=== PATIENT | female | born 1935 | race Caucasian/White ===

== ENCOUNTER 2017-08-01 21:44 | Emergency (ER) | payer MEDICARE, OTHER ==
[2017-08-01 23:25] LABS: Troponin I Less than 0.010 ng/mL (< 0.028)
== END 2017-08-02 01:20 | disposition home or self-care (01) ==
LOC: ERS 21:44
DX: I10 Essential (primary) hypertension (principal); I48.0 Paroxysmal atrial fibrillation; J44.9 Chronic obstructive pulmonary disease, unspecified; E78.5 Hyperlipidemia, unspecified; F41.9 Anxiety disorder, unspecified; I25.2 Old myocardial infarction; Z79.52 Long term (current) use of systemic steroids; Z99.81 Dependence on supplemental oxygen
CPT/HCPCS: 36415; 83880; 93005

== ENCOUNTER 2017-10-08 14:21 | Inpatient (IN) | payer MEDICARE, OTHER ==
[2017-10-08 14:58] LABS: #Eosinphils 0.2 thou/uL (0.0-0.7); #Lymphocytes 0.7 thou/uL (1.20-3.40); #Monocytes 1.4 thou/uL (0.11-0.59); #Neutrophils 10.4 thou/uL (1.40-6.50); %Basophils 0.2 % (0.0-1.0); %Eosinophils 1.5 % (0.0-10.0); %Lymphocytes 5.6 % (21.0-51.0); %Monocytes 10.7 % (0.0-10.0); %Neutrophils 82.1 % (42.0-75.0); Hemoglobin 14.3 g/dL (12.0-16.0); Mean Corpuscular HGB CONC 31.9 g/dL (32.0-36.0); Mean Corpuscular Hemoglobin 32.6 pg (27.0-31.0); Mean Platelet Volume 7.4 fL (7.4-10.4); Platelet Count 308 thou/uL (130-400); RBC Distribution Width 11.6 % (11.5-14.5); Red Blood Cell (RBC) Count 4.37 mill/uL (4.20-5.40); White Blood Cell (WBC) Count 12.7 thou/uL (4.8-10.8)
[2017-10-08 15:04] LABS: INR-International Normal Ratio 1.1; PTT 38.9 SEC (22.9-36.1)
[2017-10-08] MEDS ORDERED: Dexamethasone 10 MG/ML VIAL ONE (15:05)
[2017-10-08] MEDS ORDERED: Albuterol Sulfate 2.5 mg/0.5 ml Neb ONE (15:07)
[2017-10-08 15:21] LABS: Actual Bicarbonate (HCO3a) 28.7 mEq/L (22-26); Base Excess (BEa) 1.5 mEq/L (0 (+/-) 2.5); CO2 Tension 56.5 mmHg (35.0-45.0); Calcium, Ionized 1.2 mmol/L (1.12-1.30); Hematocrit-ABG 41.9 % (36.0-47.0); Hemoglobin (Hb) 13.2 g/dL (12.0-16.0); O2 Tension (PaO2) 120.3 mmHg (80.0-100.0); pH, Arterial 7.32 (7.35-7.45)
[2017-10-08 15:21] LABS: ALT (SGPT) 20 U/L (8-55); AST (SGOT) 17 U/L (5-34); Albumin 4.3 g/dL (3.4-4.8); Alkaline Phosphatase 59 U/L (40-150); Anion Gap 9 mmol/L (10-20); BUN (Urea Nitrogen) 16 mg/dL (9.8-20.1); Bilirubin, Total 0.5 mg/dL (0.2-1.2); CK (CPK) 81 U/L (29-168); Calc. Creatinine Clearance 0 mL/min (70-130); Calcium 9.5 mg/dL (7.8-10.44); Carbon Dioxide 32 mmol/L (23-31); Chloride 101 mmol/L (98-107); Estimated GFR-MDRD 67; Globulin 2.8 g/dL (2.4-3.5); Glucose 113 mg/dL (83-110); Lipase 9 U/L (8-78); Protein, Total 7.1 g/dL (6.0-8.3); Sodium 138 mmol/L (136-145)
[2017-10-08 15:22] LABS: ALV-art Gradient 66.475 (0-20); Puncture Site RRA
[2017-10-08 15:24] LABS: CKMB 3.5 ng/mL (0-6.6); Troponin I Less than 0.010 ng/mL (< 0.028)
--- NOTE | 2017-10-08 15:29 | RAD ---
CHEST ONE VIEW: Comparison: 08-01-17 History: Dyspnea. FINDINGS: Portable upright chest. Normal cardiac silhouette. Slight elongation of the aorta. Pulmonary vessels and hilum are normal. Costophrenic angles are clear. Lungs are hyperinflated. Chronic changes are not ed. No consolidation or mass. Stable emphysematous changes in the lung apices with slight increased l ucency. There is no pneumothorax or osseous abnormality. IMPRESSION: Hyperinflation. COPD. Emphysema. No acute process. POS: H
[2017-10-08] MEDS ORDERED: Oseltamivir 75 MG CAP PO SCH (16:00)
[2017-10-08] MEDS ORDERED: Polyethylene Glycol 3350 17 GM Packet PO PRN (20:13)
[2017-10-08] MEDS ORDERED: Loratadine 10 MG TAB PO PRN (20:13)
[2017-10-08] MEDS ORDERED: Chloraseptic Spray 180 ml Bottle PO PRN (20:13)
[2017-10-08] MEDS ORDERED: cloNIDine 0.1 MG TAB PO PRN (20:13)
[2017-10-08] MEDS ORDERED: hydrALAZINE 20 MG/ML VIAL SLOW IVP PRN (20:13)
[2017-10-08] MEDS ORDERED: Nitroglycerin 0.4 MG TAB 1 EACH PO PRN (20:13)
[2017-10-08] MEDS ORDERED: Eucerin (Mineral Oil/Petrolatum,White) 30 gm Jar TOP PRN (20:13)
[2017-10-08] MEDS ORDERED: Diabetic Tussin 200 MG/10 ML UDCUP PO PRN (20:13)
[2017-10-08] MEDS ORDERED: cefTRIAXone\\ROCEPHIN 1 GM in Sodium Chloride 0.9% 100 ML IVPB SCH (20:15)
[2017-10-08] MEDS ORDERED: Senokot 8.6 MG TAB PO PRN (20:17)
--- NOTE | 2017-10-08 21:04 | HP ---
DATE OF ADMISSION: 10/08/2017 PRIMARY CARE PHYSICIAN: Dr. Hanks. PRIMARY ECMO SPECIALIST: Dr. Larkin. PRIMARY INTERNET DESIGNER: Dr. Castillo. CODE STATUS: FULL CODE. SURROGATE DECISION-MAKER: The patient makes her own decisions with the help of her family. CHIEF COMPLAINT: Shortness of breath. HISTORY OF PRESENT ILLNESS: The patient is an 81-year-old female with severe COPD, on home oxygen an d chronic steroids, hypertension and anxiety, who presented to the emergency room with worsening shor tness of breath over the last 2-3 days. She was last hospitalized at this facility in June for questionable non-ST elevation NH requiring cardiac catheterization. Over the last 2-3 days, the patient developed gradual worsening shortness of breath along with chest tightness and wheezing. She also noticed increased oxygen requirement. She felt generally weak, fat igued with some low grade fever. She denies any sick contact, palpitations, lightheadedness or synco pe. No recent immobilization, travel reported. In the emergency room, her initial vital signs showed temperature 98.8, respirations 36, pulse rate o f 103, blood pressure 182/80 with O2 saturation 86% on 4 liter nasal cannula. Her EKG showed normal sinus rhythm with some nonspecific ST-T wave changes. Her chest x-ray was negative for infiltrate. Her WBC count was 12.7 with left shift. Her influenza testing was positive for influenza A. Her ABG showed pH 7.32 with pCO2 of 56.5, pO2 of 120.3 with a bicarbonate of 28.7 on 4 liter nasal cannula. She received Tamiflu, albuterol, DuoNebs, Levaquin, Decadron with 1 liter IV fluids and magnesium in the emergency room. PAST MEDICAL HISTORY: 1. Severe chronic obstructive pulmonary disease, on home oxygen 3.5 liters and chronic steroids. 2. Paroxysmal atrial fibrillation, on anticoagulation and flecainide. 3. Hypertension. 4. Anxiety. 5. Coronary artery disease with last cardiac catheterization in June of this year, followed by Dr. Larkin. 6. Hyperlipidemia. 7. Former smoker. PAST SURGICAL HISTORY: 1. Cardiac catheterization. 2. Cardiac ablation x2. 3. Cholecystectomy. 4. Hemorrhoidectomy. 5. Arthroscopic surgery of the knee. ALLERGIES: The patient is allergic to CODEINE, LISINOPRIL, NIASPAN and SULFA. CURRENT HOME MEDICATIONS: To be verified with the patient. She does not remember all of her medicat ions. Family to bring accurate list. SOCIAL HISTORY: The patient is an ex-smoker. Denies any alcohol or drug use. FAMILY HISTORY: Significant for heart disease in her mother. REVIEW OF SYSTEMS: Cannot be reliably obtained from the patient due to current respiratory status. The patient is currently on noninvasive positive pressure ventilation. PHYSICAL EXAMINATION: GENERAL: An 81-year-old female in moderate respiratory distress. Currently, on noninvasive positive pressure ventilation. HEENT: Head atraumatic, normocephalic. Sclerae are anicteric. Dry mucous membranes. NECK: Supple, no JVD, no carotid bruit. LUNGS: Showed diffuse expiratory wheezing without significant rales. There was scattered rhonchi. Lungs were symmetrical. HEART: S1, S2 present. Regular rate and rhythm. No rubs or gallops appreciated. ABDOMEN: Soft, nontender, bowel sounds present. EXTREMITIES: Trace edema in bilateral lower extremities. SKIN: Warm and dry. LYMPH NODES: No palpable lymph nodes in the neck. PERIPHERAL VASCULAR: Radial pulses palpable bilaterally. MUSCULOSKELETAL: No joint swelling or tenderness. IMAGING: EKG by my review as discussed above. Chest x-ray by my review was negative for infiltrate. LABORATORY FINDINGS: 1. CBC showed WBC 12.7 with hemoglobin 14.3, hematocrit 44.7, platelet count of 308 with 82% neutrop hils. 2. ABGs as discussed above. 3. Chemistries showed sodium 138, potassium 4, chloride 101, bicarb 32, BUN of 16, creatinine 0.82. Lactic acid was 0.9. 4. Influenzae A testing was positive. IMPRESSION: 1. Acute on chronic hypoxic and hypercapnic respiratory failure. 2. Chronic obstructive pulmonary disease with chronic obstructive pulmonary disease exacerbation. 3. Sepsis secondary to influenza A. 4. Paroxysmal atrial fibrillation, on anticoagulation. 5. Hypertension. 6. Anxiety. 7. Coronary artery disease. 8. Hyperlipidemia. 9. Chronic kidney disease, stage 2. PLAN: The patient will be monitored in the IMCU. We will continue noninvasive positive pressure isabel tilation. Consult Dr. Castillo in a.m. Tamiflu. Resume home medications including anticoagulation onc e confirmed. Empiric antibiotics for COPD exacerbation. Nebulizer treatment. Continuous oxygen mon itoring. Isolation. Plan of care was discussed with the patient in detail. She stated understanding. The patient will require 2-3 days for stabilization.
[2017-10-08] MEDS: Apixaban 5 MG TAB PO SCH (21:22)
[2017-10-08] MEDS: Famotidine 20 MG TAB PO SCH (21:22)
[2017-10-08] MEDS: Atorvastatin Calcium 10 MG TAB PO SCH (21:22)
[2017-10-08] MEDS: Flecainide 50 MG TAB PO SCH (21:28)
[2017-10-08] MEDS: guaiFENesin ER 600 MG TAB PO SCH (21:30)
[2017-10-08] MEDS: Docusate 100 MG CAP PO SCH (21:30)
[2017-10-08] MEDS: Oseltamivir 75 MG CAP PO SCH (21:31)
[2017-10-08] MEDS: Doxycycline 100 MG CAP PO SCH (21:43)
[2017-10-08] MEDS: cefTRIAXone\\ROCEPHIN 1 GM, Syringe 0.4 ML in Sterile Water 9.6 ML SLOW IVP SCH (21:49)
[2017-10-08] MEDS: Acetaminophen 325 MG TAB PO PRN (22:05)
[2017-10-08] MEDS: ALPRAZolam 0.25 MG TAB PO PRN (22:15)
[2017-10-09 04:31] LABS: #Basophils 0.1 thou/uL (0.0-0.2); #Lymphocytes 0.2 thou/uL (1.20-3.40); #Monocytes 0.2 thou/uL (0.11-0.59); #Neutrophils 9.2 thou/uL (1.40-6.50); %Basophils 0.8 % (0.0-1.0); %Eosinophils 0.1 % (0.0-10.0); %Monocytes 2.4 % (0.0-10.0); %Neutrophils 94.7 % (42.0-75.0); Hemoglobin 12.8 g/dL (12.0-16.0); Mean Corpuscular HGB CONC 32.2 g/dL (32.0-36.0); Mean Corpuscular Hemoglobin 33.1 pg (27.0-31.0); Mean Platelet Volume 7.4 fL (7.4-10.4); Platelet Count 279 thou/uL (130-400); RBC Distribution Width 11.5 % (11.5-14.5); Red Blood Cell (RBC) Count 3.88 mill/uL (4.20-5.40); White Blood Cell (WBC) Count 9.8 thou/uL (4.8-10.8)
[2017-10-09 04:49] LABS: Albumin 3.8 g/dL (3.4-4.8); Anion Gap 13 mmol/L (10-20); BUN (Urea Nitrogen) 18 mg/dL (9.8-20.1); BUN/Creatinine Ratio 22.22; Calc. Creatinine Clearance 54 mL/min (70-130); Calcium 9.4 mg/dL (7.8-10.44); Carbon Dioxide 28 mmol/L (23-31); Chloride 103 mmol/L (98-107); Estimated GFR-MDRD 68; Glucose 139 mg/dL (83-110); Magnesium 2.3 mg/dL (1.6-2.6); Phosphorus 2.5 mg/dL (2.3-4.7); Potassium 4.6 mmol/L (3.5-5.1); Sodium 139 mmol/L (136-145)
[2017-10-09] MEDS: Doxycycline 100 MG CAP PO SCH ×2 (09:01→21:03)
[2017-10-09] MEDS: Flecainide 50 MG TAB PO SCH ×2 (09:01→21:03)
[2017-10-09] MEDS: Oseltamivir 75 MG CAP PO SCH ×2 (09:02→21:04)
[2017-10-09] MEDS: Calcium Carbonate + Vit D 1 TAB PO SCH ×2 (09:02→17:04)
[2017-10-09] MEDS: Acetaminophen 325 MG TAB PO PRN (09:02)
[2017-10-09] MEDS: Famotidine 20 MG TAB PO SCH ×2 (09:02→21:04)
[2017-10-09] MEDS: Furosemide 40 MG TAB PO SCH (09:03)
[2017-10-09] MEDS: guaiFENesin ER 600 MG TAB PO SCH ×2 (09:03→21:04)
[2017-10-09] MEDS: Docusate 100 MG CAP PO SCH ×2 (09:03→21:04)
[2017-10-09] MEDS: Aspirin 81 mg Enteric Coated Tablet PO SCH (09:03)
[2017-10-09] MEDS: Apixaban 5 MG TAB PO SCH ×2 (09:03→21:04)
[2017-10-09] MEDS: Saccharomyces boulardii 250 MG CAP PO SCH (09:03)
[2017-10-09] MEDS: Multivit, Therapeutic 1 TAB PO SCH (09:03)
[2017-10-09] MEDS: Spironolactone 25 MG TAB PO SCH (09:03)
[2017-10-09] MEDS: Mometasone/Formoterol 120 PUFF INHALER INH SCH ×2 (09:57→18:51)
--- NOTE | 2017-10-09 12:32 | CON ---
DATE OF CONSULTATION: 10/09/2017 CONSULTING PHYSICIAN: Dr. Stephenson REASON FOR CONSULTATION: Acute on chronic respiratory failure related to flu. HISTORY OF PRESENT ILLNESS: Ms. Sharp is an 81-year-old female who is normally followed by my partn er, Dr. Castillo, for pulmonary concerns. Yesterday, she developed fever and increasing shortness of br eath. She tried to treat it at home with her routine pulmonary medications, but failed and subsequen tly came to the emergency room for further evaluation. She was tried on BiPAP last night, that seeme d to help some, but she says that ultimately it caused her to become too dry and it is now off this m orning. She says she feels better this morning. PAST MEDICAL HISTORY: 1. Severe COPD requiring home O2. 2. Paroxysmal atrial fibrillation. 3. Hypertension. 4. Anxiety. 5. Coronary artery disease. 6. Hyperlipidemia. 7. Tobacco abuse in the past. PAST SURGICAL HISTORY: 1. Cardiac catheterization. 2. Cardiac ablation. 3. Cholecystectomy. 4. Hemorrhoidectomy. 5. Knee arthroscopy. ALLERGIES: CODEINE, LISINOPRIL, NIASPAN and SULFA.. MEDICATIONS PRIOR TO ADMISSION: Nitrostat as needed, prednisone 10 mg daily, Guaifenesin 600 mg q.12 h., Zantac 75 mg daily, DuoNeb every 4 hours, Advair Diskus 500/50 one inhalation twice daily, acetam inophen 600 q.4h. as needed, Xanax 0.25 mg b.i.d. as needed for anxiety, Tambocor 75 mg b.i.d., Lipit or 10 mg daily, aspirin 81 mg daily, Eliquis 5 mg b.i.d., verapamil 240 mg daily, Aldactone 25 mg gayathri ly, Furosemide 40 mg daily. SOCIAL HISTORY: Former smoker, does not currently smoke. Does not use alcohol, does not use illicit drugs. FAMILY MEDICAL HISTORY: Remarkable for coronary artery disease. REVIEW OF SYSTEMS: Ten point review of systems is negative with the following exceptions; she has [place] d fever. She has had shortness of breath. She has had chest congestion. She also has pleuritic vel st pain when she inhales. PHYSICAL EXAMINATION: VITAL SIGNS: Temperature 98.9, pulse 105, respirations 17, O2 sat 98% on 3.5 liters. GENERAL: She is awake and alert. She is in some mild respiratory distress. HEENT: Her pupils react. Sclerae are anicteric. Oropharynx clear. NECK: No JVD, no bruits. LUNGS: She has bilateral expiratory wheezing. CARDIOVASCULAR: S1, S2 regular, without murmur. ABDOMEN: Soft, nontender, nondistended. EXTREMITIES: Without clubbing, cyanosis, edema. NEUROLOGIC: She moves all 4 extremities. SKIN: Showed no obvious lesions. LABORATORY DATA: ABG - pH 7.32, pCO2 56, PO2 120, reviewed by myself personally. This is indicative of chronic respiratory acidosis. White blood cell count 9.8, hematocrit 39.8, platelet count 279. Sodium 139, potassium 4.6, chloride 103, CO2 28, BUN 18, creatinine 0.8, glucose 139. Chest x-ray re viewed personally by myself shows some mild cardiomegaly. She has flattening of both diaphragms. Sh e has no acute infiltrates. Flu test was positive for influenza A. ASSESSMENT: 1. Influenza. 1. Acute on chronic respiratory failure secondary to chronic obstructive pulmonary disease. 2. Chronic obstructive pulmonary disease with exacerbation. PLAN: 1. The patient will continue to require BiPAP intermittently. 2. Change Solu-Medrol to Decadron. 3. Continue nebulization treatments. 4. Continue Tamiflu. 5. Consider stopping antibiotics in the next day or two. Fifty percent of the time spent on this encounter was used to review medical records, to discuss with family at bedside.
[2017-10-09] MEDS: Dexamethasone 4 mg/ml Vial SLOW IVP SCH ×3 (14:22→23:50)
--- NOTE | 2017-10-09 16:39 | PDOC.PN ---
- Subjective Encounter Start Date: 10/09/17 Encounter Start Time: 15:00 Patient seen and examined. SOB/Wheezing +. No overnight events - Objective Resuscitation Status: Resuscitation Status FULL:Full Resuscitation MAR Reviewed: Yes Vital Signs & Weight: Vital Signs (12 hours) Temp Pulse Resp BP Pulse Ox 10/09/17 16:07 98.9 F 100 20 134/53 L 97 10/09/17 15:50 96 24 H 99 10/09/17 12:05 98.3 F 105 H 18 125/58 L 96 10/09/17 07:51 98.9 F 105 H 17 98 10/09/17 07:35 98.9 F 105 H 17 164/86 H 96 I&O: 10/08/17 10/09/17 10/10/17 06:59 06:59 06:59 Intake Total 590 Output Total 1020 Balance -430 Result Diagrams: 10/09/17 03:50 10/09/17 03:50 EKG Reviewed by me: Yes (Tele SR) Phys Exam - Physical Examination Constitutional: NAD Respiratory: no rales, no rhonchi, wheezing present Symmetrical Cardiovascular: RRR, no rub no heaves/pulsation Gastrointestinal: soft, non-tender, no distention, positive bowel sounds Musculoskeletal: no edema Neurological: moves all 4 limbs Psychiatric: A&O x 3 Dx/Plan - Plan plan discussed w/ family, continue antibiotics, respiratory therapy IMPRESSION: 1. Acute on chronic hypoxic and hypercapnic respiratory failure. s/p NIPPV 2. Chronic obstructive pulmonary disease with chronic obstructive pulmonary disease exacerbation. 3. Sepsis secondary to influenza A. - on Tamiflu 4. Paroxysmal atrial fibrillation, on anticoagulation. 5. Hypertension. 6. Anxiety. 7. Coronary artery disease. 8. Hyperlipidemia. 9. Chronic kidney disease, stage 2. PLAN: * On Dexamethasone * AM labs * Pulm input appreciated * Cont current home meds as below * Monitor in IMCU Review of Systems - Review of Systems Constitutional: negative: fever, chills, sweats, weakness, malaise Cardiovascular: negative: chest pain, palpitations, orthopnea, paroxysmal nocturnal dyspnea, edema, light headedness Gastrointestinal: negative: Nausea, Vomiting, Abdominal Pain, Diarrhea, Constipation, Melena, Hematochezia - Medications/Allergies Allergies/Adverse Reactions: Allergies Allergy/AdvReac Type Severity Reaction Status Date / Time codeine Allergy Unknown Verified 10/08/17 18:49 lisinopril Allergy Unknown Verified 10/08/17 18:49 niacin Allergy Unknown Verified 10/08/17 18:49 [From Niaspan Extended-Release] Sulfa (Sulfonamide Allergy Unknown Verified 10/08/17 18:49 Antibiotics) Medications: Current Medications Acetaminophen (Tylenol) 650 mg PO Q4H PRN PRN Reason: Headache/Fever or Pain Last Admin: 10/09/17 09:02 Dose: 650 mg Albuterol/Ipratropium (Duoneb) 3 ml NEB [id number] PRN PRN Reason: SOB &/or Wheezing Albuterol/Ipratropium (Duoneb) 3 ml NEB [id number] [facility] Last Admin: 10/09/17 15:50 Dose: 3 ml Alprazolam (Xanax) 0.25 mg PO BID PRN PRN Reason: Anxiety Last Admin: 10/08/17 22:15 Dose: 0.25 mg Apixaban (Eliquis) 5 mg PO BID [facility] Last Admin: 10/09/17 09:03 Dose: 5 mg Aspirin (Ecotrin) 81 mg PO DAILY [facility] Last Admin: 10/09/17 09:03 Dose: 81 mg Atorvastatin Calcium (Lipitor) 10 mg PO 2100 [facility] Last Admin: 10/08/17 21:22 Dose: 10 mg Calcium Carbonate (Tums) 1,000 mg PO Q4H PRN PRN Reason: Heartburn or Indigestion Calcium/Vitamin D (Caltrate 600 + Vit D) 1 tab PO BID-WM [facility] Last Admin: 10/09/17 09:02 Dose: 1 tab Clonidine (Catapres) 0.1 mg PO Q4H PRN PRN Reason: Systolic BP > 180/ DBP >100 Dexamethasone (Decadron) 4 mg SLOW IVP Q6HR [facility] Last Admin: 10/09/17 14:22 Dose: 4 mg Docusate Sodium (Colace) 100 mg PO BID [facility] Last Admin: 10/09/17 09:03 Dose: 100 mg Doxycycline Hyclate (Vibramycin) 100 mg PO BID [facility] Last Admin: 10/09/17 09:01 Dose: 100 mg Famotidine (Pepcid) 20 mg PO BID [facility] Last Admin: 10/09/17 09:02 Dose: 20 mg Flecainide Acetate (Tambocor) 75 mg PO BID [facility] Last Admin: 10/09/17 09:01 Dose: 75 mg Furosemide (Lasix) 40 mg PO DAILY [facility] Last Admin: 10/09/17 09:03 Dose: 40 mg Guaifenesin (Robitussin Sf) 200 mg PO Q4H PRN PRN Reason: Cough Guaifenesin (Mucinex) 600 mg PO Q12HR [facility] Last Admin: 10/09/17 09:03 Dose: 600 mg Hydralazine HCl (Apresoline) 10 mg SLOW IVP Q4H PRN PRN Reason: SBP Greater Than 180 Ceftriaxone Sodium 1 gm/ (Syringe 0.4 ml/ Sterile Water) 10 mls @ 120 mls/hr SLOW IVP 2100 [facility] Last Admin: 10/08/17 21:49 Dose: 10 mls Loratadine (Claritin) 10 mg PO DAILYPRN PRN PRN Reason: Sinus Symptoms Magnesium Hydroxide (Milk Of Magnesium) 30 ml PO DAILYPRN PRN PRN Reason: Constipation Mineral Oil/White Petrolatum (Eucerin Cream) 0 gm TOP BIDPRN PRN PRN Reason: Dry Skin Mometasone Furoate/Formoterol Fumar (Dulera 200 Mcg/5 Mcg Inhaler) 2 puff INH BID-RT [facility] Last Admin: 10/09/17 09:57 Dose: Not Given Multivitamins (Theragran) 1 tab PO DAILY [facility] Last Admin: 10/09/17 09:03 Dose: 1 tab Nitroglycerin (Nitrostat) 0.4 mg PO Q5MIN PRN PRN Reason: Chest Pain Oseltamivir Phosphate (Tamiflu) 75 mg PO BID [facility] Stop: 10/12/17 21:01 Last Admin: 10/09/17 09:02 Dose: 75 mg Phenol (Chloraseptic [place] 180 Ml Bot) 0 ml PO BIDPRN PRN PRN Reason: Sore Throat Polyethylene Glycol (Miralax) 17 gm PO DAILY PRN PRN Reason: Constipation Saccharomyces Boulardii (Florastor) 250 mg PO DAILY [facility] Last Admin: 10/09/17 09:03 Dose: 250 mg Senna (Senokot) 2 tab PO HSPRN PRN PRN Reason: Constipation Spironolactone (Aldactone) 25 mg PO DAILY [facility] Last Admin: 10/09/17 09:03 Dose: 25 mg Throat Lozenges (Cepastat Lozenges) 1 rizwana PO Q2H PRN PRN Reason: Sore Throat Verapamil HCl (Calan Sr) 240 mg PO HS [facility]
[2017-10-09] MEDS: ALPRAZolam 0.25 MG TAB PO PRN (19:08)
[2017-10-09] MEDS: Atorvastatin Calcium 10 MG TAB PO SCH (21:04)
[2017-10-09] MEDS: cefTRIAXone\\ROCEPHIN 1 GM, Syringe 0.4 ML in Sterile Water 9.6 ML SLOW IVP SCH (21:16)
[2017-10-10 04:48] LABS: Albumin 3.7 g/dL (3.4-4.8); Anion Gap 13 mmol/L (10-20); BUN (Urea Nitrogen) 22 mg/dL (9.8-20.1); BUN/Creatinine Ratio 25.29; Calc. Creatinine Clearance 51 mL/min (70-130); Calcium 9.4 mg/dL (7.8-10.44); Carbon Dioxide 26 mmol/L (23-31); Chloride 101 mmol/L (98-107); Estimated GFR-MDRD 62; Glucose 166 mg/dL (83-110); Magnesium 2.1 mg/dL (1.6-2.6); Phosphorus 3.1 mg/dL (2.3-4.7); Potassium 4.1 mmol/L (3.5-5.1); Sodium 136 mmol/L (136-145)
[2017-10-10 05:36] LABS: Band 16 % (5-11); Hemoglobin 13.2 g/dL (12.0-16.0); Lymphocytes 2 % (21-51); MDiff Complete? YES; Mean Corpuscular HGB CONC 32.1 g/dL (32.0-36.0); Mean Platelet Volume 7.6 fL (7.4-10.4); Monocytes 5 % (0-10); Neutrophil 75 % (42-75); PLT Morphology Comment Appears Adequate; Platelet Count 280 thou/uL (130-400); RBC Distribution Width 11.8 % (11.5-14.5); RBC Morphology Normal; Reactive Lymphocytes 2 % (0-10); Red Blood Cell (RBC) Count 4.01 mill/uL (4.20-5.40); White Blood Cell (WBC) Count 19.7 thou/uL (4.8-10.8)
[2017-10-10] MEDS: Dexamethasone 4 mg/ml Vial SLOW IVP SCH ×4 (05:44→20:49)
[2017-10-10] MEDS: Mometasone/Formoterol 120 PUFF INHALER INH SCH ×2 (07:54→20:12)
--- NOTE | 2017-10-10 08:31 | PDOC.PULCC ---
CCU Progress Note: Subj/Obj - Subjective Date: 10/10/17 Time: 08:29 Subjective: c/o SOB and congestion - ROS Review of Systems: cough, congestion - Objective Allergies/Adverse Reactions: Allergies Allergy/AdvReac Type Severity Reaction Status Date / Time codeine Allergy Unknown Verified 10/08/17 18:49 lisinopril Allergy Unknown Verified 10/08/17 18:49 niacin Allergy Unknown Verified 10/08/17 18:49 [From Niaspan Extended-Release] Sulfa (Sulfonamide Allergy Unknown Verified 10/08/17 18:49 Antibiotics) Medications: Current Medications Acetaminophen (Tylenol) 650 mg PO Q4H PRN PRN Reason: Headache/Fever or Pain Last Admin: 10/09/17 09:02 Dose: 650 mg Albuterol/Ipratropium (Duoneb) 3 ml NEB [id number] PRN PRN Reason: SOB &/or Wheezing Albuterol/Ipratropium (Duoneb) 3 ml NEB [id number] [facility] Last Admin: 10/10/17 07:53 Dose: Not Given Alprazolam (Xanax) 0.25 mg PO BID PRN PRN Reason: Anxiety Last Admin: 10/09/17 19:08 Dose: 0.25 mg Apixaban (Eliquis) 5 mg PO BID [facility] Last Admin: 10/09/17 21:04 Dose: 5 mg Aspirin (Ecotrin) 81 mg PO DAILY [facility] Last Admin: 10/09/17 09:03 Dose: 81 mg Atorvastatin Calcium (Lipitor) 10 mg PO 2100 [facility] Last Admin: 10/09/17 21:04 Dose: 10 mg Calcium Carbonate (Tums) 1,000 mg PO Q4H PRN PRN Reason: Heartburn or Indigestion Calcium/Vitamin D (Caltrate 600 + Vit D) 1 tab PO BID-[facility] Last Admin: 10/09/17 17:04 Dose: Not Given Clonidine (Catapres) 0.1 mg PO Q4H PRN PRN Reason: Systolic BP > 180/ DBP >100 Dexamethasone (Decadron) 2 mg SLOW IVP Q6HR [facility] Docusate Sodium (Colace) 100 mg PO BID [facility] Last Admin: 10/09/17 21:04 Dose: 100 mg Doxycycline Hyclate (Vibramycin) 100 mg PO BID [facility] Last Admin: 10/09/17 21:03 Dose: 100 mg Famotidine (Pepcid) 20 mg PO BID [facility] Last Admin: 10/09/17 21:04 Dose: 20 mg Flecainide Acetate (Tambocor) 75 mg PO BID [facility] Last Admin: 10/09/17 21:03 Dose: 75 mg Furosemide (Lasix) 40 mg PO DAILY [facility] Last Admin: 10/09/17 09:03 Dose: 40 mg Guaifenesin (Robitussin Sf) 200 mg PO Q4H PRN PRN Reason: Cough Guaifenesin (Mucinex) 600 mg PO Q12HR [facility] Last Admin: 10/09/17 21:04 Dose: 600 mg Hydralazine HCl (Apresoline) 10 mg SLOW IVP Q4H PRN PRN Reason: SBP Greater Than 180 Ceftriaxone Sodium 1 gm/ (Syringe 0.4 ml/ Sterile Water) 10 mls @ 120 mls/hr SLOW IVP 2100 [facility] Last Admin: 10/09/17 21:16 Dose: 10 mls Loratadine (Claritin) 10 mg PO DAILYPRN PRN PRN Reason: Sinus Symptoms Magnesium Hydroxide (Milk Of Magnesium) 30 ml PO DAILYPRN PRN PRN Reason: Constipation Mineral Oil/White Petrolatum (Eucerin Cream) 0 gm TOP BIDPRN PRN PRN Reason: Dry Skin Mometasone Furoate/Formoterol Fumar (Dulera 200 Mcg/5 Mcg Inhaler) 2 puff INH BID-RT [facility] Last Admin: 10/10/17 07:54 Dose: 2 puff Multivitamins (Theragran) 1 tab PO DAILY [facility] Last Admin: 10/09/17 09:03 Dose: 1 tab Nitroglycerin (Nitrostat) 0.4 mg PO Q5MIN PRN PRN Reason: Chest Pain Oseltamivir Phosphate (Tamiflu) 75 mg PO BID [facility] Stop: 10/12/17 21:01 Last Admin: 10/09/17 21:04 Dose: 75 mg Phenol (Chloraseptic [place] 180 Ml Bot) 0 ml PO BIDPRN PRN PRN Reason: Sore Throat Polyethylene Glycol (Miralax) 17 gm PO DAILY PRN PRN Reason: Constipation Saccharomyces Boulardii (Florastor) 250 mg PO DAILY [facility] Last Admin: 10/09/17 09:03 Dose: 250 mg Senna (Senokot) 2 tab PO HSPRN PRN PRN Reason: Constipation Spironolactone (Aldactone) 25 mg PO DAILY [facility] Last Admin: 10/09/17 09:03 Dose: 25 mg Throat Lozenges (Cepastat Lozenges) 1 rizwana PO Q2H PRN PRN Reason: Sore Throat Verapamil HCl (Calan Sr) 240 mg PO HS [facility] Last Admin: 10/09/17 21:03 Dose: 240 mg Vital Signs and I&O: Vital Signs Temp 96.6 F L 10/10/17 07:48 Pulse 71 10/10/17 07:48 Resp 20 10/10/17 07:48 BP 137/52 L 10/10/17 07:48 Pulse Ox 96 10/10/17 07:48 Intake & Output 10/09/17 10/10/17 10/10/17 18:59 06:59 18:59 Intake Total 660 Output Total 850 Balance -190 Weight 142 lb 9.6 oz Intake: Intake, IV Amount 60 Oral 600 Output: Urine 850 Other: Voiding Method Bedside Commode Bedside Commode Bedside Commode # Bowel Movements 1 Vent Setting: BiPAP Spontaneous Breathing Test: BIPAP/IPAP CCU Progress Note: Exam - Physical Exam HEENT: PERRLA, sclera anicteric Neck: no nodes, no JVD Cardiovascular: RRR Focused Respiratory Location: wheezes: Right, Left Gastrointestinal: soft, non-tender Musculoskeletal: no edema Neurological: non-focal, moves all 4 limbs Lymphatic: no nodes Psychiatric: normal affect, A&O x 3 Skin: no rash, normal turgor - Labs Result Diagrams: 10/10/17 03:42 10/10/17 03:42 Lab results: Laboratory Results - last 24 hr 10/10/17 10/10/17 03:42 03:42 WBC 19.7 H RBC 4.01 L Hgb 13.2 Hct 41.3 MCV 103.0 H MCH 33.0 H MCHC 32.1 RDW 11.8 Plt Count 280 MPV 7.6 Neutrophils % (Manual) 75 Band Neuts % (Manual) 16 H Lymphocytes % (Manual) 2 L Reactive Lymphs % 2 Monocytes % (Manual) 5 Plt Morphology Comment Appears Adequate RBC Morph Comment Normal Sodium 136 Potassium 4.1 Chloride 101 Carbon Dioxide 26 Anion Gap 13 BUN 22 H Creatinine 0.87 Estimated GFR (MDRD) 62 BUN/Creatinine Ratio 25.29 Glucose 166 H Calcium 9.4 Phosphorus 3.1 Magnesium 2.1 Albumin 3.7 CCU Progress Note: A/P - Problems (1) Acute respiratory failure with hypoxemia Current Visit: Yes Status: Acute Code(s): J96.01 - ACUTE RESPIRATORY FAILURE WITH HYPOXIA (2) Acute exacerbation of chronic obstructive pulmonary disease (COPD) Current Visit: No Status: Acute Code(s): J44.1 - CHRONIC OBSTRUCTIVE PULMONARY DISEASE W (ACUTE) EXACERBATION - Time Spent with Patient Time: 50% of the time was spent in coordination of care (as documented) at patient's floor/unit and/or counseling patient. - Plan Plan: Continue intermittent bipap Continue steroids Continue abx and nebs needs to stay in IMCU
[2017-10-10] MEDS: Flecainide 50 MG TAB PO SCH ×2 (09:45→20:50)
[2017-10-10] MEDS: Doxycycline 100 MG CAP PO SCH ×2 (09:45→20:52)
[2017-10-10] MEDS: Apixaban 5 MG TAB PO SCH ×2 (09:46→20:45)
[2017-10-10] MEDS: Multivit, Therapeutic 1 TAB PO SCH (09:46)
[2017-10-10] MEDS: Famotidine 20 MG TAB PO SCH ×2 (09:46→20:48)
[2017-10-10] MEDS: Saccharomyces boulardii 250 MG CAP PO SCH (09:46)
[2017-10-10] MEDS: Furosemide 40 MG TAB PO SCH (09:46)
[2017-10-10] MEDS: Spironolactone 25 MG TAB PO SCH (09:46)
[2017-10-10] MEDS: Docusate 100 MG CAP PO SCH ×2 (09:47→20:47)
[2017-10-10] MEDS: Oseltamivir 75 MG CAP PO SCH ×2 (09:47→20:52)
[2017-10-10] MEDS: guaiFENesin ER 600 MG TAB PO SCH ×2 (09:47→20:48)
[2017-10-10] MEDS: Calcium Carbonate + Vit D 1 TAB PO SCH ×2 (09:48→16:08)
[2017-10-10] MEDS: Aspirin 81 mg Enteric Coated Tablet PO SCH (09:48)
--- NOTE | 2017-10-10 10:39 | RAD ---
CHEST ONE VIEW: HISTORY: Dyspnea. COMPARISON: 10/08/2017 FINDINGS: The cardiac silhouette remains magnified by projection. The pulmonary vasculature is unremarkable. Scattered areas of parenchymal scarring are stable. The lungs remain hyperinflated. Calcification i s apparent within the aorta. surveillance system monitor leads overly the chest. IMPRESSION: Chronic obstructive pulmonary disease and other chronic type findings appear stable. POS: [facility]
[2017-10-10] MEDS: ALPRAZolam 0.25 MG TAB PO PRN ×2 (10:53→21:00)
[2017-10-10] MEDS: Atorvastatin Calcium 10 MG TAB PO SCH (20:48)
[2017-10-10] MEDS: cefTRIAXone\\ROCEPHIN 1 GM, Syringe 0.4 ML in Sterile Water 9.6 ML SLOW IVP SCH (20:48)
[2017-10-10] MEDS: Acetaminophen 325 MG TAB PO PRN (21:01)
--- NOTE | 2017-10-10 22:52 | PDOC.PN ---
- Subjective Encounter Start Date: 10/10/17 Encounter Start Time: 18:00 Patient seen and examined. SOB +. No overnight events - Objective Resuscitation Status: Resuscitation Status FULL:Full Resuscitation MAR Reviewed: Yes Vital Signs & Weight: Vital Signs (12 hours) Temp Pulse Resp BP Pulse Ox 10/10/17 22:20 82 22 H 136/45 L 100 10/10/17 22:04 82 20 92 L 10/10/17 20:00 97.8 F 85 20 138/45 L 96 10/10/17 18:25 77 18 97 10/10/17 15:39 96.4 F L 75 17 109/49 L 97 10/10/17 11:20 97.3 F L 92 20 148/49 H 95 Weight Weight 142 lb 9.6 oz I&O: 10/09/17 10/10/17 10/11/17 06:59 06:59 06:59 Intake Total 590 660 470 Output Total 1020 850 400 Balance -430 -190 70 Result Diagrams: 10/10/17 03:42 10/11/17 04:01 EKG Reviewed by me: Yes (Tele SR) Phys Exam - Physical Examination Pt in mild resp distress Respiratory: no rales, wheezing present Cardiovascular: RRR, no rub Gastrointestinal: soft, non-tender, positive bowel sounds Musculoskeletal: no edema Neurological: moves all 4 limbs Dx/Plan - Plan IMPRESSION: 1. Acute on chronic hypoxic and hypercapnic respiratory failure. on intermittent NIPPV 2. Chronic obstructive pulmonary disease with chronic obstructive pulmonary disease exacerbation. 3. Sepsis secondary to influenza A. - on Tamiflu 4. Paroxysmal atrial fibrillation, on anticoagulation. 5. Hypertension. 6. Anxiety. 7. Coronary artery disease. 8. Hyperlipidemia. 9. Chronic kidney disease, stage 2. PLAN: * Cont intermittent NIPPV per pulmonary * Cont Steroids/Tamiflu * AM labs * Cont current meds as below Review of Systems - Review of Systems Cardiovascular: negative: chest pain, palpitations, orthopnea, paroxysmal nocturnal dyspnea, edema, light headedness Gastrointestinal: negative: Nausea, Vomiting, Abdominal Pain, Diarrhea, Constipation, Melena, Hematochezia, Other - Medications/Allergies Allergies/Adverse Reactions: Allergies Allergy/AdvReac Type Severity Reaction Status Date / Time codeine Allergy Unknown Verified 10/08/17 18:49 lisinopril Allergy Unknown Verified 10/08/17 18:49 niacin Allergy Unknown Verified 10/08/17 18:49 [From Niaspan Extended-Release] Sulfa (Sulfonamide Allergy Unknown Verified 10/08/17 18:49 Antibiotics) Medications: Current Medications Acetaminophen (Tylenol) 650 mg PO Q4H PRN PRN Reason: Headache/Fever or Pain Last Admin: 10/10/17 21:01 Dose: 650 mg Albuterol/Ipratropium (Duoneb) 3 ml NEB [id number] PRN PRN Reason: SOB &/or Wheezing Albuterol/Ipratropium (Duoneb) 3 ml NEB [id number] [facility] Last Admin: 10/10/17 22:04 Dose: 3 ml Alprazolam (Xanax) 0.25 mg PO BID PRN PRN Reason: Anxiety Last Admin: 10/10/17 21:00 Dose: 0.25 mg Apixaban (Eliquis) 5 mg PO BID [facility] Last Admin: 10/10/17 20:45 Dose: 5 mg Aspirin (Ecotrin) 81 mg PO DAILY [facility] Last Admin: 10/10/17 09:48 Dose: 81 mg Atorvastatin Calcium (Lipitor) 10 mg PO 2100 [facility] Last Admin: 10/10/17 20:48 Dose: 10 mg Calcium Carbonate (Tums) 1,000 mg PO Q4H PRN PRN Reason: Heartburn or Indigestion Calcium/Vitamin D (Caltrate 600 + Vit D) 1 tab PO BID-[facility] Last Admin: 10/10/17 16:08 Dose: Not Given Clonidine (Catapres) 0.1 mg PO Q4H PRN PRN Reason: Systolic BP > 180/ DBP >100 Dexamethasone (Decadron) 2 mg SLOW IVP 0300,0900,1500,2100 [facility] Last Admin: 10/10/17 20:49 Dose: 2 mg Docusate Sodium (Colace) 100 mg PO BID [facility] Last Admin: 10/10/17 20:47 Dose: 100 mg Doxycycline Hyclate (Vibramycin) 100 mg PO BID [facility] Last Admin: 10/10/17 20:52 Dose: 100 mg Famotidine (Pepcid) 20 mg PO BID [facility] Last Admin: 10/10/17 20:48 Dose: 20 mg Flecainide Acetate (Tambocor) 75 mg PO BID [facility] Last Admin: 10/10/17 20:50 Dose: 75 mg Furosemide (Lasix) 40 mg PO DAILY [facility] Last Admin: 10/10/17 09:46 Dose: 40 mg Guaifenesin (Robitussin Sf) 200 mg PO Q4H PRN PRN Reason: Cough Guaifenesin (Mucinex) 600 mg PO Q12HR [facility] Last Admin: 10/10/17 20:48 Dose: 600 mg Hydralazine HCl (Apresoline) 10 mg SLOW IVP Q4H PRN PRN Reason: SBP Greater Than 180 Ceftriaxone Sodium 1 gm/ (Syringe 0.4 ml/ Sterile Water) 10 mls @ 120 mls/hr SLOW IVP 2100 [facility] Last Admin: 10/10/17 20:48 Dose: 10 mls Loratadine (Claritin) 10 mg PO DAILYPRN PRN PRN Reason: Sinus Symptoms Magnesium Hydroxide (Milk Of Magnesium) 30 ml PO DAILYPRN PRN PRN Reason: Constipation Mineral Oil/White Petrolatum (Eucerin Cream) 0 gm TOP BIDPRN PRN PRN Reason: Dry Skin Mometasone Furoate/Formoterol Fumar (Dulera 200 Mcg/5 Mcg Inhaler) 2 puff INH BID-RT [facility] Last Admin: 10/10/17 20:12 Dose: 2 puff Multivitamins (Theragran) 1 tab PO DAILY [facility] Last Admin: 10/10/17 09:46 Dose: 1 tab Nitroglycerin (Nitrostat) 0.4 mg PO Q5MIN PRN PRN Reason: Chest Pain Oseltamivir Phosphate (Tamiflu) 75 mg PO BID [facility] Stop: 10/12/17 21:01 Last Admin: 10/10/17 20:52 Dose: 75 mg Phenol (Chloraseptic [place] 180 Ml Bot) 0 ml PO BIDPRN PRN PRN Reason: Sore Throat Polyethylene Glycol (Miralax) 17 gm PO DAILY PRN PRN Reason: Constipation Saccharomyces Boulardii (Florastor) 250 mg PO DAILY [facility] Last Admin: 10/10/17 09:46 Dose: 250 mg Senna (Senokot) 2 tab PO HSPRN PRN PRN Reason: Constipation Spironolactone (Aldactone) 25 mg PO DAILY [facility] Last Admin: 10/10/17 09:46 Dose: 25 mg Throat Lozenges (Cepastat Lozenges) 1 rizwana PO Q2H PRN PRN Reason: Sore Throat Verapamil HCl (Calan Sr) 240 mg PO HS [facility] Last Admin: 10/10/17 20:53 Dose: 240 mg
[2017-10-11] MEDS: Dexamethasone 4 mg/ml Vial SLOW IVP SCH ×4 (03:50→21:29)
[2017-10-11 04:56] LABS: Albumin 3.5 g/dL (3.4-4.8); Anion Gap 14 mmol/L (10-20); BUN (Urea Nitrogen) 32 mg/dL (9.8-20.1); BUN/Creatinine Ratio 35.96; Calc. Creatinine Clearance 50 mL/min (70-130); Calcium 9.2 mg/dL (7.8-10.44); Carbon Dioxide 30 mmol/L (23-31); Chloride 98 mmol/L (98-107); Estimated GFR-MDRD 61; Glucose 134 mg/dL (83-110); Magnesium 2.1 mg/dL (1.6-2.6); Phosphorus 2.8 mg/dL (2.3-4.7); Sodium 138 mmol/L (136-145)
[2017-10-11] MEDS: Calcium Carbonate 500 MG ChewTAB PO PRN (05:46)
[2017-10-11] MEDS: Mometasone/Formoterol 120 PUFF INHALER INH SCH ×2 (07:59→18:29)
[2017-10-11] MEDS: Multivit, Therapeutic 1 TAB PO SCH (08:49)
[2017-10-11] MEDS: Famotidine 20 MG TAB PO SCH ×2 (08:49→21:30)
[2017-10-11] MEDS: guaiFENesin ER 600 MG TAB PO SCH ×2 (08:49→21:30)
[2017-10-11] MEDS: Flecainide 50 MG TAB PO SCH ×2 (08:49→21:33)
[2017-10-11] MEDS: Calcium Carbonate + Vit D 1 TAB PO SCH ×2 (08:49→16:57)
[2017-10-11] MEDS: Apixaban 5 MG TAB PO SCH ×2 (08:49→21:30)
[2017-10-11] MEDS: Doxycycline 100 MG CAP PO SCH ×2 (08:49→21:30)
[2017-10-11] MEDS: Docusate 100 MG CAP PO SCH ×2 (08:49→21:30)
[2017-10-11] MEDS: Oseltamivir 75 MG CAP PO SCH ×2 (08:50→21:30)
[2017-10-11] MEDS: Spironolactone 25 MG TAB PO SCH (08:50)
[2017-10-11] MEDS: Furosemide 40 MG TAB PO SCH (08:50)
[2017-10-11] MEDS: Saccharomyces boulardii 250 MG CAP PO SCH (08:51)
[2017-10-11] MEDS: Aspirin 81 mg Enteric Coated Tablet PO SCH (08:51)
[2017-10-11] MEDS ORDERED: Ondansetron ODT 4 MG TAB PO PRN (10:55)
[2017-10-11] MEDS ORDERED: Ondansetron HCl/PF 4 MG/2 ML Vial IVP PRN (10:55)
[2017-10-11] MEDS: ALPRAZolam 0.25 MG TAB PO PRN (11:00)
--- NOTE | 2017-10-11 12:06 | PRG ---
DATE OF SERVICE: 10/11/2017 SUBJECTIVE: The patient is still very upset that she does not feel better. She is coughing, very co ngested, at time nauseated. OBJECTIVE: VITAL SIGNS: Temperature 97.5, pulse 71, respirations 16, O2 sat 100% on 3 liters, blood pressure 13 5/52. HEENT: Unremarkable. NECK: No JVD. LUNGS: Coarse breath sounds. CARDIAC: S1 and S2 regular. ABDOMEN: Soft. EXTREMITIES: No edema. LABORATORY DATA: Sodium 130, potassium 4, chloride 98, CO2 30, BUN 29, creatinine 0.8, glucose 134. ASSESSMENT: 1. Influenza type A. 2. Acute respiratory failure, requiring intermittent BiPAP. 3. Underlying severe chronic obstructive pulmonary disease. PLAN: 1. Continue intermittent BiPAP. 2. Steroids, antibiotics. 3. She will need to stay in the [facility] until she feels better.
--- NOTE | 2017-10-11 20:12 | PDOC.PN ---
- Subjective Encounter Start Date: 10/11/17 Encounter Start Time: 12:30 Patient seen and examined. Nausea +. No overnight events - Objective Resuscitation Status: Resuscitation Status FULL:Full Resuscitation MAR Reviewed: Yes Vital Signs & Weight: Vital Signs (12 hours) Temp Pulse Resp BP Pulse Ox 10/11/17 18:28 89 20 96 10/11/17 15:42 78 20 98 10/11/17 15:32 96.8 F L 75 18 127/61 98 10/11/17 11:00 97.6 F 73 22 H 144/73 H 100 Weight Weight 147 lb 1 oz I&O: 10/10/17 10/11/17 10/12/17 06:59 06:59 06:59 Intake Total 069 925 5918 Output Total 986 796 0610 Balance -190 30 -850 Result Diagrams: 10/10/17 03:42 10/11/17 04:01 Phys Exam - Physical Examination Constitutional: NAD Respiratory: no rales, wheezing present Scat rhonchi, Symmetrical Cardiovascular: RRR, no rub Gastrointestinal: soft, non-tender, positive bowel sounds Musculoskeletal: no edema Neurological: moves all 4 limbs Dx/Plan - Plan IMPRESSION: 1. Acute on chronic hypoxic and hypercapnic respiratory failure. s/p NIPPV 2. Chronic obstructive pulmonary disease with chronic obstructive pulmonary disease exacerbation. 3. Sepsis secondary to influenza A. - on Tamiflu 4. Paroxysmal atrial fibrillation, on anticoagulation. 5. Hypertension. 6. Anxiety. 7. Coronary artery disease. 8. Hyperlipidemia. 9. Chronic kidney disease, stage 2. PLAN: * Zofran PRN for nausea * Cont Steroids/Tamiflu * AM labs * Cont current meds as below Review of Systems - Review of Systems Cardiovascular: negative: chest pain, palpitations, orthopnea, paroxysmal nocturnal dyspnea, edema, light headedness, other Gastrointestinal: Nausea. negative: Vomiting, Abdominal Pain, Diarrhea, Constipation, Melena, Hematochezia - Medications/Allergies Allergies/Adverse Reactions: Allergies Allergy/AdvReac Type Severity Reaction Status Date / Time codeine Allergy Unknown Verified 10/08/17 18:49 lisinopril Allergy Unknown Verified 10/08/17 18:49 niacin Allergy Unknown Verified 10/08/17 18:49 [From Niaspan Extended-Release] Sulfa (Sulfonamide Allergy Unknown Verified 10/08/17 18:49 Antibiotics) Medications: Current Medications Acetaminophen (Tylenol) 650 mg PO Q4H PRN PRN Reason: Headache/Fever or Pain Last Admin: 10/10/17 21:01 Dose: 650 mg Albuterol/Ipratropium (Duoneb) 3 ml NEB [id number] PRN PRN Reason: SOB &/or Wheezing Albuterol/Ipratropium (Duoneb) 3 ml NEB [id number] Last Admin: 10/11/17 18:28 Dose: 3 ml Alprazolam (Xanax) 0.25 mg PO BID PRN PRN Reason: Anxiety Last Admin: 10/11/17 11:00 Dose: 0.25 mg Apixaban (Eliquis) 5 mg PO BID [facility] Last Admin: 10/11/17 08:49 Dose: 5 mg Aspirin (Ecotrin) 81 mg PO DAILY [facility] Last Admin: 10/11/17 08:51 Dose: 81 mg Atorvastatin Calcium (Lipitor) 10 mg PO 2100 [facility] Last Admin: 10/10/17 20:48 Dose: 10 mg Calcium Carbonate (Tums) 1,000 mg PO Q4H PRN PRN Reason: Heartburn or Indigestion Last Admin: 10/11/17 05:46 Dose: 1,000 mg Calcium/Vitamin D (Caltrate 600 + Vit D) 1 tab PO BID-[facility] Last Admin: 10/11/17 16:57 Dose: Not Given Clonidine (Catapres) 0.1 mg PO Q4H PRN PRN Reason: Systolic BP > 180/ DBP >100 Dexamethasone (Decadron) 2 mg SLOW IVP 0300,0900,1500,2100 [facility] Last Admin: 10/11/17 14:09 Dose: 2 mg Docusate Sodium (Colace) 100 mg PO BID [facility] Last Admin: 10/11/17 08:49 Dose: 100 mg Doxycycline Hyclate (Vibramycin) 100 mg PO BID [facility] Last Admin: 10/11/17 08:49 Dose: 100 mg Famotidine (Pepcid) 20 mg PO BID [facility] Last Admin: 10/11/17 08:49 Dose: 20 mg Flecainide Acetate (Tambocor) 75 mg PO BID [facility] Last Admin: 10/11/17 08:49 Dose: 75 mg Furosemide (Lasix) 40 mg PO DAILY [facility] Last Admin: 10/11/17 08:50 Dose: 40 mg Guaifenesin (Robitussin Sf) 200 mg PO Q4H PRN PRN Reason: Cough Guaifenesin (Mucinex) 600 mg PO Q12HR [facility] Last Admin: 10/11/17 08:49 Dose: 600 mg Hydralazine HCl (Apresoline) 10 mg SLOW IVP Q4H PRN PRN Reason: SBP Greater Than 180 Ceftriaxone Sodium 1 gm/ (Syringe 0.4 ml/ Sterile Water) 10 mls @ 120 mls/hr SLOW IVP 2100 [facility] Last Admin: 10/10/17 20:48 Dose: 10 mls Loratadine (Claritin) 10 mg PO DAILYPRN PRN PRN Reason: Sinus Symptoms Magnesium Hydroxide (Milk Of Magnesium) 30 ml PO DAILYPRN PRN PRN Reason: Constipation Mineral Oil/White Petrolatum (Eucerin Cream) 0 gm TOP BIDPRN PRN PRN Reason: Dry Skin Mometasone Furoate/Formoterol Fumar (Dulera 200 Mcg/5 Mcg Inhaler) 2 puff INH BID-[facility] Last Admin: 10/11/17 18:29 Dose: 2 puff Multivitamins (Theragran) 1 tab PO DAILY [facility] Last Admin: 10/11/17 08:49 Dose: 1 tab Nitroglycerin (Nitrostat) 0.4 mg PO Q5MIN PRN PRN Reason: Chest Pain Ondansetron HCl (Zofran Odt) 4 mg PO Q6H PRN PRN Reason: Nausea/Vomiting Ondansetron HCl (Zofran) 4 mg IVP Q6H PRN PRN Reason: Nausea/Vomiting Oseltamivir Phosphate (Tamiflu) 75 mg PO BID [facility] Stop: 10/12/17 21:01 Last Admin: 10/11/17 08:50 Dose: 75 mg Phenol (Chloraseptic [place] 180 Ml Bot) 0 ml PO BIDPRN PRN PRN Reason: Sore Throat Polyethylene Glycol (Miralax) 17 gm PO DAILY PRN PRN Reason: Constipation Saccharomyces Boulardii (Florastor) 250 mg PO DAILY [facility] Last Admin: 10/11/17 08:51 Dose: 250 mg Senna (Senokot) 2 tab PO HSPRN PRN PRN Reason: Constipation Spironolactone (Aldactone) 25 mg PO DAILY [facility] Last Admin: 10/11/17 08:50 Dose: 25 mg Throat Lozenges (Cepastat Lozenges) 1 rizwana PO Q2H PRN PRN Reason: Sore Throat Verapamil HCl (Calan Sr) 240 mg PO HS [facility] Last Admin: 10/10/17 20:53 Dose: 240 mg
[2017-10-11] MEDS: cefTRIAXone\\ROCEPHIN 1 GM, Syringe 0.4 ML in Sterile Water 9.6 ML SLOW IVP SCH (21:28)
[2017-10-11] MEDS: Atorvastatin Calcium 10 MG TAB PO SCH (21:30)
[2017-10-11] MEDS: Senokot S 8.6-50 MG TAB PO SCH (21:30)
[2017-10-12] MEDS: Dexamethasone 4 mg/ml Vial SLOW IVP SCH ×3 (02:03→20:54)
[2017-10-12 04:59] LABS: Albumin 3.5 g/dL (3.4-4.8); Anion Gap 12 mmol/L (10-20); BUN (Urea Nitrogen) 26 mg/dL (9.8-20.1); BUN/Creatinine Ratio 30.23; Calc. Creatinine Clearance 51 mL/min (70-130); Calcium 9.3 mg/dL (7.8-10.44); Carbon Dioxide 31 mmol/L (23-31); Chloride 95 mmol/L (98-107); Estimated GFR-MDRD 63; Glucose 119 mg/dL (83-110); Phosphorus 3.2 mg/dL (2.3-4.7); Sodium 134 mmol/L (136-145)
[2017-10-12 05:10] LABS: Band 4 % (5-11); Lymphocytes 2 % (21-51); MDiff Complete? YES; Macrocytosis SLIGHT = 6-15 cells (100X) (0-5/hpf); Mean Corpuscular HGB CONC 32.7 g/dL (32.0-36.0); Mean Corpuscular Hemoglobin 33.2 pg (27.0-31.0); Mean Platelet Volume 7.4 fL (7.4-10.4); Monocytes 7 % (0-10); Neutrophil 87 % (42-75); Nucleated RBC 1 % (0); PLT Morphology Comment Appears Adequate; Platelet Count 295 thou/uL (130-400); RBC Distribution Width 11.4 % (11.5-14.5); Red Blood Cell (RBC) Count 3.91 mill/uL (4.20-5.40)
[2017-10-12] MEDS: Mometasone/Formoterol 120 PUFF INHALER INH SCH ×2 (08:00→20:52)
[2017-10-12] MEDS: Docusate 100 MG CAP PO SCH ×2 (08:21→20:54)
[2017-10-12] MEDS: Famotidine 20 MG TAB PO SCH ×2 (08:22→20:55)
[2017-10-12] MEDS: Flecainide 50 MG TAB PO SCH ×2 (08:22→20:55)
[2017-10-12] MEDS: Aspirin 81 mg Enteric Coated Tablet PO SCH (08:22)
[2017-10-12] MEDS: Calcium Carbonate + Vit D 1 TAB PO SCH ×2 (08:22→17:40)
[2017-10-12] MEDS: Apixaban 5 MG TAB PO SCH ×2 (08:23→20:53)
[2017-10-12] MEDS: Oseltamivir 75 MG CAP PO SCH (08:23)
[2017-10-12] MEDS: Multivit, Therapeutic 1 TAB PO SCH (08:23)
[2017-10-12] MEDS: Doxycycline 100 MG CAP PO SCH ×2 (08:23→20:55)
[2017-10-12] MEDS: Spironolactone 25 MG TAB PO SCH (08:24)
[2017-10-12] MEDS: guaiFENesin ER 600 MG TAB PO SCH ×2 (08:24→21:00)
[2017-10-12] MEDS: Furosemide 40 MG TAB PO SCH (08:24)
[2017-10-12] MEDS: Senokot S 8.6-50 MG TAB PO SCH ×2 (08:24→21:00)
[2017-10-12] MEDS: Saccharomyces boulardii 250 MG CAP PO SCH (08:24)
[2017-10-12] MEDS ORDERED: Sodium Chloride 0.65% Nasal 44 ML BOT EA NARE PRN (10:31)
[2017-10-12] MEDS ORDERED: Oxymetazoline HCl 0.05% ( 15 ML ) NASAL SCH (11:00)
--- NOTE | 2017-10-12 11:22 | PRG ---
DATE OF SERVICE: 10/12/2017 SUBJECTIVE: Ms. Sharp is complaining of nasal congestion. Overall, she feels better. She had not used the BiPAP yesterday. PHYSICAL EXAMINATION: VITAL SIGNS: On exam, temperature is 97.0, pulse 92, respirations 18, O2 sat 98% on 3 liters, blood pressure 167/64. HEENT: Unremarkable. NECK: No JVD. CHEST: Clear. No wheezing today. CARDIAC: S1 and S2 regular. ABDOMEN: Soft. EXTREMITIES: No edema. LABORATORY DATA: White blood cell count 17, hematocrit 39.6, platelet count 295. Sodium 134, potass ium 4, chloride 95, CO2 of 31, BUN 26, creatinine 0.8, glucose 119. ASSESSMENT: 1. Chronic obstructive pulmonary disease with exacerbation. 2. Influenza. 3. Status post acute respiratory failure, requiring BiPAP. 4. Nasal congestion. PLAN: 1. Transfer to the floor. 2. Saline nasal spray as needed. 3. Oxymetazoline nasal spray for the next 2 days. 4. Decrease steroid dose.
[2017-10-12] MEDS: Ondansetron HCl/PF 4 MG/2 ML Vial IVP PRN (16:34)
[2017-10-12] MEDS: ALPRAZolam 0.25 MG TAB PO PRN (20:50)
[2017-10-12] MEDS: Oxymetazoline HCl 0.05% ( 15 ML ) NASAL SCH (20:51)
[2017-10-12] MEDS: Atorvastatin Calcium 10 MG TAB PO SCH (20:53)
[2017-10-12] MEDS: Milk Of Magnesia 30 ML UDCUP PO PRN (21:18)
[2017-10-12] MEDS: cefTRIAXone\\ROCEPHIN 1 GM, Syringe 0.4 ML in Sterile Water 9.6 ML SLOW IVP SCH (21:19)
[2017-10-12] MEDS: Acetaminophen 325 MG TAB PO PRN (23:56)
[2017-10-13] MEDS: Mometasone/Formoterol 120 PUFF INHALER INH SCH ×2 (07:31→18:37)
--- NOTE | 2017-10-13 08:09 | PDOC.PN ---
- Subjective Encounter Start Date: 10/12/17 Encounter Start Time: 16:00 Patient is seen today, transfered from CCU, stable. No concerns noted exzcept for nausea. - Objective Resuscitation Status: Resuscitation Status FULL:Full Resuscitation MAR Reviewed: Yes Vital Signs & Weight: Vital Signs (12 hours) Temp Pulse Resp BP BP Pulse Ox 10/13/17 07:31 70 16 10/13/17 03:41 97.5 F L 67 18 147/74 H 98 10/13/17 02:39 78 16 98 10/12/17 23:43 97.8 F 75 20 151/70 H 98 10/12/17 23:31 90 16 96 10/12/17 21:18 142/111 H 10/12/17 20:52 98.0 F 90 18 96 10/12/17 20:41 98.0 F 90 18 184/75 H 96 Weight Weight 144 lb 11.2 oz I&O: 10/12/17 10/13/17 10/14/17 06:59 06:59 06:59 Intake Total 1920 1390 Output Total 2800 2 Balance -880 1388 Result Diagrams: 10/12/17 04:26 10/12/17 04:26 Phys Exam - Physical Examination HEENT: PERRLA, moist MMs Neck: no nodes, no JVD Respiratory: no rales, wheezing present Cardiovascular: RRR, no significant murmur Gastrointestinal: soft, non-tender Musculoskeletal: no edema, pulses present Dx/Plan - Plan cont current plan of care, continue antibiotics, PT/OT, respiratory therapy, incentive spirometry, DVT proph w/lovenox * IMPRESSION: 1. Acute on chronic hypoxic and hypercapnic respiratory failure. 2. Chronic obstructive pulmonary disease with chronic obstructive pulmonary disease exacerbation. 3. Sepsis secondary to influenza A. - on Tamiflu 4. Paroxysmal atrial fibrillation, on anticoagulation. 5. Hypertension. 6. Anxiety. 7. Coronary artery disease. 8. Hyperlipidemia. 9. Chronic kidney disease, stage 2. PLAN: Continue on nasal canula, continue on IV steroids. Zofran PRN for nausea Cont IV antibiotics/Tamiflu AM labs Cont current meds as below. - Discharge Day Encounter end time: 16:30 Review of Systems - Review of Systems Eyes: negative: Pain, Vision Change, Conjunctivae Inflammation, Eyelid Inflammation, Redness, Other ENT: negative: Ear Pain, Ear Discharge, Nose Pain, Nose Discharge, Nose Congestion, Mouth Pain, Mouth Swelling, Throat Pain, Throat Swelling, Other Respiratory: negative: Cough, Dry, Shortness of Breath, Hemoptysis, SOB with Excertion, Pleuritic Pain, Sputum, Wheezing Cardiovascular: negative: chest pain, palpitations, orthopnea, paroxysmal nocturnal dyspnea, edema, light headedness, other Gastrointestinal: Nausea, Vomiting. negative: Abdominal Pain, Diarrhea, Constipation, Melena, Hematochezia, Other Genitourinary: negative: Dysuria, Frequency, Incontinence, Hematuria, Retention , Other Musculoskeletal: negative: Neck Pain, Shoulder Pain, Arm Pain, Back Pain, Hand Pain, Leg Pain, Foot Pain, Other Skin: negative: Rash, Lesions, Jamaal, Bruising, Other - Medications/Allergies Allergies/Adverse Reactions: Allergies Allergy/AdvReac Type Severity Reaction Status Date / Time codeine Allergy Unknown Verified 10/08/17 18:49 lisinopril Allergy Unknown Verified 10/08/17 18:49 niacin Allergy Unknown Verified 10/08/17 18:49 [From Niaspan Extended-Release] Sulfa (Sulfonamide Allergy Unknown Verified 10/08/17 18:49 Antibiotics) Medications: Current Medications Acetaminophen (Tylenol) 650 mg PO Q4H PRN PRN Reason: Headache/Fever or Pain Last Admin: 10/12/17 23:56 Dose: 650 mg Albuterol/Ipratropium (Duoneb) 3 ml NEB [id number] PRN PRN Reason: SOB &/or Wheezing Albuterol/Ipratropium (Duoneb) 3 ml NEB [id number] [facility] Last Admin: 10/13/17 07:31 Dose: 3 ml Alprazolam (Xanax) 0.25 mg PO BID PRN PRN Reason: Anxiety Last Admin: 10/12/17 20:50 Dose: 0.25 mg Apixaban (Eliquis) 5 mg PO BID [facility] Last Admin: 10/12/17 20:53 Dose: 5 mg Aspirin (Ecotrin) 81 mg PO DAILY [facility] Last Admin: 10/12/17 08:22 Dose: 81 mg Atorvastatin Calcium (Lipitor) 10 mg PO 2100 [facility] Last Admin: 10/12/17 20:53 Dose: 10 mg Calcium Carbonate (Tums) 1,000 mg PO Q4H PRN PRN Reason: Heartburn or Indigestion Last Admin: 10/11/17 05:46 Dose: 1,000 mg Calcium/Vitamin D (Caltrate 600 + Vit D) 1 tab PO BID-[facility] Last Admin: 10/12/17 17:40 Dose: Not Given Clonidine (Catapres) 0.1 mg PO Q4H PRN PRN Reason: Systolic BP > 180/ DBP >100 Last Admin: 10/12/17 21:18 Dose: 0.1 mg Dexamethasone (Decadron) 2 mg SLOW IVP BID [facility] Last Admin: 10/12/17 20:54 Dose: 2 mg Docusate Sodium (Colace) 100 mg PO BID [facility] Last Admin: 10/12/17 20:54 Dose: 100 mg Doxycycline Hyclate (Vibramycin) 100 mg PO BID [facility] Last Admin: 10/12/17 20:55 Dose: 100 mg Famotidine (Pepcid) 20 mg PO BID [facility] Last Admin: 10/12/17 20:55 Dose: 20 mg Flecainide Acetate (Tambocor) 75 mg PO BID [facility] Last Admin: 10/12/17 20:55 Dose: 75 mg Furosemide (Lasix) 40 mg PO DAILY [facility] Last Admin: 10/12/17 08:24 Dose: 40 mg Guaifenesin (Robitussin Sf) 200 mg PO Q4H PRN PRN Reason: Cough Guaifenesin (Mucinex) 600 mg PO Q12HR [facility] Last Admin: 10/12/17 21:00 Dose: 600 mg Hydralazine HCl (Apresoline) 10 mg SLOW IVP Q4H PRN PRN Reason: SBP Greater Than 180 Ceftriaxone Sodium 1 gm/ (Syringe 0.4 ml/ Sterile Water) 10 mls @ 120 mls/hr SLOW IVP 2100 [facility] Last Admin: 10/12/17 21:19 Dose: 10 mls Loratadine (Claritin) 10 mg PO DAILYPRN PRN PRN Reason: Sinus Symptoms Magnesium Hydroxide (Milk Of Magnesium) 30 ml PO DAILYPRN PRN PRN Reason: Constipation Last Admin: 10/12/17 21:18 Dose: 30 ml Mineral Oil/White Petrolatum (Eucerin Cream) 0 gm TOP BIDPRN PRN PRN Reason: Dry Skin Mometasone Furoate/Formoterol Fumar (Dulera 200 Mcg/5 Mcg Inhaler) 2 puff INH BID-RT [facility] Last Admin: 10/13/17 07:31 Dose: 2 puff Multivitamins (Theragran) 1 tab PO DAILY [facility] Last Admin: 10/12/17 08:23 Dose: Not Given Nitroglycerin (Nitrostat) 0.4 mg PO Q5MIN PRN PRN Reason: Chest Pain Ondansetron HCl (Zofran) 4 mg IVP Q6H PRN PRN Reason: Nausea/Vomiting Last Admin: 10/12/17 16:34 Dose: 4 mg Oxymetazoline HCl (Oxymetazoline Hcl) 2 sprays NASAL BID [facility] Stop: 10/15/17 12:00 Last Admin: 10/12/17 20:51 Dose: 2 spr Phenol (Chloraseptic [place] 180 Ml Bot) 0 ml PO BIDPRN PRN PRN Reason: Sore Throat Polyethylene Glycol (Miralax) 17 gm PO DAILY PRN PRN Reason: Constipation Saccharomyces Boulardii (Florastor) 250 mg PO DAILY [facility] Last Admin: 10/12/17 08:24 Dose: 250 mg Senna (Senokot) 2 tab PO HSPRN PRN PRN Reason: Constipation Senna/Docusate Sodium (Senokot S) 1 tab PO BID [facility] Last Admin: 10/12/17 21:00 Dose: 1 tab Sodium Chloride ([place] Nasal [place] 0.65%) 2 ml EA NARE Q4H PRN PRN Reason: Nasal Congestion Spironolactone (Aldactone) 25 mg PO DAILY [facility] Last Admin: 10/12/17 08:24 Dose: 25 mg Throat Lozenges (Cepastat Lozenges) 1 rizwana PO Q2H PRN PRN Reason: Sore Throat Verapamil HCl (Calan Sr) 240 mg PO HS [facility] Last Admin: 10/12/17 21:00 Dose: 240 mg
[2017-10-13 09:07] LABS: #Basophils 0.1 thou/uL (0.0-0.2); #Lymphocytes 0.9 thou/uL (1.20-3.40); #Monocytes 1.2 thou/uL (0.11-0.59); #Neutrophils 12.5 thou/uL (1.40-6.50); %Basophils 0.4 % (0.0-1.0); %Eosinophils 0.1 % (0.0-10.0); %Lymphocytes 5.8 % (21.0-51.0); %Monocytes 8.3 % (0.0-10.0); %Neutrophils 85.4 % (42.0-75.0); Hemoglobin 12.8 g/dL (12.0-16.0); Mean Corpuscular HGB CONC 32.6 g/dL (32.0-36.0); Mean Corpuscular Hemoglobin 32.9 pg (27.0-31.0); Mean Platelet Volume 7.3 fL (7.4-10.4); Platelet Count 270 thou/uL (130-400); RBC Distribution Width 11.3 % (11.5-14.5); Red Blood Cell (RBC) Count 3.89 mill/uL (4.20-5.40); White Blood Cell (WBC) Count 14.7 thou/uL (4.8-10.8)
[2017-10-13] MEDS: Ondansetron HCl/PF 4 MG/2 ML Vial IVP PRN (09:09)
[2017-10-13] MEDS: Dexamethasone 4 mg/ml Vial SLOW IVP SCH (09:12)
[2017-10-13 09:28] LABS: Anion Gap 12 mmol/L (10-20); BUN (Urea Nitrogen) 24 mg/dL (9.8-20.1); Calc. Creatinine Clearance 52 mL/min (70-130); Calcium 8.9 mg/dL (7.8-10.44); Carbon Dioxide 34 mmol/L (23-31); Chloride 92 mmol/L (98-107); Estimated GFR-MDRD 62; Glucose 105 mg/dL (83-110); Sodium 134 mmol/L (136-145)
[2017-10-13] MEDS: Apixaban 5 MG TAB PO SCH ×2 (10:36→21:34)
[2017-10-13] MEDS: Multivit, Therapeutic 1 TAB PO SCH (10:36)
[2017-10-13] MEDS: Saccharomyces boulardii 250 MG CAP PO SCH (10:36)
[2017-10-13] MEDS: Flecainide 50 MG TAB PO SCH ×2 (10:36→21:34)
[2017-10-13] MEDS: Spironolactone 25 MG TAB PO SCH (10:36)
[2017-10-13] MEDS: Furosemide 40 MG TAB PO SCH (10:37)
[2017-10-13] MEDS: Aspirin 81 mg Enteric Coated Tablet PO SCH (10:37)
[2017-10-13] MEDS: Senokot S 8.6-50 MG TAB PO SCH ×2 (10:37→21:34)
[2017-10-13] MEDS: guaiFENesin ER 600 MG TAB PO SCH ×2 (10:37→21:35)
[2017-10-13] MEDS: Calcium Carbonate + Vit D 1 TAB PO SCH ×2 (10:37→17:34)
[2017-10-13] MEDS: Docusate 100 MG CAP PO SCH ×2 (10:37→21:34)
[2017-10-13] MEDS: Doxycycline 100 MG CAP PO SCH ×2 (10:37→21:34)
[2017-10-13] MEDS: Famotidine 20 MG TAB PO SCH ×2 (10:37→21:34)
[2017-10-13] MEDS: Oxymetazoline HCl 0.05% ( 15 ML ) NASAL SCH ×2 (10:38→21:35)
[2017-10-13] MEDS: ALPRAZolam 0.25 MG TAB PO PRN (10:42)
--- NOTE | 2017-10-13 14:33 | PRG ---
DATE OF SERVICE: 10/13/2017 SUBJECTIVE: She feels better and no acute complaints. PHYSICAL EXAMINATION: VITAL SIGNS: Temperature 97.7, pulse 91, respirations 22, O2 sat 94%, blood pressure 154/69. HEENT: Unremarkable. NECK: No JVD. CHEST: Few faint wheezes. CARDIAC: S1 and S2 regular. ABDOMEN: Soft. EXTREMITIES: No edema. LABORATORY DATA: White blood cell count 14.7, hematocrit 39, platelet count 270. Sodium 134, potass ium 4, chloride 92, CO2 34, BUN 24, creatinine 0.8 and glucose 105. ASSESSMENT: 1. Stable chronic obstructive pulmonary disease with resolving exacerbation. 2. Influenza. 3. Status post respiratory failure. PLAN: Finish out antibiotics convert over to oral steroids. I would anticipate that she can be disc harged in the next day or two.
--- NOTE | 2017-10-13 14:39 | PDOC.PN ---
- Subjective Encounter Start Date: 10/13/17 Encounter Start Time: 11:00 Patient is seen today, her nausea is improved. She has persistant SOB, She lives alone, she uses 3 lit of NC at home. Pt is very wheezy. - Objective Resuscitation Status: Resuscitation Status FULL:Full Resuscitation MAR Reviewed: Yes Vital Signs & Weight: Vital Signs (12 hours) Temp Pulse Resp BP Pulse Ox 10/13/17 14:14 91 16 10/13/17 12:00 97.7 F 91 22 H 154/69 H 94 L 10/13/17 10:31 60 16 10/13/17 08:00 97.5 F L 61 20 122/55 L 96 10/13/17 07:31 70 16 10/13/17 03:41 97.5 F L 67 18 147/74 H 98 10/13/17 02:39 78 16 98 Weight Weight 144 lb 11.2 oz I&O: 10/12/17 10/13/17 10/14/17 06:59 06:59 06:59 Intake Total 1920 1390 240 Output Total 2800 2 Balance -880 1388 240 Result Diagrams: 10/13/17 08:55 10/13/17 08:55 Phys Exam - Physical Examination HEENT: PERRLA, moist MMs Neck: no nodes, no JVD Respiratory: wheezing present Cardiovascular: RRR, no significant murmur Gastrointestinal: soft, non-tender, no distention Musculoskeletal: no edema, pulses present Neurological: non-focal, normal sensation Psychiatric: normal affect, A&O x 3 Skin: no rash, normal turgor Dx/Plan (1) Acute exacerbation of chronic obstructive pulmonary disease (COPD) Code(s): J44.1 - CHRONIC OBSTRUCTIVE PULMONARY DISEASE W (ACUTE) EXACERBATION Status: Acute Comment: Continue Duonebs, Prednisone,Singulair (2) Constipation Code(s): K59.00 - CONSTIPATION, UNSPECIFIED Status: Acute Comment: ? Verapamil induced (3) NSTEMI (non-ST elevated myocardial infarction) Code(s): I21.4 - NON-ST ELEVATION (NSTEMI) MYOCARDIAL INFARCTION Status: Acute (4) Afib Code(s): I48.91 - UNSPECIFIED ATRIAL FIBRILLATION Status: Chronic Qualifiers: Comment: Hx of A-fib on current Eliquis and Tambocor, current sinus rhythm (5) GERD (gastroesophageal reflux disease) Code(s): K21.9 - GASTRO-ESOPHAGEAL REFLUX DISEASE WITHOUT ESOPHAGITIS Status: Chronic - Plan cont current plan of care, continue antibiotics, PT/OT, respiratory therapy, incentive spirometry, out of bed/ambulate, DVT proph w/SCDs * . Plan: Continue with IV steroids and transition to Po Steroids BID if OK with pulmonary. Complete [place] course. Continue on PO Doxycylin, Will D/c IV rocephin COntinue with NEb Willie Neb and Albuteral nebs. Pt is On Home oxygen. H/o Atrial fibrillation, Rate Controlled now. persistant Constipation, Will try lactulose 30mg po BID today one time dose. Will continue with Famotdine for GERD. DVT prophylaxis with Lovenox Encourgae pt to walk, Continue with PT/OT evalution for Rehab. - Discharge Day Encounter end time: 11:35 Review of Systems - Review of Systems Constitutional: weakness, malaise Eyes: negative: Pain, Vision Change, Conjunctivae Inflammation, Eyelid Inflammation, Redness, Other ENT: negative: Ear Pain, Ear Discharge, Nose Pain, Nose Discharge, Nose Congestion, Mouth Pain, Mouth Swelling, Throat Pain, Throat Swelling, Other Respiratory: Cough, Shortness of Breath, SOB with Excertion, Wheezing Cardiovascular: negative: chest pain, palpitations, orthopnea, paroxysmal nocturnal dyspnea, edema, light headedness, other Gastrointestinal: Constipation Genitourinary: negative: Dysuria, Frequency, Incontinence, Hematuria, Retention , Other Skin: negative: Rash, Lesions, Jamaal, Bruising, Other Neurological: Weakness. negative: Numbness, Incoordination, Change in Speech, Confusion, Seizures, Other - Medications/Allergies Allergies/Adverse Reactions: Allergies Allergy/AdvReac Type Severity Reaction Status Date / Time codeine Allergy Unknown Verified 10/08/17 18:49 lisinopril Allergy Unknown Verified 10/08/17 18:49 niacin Allergy Unknown Verified 10/08/17 18:49 [From Niaspan Extended-Release] Sulfa (Sulfonamide Allergy Unknown Verified 10/08/17 18:49 Antibiotics) Medications: Current Medications Acetaminophen (Tylenol) 650 mg PO Q4H PRN PRN Reason: Headache/Fever or Pain Last Admin: 10/12/17 23:56 Dose: 650 mg Albuterol/Ipratropium (Duoneb) 3 ml NEB [id number] PRN PRN Reason: SOB &/or Wheezing Albuterol/Ipratropium (Duoneb) 3 ml NEB [id number] [facility] Last Admin: 10/13/17 14:14 Dose: 3 ml Alprazolam (Xanax) 0.25 mg PO BID PRN PRN Reason: Anxiety Last Admin: 10/13/17 10:42 Dose: 0.25 mg Apixaban (Eliquis) 5 mg PO BID [facility] Last Admin: 10/13/17 10:36 Dose: 5 mg Aspirin (Ecotrin) 81 mg PO DAILY [facility] Last Admin: 10/13/17 10:37 Dose: 81 mg Atorvastatin Calcium (Lipitor) 10 mg PO 2100 [facility] Last Admin: 10/12/17 20:53 Dose: 10 mg Calcium Carbonate (Tums) 1,000 mg PO Q4H PRN PRN Reason: Heartburn or Indigestion Last Admin: 10/11/17 05:46 Dose: 1,000 mg Calcium/Vitamin D (Caltrate 600 + Vit D) 1 tab PO BID-[facility] Last Admin: 10/13/17 10:37 Dose: Not Given Clonidine (Catapres) 0.1 mg PO Q4H PRN PRN Reason: Systolic BP > 180/ DBP >100 Last Admin: 10/12/17 21:18 Dose: 0.1 mg Docusate Sodium (Colace) 100 mg PO BID [facility] Last Admin: 10/13/17 10:37 Dose: 100 mg Doxycycline Hyclate (Vibramycin) 100 mg PO BID [facility] Last Admin: 10/13/17 10:37 Dose: 100 mg Famotidine (Pepcid) 20 mg PO BID [facility] Last Admin: 10/13/17 10:37 Dose: 20 mg Flecainide Acetate (Tambocor) 75 mg PO BID [facility] Last Admin: 10/13/17 10:36 Dose: 75 mg Furosemide (Lasix) 40 mg PO DAILY [facility] Last Admin: 10/13/17 10:37 Dose: 40 mg Guaifenesin (Robitussin Sf) 200 mg PO Q4H PRN PRN Reason: Cough Guaifenesin (Mucinex) 600 mg PO Q12HR [facility] Last Admin: 10/13/17 10:37 Dose: 600 mg Hydralazine HCl (Apresoline) 10 mg SLOW IVP Q4H PRN PRN Reason: SBP Greater Than 180 Lactulose (Lactulose) 30 gm PO BID ONE Stop: 10/13/17 14:36 Loratadine (Claritin) 10 mg PO DAILYPRN PRN PRN Reason: Sinus Symptoms Magnesium Hydroxide (Milk Of Magnesium) 30 ml PO DAILYPRN PRN PRN Reason: Constipation Last Admin: 10/12/17 21:18 Dose: 30 ml Mineral Oil/White Petrolatum (Eucerin Cream) 0 gm TOP BIDPRN PRN PRN Reason: Dry Skin Mometasone Furoate/Formoterol Fumar (Dulera 200 Mcg/5 Mcg Inhaler) 2 puff INH BID-RT [facility] Last Admin: 10/13/17 07:31 Dose: 2 puff Multivitamins (Theragran) 1 tab PO DAILY [facility] Last Admin: 10/13/17 10:36 Dose: 1 tab Nitroglycerin (Nitrostat) 0.4 mg PO Q5MIN PRN PRN Reason: Chest Pain Ondansetron HCl (Zofran) 4 mg IVP Q6H PRN PRN Reason: Nausea/Vomiting Last Admin: 10/13/17 09:09 Dose: 4 mg Oxymetazoline HCl (Oxymetazoline Hcl) 2 sprays NASAL BID [facility] Stop: 10/15/17 12:00 Last Admin: 10/13/17 10:38 Dose: 2 spr Phenol (Chloraseptic [place] 180 Ml Bot) 0 ml PO BIDPRN PRN PRN Reason: Sore Throat Polyethylene Glycol (Miralax) 17 gm PO DAILY PRN PRN Reason: Constipation Prednisone (Prednisone) 20 mg PO BID [facility] Saccharomyces Boulardii (Florastor) 250 mg PO DAILY [facility] Last Admin: 10/13/17 10:36 Dose: 250 mg Senna (Senokot) 2 tab PO HSPRN PRN PRN Reason: Constipation Senna/Docusate Sodium (Senokot S) 1 tab PO BID [facility] Last Admin: 10/13/17 10:37 Dose: 1 tab Sodium Chloride ([place] Nasal [place] 0.65%) 2 ml EA NARE Q4H PRN PRN Reason: Nasal Congestion Spironolactone (Aldactone) 25 mg PO DAILY [facility] Last Admin: 10/13/17 10:36 Dose: 25 mg Throat Lozenges (Cepastat Lozenges) 1 rizwana PO Q2H PRN PRN Reason: Sore Throat Verapamil HCl (Calan Sr) 240 mg PO HS [facility] Last Admin: 10/12/17 21:00 Dose: 240 mg
[2017-10-13] MEDS: Atorvastatin Calcium 10 MG TAB PO SCH (21:34)
[2017-10-13] MEDS: predniSONE 20 MG TAB PO SCH (21:35)
[2017-10-14] MEDS: Acetaminophen 325 MG TAB PO PRN (00:11)
[2017-10-14] MEDS: Ondansetron HCl/PF 4 MG/2 ML Vial IVP PRN ×2 (00:11→08:02)
[2017-10-14 05:37] LABS: Hemoglobin 13.1 g/dL (12.0-16.0); Lymphocytes 4 % (21-51); MDiff Complete? YES; Mean Corpuscular HGB CONC 32.4 g/dL (32.0-36.0); Mean Corpuscular Hemoglobin 32.9 pg (27.0-31.0); Mean Platelet Volume 7.6 fL (7.4-10.4); Monocytes 3 % (0-10); Neutrophil 93 % (42-75); PLT Morphology Comment Appears Adequate; Platelet Count 253 thou/uL (130-400); RBC Distribution Width 11.3 % (11.5-14.5); Red Blood Cell (RBC) Count 3.99 mill/uL (4.20-5.40); White Blood Cell (WBC) Count 15.1 thou/uL (4.8-10.8)
[2017-10-14] MEDS: Mometasone/Formoterol 120 PUFF INHALER INH SCH ×2 (07:11→19:38)
[2017-10-14] MEDS: Calcium Carbonate + Vit D 1 TAB PO SCH ×2 (07:56→17:21)
[2017-10-14] MEDS: Apixaban 5 MG TAB PO SCH ×2 (07:59→21:03)
[2017-10-14] MEDS: predniSONE 20 MG TAB PO SCH (07:59)
[2017-10-14] MEDS: Docusate 100 MG CAP PO SCH ×2 (07:59→21:03)
[2017-10-14] MEDS: Furosemide 40 MG TAB PO SCH (07:59)
[2017-10-14] MEDS: Saccharomyces boulardii 250 MG CAP PO SCH (08:00)
[2017-10-14] MEDS: Famotidine 20 MG TAB PO SCH ×2 (08:00→21:05)
[2017-10-14] MEDS: Multivit, Therapeutic 1 TAB PO SCH (08:00)
[2017-10-14] MEDS: Senokot S 8.6-50 MG TAB PO SCH ×2 (08:00→21:03)
[2017-10-14] MEDS: Spironolactone 25 MG TAB PO SCH (08:00)
[2017-10-14] MEDS: Aspirin 81 mg Enteric Coated Tablet PO SCH (08:01)
[2017-10-14] MEDS: guaiFENesin ER 600 MG TAB PO SCH ×2 (08:01→21:04)
[2017-10-14] MEDS: Doxycycline 100 MG CAP PO SCH ×2 (08:01→21:05)
[2017-10-14] MEDS: Flecainide 50 MG TAB PO SCH ×2 (08:02→21:05)
[2017-10-14] MEDS: Oxymetazoline HCl 0.05% ( 15 ML ) NASAL SCH ×2 (08:09→21:04)
[2017-10-14] MEDS: ALPRAZolam 0.25 MG TAB PO PRN (12:08)
[2017-10-14] MEDS: Cepastat Lozenges 1 LOZ PO PRN (14:13)
--- NOTE | 2017-10-14 14:35 | PDOC.PN ---
- Subjective Encounter Start Date: 10/14/17 Encounter Start Time: 12:00 Italia is seen today, She feels she is feeling better but not ready to go home due to very cold weather and feels she will get sicker and wheeze if she goes home as she live alone. - Objective Resuscitation Status: Resuscitation Status FULL:Full Resuscitation MAR Reviewed: Yes Vital Signs & Weight: Vital Signs (12 hours) Temp Pulse Resp BP BP Pulse Ox 10/14/17 14:20 80 14 10/14/17 10:22 80 16 10/14/17 08:00 98.0 F 80 16 149/69 H 97 10/14/17 07:11 70 16 10/14/17 04:00 97.4 F L 62 20 121/63 99 Weight Weight 147 lb 8 oz I&O: 10/13/17 10/14/17 10/15/17 06:59 06:59 06:59 Intake Total 1390 1212 240 Output Total 2 Balance 1388 1212 240 Result Diagrams: 10/14/17 03:54 10/13/17 08:55 Phys Exam - Physical Examination HEENT: PERRLA, moist MMs Neck: no nodes, no JVD Respiratory: no rhonchi, wheezing present Cardiovascular: RRR, no significant murmur Gastrointestinal: soft, non-tender Musculoskeletal: no edema, pulses present Neurological: non-focal, normal sensation Lymphatic: no nodes Psychiatric: normal affect, A&O x 3 Dx/Plan (1) Acute exacerbation of chronic obstructive pulmonary disease (COPD) Code(s): J44.1 - CHRONIC OBSTRUCTIVE PULMONARY DISEASE W (ACUTE) EXACERBATION Status: Acute Comment: Continue Duonebs, Prednisone,Singulair (2) Constipation Code(s): K59.00 - CONSTIPATION, UNSPECIFIED Status: Resolved Comment: ? Verapamil induced (3) NSTEMI (non-ST elevated myocardial infarction) Code(s): I21.4 - NON-ST ELEVATION (NSTEMI) MYOCARDIAL INFARCTION Status: Resolved (4) Afib Code(s): I48.91 - UNSPECIFIED ATRIAL FIBRILLATION Status: Chronic Qualifiers: Comment: Hx of A-fib on current Eliquis and Tambocor, current sinus rhythm (5) GERD (gastroesophageal reflux disease) Code(s): K21.9 - GASTRO-ESOPHAGEAL REFLUX DISEASE WITHOUT ESOPHAGITIS Status: Chronic - Plan cont current plan of care, continue antibiotics, PT/OT, respiratory therapy, incentive spirometry, DVT proph w/lovenox * . Plan: Continue with PO steroids . Complete [place] course. Continue on PO Doxycylin, COntinue with NEb Willie Neb and Albuteral nebs. Pt is On Home oxygen. H/o Atrial fibrillation, Rate Controlled now. Will continue with Famotdine for GERD. DVT prophylaxis with Lovenox Encourgae pt to walk, Continue with PT/OT .Pt wants to go home in 1-2 days. - Discharge Day Encounter end time: 12:30 Review of Systems - Review of Systems Constitutional: weakness, malaise Eyes: negative: Pain, Vision Change, Conjunctivae Inflammation, Eyelid Inflammation, Redness, Other ENT: negative: Ear Pain, Ear Discharge, Nose Pain, Nose Discharge, Nose Congestion, Mouth Pain, Mouth Swelling, Throat Pain, Throat Swelling, Other Respiratory: Cough, Shortness of Breath, SOB with Excertion, Sputum, Wheezing Cardiovascular: negative: chest pain, palpitations, orthopnea, paroxysmal nocturnal dyspnea, edema, light headedness, other Gastrointestinal: negative: Nausea, Vomiting, Abdominal Pain, Diarrhea, Constipation, Melena, Hematochezia, Other Genitourinary: negative: Dysuria, Frequency, Incontinence, Hematuria, Retention , Other Musculoskeletal: negative: Neck Pain, Shoulder Pain, Arm Pain, Back Pain, Hand Pain, Leg Pain, Foot Pain, Other Skin: negative: Rash, Lesions, Jamaal, Bruising, Other Neurological: negative: Weakness, Numbness, Incoordination, Change in Speech, Confusion, Seizures, Other - Medications/Allergies Allergies/Adverse Reactions: Allergies Allergy/AdvReac Type Severity Reaction Status Date / Time codeine Allergy Unknown Verified 10/08/17 18:49 lisinopril Allergy Unknown Verified 10/08/17 18:49 niacin Allergy Unknown Verified 10/08/17 18:49 [From Niaspan Extended-Release] Sulfa (Sulfonamide Allergy Unknown Verified 10/08/17 18:49 Antibiotics) Medications: Current Medications Acetaminophen (Tylenol) 650 mg PO Q4H PRN PRN Reason: Headache/Fever or Pain Last Admin: 10/14/17 00:11 Dose: 650 mg Albuterol/Ipratropium (Duoneb) 3 ml NEB [id number] PRN PRN Reason: SOB &/or Wheezing Albuterol/Ipratropium (Duoneb) 3 ml NEB [id number] [facility] Last Admin: 10/14/17 14:20 Dose: 3 ml Alprazolam (Xanax) 0.25 mg PO BID PRN PRN Reason: Anxiety Last Admin: 10/14/17 12:08 Dose: 0.25 mg Apixaban (Eliquis) 5 mg PO BID [facility] Last Admin: 10/14/17 07:59 Dose: 5 mg Aspirin (Ecotrin) 81 mg PO DAILY [facility] Last Admin: 10/14/17 08:01 Dose: 81 mg Atorvastatin Calcium (Lipitor) 10 mg PO 2100 [facility] Last Admin: 10/13/17 21:34 Dose: 10 mg Calcium Carbonate (Tums) 1,000 mg PO Q4H PRN PRN Reason: Heartburn or Indigestion Last Admin: 10/11/17 05:46 Dose: 1,000 mg Calcium/Vitamin D (Caltrate 600 + Vit D) 1 tab PO BID-[facility] Last Admin: 10/14/17 07:56 Dose: Not Given Clonidine (Catapres) 0.1 mg PO Q4H PRN PRN Reason: Systolic BP > 180/ DBP >100 Last Admin: 10/12/17 21:18 Dose: 0.1 mg Docusate Sodium (Colace) 100 mg PO BID [facility] Last Admin: 10/14/17 07:59 Dose: 100 mg Doxycycline Hyclate (Vibramycin) 100 mg PO BID [facility] Last Admin: 10/14/17 08:01 Dose: 100 mg Famotidine (Pepcid) 20 mg PO BID [facility] Last Admin: 10/14/17 08:00 Dose: 20 mg Flecainide Acetate (Tambocor) 75 mg PO BID [facility] Last Admin: 10/14/17 08:02 Dose: 75 mg Furosemide (Lasix) 40 mg PO DAILY [facility] Last Admin: 10/14/17 07:59 Dose: 40 mg Guaifenesin (Robitussin Sf) 200 mg PO Q4H PRN PRN Reason: Cough Guaifenesin (Mucinex) 600 mg PO Q12HR [facility] Last Admin: 10/14/17 08:01 Dose: 600 mg Hydralazine HCl (Apresoline) 10 mg SLOW IVP Q4H PRN PRN Reason: SBP Greater Than 180 Loratadine (Claritin) 10 mg PO DAILYPRN PRN PRN Reason: Sinus Symptoms Magnesium Hydroxide (Milk Of Magnesium) 30 ml PO DAILYPRN PRN PRN Reason: Constipation Last Admin: 10/12/17 21:18 Dose: 30 ml Mineral Oil/White Petrolatum (Eucerin Cream) 0 gm TOP BIDPRN PRN PRN Reason: Dry Skin Mometasone Furoate/Formoterol Fumar (Dulera 200 Mcg/5 Mcg Inhaler) 2 puff INH BID-RT [facility] Last Admin: 10/14/17 07:11 Dose: 2 puff Multivitamins (Theragran) 1 tab PO DAILY [facility] Last Admin: 10/14/17 08:00 Dose: 1 tab Nitroglycerin (Nitrostat) 0.4 mg PO Q5MIN PRN PRN Reason: Chest Pain Ondansetron HCl (Zofran) 4 mg IVP Q6H PRN PRN Reason: Nausea/Vomiting Last Admin: 10/14/17 08:02 Dose: 4 mg Oxymetazoline HCl (Oxymetazoline Hcl) 2 sprays NASAL BID [facility] Stop: 10/15/17 12:00 Last Admin: 10/14/17 08:09 Dose: 2 spr Phenol (Chloraseptic [place] 180 Ml Bot) 0 ml PO BIDPRN PRN PRN Reason: Sore Throat Polyethylene Glycol (Miralax) 17 gm PO DAILY PRN PRN Reason: Constipation Prednisone (Prednisone) 20 mg PO BID [facility] Last Admin: 10/14/17 07:59 Dose: 20 mg Saccharomyces Boulardii (Florastor) 250 mg PO DAILY [facility] Last Admin: 10/14/17 08:00 Dose: 250 mg Senna (Senokot) 2 tab PO HSPRN PRN PRN Reason: Constipation Senna/Docusate Sodium (Senokot S) 1 tab PO BID [facility] Last Admin: 10/14/17 08:00 Dose: 1 tab Sodium Chloride ([place] Nasal [place] 0.65%) 2 ml EA NARE Q4H PRN PRN Reason: Nasal Congestion Spironolactone (Aldactone) 25 mg PO DAILY [facility] Last Admin: 10/14/17 08:00 Dose: 25 mg Throat Lozenges (Cepastat Lozenges) 1 rizwana PO Q2H PRN PRN Reason: Sore Throat Last Admin: 10/14/17 14:13 Dose: 1 rizwana Verapamil HCl (Calan Sr) 240 mg PO HS [id number] Last Admin: 10/13/17 21:35 Dose: 240 mg
[2017-10-14] MEDS ORDERED: Furosemide 20 MG/2 ML VIAL SLOW IVP SCH (19:15)
--- NOTE | 2017-10-14 19:25 | PRG ---
DATE OF SERVICE: 10/14/2017 SERVICE: Pulmonary Medicine. INTERVAL HISTORY: The patient is doing fine from a respiratory standpoint. She tells me that her br eathing is doing terrible that she did well during the daytime, but now she can feel that she is abou t to start tightening back up. She does have a cough and is bringing up some sputum which feels good . She indicates her legs are a little bit more swollen than typical. That being said, despite the w ay that she feels, she has absolutely no conversational dyspnea and is able to talk in very prolonged sentences without breaking them apart. She appears to be comfortable. PHYSICAL EXAMINATION: VITAL SIGNS: Afebrile, pulse 80, blood pressure 149/69, respirations 16, saturation 97% on 3 liters nasal cannula. GENERAL: The patient is awake, alert, in no apparent distress. LUNGS: Decreased air entry. There is a prolonged expiratory phase with polyphonic wheezing as well as crackles present. No rhonchi are appreciated. HEART: Normal rate, regular. ABDOMEN: Soft, nontender, nondistended. Bowel sounds are positive. MUSCULOSKELETAL: No cyanosis or clubbing. There is trace to 1+ pitting in the bilateral lower extre mities. NEUROLOGIC: Grossly nonfocal. LABORATORY DATA: WBC 15.1, hemoglobin 13.1, platelets 253,000. Neutrophil count is 93%. INR 1.1. A pH 7.32, pCO2 of 56, pO2 of 120 on 4 liters nasal cannula at that time. Basic metabolic profile is essentially unremarkable from yesterday. Blood cultures x2 are negative. Influenza A is positive, B is negative. IMAGING: Chest x-ray demonstrates no acute cardiopulmonary abnormality. There is evidence of hypere xpansion with flattening of the bilateral diaphragm. Cardiac silhouette appears to be roughly normal in size. There is slight rotation on the left anterior oblique. ASSESSMENT: 1. Acute on chronic hypoxic respiratory failure. 2. Chronic hypercapnic respiratory failure. 3. Chronic obstructive pulmonary disease with acute exacerbation, secondary to influenza A. PLAN: We will continue antibiotics, steroids, and nebulized medications. We will provide her with o ne dose of Lasix. Dr. Castillo will assume care in the morning.
[2017-10-14] MEDS: Atorvastatin Calcium 10 MG TAB PO SCH (21:03)
[2017-10-15] MEDS: ALPRAZolam 0.25 MG TAB PO PRN ×3 (01:05→23:38)
[2017-10-15] MEDS: Acetaminophen 325 MG TAB PO PRN ×2 (01:05→23:38)
[2017-10-15 05:17] LABS: #Eosinphils 0.1 thou/uL (0.0-0.7); #Monocytes 1.5 thou/uL (0.11-0.59); #Neutrophils 12.2 thou/uL (1.40-6.50); %Basophils 0.1 % (0.0-1.0); %Eosinophils 0.8 % (0.0-10.0); %Lymphocytes 12.4 % (21.0-51.0); %Monocytes 9.5 % (0.0-10.0); %Neutrophils 77.1 % (42.0-75.0); Hemoglobin 12.9 g/dL (12.0-16.0); Mean Corpuscular HGB CONC 32.7 g/dL (32.0-36.0); Mean Corpuscular Hemoglobin 32.8 pg (27.0-31.0); Platelet Count 264 thou/uL (130-400); RBC Distribution Width 11.4 % (11.5-14.5); Red Blood Cell (RBC) Count 3.92 mill/uL (4.20-5.40); White Blood Cell (WBC) Count 15.8 thou/uL (4.8-10.8)
[2017-10-15] MEDS: Mometasone/Formoterol 120 PUFF INHALER INH SCH ×2 (07:41→18:57)
[2017-10-15] MEDS: Calcium Carbonate + Vit D 1 TAB PO SCH ×2 (08:15→17:00)
[2017-10-15] MEDS: Famotidine 20 MG TAB PO SCH ×2 (08:15→21:00)
[2017-10-15] MEDS: Cepastat Lozenges 1 LOZ PO PRN (08:18)
[2017-10-15] MEDS ORDERED: predniSONE 20 MG TAB PO SCH (09:00)
[2017-10-15] MEDS: Doxycycline 100 MG CAP PO SCH ×2 (09:32→21:00)
[2017-10-15] MEDS: Flecainide 50 MG TAB PO SCH ×2 (09:32→21:00)
[2017-10-15] MEDS: Saccharomyces boulardii 250 MG CAP PO SCH (09:32)
[2017-10-15] MEDS: Aspirin 81 mg Enteric Coated Tablet PO SCH (09:33)
[2017-10-15] MEDS: Spironolactone 25 MG TAB PO SCH (09:33)
[2017-10-15] MEDS: Docusate 100 MG CAP PO SCH ×2 (09:34→21:00)
[2017-10-15] MEDS: Furosemide 40 MG TAB PO SCH (09:34)
[2017-10-15] MEDS: guaiFENesin ER 600 MG TAB PO SCH ×2 (09:34→21:00)
[2017-10-15] MEDS: Multivit, Therapeutic 1 TAB PO SCH (09:34)
[2017-10-15] MEDS: Apixaban 5 MG TAB PO SCH ×2 (09:34→20:59)
[2017-10-15] MEDS: Senokot S 8.6-50 MG TAB PO SCH ×2 (09:34→21:00)
[2017-10-15] MEDS: Oxymetazoline HCl 0.05% ( 15 ML ) NASAL SCH (09:35)
[2017-10-15] MEDS: Calcium Carbonate 500 MG ChewTAB PO PRN (11:40)
--- NOTE | 2017-10-15 16:04 | PDOC.PN ---
- Subjective Encounter Start Date: 10/15/17 Encounter Start Time: 14:30 Patient is seen today, alert and oriented. She continues to have SOB and Severe Wheezing. Has some blood from left nostril today. - Objective Resuscitation Status: Resuscitation Status FULL:Full Resuscitation MAR Reviewed: Yes Vital Signs & Weight: Vital Signs (12 hours) Temp Pulse Resp BP Pulse Ox 10/15/17 12:35 97.7 F 83 20 164/72 H 95 10/15/17 08:00 97.8 F 73 24 H 149/54 H 97 Weight Weight 148 lb 4.8 oz I&O: 10/14/17 10/15/17 10/16/17 06:59 06:59 06:59 Intake Total 1212 3170 480 Balance 1212 3170 480 Result Diagrams: 10/15/17 03:49 10/13/17 08:55 Radiology Reviewed by me: Yes Phys Exam - Physical Examination HEENT: PERRLA, moist MMs (Left nostril Epistaxis from nasal Canula) Neck: no nodes, no JVD Respiratory: wheezing present (Reduced air entry Both lungs) Cardiovascular: RRR, no significant murmur Gastrointestinal: soft, non-tender Musculoskeletal: no edema, pulses present Neurological: non-focal, normal sensation Lymphatic: no nodes Psychiatric: normal affect, A&O x 3 Dx/Plan (1) Acute exacerbation of chronic obstructive pulmonary disease (COPD) Code(s): J44.1 - CHRONIC OBSTRUCTIVE PULMONARY DISEASE W (ACUTE) EXACERBATION Status: Acute Comment: Continue Duonebs, Prednisone,Singulair (2) Constipation Code(s): K59.00 - CONSTIPATION, UNSPECIFIED Status: Resolved Comment: ? Verapamil induced (3) NSTEMI (non-ST elevated myocardial infarction) Code(s): I21.4 - NON-ST ELEVATION (NSTEMI) MYOCARDIAL INFARCTION Status: Resolved (4) Afib Code(s): I48.91 - UNSPECIFIED ATRIAL FIBRILLATION Status: Chronic Qualifiers: Comment: Hx of A-fib on current Eliquis and Tambocor, current sinus rhythm (5) GERD (gastroesophageal reflux disease) Code(s): K21.9 - GASTRO-ESOPHAGEAL REFLUX DISEASE WITHOUT ESOPHAGITIS Status: Chronic - Plan cont current plan of care, continue antibiotics, PT/OT, incentive spirometry, DVT proph w/SCDs * . Plan: Continue with PO steroids she is on prednisone 20mg po BID . Complete [place] course. Continue on PO Doxycylin, COntinue with NEb Willie Neb and Albuteral nebs. Pt is On Home oxygen. H/o Atrial fibrillation, Rate Controlled now. Will continue with Famotdine for GERD. DVT prophylaxis with Lovenox Encourgae pt to walk, Continue with PT/OT .Pt wants to go home in 1-2 days. - Discharge Day Encounter end time: 15:00 Review of Systems - Review of Systems Constitutional: weakness, malaise Eyes: negative: Pain, Vision Change, Conjunctivae Inflammation, Eyelid Inflammation, Redness, Other ENT: Nose Discharge Respiratory: Cough, Shortness of Breath, SOB with Excertion, Sputum, Wheezing. negative: Dry, Hemoptysis, Pleuritic Pain Cardiovascular: negative: chest pain, palpitations, orthopnea, paroxysmal nocturnal dyspnea, edema, light headedness, other Gastrointestinal: negative: Nausea, Vomiting, Abdominal Pain, Diarrhea, Constipation, Melena, Hematochezia, Other Genitourinary: negative: Dysuria, Frequency, Incontinence, Hematuria, Retention , Other Musculoskeletal: negative: Neck Pain, Shoulder Pain, Arm Pain, Back Pain, Hand Pain, Leg Pain, Foot Pain, Other Skin: negative: Rash, Lesions, Jamaal, Bruising, Other Neurological: negative: Weakness, Numbness, Incoordination, Change in Speech, Confusion, Seizures, Other - Medications/Allergies Allergies/Adverse Reactions: Allergies Allergy/AdvReac Type Severity Reaction Status Date / Time codeine Allergy Unknown Verified 10/08/17 18:49 lisinopril Allergy Unknown Verified 10/08/17 18:49 niacin Allergy Unknown Verified 10/08/17 18:49 [From Niaspan Extended-Release] Sulfa (Sulfonamide Allergy Unknown Verified 10/08/17 18:49 Antibiotics) Medications: Current Medications Acetaminophen (Tylenol) 650 mg PO Q4H PRN PRN Reason: Headache/Fever or Pain Last Admin: 10/15/17 01:05 Dose: 650 mg Albuterol/Ipratropium (Duoneb) 3 ml NEB [id number] PRN PRN Reason: SOB &/or Wheezing Albuterol/Ipratropium (Duoneb) 3 ml NEB [id number] Last Admin: 10/15/17 13:23 Dose: 3 ml Alprazolam (Xanax) 0.25 mg PO BID PRN PRN Reason: Anxiety Last Admin: 10/15/17 11:30 Dose: 0.25 mg Apixaban (Eliquis) 5 mg PO BID [facility] Last Admin: 10/15/17 09:34 Dose: 5 mg Aspirin (Ecotrin) 81 mg PO DAILY [facility] Last Admin: 10/15/17 09:33 Dose: 81 mg Atorvastatin Calcium (Lipitor) 10 mg PO 2100 [facility] Last Admin: 10/14/17 21:03 Dose: 10 mg Calcium Carbonate (Tums) 1,000 mg PO Q4H PRN PRN Reason: Heartburn or Indigestion Last Admin: 10/15/17 11:40 Dose: 1,000 mg Calcium/Vitamin D (Caltrate 600 + Vit D) 1 tab PO BID-[facility] Last Admin: 10/15/17 08:15 Dose: Not Given Clonidine (Catapres) 0.1 mg PO Q4H PRN PRN Reason: Systolic BP > 180/ DBP >100 Last Admin: 10/12/17 21:18 Dose: 0.1 mg Docusate Sodium (Colace) 100 mg PO BID [facility] Last Admin: 10/15/17 09:34 Dose: 100 mg Doxycycline Hyclate (Vibramycin) 100 mg PO BID [facility] Last Admin: 10/15/17 09:32 Dose: 100 mg Famotidine (Pepcid) 20 mg PO BID [facility] Last Admin: 10/15/17 08:15 Dose: 20 mg Flecainide Acetate (Tambocor) 75 mg PO BID [facility] Last Admin: 10/15/17 09:32 Dose: 75 mg Furosemide (Lasix) 40 mg PO DAILY [facility] Last Admin: 10/15/17 09:34 Dose: 40 mg Guaifenesin (Robitussin Sf) 200 mg PO Q4H PRN PRN Reason: Cough Guaifenesin (Mucinex) 600 mg PO Q12HR [facility] Last Admin: 10/15/17 09:34 Dose: 600 mg Hydralazine HCl (Apresoline) 10 mg SLOW IVP Q4H PRN PRN Reason: SBP Greater Than 180 Loratadine (Claritin) 10 mg PO DAILYPRN PRN PRN Reason: Sinus Symptoms Magnesium Hydroxide (Milk Of Magnesium) 30 ml PO DAILYPRN PRN PRN Reason: Constipation Last Admin: 10/12/17 21:18 Dose: 30 ml Methylprednisolone Sodium Succinate (Solu-Medrol) 40 mg IVP Q12HR [facility] Mineral Oil/White Petrolatum (Eucerin Cream) 0 gm TOP BIDPRN PRN PRN Reason: Dry Skin Mometasone Furoate/Formoterol Fumar (Dulera 200 Mcg/5 Mcg Inhaler) 2 puff INH BID-RT [facility] Last Admin: 10/15/17 07:41 Dose: 2 puff Multivitamins (Theragran) 1 tab PO DAILY [facility] Last Admin: 10/15/17 09:34 Dose: 1 tab Nitroglycerin (Nitrostat) 0.4 mg PO Q5MIN PRN PRN Reason: Chest Pain Ondansetron HCl (Zofran) 4 mg IVP Q6H PRN PRN Reason: Nausea/Vomiting Last Admin: 10/14/17 08:02 Dose: 4 mg Phenol (Chloraseptic [place] 180 Ml Bot) 0 ml PO BIDPRN PRN PRN Reason: Sore Throat Polyethylene Glycol (Miralax) 17 gm PO DAILY PRN PRN Reason: Constipation Saccharomyces Boulardii (Florastor) 250 mg PO DAILY [facility] Last Admin: 10/15/17 09:32 Dose: 250 mg Senna (Senokot) 2 tab PO HSPRN PRN PRN Reason: Constipation Senna/Docusate Sodium (Senokot S) 1 tab PO BID [facility] Last Admin: 10/15/17 09:34 Dose: 1 tab Sodium Chloride ([place] Nasal [place] 0.65%) 2 ml EA NARE Q4H PRN PRN Reason: Nasal Congestion Spironolactone (Aldactone) 25 mg PO DAILY [facility] Last Admin: 10/15/17 09:33 Dose: 25 mg Throat Lozenges (Cepastat Lozenges) 1 rizwana PO Q2H PRN PRN Reason: Sore Throat Last Admin: 10/15/17 08:18 Dose: 1 rizawna Verapamil HCl (Calan Sr) 240 mg PO [facility] Last Admin: 10/14/17 21:16 Dose: 240 mg
--- NOTE | 2017-10-15 17:26 | PRG ---
DATE OF SERVICE: 10/15/2016 SUBJECTIVE: Izabel Sharp's events have been reviewed. She says she is not back to her baseline, but she is feeling a little better when she presented to the hospital. OBJECTIVE: VITAL SIGNS: She is afebrile. Heart rate is in the 80s, respiratory rate is 20, oximetry is 95. LUNGS: Remarkable for diffuse wheezes. HEART: Regular rhythm. ABDOMEN: Soft. Expiratory phase is prolonged. Chest radiographs have been reviewed and shows hyperinflation. Her x-ray is unchanged in my opinion compared to old films. White count is 15.8, hemoglobin is 12.9, platelets 264 yesterday. Electrolytes on the : Sodium 134, potassium 4, chloride 92, bicarbonate 34, BUN 24, creatinine 0.87. IMPRESSION: 1. Acute on chronic respiratory failure with chronic hypoxemia on home oxygen. 2. Chronic obstructive pulmonary disease with an acute exacerbation, likely triggered by a viral ill ness (influenza). 3. Deconditioning. PLAN: Continue current care with p.o. antimicrobial therapy (doxycycline). She is switched to predn isone daily. I do not think she is really ready for prednisone taper, so I will place her back on So fermin-Medrol.
[2017-10-15] MEDS: Atorvastatin Calcium 10 MG TAB PO SCH (21:00)
[2017-10-16] MEDS: Ondansetron HCl/PF 4 MG/2 ML Vial IVP PRN (05:46)
[2017-10-16] MEDS: Mometasone/Formoterol 120 PUFF INHALER INH SCH ×2 (07:57→19:41)
--- NOTE | 2017-10-16 08:34 | PRG ---
DATE OF SERVICE: 10/16/2017 Ms. Sharp says she feels a little better. PHYSICAL EXAMINATION: VITAL SIGNS: She is afebrile, heart rate 60, respiratory rate is 20, oximetry is 97 on 3 liters, blo od pressure 144/70. LUNGS: Remarkable for faint wheezes. HEART: Regular rhythm. ABDOMEN: Soft. IMPRESSION: 1. Chronic obstructive pulmonary disease exacerbation associated with the flu. 2. Acute on chronic respiratory failure with chronic hypoxemia on home oxygen. 3. Deconditioning. PLAN: Continue current care. Encourage her to be out of bed more, encouraged her to start ambulatin g.
[2017-10-16] MEDS: Famotidine 20 MG TAB PO SCH ×2 (08:37→20:09)
[2017-10-16] MEDS: guaiFENesin ER 600 MG TAB PO SCH ×2 (08:37→20:10)
[2017-10-16] MEDS: Senokot S 8.6-50 MG TAB PO SCH ×2 (08:37→20:11)
[2017-10-16] MEDS: Multivit, Therapeutic 1 TAB PO SCH (08:38)
[2017-10-16] MEDS: Apixaban 5 MG TAB PO SCH ×2 (08:38→20:08)
[2017-10-16] MEDS: Saccharomyces boulardii 250 MG CAP PO SCH (08:38)
[2017-10-16] MEDS: Furosemide 40 MG TAB PO SCH (08:39)
[2017-10-16] MEDS: Docusate 100 MG CAP PO SCH ×2 (08:39→20:08)
[2017-10-16] MEDS: Aspirin 81 mg Enteric Coated Tablet PO SCH (08:39)
[2017-10-16] MEDS: Calcium Carbonate + Vit D 1 TAB PO SCH ×2 (08:39→13:59)
[2017-10-16] MEDS: Flecainide 50 MG TAB PO SCH ×2 (08:40→20:09)
[2017-10-16] MEDS: Spironolactone 25 MG TAB PO SCH (08:41)
[2017-10-16] MEDS: Doxycycline 100 MG CAP PO SCH ×2 (10:04→20:09)
[2017-10-16] MEDS: Acetaminophen 325 MG TAB PO PRN (11:06)
[2017-10-16] MEDS: ALPRAZolam 0.25 MG TAB PO PRN ×2 (11:06→20:11)
--- NOTE | 2017-10-16 12:41 | PDOC.PN ---
- Subjective Encounter Start Date: 10/16/17 Encounter Start Time: 09:30 Patient is seen today, feeling little better, continuos to have cough on exertion. - Objective Resuscitation Status: Resuscitation Status FULL:Full Resuscitation MAR Reviewed: Yes Vital Signs & Weight: Vital Signs (12 hours) Temp Pulse Resp BP Pulse Ox 10/16/17 08:00 98.1 F 68 20 10/16/17 07:59 98.1 F 68 20 144/70 H 97 10/16/17 07:55 68 20 97 Weight Weight 148 lb I&O: 10/15/17 10/16/17 10/17/17 06:59 06:59 06:59 Intake Total 3170 2720 Balance 3170 2720 Result Diagrams: 10/15/17 03:49 10/13/17 08:55 Radiology Reviewed by me: Yes Phys Exam - Physical Examination HEENT: PERRLA, moist MMs Neck: no nodes, no JVD Respiratory: no wheezing, no rales Cardiovascular: RRR, no significant murmur Gastrointestinal: soft, non-tender, no distention Musculoskeletal: no edema, pulses present Dx/Plan (1) Acute exacerbation of chronic obstructive pulmonary disease (COPD) Code(s): J44.1 - CHRONIC OBSTRUCTIVE PULMONARY DISEASE W (ACUTE) EXACERBATION Status: Acute Comment: Continue Duonebs, Prednisone,Singulair (2) Constipation Code(s): K59.00 - CONSTIPATION, UNSPECIFIED Status: Resolved Comment: ? Verapamil induced (3) NSTEMI (non-ST elevated myocardial infarction) Code(s): I21.4 - NON-ST ELEVATION (NSTEMI) MYOCARDIAL INFARCTION Status: Resolved (4) Afib Code(s): I48.91 - UNSPECIFIED ATRIAL FIBRILLATION Status: Chronic Qualifiers: Comment: Hx of A-fib on current Eliquis and Tambocor, current sinus rhythm (5) GERD (gastroesophageal reflux disease) Code(s): K21.9 - GASTRO-ESOPHAGEAL REFLUX DISEASE WITHOUT ESOPHAGITIS Status: Chronic - Plan cont current plan of care, continue antibiotics, PT/OT, incentive spirometry, out of bed/ambulate, DVT proph w/lovenox * . Plan: Continue with PO steroids she is on prednisone 20mg po BID . Complete [place] course. Dr. Castillo want her to continue stay in hospital for 2-3 days due to severe bronchconstriction. Continue on PO Doxycylin, COntinue with NEb Willie Neb and Albuteral nebs. Pt is On Home oxygen. H/o Atrial fibrillation, Rate Controlled now. Will continue with Famotdine for GERD. DVT prophylaxis with Lovenox Encourgae pt to walk, Continue with PT/OT .Pt wants to go home in 1-2 days. - Discharge Day Encounter end time: 10:00 Review of Systems - Review of Systems Constitutional: weakness Eyes: negative: Pain, Vision Change, Conjunctivae Inflammation, Eyelid Inflammation, Redness, Other ENT: negative: Ear Pain, Ear Discharge, Nose Pain, Nose Discharge, Nose Congestion, Mouth Pain, Mouth Swelling, Throat Pain, Throat Swelling, Other Respiratory: Cough, Shortness of Breath, SOB with Excertion, Wheezing Cardiovascular: negative: chest pain, palpitations, orthopnea, paroxysmal nocturnal dyspnea, edema, light headedness, other Gastrointestinal: negative: Nausea, Vomiting, Abdominal Pain, Diarrhea, Constipation, Melena, Hematochezia, Other Genitourinary: negative: Dysuria, Frequency, Incontinence, Hematuria, Retention , Other Musculoskeletal: negative: Neck Pain, Shoulder Pain, Arm Pain, Back Pain, Hand Pain, Leg Pain, Foot Pain, Other Skin: negative: Rash, Lesions, Jamaal, Bruising, Other Neurological: negative: Weakness, Numbness, Incoordination, Change in Speech, Confusion, Seizures, Other - Medications/Allergies Allergies/Adverse Reactions: Allergies Allergy/AdvReac Type Severity Reaction Status Date / Time codeine Allergy Unknown Verified 10/08/17 18:49 lisinopril Allergy Unknown Verified 10/08/17 18:49 niacin Allergy Unknown Verified 10/08/17 18:49 [From Niaspan Extended-Release] Sulfa (Sulfonamide Allergy Unknown Verified 10/08/17 18:49 Antibiotics) Medications: Current Medications Acetaminophen (Tylenol) 650 mg PO Q4H PRN PRN Reason: Headache/Fever or Pain Last Admin: 10/16/17 11:06 Dose: 650 mg Albuterol/Ipratropium (Duoneb) 3 ml NEB [id number] PRN PRN Reason: SOB &/or Wheezing Albuterol/Ipratropium (Duoneb) 3 ml NEB [id number] Last Admin: 10/16/17 11:29 Dose: 3 ml Alprazolam (Xanax) 0.25 mg PO BID PRN PRN Reason: Anxiety Last Admin: 10/16/17 11:06 Dose: 0.25 mg Apixaban (Eliquis) 5 mg PO BID [facility] Last Admin: 10/16/17 08:38 Dose: 5 mg Aspirin (Ecotrin) 81 mg PO DAILY [facility] Last Admin: 10/16/17 08:39 Dose: 81 mg Atorvastatin Calcium (Lipitor) 10 mg PO 2100 [facility] Last Admin: 10/15/17 21:00 Dose: 10 mg Calcium Carbonate (Tums) 1,000 mg PO Q4H PRN PRN Reason: Heartburn or Indigestion Last Admin: 10/15/17 11:40 Dose: 1,000 mg Calcium/Vitamin D (Caltrate 600 + Vit D) 1 tab PO BID-[facility] Last Admin: 10/16/17 08:39 Dose: Not Given Clonidine (Catapres) 0.1 mg PO Q4H PRN PRN Reason: Systolic BP > 180/ DBP >100 Last Admin: 10/12/17 21:18 Dose: 0.1 mg Docusate Sodium (Colace) 100 mg PO BID [facility] Last Admin: 10/16/17 08:39 Dose: 100 mg Doxycycline Hyclate (Vibramycin) 100 mg PO BID [facility] Last Admin: 10/16/17 10:04 Dose: 100 mg Famotidine (Pepcid) 20 mg PO BID [facility] Last Admin: 10/16/17 08:37 Dose: 20 mg Flecainide Acetate (Tambocor) 75 mg PO BID [facility] Last Admin: 10/16/17 08:40 Dose: 75 mg Furosemide (Lasix) 40 mg PO DAILY [facility] Last Admin: 10/16/17 08:39 Dose: 40 mg Guaifenesin (Robitussin Sf) 200 mg PO Q4H PRN PRN Reason: Cough Guaifenesin (Mucinex) 600 mg PO Q12HR [facility] Last Admin: 10/16/17 08:37 Dose: 600 mg Hydralazine HCl (Apresoline) 10 mg SLOW IVP Q4H PRN PRN Reason: SBP Greater Than 180 Loratadine (Claritin) 10 mg PO DAILYPRN PRN PRN Reason: Sinus Symptoms Magnesium Hydroxide (Milk Of Magnesium) 30 ml PO DAILYPRN PRN PRN Reason: Constipation Last Admin: 10/12/17 21:18 Dose: 30 ml Methylprednisolone Sodium Succinate (Solu-Medrol) 40 mg IVP Q12HR [facility] Last Admin: 10/16/17 08:40 Dose: 40 mg Mineral Oil/White Petrolatum (Eucerin Cream) 0 gm TOP BIDPRN PRN PRN Reason: Dry Skin Mometasone Furoate/Formoterol Fumar (Dulera 200 Mcg/5 Mcg Inhaler) 2 puff INH BID-RT [facility] Last Admin: 10/16/17 07:57 Dose: 2 puff Multivitamins (Theragran) 1 tab PO DAILY [facility] Last Admin: 10/16/17 08:38 Dose: 1 tab Nitroglycerin (Nitrostat) 0.4 mg PO Q5MIN PRN PRN Reason: Chest Pain Ondansetron HCl (Zofran) 4 mg IVP Q6H PRN PRN Reason: Nausea/Vomiting Last Admin: 10/16/17 05:46 Dose: 4 mg Phenol (Chloraseptic [place] 180 Ml Bot) 0 ml PO BIDPRN PRN PRN Reason: Sore Throat Polyethylene Glycol (Miralax) 17 gm PO DAILY PRN PRN Reason: Constipation Saccharomyces Boulardii (Florastor) 250 mg PO DAILY [facility] Last Admin: 10/16/17 08:38 Dose: 250 mg Senna (Senokot) 2 tab PO HSPRN PRN PRN Reason: Constipation Senna/Docusate Sodium (Senokot S) 1 tab PO BID [facility] Last Admin: 10/16/17 08:37 Dose: 1 tab Sodium Chloride ([place] Nasal [place] 0.65%) 2 ml EA NARE Q4H PRN PRN Reason: Nasal Congestion Spironolactone (Aldactone) 25 mg PO DAILY [facility] Last Admin: 10/16/17 08:41 Dose: 25 mg Throat Lozenges (Cepastat Lozenges) 1 rizwana PO Q2H PRN PRN Reason: Sore Throat Last Admin: 10/15/17 08:18 Dose: 1 rizwana Verapamil HCl (Calan Sr) 240 mg PO HS [facility] Last Admin: 10/15/17 20:59 Dose: 240 mg
[2017-10-16] MEDS: Atorvastatin Calcium 10 MG TAB PO SCH (20:08)
[2017-10-16] MEDS: Nystatin 500,000 UNITS/5 ML UDCUP SSW SCH (20:29)
[2017-10-17] MEDS: Acetaminophen 325 MG TAB PO PRN ×2 (02:09→20:50)
[2017-10-17] MEDS: Ondansetron HCl/PF 4 MG/2 ML Vial IVP PRN (02:09)
[2017-10-17] MEDS: Mometasone/Formoterol 120 PUFF INHALER INH SCH ×2 (07:39→18:23)
[2017-10-17] MEDS: Flecainide 50 MG TAB PO SCH ×2 (09:38→20:48)
[2017-10-17] MEDS: Calcium Carbonate + Vit D 1 TAB PO SCH ×2 (09:38→16:16)
[2017-10-17] MEDS: guaiFENesin ER 600 MG TAB PO SCH ×2 (09:40→20:49)
[2017-10-17] MEDS: Nystatin 500,000 UNITS/5 ML UDCUP SSW SCH ×4 (09:51→20:50)
[2017-10-17] MEDS: ALPRAZolam 0.25 MG TAB PO PRN ×2 (09:51→20:50)
[2017-10-17] MEDS: Senokot S 8.6-50 MG TAB PO SCH ×2 (09:52→20:50)
[2017-10-17] MEDS: Furosemide 40 MG TAB PO SCH (09:52)
[2017-10-17] MEDS: Spironolactone 25 MG TAB PO SCH (09:52)
[2017-10-17] MEDS: Famotidine 20 MG TAB PO SCH ×2 (09:52→20:48)
[2017-10-17] MEDS: Apixaban 5 MG TAB PO SCH ×2 (09:52→20:46)
[2017-10-17] MEDS: Saccharomyces boulardii 250 MG CAP PO SCH (09:52)
[2017-10-17] MEDS: Docusate 100 MG CAP PO SCH ×2 (09:53→20:47)
[2017-10-17] MEDS: Multivit, Therapeutic 1 TAB PO SCH (09:53)
[2017-10-17] MEDS: Aspirin 81 mg Enteric Coated Tablet PO SCH (09:53)
[2017-10-17] MEDS: Doxycycline 100 MG CAP PO SCH ×2 (11:56→20:47)
--- NOTE | 2017-10-17 15:02 | PDOC.PN ---
- Subjective Encounter Start Date: 10/17/17 Encounter Start Time: 10:30 Patient is seen today, alert and oriented. she continuos feels SOB, has persistant congestion in her nose and lungs and feels difficult to breath all the time. Patient has sores in mouth suggestive of Candidiasis. - Objective Resuscitation Status: Resuscitation Status FULL:Full Resuscitation MAR Reviewed: Yes Vital Signs & Weight: Vital Signs (12 hours) Temp Pulse Resp BP Pulse Ox 10/17/17 12:14 97.5 F L 71 20 148/60 H 98 10/17/17 10:35 65 20 98 10/17/17 08:00 97.7 F 65 20 132/55 L 98 10/17/17 07:37 64 94 L Weight Admit Weight 142 lb 1.6 oz Weight 154 lb 4.8 oz I&O: 10/16/17 10/17/17 10/18/17 06:59 06:59 06:59 Intake Total 2720 1730 Balance 2720 1730 Result Diagrams: 10/15/17 03:49 10/13/17 08:55 Radiology Reviewed by me: Yes Phys Exam - Physical Examination HEENT: PERRLA, moist MMs (sores in mouth suggestive of candidiasis) Neck: no nodes Respiratory: no rales, wheezing present (Severe bronchoconstriction reduced air entry bilaterally) Cardiovascular: RRR, no significant murmur Gastrointestinal: soft, non-tender Musculoskeletal: no edema, pulses present Dx/Plan (1) Acute exacerbation of chronic obstructive pulmonary disease (COPD) Code(s): J44.1 - CHRONIC OBSTRUCTIVE PULMONARY DISEASE W (ACUTE) EXACERBATION Status: Acute Comment: Continue Duonebs, Prednisone,Singulair (2) Constipation Code(s): K59.00 - CONSTIPATION, UNSPECIFIED Status: Resolved Comment: ? Verapamil induced (3) NSTEMI (non-ST elevated myocardial infarction) Code(s): I21.4 - NON-ST ELEVATION (NSTEMI) MYOCARDIAL INFARCTION Status: Resolved (4) Afib Code(s): I48.91 - UNSPECIFIED ATRIAL FIBRILLATION Status: Chronic Qualifiers: Comment: Hx of A-fib on current Eliquis and Tambocor, current sinus rhythm (5) GERD (gastroesophageal reflux disease) Code(s): K21.9 - GASTRO-ESOPHAGEAL REFLUX DISEASE WITHOUT ESOPHAGITIS Status: Chronic - Plan cont current plan of care, continue antibiotics, PT/OT, respiratory therapy, incentive spirometry, out of bed/ambulate, DVT proph w/lovenox * . Plan: Continue with PO steroids she is on prednisone , will increased to 40mg q 8 . Complete [place] course. Dr. Castillo want her to continue stay in hospital for 2 -3 days due to severe bronchconstriction. Will do Acapella q4hrs Continue on PO Doxycylin, COntinue with NEb Willie Neb and Albuteral nebs. Pt is On Home oxygen. H/o Atrial fibrillation, Rate Controlled now. Will continue with Famotdine for GERD. DVT prophylaxis with Lovenox Encourgae pt to walk, Continue with PT/OT .Pt wants to go home in 1-2 days. - Discharge Day Encounter end time: 11:00 Review of Systems - Review of Systems Constitutional: weakness Eyes: negative: Pain, Vision Change, Conjunctivae Inflammation, Eyelid Inflammation, Redness, Other ENT: negative: Ear Pain, Ear Discharge, Nose Pain, Nose Discharge, Nose Congestion, Mouth Pain, Mouth Swelling, Throat Pain, Throat Swelling, Other Respiratory: Cough, Dry, Shortness of Breath, SOB with Excertion, Sputum, Wheezing Cardiovascular: negative: chest pain, palpitations, orthopnea, paroxysmal nocturnal dyspnea, edema, light headedness, other Gastrointestinal: negative: Nausea, Vomiting, Abdominal Pain, Diarrhea, Constipation, Melena, Hematochezia, Other Genitourinary: negative: Dysuria, Frequency, Incontinence, Hematuria, Retention , Other Musculoskeletal: negative: Neck Pain, Shoulder Pain, Arm Pain, Back Pain, Hand Pain, Leg Pain, Foot Pain, Other Skin: negative: Rash, Lesions, Jamaal, Bruising, Other Neurological: negative: Weakness, Numbness, Incoordination, Change in Speech, Confusion, Seizures, Other - Medications/Allergies Allergies/Adverse Reactions: Allergies Allergy/AdvReac Type Severity Reaction Status Date / Time codeine Allergy Unknown Verified 10/08/17 18:49 lisinopril Allergy Unknown Verified 10/08/17 18:49 niacin Allergy Unknown Verified 10/08/17 18:49 [From Niaspan Extended-Release] Sulfa (Sulfonamide Allergy Unknown Verified 10/08/17 18:49 Antibiotics) Medications: Current Medications Acetaminophen (Tylenol) 650 mg PO Q4H PRN PRN Reason: Headache/Fever or Pain Last Admin: 10/17/17 02:09 Dose: 650 mg Albuterol/Ipratropium (Duoneb) 3 ml NEB [id number] PRN PRN Reason: SOB &/or Wheezing Albuterol/Ipratropium (Duoneb) 3 ml NEB [id number] [facility] Last Admin: 10/17/17 10:35 Dose: 3 ml Alprazolam (Xanax) 0.25 mg PO BID PRN PRN Reason: Anxiety Last Admin: 10/17/17 09:51 Dose: 0.25 mg Apixaban (Eliquis) 5 mg PO BID [facility] Last Admin: 10/17/17 09:52 Dose: 5 mg Aspirin (Ecotrin) 81 mg PO DAILY [facility] Last Admin: 10/17/17 09:53 Dose: 81 mg Atorvastatin Calcium (Lipitor) 10 mg PO 2100 [facility] Last Admin: 10/16/17 20:08 Dose: 10 mg Calcium Carbonate (Tums) 1,000 mg PO Q4H PRN PRN Reason: Heartburn or Indigestion Last Admin: 10/15/17 11:40 Dose: 1,000 mg Calcium/Vitamin D (Caltrate 600 + Vit D) 1 tab PO BID-[facility] Last Admin: 10/17/17 09:38 Dose: Not Given Clonidine (Catapres) 0.1 mg PO Q4H PRN PRN Reason: Systolic BP > 180/ DBP >100 Last Admin: 10/12/17 21:18 Dose: 0.1 mg Docusate Sodium (Colace) 100 mg PO BID [facility] Last Admin: 10/17/17 09:53 Dose: 100 mg Doxycycline Hyclate (Vibramycin) 100 mg PO BID [facility] Last Admin: 10/17/17 11:56 Dose: 100 mg Famotidine (Pepcid) 20 mg PO BID [facility] Last Admin: 10/17/17 09:52 Dose: 20 mg Flecainide Acetate (Tambocor) 75 mg PO BID [facility] Last Admin: 10/17/17 09:38 Dose: 75 mg Flunisolide (Nasalide 0.025%) 2 sprays EA NARE BID [facility] Fluticasone Propionate (Flonase Nasal [place]) 0 gm NASAL DAILY [facility] Furosemide (Lasix) 40 mg PO DAILY [facility] Last Admin: 01/04/18 09:52 Dose: 40 mg Guaifenesin (Robitussin Sf) 200 mg PO Q4H PRN PRN Reason: Cough Guaifenesin (Mucinex) 600 mg PO Q12HR [facility] Last Admin: 10/17/17 09:40 Dose: 600 mg Hydralazine HCl (Apresoline) 10 mg SLOW IVP Q4H PRN PRN Reason: SBP Greater Than 180 Loratadine (Claritin) 10 mg PO DAILYPRN PRN PRN Reason: Sinus Symptoms Magnesium Hydroxide (Milk Of Magnesium) 30 ml PO DAILYPRN PRN PRN Reason: Constipation Last Admin: 10/12/17 21:18 Dose: 30 ml Methylprednisolone Sodium Succinate (Solu-Medrol) 40 mg IVP Q12HR [facility] Last Admin: 10/17/17 09:54 Dose: 40 mg Mineral Oil/White Petrolatum (Eucerin Cream) 0 gm TOP BIDPRN PRN PRN Reason: Dry Skin Mometasone Furoate/Formoterol Fumar (Dulera 200 Mcg/5 Mcg Inhaler) 2 puff INH BID-RT [facility] Last Admin: 10/17/17 07:39 Dose: 2 puff Multivitamins (Theragran) 1 tab PO DAILY [facility] Last Admin: 10/17/17 09:53 Dose: 1 tab Nitroglycerin (Nitrostat) 0.4 mg PO Q5MIN PRN PRN Reason: Chest Pain Nystatin (Mycostatin) 500,000 units SSW QID [facility] Last Admin: 10/17/17 11:56 Dose: 500,000 units Ondansetron HCl (Zofran) 4 mg IVP Q6H PRN PRN Reason: Nausea/Vomiting Last Admin: 10/17/17 02:09 Dose: 4 mg Phenol (Chloraseptic [place] 180 Ml Bot) 0 ml PO BIDPRN PRN PRN Reason: Sore Throat Polyethylene Glycol (Miralax) 17 gm PO DAILY PRN PRN Reason: Constipation Saccharomyces Boulardii (Florastor) 250 mg PO DAILY [facility] Last Admin: 10/17/17 09:52 Dose: 250 mg Senna (Senokot) 2 tab PO HSPRN PRN PRN Reason: Constipation Senna/Docusate Sodium (Senokot S) 1 tab PO BID [facility] Last Admin: 10/17/17 09:52 Dose: 1 tab Sodium Chloride ([place] Nasal [place] 0.65%) 2 ml EA NARE Q4H PRN PRN Reason: Nasal Congestion Spironolactone (Aldactone) 25 mg PO DAILY [facility] Last Admin: 10/17/17 09:52 Dose: 25 mg Throat Lozenges (Cepastat Lozenges) 1 rizwana PO Q2H PRN PRN Reason: Sore Throat Last Admin: 10/15/17 08:18 Dose: 1 rizwana Verapamil HCl (Calan Sr) 240 mg PO HS [facility] Last Admin: 10/16/17 20:11 Dose: 240 mg
[2017-10-17] MEDS: Atorvastatin Calcium 10 MG TAB PO SCH (20:47)
[2017-10-17] MEDS: FlunisoLIDE 0.025% Nasal Spray 25 ml Bottle EA NARE SCH (20:49)
--- NOTE | 2017-10-17 22:14 | PRG ---
DATE OF SERVICE: 10/17/2017 SUBJECTIVE: Ms. Sharp did well overnight. She is in no distress. OBJECTIVE: VITAL SIGNS: She is afebrile, heart rate is 88, respiratory rate is 20, oximetry is 97, blood pressu re 133/71. LUNGS: Remarkable for distant wheezes. HEART: Regular rhythm. ABDOMEN: Soft. She does not feel like she is taking in enough liquids, so I will add IV fluids today. IMPRESSION: 1. Chronic obstructive pulmonary disease exacerbation. 2. Acute on chronic respiratory failure, on home oxygen. 3. Deconditioning. 4. History of atrial fibrillation. 5. Hypertension. 6. History of severe anxiety and it is reasonably well controlled now. 7. History of coronary artery disease. 8. Lipid disorder. 9. History of atrial fibrillation in the past. 10. History of allergies to CODEINE, LISINOPRIL, NIASPAN and SULFA. PLAN: Continue current care. I will add IV fluids. She will continue with her anticoagulation, her alprazolam, p.o. antibiotics, flecainide for atrial f ibrillation, Lasix, guaifenesin. She really would benefit from a little hydration, hopefully facilit ate loosening of her secretions as her complaint every day as thick copious secretions that she canno t quite cough up. We would normally hold her antibiotics, but I am afraid they would be discontinued at discharge. We will discontinue them for now and add in hydration.
[2017-10-17] MEDS: Sodium Chloride 0.45% 1,000 ML IV SCH (23:40)
[2017-10-18] MEDS: Acetaminophen 325 MG TAB PO PRN ×2 (04:47→22:26)
[2017-10-18] MEDS: Mometasone/Formoterol 120 PUFF INHALER INH SCH ×2 (07:36→20:01)
[2017-10-18] MEDS: Flecainide 50 MG TAB PO SCH ×2 (09:21→22:26)
[2017-10-18] MEDS: Doxycycline 100 MG CAP PO SCH ×2 (09:21→22:25)
[2017-10-18] MEDS: Saccharomyces boulardii 250 MG CAP PO SCH (09:22)
[2017-10-18] MEDS: Senokot S 8.6-50 MG TAB PO SCH ×2 (09:22→22:29)
[2017-10-18] MEDS: Furosemide 40 MG TAB PO SCH (09:22)
[2017-10-18] MEDS: Famotidine 20 MG TAB PO SCH ×2 (09:22→22:28)
[2017-10-18] MEDS: guaiFENesin ER 600 MG TAB PO SCH ×2 (09:22→22:25)
[2017-10-18] MEDS: Docusate 100 MG CAP PO SCH ×2 (09:23→22:28)
[2017-10-18] MEDS: Spironolactone 25 MG TAB PO SCH (09:23)
[2017-10-18] MEDS: Calcium Carbonate + Vit D 1 TAB PO SCH ×2 (09:23→15:05)
[2017-10-18] MEDS: Aspirin 81 mg Enteric Coated Tablet PO SCH (09:23)
[2017-10-18] MEDS: Multivit, Therapeutic 1 TAB PO SCH (09:23)
[2017-10-18] MEDS: Apixaban 5 MG TAB PO SCH ×2 (09:23→22:24)
[2017-10-18] MEDS: Nystatin 500,000 UNITS/5 ML UDCUP SSW SCH ×4 (09:23→22:25)
[2017-10-18] MEDS: FlunisoLIDE 0.025% Nasal Spray 25 ml Bottle EA NARE SCH ×2 (09:24→22:28)
[2017-10-18] MEDS: Fluticasone Propionate Nasal Spray 16 gm Bottle NASAL SCH (09:25)
[2017-10-18] MEDS: Sodium Chloride 0.45% 1,000 ML IV SCH ×2 (09:31→22:29)
[2017-10-18] MEDS: ALPRAZolam 0.25 MG TAB PO PRN ×3 (09:31→22:25)
[2017-10-18] MEDS ORDERED: Fluconazole 100 MG TAB PO SCH (11:00)
--- NOTE | 2017-10-18 12:30 | PRG ---
DATE OF SERVICE: 10/18/2017 Ms. Sharp was having a panic attack when I walked in the room. Her supervisor payroll was in the room which hel ped and then after I talked to her, she was calming down. I have increased her Xanax to 4 times a d ay. PHYSICAL EXAMINATION: VITAL SIGNS: She is afebrile, heart rate 71, respiratory rate 19, oximetry is 97 on 3 liters, blood pressure 148/68. LUNGS: Remarkable for diffuse wheezes. HEART: Regular rhythm. ABDOMEN: Soft. IMPRESSION: 1. Chronic obstructive pulmonary disease exacerbation triggered by a viral illness, likely influenza . 2. Underlying severe anxiety. This is nothing new for her. 3. Chronic respiratory failure on home oxygen with acute exacerbation. She required BiPAP on admiss ion. This has been discontinued. PLAN: We will continue with supportive care until she feels that she is adequately ambulatory and ab le to go home.
--- NOTE | 2017-10-18 14:12 | PDOC.PN ---
- Subjective Encounter Start Date: 10/18/17 Encounter Start Time: 09:40 -: old records requested/rev Pt seen and examined, chart reviewed in its entirety. This is my first visit with this patient. Since my visit, Dr Castillo has seen and left a note. This has been reviewed. No f/C, no N/V/d/C, no CP. Coughing contines, SOB continues, very episodically. No hemptysis, occasional phlegm production. Doesnt feel that nebs help much 10 point ROS performed and neg for all systems except as above - Objective Resuscitation Status: Resuscitation Status FULL:Full Resuscitation MAR Reviewed: Yes Vital Signs & Weight: Vital Signs (12 hours) Temp Pulse Resp BP Pulse Ox 10/18/17 13:57 69 17 97 10/18/17 09:58 71 19 97 10/18/17 08:00 97.6 F 71 19 148/68 H 95 10/18/17 07:36 64 16 98 10/18/17 07:34 64 16 98 10/18/17 05:31 97.6 F 64 20 126/60 98 10/18/17 02:23 82 20 98 Weight Admit Weight 142 lb 1.6 oz Weight 153 lb 9.6 oz I&O: 10/17/17 10/18/17 10/19/17 06:59 06:59 06:59 Intake Total 1730 1856 Balance 1730 1856 Result Diagrams: 10/15/17 03:49 10/13/17 08:55 Radiology Reviewed by me: Yes EKG Reviewed by me: Yes Phys Exam - Physical Examination Constitutional: NAD chronically ill-appearing HEENT: PERRLA, moist MMs, sclera anicteric mucositis from thrush present diffusely Neck: no nodes, supple 3-4cm JVD when sitting upright prolonged expiration, high pitched end-expiratory wheezes heard. No rhonch Cardiovascular: RRR, no rub HSM at apex. 2/6 Gastrointestinal: soft, non-tender, no distention, positive bowel sounds Musculoskeletal: edema present Neurological: non-focal, normal sensation, moves all 4 limbs Lymphatic: no nodes Psychiatric: normal affect, A&O x 3 Skin: no rash, normal turgor, cap refill <2 seconds Dx/Plan (1) Acute on chronic respiratory failure with hypoxemia Code(s): J96.21 - ACUTE AND CHRONIC RESPIRATORY FAILURE WITH HYPOXIA Status: Acute Comment: stable today. conitnuin pulmonary toilet, with nebs, mucinex. IV fluids added yesterday to try and loosin secretions. some movement, appreciate Dr Castillo's assistance (2) Acute exacerbation of chronic obstructive pulmonary disease (COPD) Code(s): J44.1 - CHRONIC OBSTRUCTIVE PULMONARY DISEASE W (ACUTE) EXACERBATION Status: Acute Comment: Continue Duonebs, Prednisone,Singulair (3) Pulmonary cachexia due to chronic obstructive pulmonary disease Code(s): J44.9 - CHRONIC OBSTRUCTIVE PULMONARY DISEASE, UNSPECIFIED; R64 - [place] Status: Chronic (4) Afib Code(s): I48.91 - UNSPECIFIED ATRIAL FIBRILLATION Status: Chronic Qualifiers: Atrial fibrillation type: paroxysmal Qualified Code(s): I48.0 - Paroxysmal atrial fibrillation Comment: Hx of A-fib on current Eliquis and Tambocor, current sinus rhythm (5) Dyslipidemia Code(s): E78.5 - HYPERLIPIDEMIA, UNSPECIFIED Status: Chronic (6) Former smoker Status: Chronic (7) GERD (gastroesophageal reflux disease) Code(s): K21.9 - GASTRO-ESOPHAGEAL REFLUX DISEASE WITHOUT ESOPHAGITIS Status: Chronic Qualifiers: Esophagitis presence: without esophagitis Qualified Code(s): K21.9 - Gastro -esophageal reflux disease without esophagitis (8) Hypertension Code(s): I10 - ESSENTIAL (PRIMARY) HYPERTENSION Status: Chronic Qualifiers: Hypertension type: essential hypertension Comment: Labile, titrate BP regimen (9) NSTEMI (non-ST elevated myocardial infarction) Code(s): I21.4 - NON-ST ELEVATION (NSTEMI) MYOCARDIAL INFARCTION Status: Resolved - Plan cont current plan of care, PT/OT, respiratory therapy * . doxy expires after tonight, will not renew, will discuss with Dr Castillo
[2017-10-18] MEDS: Ondansetron HCl/PF 4 MG/2 ML Vial IVP PRN (17:18)
[2017-10-18] MEDS: Atorvastatin Calcium 10 MG TAB PO SCH (22:26)
[2017-10-19 05:49] LABS: Hemoglobin 12.7 g/dL (12.0-16.0); Platelet Count 293 thou/uL (130-400)
[2017-10-19] MEDS: Mometasone/Formoterol 120 PUFF INHALER INH SCH ×2 (08:12→19:09)
[2017-10-19] MEDS: Multivit, Therapeutic 1 TAB PO SCH (08:26)
[2017-10-19] MEDS: Apixaban 5 MG TAB PO SCH ×2 (08:26→20:18)
[2017-10-19] MEDS: Nystatin 500,000 UNITS/5 ML UDCUP SSW SCH ×4 (08:26→20:20)
[2017-10-19] MEDS: Furosemide 40 MG TAB PO SCH (08:26)
[2017-10-19] MEDS: Calcium Carbonate + Vit D 1 TAB PO SCH ×3 (08:27→13:25)
[2017-10-19] MEDS: Flecainide 50 MG TAB PO SCH ×2 (08:27→20:18)
[2017-10-19] MEDS: guaiFENesin ER 600 MG TAB PO SCH ×2 (08:27→20:19)
[2017-10-19] MEDS: Spironolactone 25 MG TAB PO SCH (08:27)
[2017-10-19] MEDS: Docusate 100 MG CAP PO SCH ×2 (08:27→20:18)
[2017-10-19] MEDS: Famotidine 20 MG TAB PO SCH ×2 (08:27→20:18)
[2017-10-19] MEDS: Fluconazole 100 MG TAB PO SCH (08:28)
[2017-10-19] MEDS: FlunisoLIDE 0.025% Nasal Spray 25 ml Bottle EA NARE SCH ×2 (08:31→20:20)
[2017-10-19] MEDS: Saccharomyces boulardii 250 MG CAP PO SCH (08:31)
[2017-10-19] MEDS: Aspirin 81 mg Enteric Coated Tablet PO SCH (08:31)
[2017-10-19] MEDS: Fluticasone Propionate Nasal Spray 16 gm Bottle NASAL SCH (08:31)
[2017-10-19] MEDS: Senokot S 8.6-50 MG TAB PO SCH ×2 (08:31→20:20)
[2017-10-19] MEDS: ALPRAZolam 0.25 MG TAB PO PRN ×3 (08:32→20:39)
[2017-10-19] MEDS: Sodium Chloride 0.45% 1,000 ML IV SCH (13:08)
--- NOTE | 2017-10-19 14:42 | PDOC.PN ---
- Subjective Encounter Start Date: 10/19/17 Encounter Start Time: 12:05 -: non-verbal Pt sleeping soundly, not awakened. Discussed with nursing, pulm notes reviewed. No acute problems overnight, Breathing better when not anxious. NO f/C, no N/V/ D/C - Objective Resuscitation Status: Resuscitation Status FULL:Full Resuscitation MAR Reviewed: Yes Vital Signs & Weight: Vital Signs (12 hours) Temp Pulse Resp BP Pulse Ox 10/19/17 10:23 86 16 95 10/19/17 08:24 99.0 F 58 L 20 148/78 H 99 10/19/17 08:00 99.0 F 58 L 20 99 Weight Admit Weight 142 lb 1.6 oz Weight 154 lb 6.4 oz I&O: 10/18/17 10/19/17 10/20/17 06:59 06:59 06:59 Intake Total 1856 2914 360 Balance 1856 2914 360 Result Diagrams: 10/19/17 05:12 10/19/17 05:12 Phys Exam - Physical Examination Constitutional: NAD HEENT: moist MMs, oral pharynx no lesions Neck: no nodes, no JVD, supple, full ROM Respiratory: no wheezing, no rales, no rhonchi, clear to auscultation bilateral Cardiovascular: RRR, no significant murmur, no rub Gastrointestinal: soft, non-tender, positive bowel sounds Musculoskeletal: pulses present, edema present Lymphatic: no nodes Skin: no rash, normal turgor, cap refill <2 seconds Dx/Plan (1) Acute on chronic respiratory failure with hypoxemia Code(s): J96.21 - ACUTE AND CHRONIC RESPIRATORY FAILURE WITH HYPOXIA Status: Acute Comment: stable again today. continuing pulmonary toilet, with nebs, mucinex. IV fluids added 10/17/16 to try and loosen secretions. some movement, appreciate Dr Castillo's assistance. Appears to be better today. Dr Castillo wanted to keep here until she felt well enough to go home, whcih would likely be never. (2) Acute exacerbation of chronic obstructive pulmonary disease (COPD) Code(s): J44.1 - CHRONIC OBSTRUCTIVE PULMONARY DISEASE W (ACUTE) EXACERBATION Status: Acute Comment: Continue Duonebs, Prednisone,Singulair (3) Pulmonary cachexia due to chronic obstructive pulmonary disease Code(s): J44.9 - CHRONIC OBSTRUCTIVE PULMONARY DISEASE, UNSPECIFIED; R64 - [place] Status: Chronic (4) Afib Code(s): I48.91 - UNSPECIFIED ATRIAL FIBRILLATION Status: Chronic Qualifiers: Atrial fibrillation type: paroxysmal Qualified Code(s): I48.0 - Paroxysmal atrial fibrillation Comment: Hx of A-fib on current Eliquis and Tambocor, current sinus rhythm (5) Dyslipidemia Code(s): E78.5 - HYPERLIPIDEMIA, UNSPECIFIED Status: Chronic (6) Former smoker Status: Chronic (7) GERD (gastroesophageal reflux disease) Code(s): K21.9 - GASTRO-ESOPHAGEAL REFLUX DISEASE WITHOUT ESOPHAGITIS Status: Chronic Qualifiers: Esophagitis presence: without esophagitis Qualified Code(s): K21.9 - Gastro -esophageal reflux disease without esophagitis (8) Hypertension Code(s): I10 - ESSENTIAL (PRIMARY) HYPERTENSION Status: Chronic Qualifiers: Hypertension type: essential hypertension Comment: Labile, titrate BP regimen (9) NSTEMI (non-ST elevated myocardial infarction) Code(s): I21.4 - NON-ST ELEVATION (NSTEMI) MYOCARDIAL INFARCTION Status: Resolved - Plan cont current plan of care, continue antibiotics, PT/OT, respiratory therapy, out of bed/ambulate * .
[2017-10-19] MEDS ORDERED: Furosemide 20 MG/2 ML VIAL SLOW IVP SCH (16:30)
--- NOTE | 2017-10-19 20:11 | PRG ---
DATE OF SERVICE: 10/19/2017 SERVICE: Pulmonary Medicine. INTERVAL HISTORY: The patient is doing fine from a respiratory standpoint. She is breathing comfort ably. Otherwise, there has been no interval change to her condition. PHYSICAL EXAMINATION: VITAL SIGNS: Afebrile, pulse 86, blood pressure 148/78, respirations 16, saturation 95% on 3 liters nasal cannula. GENERAL: The patient is awake, alert, in no apparent distress. LUNGS: There is decreased air entry. There is a slightly prolonged expiratory phase. There is a li ttle bit of wheezing, but mostly crackles predominate. HEART: Normal rate, regular. ABDOMEN: Soft, nontender, nondistended. Bowel sounds are positive. MUSCULOSKELETAL: No cyanosis or clubbing. There is 1+ pitting in the bilateral lower extremities. NEUROLOGIC: Grossly nonfocal. LABORATORY DATA: Hemoglobin 12.7, creatinine 0.92 and stable. ASSESSMENT: 1. Chronic hypoxic respiratory failure. 2. Chronic obstructive pulmonary disease with acute exacerbation. 3. Anxiety disorder. PLAN: The patient is getting a little volume up. As such, we will continue diuresing her until she returns to euvolemia. Pulmonary critical care will continue to follow while she remains in-house, bu t I think she is fast approaching a time in which she can be discharged from the hospital. She may b enefit from heart failure clinic in the outpatient setting.
[2017-10-19] MEDS: Atorvastatin Calcium 10 MG TAB PO SCH (20:18)
[2017-10-20] MEDS: Milk Of Magnesia 30 ML UDCUP PO PRN (01:30)
[2017-10-20] MEDS: Acetaminophen 325 MG TAB PO PRN (05:25)
[2017-10-20] MEDS: Mometasone/Formoterol 120 PUFF INHALER INH SCH ×2 (06:07→21:26)
[2017-10-20] MEDS: Fluticasone Propionate Nasal Spray 16 gm Bottle NASAL SCH (08:53)
[2017-10-20] MEDS: FlunisoLIDE 0.025% Nasal Spray 25 ml Bottle EA NARE SCH ×2 (08:54→22:10)
[2017-10-20] MEDS: Calcium Carbonate + Vit D 1 TAB PO SCH ×2 (08:55→17:38)
[2017-10-20] MEDS: guaiFENesin ER 600 MG TAB PO SCH ×2 (08:56→22:10)
[2017-10-20] MEDS: Senokot S 8.6-50 MG TAB PO SCH ×2 (08:56→22:10)
[2017-10-20] MEDS: Famotidine 20 MG TAB PO SCH ×2 (08:56→22:09)
[2017-10-20] MEDS: Docusate 100 MG CAP PO SCH ×2 (08:56→22:09)
[2017-10-20] MEDS: Furosemide 40 MG TAB PO SCH (08:56)
[2017-10-20] MEDS: Nystatin 500,000 UNITS/5 ML UDCUP SSW SCH ×4 (08:56→22:08)
[2017-10-20] MEDS: Spironolactone 25 MG TAB PO SCH (08:56)
[2017-10-20] MEDS: Multivit, Therapeutic 1 TAB PO SCH (08:56)
[2017-10-20] MEDS: Saccharomyces boulardii 250 MG CAP PO SCH (08:57)
[2017-10-20] MEDS: Fluconazole 100 MG TAB PO SCH (08:57)
[2017-10-20] MEDS: Apixaban 5 MG TAB PO SCH ×2 (08:57→22:09)
[2017-10-20] MEDS: Flecainide 50 MG TAB PO SCH ×2 (08:57→22:09)
[2017-10-20] MEDS: Aspirin 81 mg Enteric Coated Tablet PO SCH (08:57)
[2017-10-20] MEDS: ALPRAZolam 0.25 MG TAB PO PRN ×3 (09:23→22:10)
[2017-10-20] MEDS: Ondansetron HCl/PF 4 MG/2 ML Vial IVP PRN (09:23)
--- NOTE | 2017-10-20 14:21 | PDOC.PN ---
- Subjective Encounter Start Date: 10/20/17 Encounter Start Time: 11:30 Pt related ow swollen her feet were last night when i was called by nursing. given IV lasix, but patient dies not recall getting it or urinating all night. no f/C, no N/V/D/C, edema improved, breathing stable. She is sleepy today Pulm note reviewed, IV fluids stopped yesterday. no other acute evens overnight 10 point ROS performed and neg for all systems except as above - Objective Resuscitation Status: Resuscitation Status FULL:Full Resuscitation MAR Reviewed: Yes Vital Signs & Weight: Vital Signs (12 hours) Temp Pulse Resp BP BP Pulse Ox 10/20/17 13:40 56 L 16 97 10/20/17 08:00 97.3 F L 56 L 20 115/56 L 97 10/20/17 04:00 97.5 F L 59 L 20 119/69 97 10/20/17 02:36 20 Weight Admit Weight 142 lb 1.6 oz Weight 149 lb 4.8 oz I&O: 10/19/17 10/20/17 10/21/17 06:59 06:59 06:59 Intake Total 2914 2670 240 Balance 2914 2670 240 Result Diagrams: 10/19/17 05:12 10/19/17 05:12 Radiology Reviewed by me: Yes Phys Exam - Physical Examination Constitutional: NAD HEENT: PERRLA, moist MMs, sclera anicteric, oral pharynx no lesions Neck: no nodes, supple, full ROM 3-4cm JVD bilaterally Respiratory: no wheezing, no rhonchi coarse bilateral crackles Cardiovascular: RRR, no significant murmur, no rub Gastrointestinal: soft, non-tender, no distention, positive bowel sounds Musculoskeletal: pulses present, edema present 1+ BLE to just above ankles Neurological: non-focal, normal sensation, moves all 4 limbs Lymphatic: no nodes Psychiatric: normal affect, A&O x 3 Skin: no rash, normal turgor, cap refill <2 seconds Dx/Plan (1) Acute on chronic respiratory failure with hypoxemia Code(s): J96.21 - ACUTE AND CHRONIC RESPIRATORY FAILURE WITH HYPOXIA Status: Acute Comment: stable again today. continuing pulmonary toilet, with nebs, mucinex. IV fluids added 10/17/16 to try and loosen secretions. some movement, appreciate Dr Castillo's assistance. Dr Radha richardson, and he found patient to be volume overlaoded, stopped IV fluids. I gave an extra dose of lasix last nigh tintravelously, edema okay. sats stable. Appears to be better today. Dr Castillo wanted to keep here until she felt well enough to go home, whcih would likely be never. (2) Acute exacerbation of chronic obstructive pulmonary disease (COPD) Code(s): J44.1 - CHRONIC OBSTRUCTIVE PULMONARY DISEASE W (ACUTE) EXACERBATION Status: Acute Comment: Continue Duonebs, Prednisone,Singulair (3) Pulmonary cachexia due to chronic obstructive pulmonary disease Code(s): J44.9 - CHRONIC OBSTRUCTIVE PULMONARY DISEASE, UNSPECIFIED; R64 - [place] Status: Chronic (4) Afib Code(s): I48.91 - UNSPECIFIED ATRIAL FIBRILLATION Status: Chronic Qualifiers: Atrial fibrillation type: paroxysmal Qualified Code(s): I48.0 - Paroxysmal atrial fibrillation Comment: Hx of A-fib on current Eliquis and Tambocor, current sinus rhythm (5) Dyslipidemia Code(s): E78.5 - HYPERLIPIDEMIA, UNSPECIFIED Status: Chronic (6) Former smoker Status: Chronic (7) GERD (gastroesophageal reflux disease) Code(s): K21.9 - GASTRO-ESOPHAGEAL REFLUX DISEASE WITHOUT ESOPHAGITIS Status: Chronic Qualifiers: Esophagitis presence: without esophagitis Qualified Code(s): K21.9 - Gastro -esophageal reflux disease without esophagitis (8) Hypertension Code(s): I10 - ESSENTIAL (PRIMARY) HYPERTENSION Status: Chronic Qualifiers: Hypertension type: essential hypertension Comment: Labile, titrate BP regimen - Plan * .
--- NOTE | 2017-10-20 16:21 | RAD ---
FRONTAL VIEW CHEST: Clinical history: COPD, acute pulmonary edema. Comparison: 10-02-17 FINDINGS: Patchy density over the right lung base is grossly stable. There is also a stable reticular nodularit y density over the left suprahilar region. Cardiomediastinal silhouette is stable in size. Lungs are hyperinflated with a generalized small interstitial prominence. IMPRESSION: Stable chest, with findings of COPD. There is a stable reticular nodular density of the left suprahil ar region and a stable right patchy basilar density. Recommend continued follow up to confirm resolut ion. Code T POS: [facility]
[2017-10-20] MEDS ORDERED: Furosemide 40 MG TAB PO PRN (19:55)
--- NOTE | 2017-10-20 22:03 | PRG ---
DATE OF SERVICE: 10/20/2017 SERVICE: Pulmonary Medicine. INTERVAL HISTORY: The patient is actually doing quite well from a respiratory standpoint. She kind of feels that she is not doing much better, though she is not talking or she is not having a break up any of her sentences in order to speak. She looks much more comfortable today. She denies any curr ent fevers, chills, or overnight events. PHYSICAL EXAMINATION: VITAL SIGNS: Afebrile, pulse 56, blood pressure 115/56, respirations 20, saturation 97% on 3 liters nasal cannula. GENERAL: Patient is awake and alert, no apparent distress. LUNGS: Much improved air entry. There is a minimally prolonged expiratory phase. Dependent crackle s and rhonchi are both present, but I do not appreciate wheezing today. HEART: Normal rate, regular. ABDOMEN: Soft, nontender, nondistended. Bowel sounds are positive. MUSCULOSKELETAL: No cyanosis or clubbing. No pitting in the bilateral lower extremities. NEUROLOGIC: Grossly nonfocal. IMAGING: Chest x-ray demonstrates a stable chest. Reticulonodular density in the left suprahilar re gion. Patchy right basilar density. Otherwise, findings are consistent with hyperexpansion. ASSESSMENT: 1. Chronic hypoxic respiratory failure. 2. Chronic obstructive pulmonary disease with acute exacerbation. 3. Anxiety disorder. PLAN: The patient was really upset about not getting a dose of Lasix last night. I actually offered her one and she refused it. Later on, she wanted it and was upset that she could not have it. As s uch, tonight I will put on p.r.n. dose of Lasix to be used if she so desires. I will repeat victorina salazar tomorrow morning to make certain she does not develop any electrolyte derangements. From my per spective, there is nothing that is preventing her from being discharged from the hospital. Dr. Castillo will resume care in the morning.
[2017-10-20] MEDS: Atorvastatin Calcium 10 MG TAB PO SCH (22:09)
[2017-10-21] MEDS: diphenhydrAMINE 25 MG CAP PO PRN (01:52)
[2017-10-21] MEDS: Acetaminophen 325 MG TAB PO PRN (01:55)
[2017-10-21 05:15] LABS: #Eosinphils 0.1 thou/uL (0.0-0.7); #Lymphocytes 1.3 thou/uL (1.20-3.40); #Monocytes 1.2 thou/uL (0.11-0.59); #Neutrophils 17.2 thou/uL (1.40-6.50); %Basophils 0.1 % (0.0-1.0); %Eosinophils 0.5 % (0.0-10.0); %Lymphocytes 6.3 % (21.0-51.0); %Monocytes 5.9 % (0.0-10.0); %Neutrophils 87.1 % (42.0-75.0); Hemoglobin 11.4 g/dL (12.0-16.0); Mean Corpuscular HGB CONC 32.2 g/dL (32.0-36.0); Mean Corpuscular Hemoglobin 32.7 pg (27.0-31.0); Mean Platelet Volume 7.4 fL (7.4-10.4); Platelet Count 283 thou/uL (130-400); RBC Distribution Width 11.4 % (11.5-14.5); White Blood Cell (WBC) Count 19.8 thou/uL (4.8-10.8)
[2017-10-21 05:38] LABS: Anion Gap 10 mmol/L (10-20); BUN (Urea Nitrogen) 25 mg/dL (9.8-20.1); Calc. Creatinine Clearance 59 mL/min (70-130); Calcium 8.7 mg/dL (7.8-10.44); Carbon Dioxide 30 mmol/L (23-31); Chloride 99 mmol/L (98-107); Estimated GFR-MDRD 71; Glucose 119 mg/dL (83-110); Magnesium 2.5 mg/dL (1.6-2.6); Potassium 4.1 mmol/L (3.5-5.1); Sodium 135 mmol/L (136-145)
[2017-10-21] MEDS: Calcium Carbonate + Vit D 1 TAB PO SCH ×2 (07:17→15:30)
[2017-10-21] MEDS: Fluconazole 100 MG TAB PO SCH (08:11)
[2017-10-21] MEDS: ALPRAZolam 0.25 MG TAB PO PRN ×2 (08:11→18:18)
[2017-10-21] MEDS: guaiFENesin ER 600 MG TAB PO SCH ×2 (08:12→21:10)
[2017-10-21] MEDS: Multivit, Therapeutic 1 TAB PO SCH (08:12)
[2017-10-21] MEDS: Flecainide 50 MG TAB PO SCH ×2 (08:12→21:09)
[2017-10-21] MEDS: Senokot S 8.6-50 MG TAB PO SCH ×2 (08:12→21:10)
[2017-10-21] MEDS: Apixaban 5 MG TAB PO SCH ×2 (08:12→21:09)
[2017-10-21] MEDS: Furosemide 40 MG TAB PO SCH (08:12)
[2017-10-21] MEDS: Famotidine 20 MG TAB PO SCH ×2 (08:12→21:09)
[2017-10-21] MEDS: Docusate 100 MG CAP PO SCH ×2 (08:13→21:09)
[2017-10-21] MEDS: Aspirin 81 mg Enteric Coated Tablet PO SCH (08:13)
[2017-10-21] MEDS: Spironolactone 25 MG TAB PO SCH (08:13)
[2017-10-21] MEDS: Fluticasone Propionate Nasal Spray 16 gm Bottle NASAL SCH (08:13)
[2017-10-21] MEDS: Nystatin 500,000 UNITS/5 ML UDCUP SSW SCH ×4 (08:14→21:10)
[2017-10-21] MEDS: Saccharomyces boulardii 250 MG CAP PO SCH (08:14)
[2017-10-21] MEDS: FlunisoLIDE 0.025% Nasal Spray 25 ml Bottle EA NARE SCH ×2 (08:14→21:09)
[2017-10-21] MEDS: Mometasone/Formoterol 120 PUFF INHALER INH SCH ×2 (11:44→19:28)
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
[2017-10-21] MEDS: Atorvastatin Calcium 10 MG TAB PO SCH (21:09)
--- NOTE | 2017-10-22 00:13 | PRG ---
DATE OF SERVICE: 10/21/2017 SUBJECTIVE: Izabel Sharp is still having episodes of coughing that lead to wheezing that lead to panic attacks. OBJECTIVE: VITAL SIGNS: She is afebrile, heart rate is 87, respiratory rate is 16, oximetry is 95% on 3.5 liter s, blood pressure 104/71. LUNGS: Still remarkable for diffuse wheezes. HEART: Regular rhythm. LABORATORY DATA: White count , hemoglobin 11.4, platelets 283. Sodium 135, potassium 4.1, chlo ride 99, bicarbonate 30, BUN 25, creatinine 0.7. REVIEW OF SYSTEMS. Mainly remarkable for ongoing mouth pain and thrush findings on exam. IMPRESSION: 1. Chronic obstructive pulmonary disease exacerbation triggered by viral illness (influenza). 2. Acute on chronic respiratory failure. 3. Thrush. Started IV Diflucan. 4. Severe anxiety treated with Xanax. We will continue to follow. Not sure she would be a candidat e to go home. She lives in the [facility], and evaluation for [facility] bed for a while migh t be appropriate.
[2017-10-22] MEDS: diphenhydrAMINE 25 MG CAP PO PRN (04:26)
[2017-10-22] MEDS: Acetaminophen 325 MG TAB PO PRN ×4 (04:27→20:47)
[2017-10-22] MEDS: Mometasone/Formoterol 120 PUFF INHALER INH SCH ×2 (06:56→19:12)
[2017-10-22] MEDS: Fluconazole In NaCl,Iso-Osm 100 MG in Premix Bag 1 BAG IVPB SCH (08:26)
[2017-10-22] MEDS: Nystatin 500,000 UNITS/5 ML UDCUP SSW SCH ×4 (08:26→20:49)
[2017-10-22] MEDS: Flecainide 50 MG TAB PO SCH ×2 (08:27→20:47)
[2017-10-22] MEDS: Multivit, Therapeutic 1 TAB PO SCH (08:29)
[2017-10-22] MEDS: Saccharomyces boulardii 250 MG CAP PO SCH (08:29)
[2017-10-22] MEDS: Apixaban 5 MG TAB PO SCH ×2 (08:29→20:49)
[2017-10-22] MEDS: Aspirin 81 mg Enteric Coated Tablet PO SCH (08:29)
[2017-10-22] MEDS: Furosemide 40 MG TAB PO SCH (08:29)
[2017-10-22] MEDS: Senokot S 8.6-50 MG TAB PO SCH ×2 (08:29→20:49)
[2017-10-22] MEDS: Spironolactone 25 MG TAB PO SCH (08:29)
[2017-10-22] MEDS: Docusate 100 MG CAP PO SCH ×2 (08:31→20:48)
[2017-10-22] MEDS: Famotidine 20 MG TAB PO SCH ×2 (08:31→20:47)
[2017-10-22] MEDS: Calcium Carbonate + Vit D 1 TAB PO SCH ×2 (08:31→16:29)
[2017-10-22] MEDS: Fluticasone Propionate Nasal Spray 16 gm Bottle NASAL SCH (08:32)
[2017-10-22] MEDS: FlunisoLIDE 0.025% Nasal Spray 25 ml Bottle EA NARE SCH ×2 (08:32→20:49)
[2017-10-22] MEDS: guaiFENesin ER 600 MG TAB PO SCH ×2 (08:34→20:47)
[2017-10-22] MEDS ORDERED: Fluconazole In NaCl,Iso-Osm 100 MG in Premix Bag 1 BAG IVPB SCH (09:00)
[2017-10-22] MEDS: ALPRAZolam 0.25 MG TAB PO PRN ×2 (11:47→21:02)
--- NOTE | 2017-10-22 14:42 | PDOC.PN ---
- Subjective Encounter Start Date: 10/22/17 Encounter Start Time: 10:20 no significant changes, no new complaints. Pt is grouchy. Dr Castillo's note from [facility] reviewed, attempted to discuss rehab with the pt and she became very angry with the idea of going to rehab. Discussed with Dr Castillo, he will see her later today no f/c, no n/V/D/c, some cough, rattling, less sputum today Arthur nebs and O2 10 point ROS performed and neg for all systems except as above. - Objective Resuscitation Status: Resuscitation Status FULL:Full Resuscitation MAR Reviewed: Yes Vital Signs & Weight: Vital Signs (12 hours) Temp Pulse Resp BP BP Pulse Ox 10/22/17 12:00 136/86 10/22/17 08:00 97 F L 60 16 98/56 L 99 10/22/17 07:47 97 F L 60 16 98/56 L 99 10/22/17 06:53 58 L 16 99 10/22/17 04:00 97.6 F 53 L 20 104/55 L 100 Weight Admit Weight 142 lb 1.6 oz Weight 149 lb 3.2 oz I&O: 10/21/17 10/22/17 10/23/17 06:59 06:59 06:59 Intake Total 1889 2049 Balance 1889 2049 Result Diagrams: 10/21/17 04:50 10/21/17 04:50 Radiology Reviewed by me: Yes EKG Reviewed by me: Yes Phys Exam - Physical Examination Constitutional: NAD HEENT: PERRLA, moist MMs, sclera anicteric, oral pharynx no lesions Neck: no nodes, no JVD, supple, full ROM Respiratory: no rhonchi, wheezing present bibasilar rales present Cardiovascular: RRR, no significant murmur, no rub Gastrointestinal: soft, non-tender, no distention, positive bowel sounds Musculoskeletal: pulses present, edema present Neurological: non-focal, normal sensation, moves all 4 limbs Lymphatic: no nodes Psychiatric: normal affect, A&O x 3 Skin: no rash, normal turgor, cap refill <2 seconds Dx/Plan (1) Acute on chronic respiratory failure with hypoxemia Code(s): J96.21 - ACUTE AND CHRONIC RESPIRATORY FAILURE WITH HYPOXIA Status: Acute Comment: stable again today. continuing pulmonary toilet, with nebs, mucinex. IV fluids added 10/17/16 to try and loosen secretions. some movement, appreciate Dr Castillo's assistance. Dr Radha richardson, and he found patient to be volume overlaoded, stopped IV fluids. I gave an extra dose of lasix last nigh tintravelously, edema okay. sats stable. Appears to be better today, possible close to baseline. Dr Castillo wanted to keep here until she felt well enough to go home, which would likely be never. Hes recommended rehab or a swing bed, pt resistant (2) Acute exacerbation of chronic obstructive pulmonary disease (COPD) Code(s): J44.1 - CHRONIC OBSTRUCTIVE PULMONARY DISEASE W (ACUTE) EXACERBATION Status: Acute Comment: Continue Duonebs, Prednisone,Singulair (3) Pulmonary cachexia due to chronic obstructive pulmonary disease Code(s): J44.9 - CHRONIC OBSTRUCTIVE PULMONARY DISEASE, UNSPECIFIED; R64 - CACHEXIA Status: Chronic (4) Afib Code(s): I48.91 - UNSPECIFIED ATRIAL FIBRILLATION Status: Chronic Qualifiers: Atrial fibrillation type: paroxysmal Qualified Code(s): I48.0 - Paroxysmal atrial fibrillation Comment: Hx of A-fib on current Eliquis and Tambocor, current sinus rhythm (5) Dyslipidemia Code(s): E78.5 - HYPERLIPIDEMIA, UNSPECIFIED Status: Chronic (6) Former smoker Status: Chronic (7) GERD (gastroesophageal reflux disease) Code(s): K21.9 - GASTRO-ESOPHAGEAL REFLUX DISEASE WITHOUT ESOPHAGITIS Status: Chronic Qualifiers: Esophagitis presence: without esophagitis Qualified Code(s): K21.9 - Gastro -esophageal reflux disease without esophagitis (8) Hypertension Code(s): I10 - ESSENTIAL (PRIMARY) HYPERTENSION Status: Chronic Qualifiers: Hypertension type: essential hypertension Comment: Labile, titrate BP regimen - Plan * .
[2017-10-22] MEDS: Atorvastatin Calcium 10 MG TAB PO SCH (20:48)
[2017-10-23] MEDS: diphenhydrAMINE 25 MG CAP PO PRN (01:05)
[2017-10-23] MEDS: Acetaminophen 325 MG TAB PO PRN ×2 (01:05→06:09)
[2017-10-23 04:41] LABS: #Eosinphils 0.1 thou/uL (0.0-0.7); #Lymphocytes 0.9 thou/uL (1.20-3.40); #Monocytes 0.8 thou/uL (0.11-0.59); #Neutrophils 13.9 thou/uL (1.40-6.50); %Basophils 0.1 % (0.0-1.0); %Eosinophils 0.5 % (0.0-10.0); %Lymphocytes 5.7 % (21.0-51.0); %Monocytes 4.8 % (0.0-10.0); %Neutrophils 88.9 % (42.0-75.0); Hemoglobin 11.5 g/dL (12.0-16.0); Mean Corpuscular Hemoglobin 34.4 pg (27.0-31.0); Mean Platelet Volume 7.5 fL (7.4-10.4); Platelet Count 279 thou/uL (130-400); RBC Distribution Width 11.5 % (11.5-14.5); Red Blood Cell (RBC) Count 3.34 mill/uL (4.20-5.40); White Blood Cell (WBC) Count 15.7 thou/uL (4.8-10.8)
[2017-10-23 05:21] LABS: Anion Gap 8 mmol/L (10-20); BUN (Urea Nitrogen) 22 mg/dL (9.8-20.1); Calc. Creatinine Clearance 63 mL/min (70-130); Calcium 8.6 mg/dL (7.8-10.44); Carbon Dioxide 32 mmol/L (23-31); Chloride 101 mmol/L (98-107); Estimated GFR-MDRD 75; Glucose 126 mg/dL (83-110); Magnesium 2.5 mg/dL (1.6-2.6); Sodium 137 mmol/L (136-145)
--- NOTE | 2017-10-23 05:54 | PRG ---
DATE OF SERVICE: 10/22/2017 SUBJECTIVE: Izabel Sharp really has plateaued. She is improving only very slowly. OBJECTIVE: VITAL SIGNS: She is afebrile, heart rate is in the 80s, respiratory rate is 16, oximetry is 95%, blo od pressure 126/57. LUNGS: She still has diffuse wheezes. HEART: Regular rhythm. ABDOMEN: Soft. LABORATORY DATA: There is no new lab today. ASSESSMENT AND PLAN: I discussed going to a swing bed in [place]. She initially was opposed to [facility], but by the end of our meeting with her she is agreeable to this. She certainly can go [facility] at [facility] safely, so a swing bed for 7-10 days may be reasonable to get her strong enough to where she can go to the house and take care of herself. She is agreeable to this, so we will begin efforts to try to get her over to [place] [facility].
[2017-10-23] MEDS: Famotidine 20 MG TAB PO SCH (06:09)
[2017-10-23] MEDS: Mometasone/Formoterol 120 PUFF INHALER INH SCH (07:31)
[2017-10-23] MEDS: Senokot S 8.6-50 MG TAB PO SCH (08:40)
[2017-10-23] MEDS: Flecainide 50 MG TAB PO SCH (08:40)
[2017-10-23] MEDS: Furosemide 40 MG TAB PO SCH (08:40)
[2017-10-23] MEDS: Saccharomyces boulardii 250 MG CAP PO SCH (08:42)
[2017-10-23] MEDS: Apixaban 5 MG TAB PO SCH (08:42)
[2017-10-23] MEDS: Spironolactone 25 MG TAB PO SCH (08:42)
[2017-10-23] MEDS: guaiFENesin ER 600 MG TAB PO SCH (08:42)
[2017-10-23] MEDS: Aspirin 81 mg Enteric Coated Tablet PO SCH (08:42)
[2017-10-23] MEDS: Docusate 100 MG CAP PO SCH (08:42)
[2017-10-23] MEDS: Calcium Carbonate + Vit D 1 TAB PO SCH (08:42)
[2017-10-23] MEDS: Multivit, Therapeutic 1 TAB PO SCH (08:42)
[2017-10-23] MEDS: Nystatin 500,000 UNITS/5 ML UDCUP SSW SCH ×2 (08:43→13:32)
[2017-10-23] MEDS: Fluticasone Propionate Nasal Spray 16 gm Bottle NASAL SCH (08:44)
[2017-10-23] MEDS: FlunisoLIDE 0.025% Nasal Spray 25 ml Bottle EA NARE SCH (08:44)
[2017-10-23 08:53] VITALS: BP 133/58; TEMP 97.9
[2017-10-23 08:58] VITALS: BMI 25.6
[2017-10-23] MEDS: Fluconazole In NaCl,Iso-Osm 100 MG in Premix Bag 1 BAG IVPB SCH (10:27)
[2017-10-23] MEDS: ALPRAZolam 0.25 MG TAB PO PRN (13:32)
--- NOTE | 2017-10-23 22:09 | PRG ---
DATE OF SERVICE: 10/23/2017 Ms. Sharp was actually okay with the idea of going to a correction in [place]. OBJECTIVE: VITAL SIGNS: Stable. LUNGS: Still remarkable for diffuse wheezes. HEART: Regular rhythm. ABDOMEN: Soft. She should go home on 40 of prednisone, her nebulizer treatments q.4 h. while awake and in 4-5 days taper to 20 mg a day of prednisone until she sees me in 2- 3 weeks. Hopefully, she will be strong enough and independent enough to go home in 7-10 days. [facility]
--- NOTE | 2017-10-26 20:53 | EKG ---
Test Reason : Blood Pressure : / mmHG Vent. Rate : 096 BPM Atrial Rate : 096 BPM P-R Int : 144 ms QRS Dur : 080 ms QT Int : 344 ms P-R-T Axes : 088 056 064 degrees QTc Int : 434 ms Normal sinus rhythm Nonspecific ST abnormality Abnormal ECG Confirmed by REAL COOPER, KIYA ([id number]), continuity editor MATHIEU CRENSHAW ([id number]) on 10/26/2017 8:52:47 PM Referred By: Confirmed By:KIYA NOBLE MD
--- NOTE | 2017-11-01 08:52 | PQF ---
ELSI FIGUEROA MALIK MD [id number] CU- B01 [id number] CLINICAL DOCUMENTATION CLARIFICATION FORM: POST DISCHARGE Addendum to original discharge summary date: ____ Late entry note date: __ DATE: 11/01/17 ATTN: Dr. Stephenson Please exercise your independent, professional judgment in responding to the clarification form. Clinical indicators are provided on the bottom of this form for your review Please check appropriate box(s): [ ] Sepsis due to: (Pna, UTI, gangrenous gall bladder, etc.) Due to: [ ] Device (please specify) [ ] Implant [ ] Graft [ ] Infusion [ ] SIRS due to non-infectious process (please specify etiology) [ ] with organ dysfunction [ ] without organ dysfunction [ ] Severe sepsis with acute organ dysfunction of: (Examples: respiratory failure, encephalopathy, acute kidney failure, other) [ ] Localized infection without sepsis [ ] Other diagnosis [ ] Unable to determine In addition, please specify: Present on Admission (POA): [ ] Yes [ ] No [ ] Unable to determine For continuity of documentation, please document condition throughout progress notes and discharge summary. Thank You. CLINICAL INDICATORS - SIGNS / SYMPTOMS / LABS Respiratory rate >22/min, Hypoxemia, Metabolic acidosis Lactic Acid >2mmol/L, Increase BUN/Manager Hematology, decrease GFR, coag abnormalities, thrombocytopenia-plts <100k Oliguria Shock-hypotension resistant to IV fluid boluses WBC count (>12,000/mm^4 or <4000/mm^3 or 10% neuts, 10% bands) Hyperglycemia in absence of diabetes mellitus Positive blood cultures RISK FACTORS Infection/Bacteremia Pneumonia, UTI, infected wound, gangrenous gall bladder Diabetes or Cancer Surgery / surgical instrumentation / trauma Ruptured/perforated bowel, ruptured appendix Immunosuppression Advancing Age TREATMENTS: Initiation Sepsis Protocol ICU Daily CBC Blood/sputum/wound cultures ID Consult IV antibiotics - broad spectrum IV Fluids Vasopressors, meds Clinical validation of Sepsis is needed. Documentation states: WBC 12.7 with left shift, ABG pH 7.32, Co2 56.5, PO2 120.3, hypoxemia on admission. Sepsis secondary to Influenza A. (This form is maintained as a part of the permanent medical record) 2014 [employer] All Rights Reserved Bruna [email or web address] [phone] Dr Mann discharged this patient. Please forward to Dr Mann. [facility]
--- NOTE | 2017-11-06 08:27 | PQF ---
ELSI FIGUEROADANIEL [id number] CU- B01 [id number] CLINICAL DOCUMENTATION CLARIFICATION FORM: POST DISCHARGE Addendum to original discharge summary date: ____ Late entry note date: __ DATE: 11/06/17 ATTN: DR MANCERA Please exercise your independent, professional judgment in responding to the clarification form. Clinical indicators are provided on the bottom of this form for your review Please check appropriate box(s): [ ] Sepsis due to: (Pna, UTI, gangrenous gall bladder, etc.) Due to: [ ] Device (please specify) [ ] Implant [ ] Graft [ ] Infusion [ ] SIRS due to non-infectious process (please specify etiology) [ ] with organ dysfunction [ ] without organ dysfunction [ ] Severe sepsis with acute organ dysfunction of: (Examples: respiratory failure, encephalopathy, acute kidney failure, other) [ ] Localized infection without sepsis [ ] Other diagnosis [ ] Unable to determine In addition, please specify: Present on Admission (POA): [ ] Yes [ ] No [ ] Unable to determine For continuity of documentation, please document condition throughout progress notes and discharge summary. Thank You. CLINICAL INDICATORS - SIGNS / SYMPTOMS / LABS Altered mental status Fever or hypothermia (<96.8 F/36 C or > 100.4 F/38C) Respiratory rate >22/min, Hypoxemia, SBP <100mmHg Metabolic acidosis Lactic Acid >2mmol/L, Increase BUN/Lead [employer], decrease GFR, coag abnormalities, thrombocytopenia-plts <100k Oliguria Shock-hypotension resistant to IV fluid boluses WBC count (>12,000/mm^4 or <4000/mm^3 or 10% neuts, 10% bands) Hyperglycemia in absence of diabetes mellitus Positive blood cultures RISK FACTORS Infection/Bacteremia Pneumonia, UTI, infected wound, gangrenous gall bladder Diabetes or Cancer Surgery / surgical instrumentation / trauma Ruptured/perforated bowel, ruptured appendix Immunosuppression Advancing Age TREATMENTS: Initiation Sepsis Protocol ICU Daily CBC Blood/sputum/wound cultures ID Consult IV antibiotics - broad spectrum IV Fluids Vasopressors, meds Clinical validation of Sepsis is needed. Documentation states: wbc 12.7 with left shift, ABG pH 7.32, Co2 56.5, PO 2 120.3, hypoxemia on admission. Sepsis secondary to Influenza A. (This form is maintained as a part of the permanent medical record) 2014 [employer] All Rights Reserved Bruna [email or web address] [phone] [email or web address]
== END 2017-10-23 14:38 | DRG 871 ==
LOC: ERS 14:21 → IMCU/EMU 18:43 → T4-B 10-12 12:39
PROVIDERS: ADMIT Internal Medicine; ATTEND Internal Medicine
PROC: 5A09357 Assistance with Respiratory Ventilation, Less than 24 Consecutive Hours, Continuous Positive Airway Pressure (ICD-10-PCS; principal; 2017-10-08)
DX: A41.89 Other specified sepsis (principal); J96.21 Acute and chronic respiratory failure with hypoxia; I21.4 Non-ST elevation (NSTEMI) myocardial infarction; J96.22 Acute and chronic respiratory failure with hypercapnia; B37.0 Candidal stomatitis; J44.1 Chronic obstructive pulmonary disease with (acute) exacerbation; I48.0 Paroxysmal atrial fibrillation; Z99.81 Dependence on supplemental oxygen; I25.10 Atherosclerotic heart disease of native coronary artery without angina pectoris; E78.5 Hyperlipidemia, unspecified; Z79.51 Long term (current) use of inhaled steroids; F41.9 Anxiety disorder, unspecified; Z79.01 Long term (current) use of anticoagulants; Z87.891 Personal history of nicotine dependence; Z88.5 Allergy status to narcotic agent; Z88.2 Allergy status to sulfonamides; Z88.8 Allergy status to other drugs, medicaments and biological substances; I12.9 Hypertensive chronic kidney disease with stage 1 through stage 4 chronic kidney disease, or unspecified chronic kidney disease; N18.2 Chronic kidney disease, stage 2 (mild); Z79.82 Long term (current) use of aspirin; Z79.52 Long term (current) use of systemic steroids; K21.9 Gastro-esophageal reflux disease without esophagitis; K59.03 Drug induced constipation; T46.1X5A Adverse effect of calcium-channel blockers, initial encounter; I25.2 Old myocardial infarction; J10.1 Influenza due to other identified influenza virus with other respiratory manifestations
CPT/HCPCS: 36415; 71010; 71045; 80048; 80053; 80069; 82553; 82565; 82805; 83605; 83690; 83735; 83880; 84484; 85014; 85018; 85025; 85049; 85610; 85730; 87040; 87804; 93005; 94640; 94660; 94760; 96365; 96375; A4216; G8978-GP-CI; G8979-GP-CI; G8980-GP-CI; J0696; J1100; J1450; J1940; J1956; J2405; J2920; J7506; J7611; J7620

== ENCOUNTER 2017-11-05 15:38 | Inpatient (IN) | payer MEDICARE, OTHER ==
[2017-11-05 16:12] LABS: #Eosinphils 0.1 thou/uL (0.0-0.7); #Lymphocytes 1.5 thou/uL (1.20-3.40); #Monocytes 1.2 thou/uL (0.11-0.59); #Neutrophils 14.1 thou/uL (1.40-6.50); %Basophils 0.1 % (0.0-1.0); %Eosinophils 0.5 % (0.0-10.0); %Lymphocytes 8.9 % (21.0-51.0); %Neutrophils 83.5 % (42.0-75.0); Hemoglobin 10.8 g/dL (12.0-16.0); Mean Corpuscular HGB CONC 32.3 g/dL (32.0-36.0); Mean Corpuscular Hemoglobin 32.1 pg (27.0-31.0); Mean Corpuscular Volume 99.2 fl (81.0-99.0); Mean Platelet Volume 6.4 fL (7.4-10.4); Platelet Count 528 thou/uL (130-400); RBC Distribution Width 11.8 % (11.5-14.5); Red Blood Cell (RBC) Count 3.36 mill/uL (4.20-5.40); White Blood Cell (WBC) Count 16.9 thou/uL (4.8-10.8)
[2017-11-05] MEDS ORDERED: Water For Inject, Bacteriostat 30 ML ONE (16:23)
[2017-11-05] MEDS ORDERED: methylPREDNISolone Sod Succ/PF 125 MG/2 ML VIAL ONE (16:23)
[2017-11-05 16:34] LABS: ALT (SGPT) 40 U/L (8-55); AST (SGOT) 22 U/L (5-34); Albumin 3.1 g/dL (3.4-4.8); Alkaline Phosphatase 63 U/L (40-150); Anion Gap 12 mmol/L (10-20); BUN (Urea Nitrogen) 11 mg/dL (9.8-20.1); Bilirubin, Total 0.5 mg/dL (0.2-1.2); Calc. Creatinine Clearance 0 mL/min (70-130); Calcium 9.1 mg/dL (7.8-10.44); Carbon Dioxide 29 mmol/L (23-31); Chloride 94 mmol/L (98-107); Estimated GFR-MDRD 75; Globulin 3.5 g/dL (2.4-3.5); Glucose 108 mg/dL (83-110); Protein, Total 6.6 g/dL (6.0-8.3); Sodium 131 mmol/L (136-145)
--- NOTE | 2017-11-05 17:11 | RAD ---
CHEST ONE VIEW: 11/05/17 HISTORY: Dyspnea. COMPARISON: 10/28/17. FINDINGS: Atherosclerosis of the aorta. Enlarged cardiac silhouette. The pulmonary vessels are within normal li mits. There are patchy interstitial opacities which are predominantly chronic. Superimposed infiltrat e in the right upper lobe is suggested. There is no pneumothorax or osseous abnormalities. IMPRESSION: 1. Right upper lobe infiltrate, superimposed upon chronic change. Continued surveillance. 2. Atherosclerosis of the aorta. POS: [facility]
[2017-11-05] MEDS ORDERED: Piperacillin/Tazobactam 4.5 GM in Sodium Chloride 0.9% 100 ML IVPB SCH (18:00)
[2017-11-05 19:56] LABS: Bilirubin Negative (Negative); Blood, Urine Trace (Negative); Clarity CLEAR (Clear); Glucose, Urine (Dipstick) Negative (Negative); Leukocyte Moderate (Negative); Nitrite Negative (Negative); Protein, Urine (Dipstick) Negative (Neg-Trace); Specific Gravity, Urine 1.004 (1.002-1.036)
[2017-11-05 20:14] LABS: RBC/HPF 0-3 HPF (0-3); WBC/HPF 0-3 HPF (0-3)
[2017-11-05 20:15] LABS: Bacteria/HPF None Seen HPF (None Seen); Hyaline Casts/LPF NONE SEEN LPF (0-3 Hyaline); Squamous Epithelial 0-3 HPF (0-3)
[2017-11-05 21:39] LABS: CO2 Tension 42.6 mmHg (35.0-45.0); O2 Tension (PaO2) 93.2 mmHg (80.0-100.0); pH, Arterial 7.42 (7.35-7.45)
[2017-11-05 21:40] LABS: Actual Bicarbonate (HCO3a) 26.9 mEq/L (22-26); Base Excess (BEa) 2.1 mEq/L (0 (+/-) 2.5); Hematocrit-ABG 31.8 % (36.0-47.0)
[2017-11-05 21:41] LABS: Hemoglobin (Hb) 10.6 g/dL (12.0-16.0)
[2017-11-05 21:43] LABS: Analyzer IN Cardio ER; Calcium, Ionized 1.1 mmol/L (1.12-1.30); Puncture Site RRA
[2017-11-05] MEDS ORDERED: Clindamycin/D5W 900 mg/50 ml Premix Bag IVPB SCH (23:00)
[2017-11-05] MEDS ORDERED: Ondansetron ODT 4 MG TAB PO PRN (23:24)
[2017-11-05] MEDS ORDERED: Loratadine 10 MG TAB PO PRN (23:24)
[2017-11-05] MEDS ORDERED: Albuterol Sulfate 2.5 mg/3 ml Neb NEB PRN (23:24)
[2017-11-05] MEDS ORDERED: Ondansetron HCl/PF 4 MG/2 ML Vial IVP PRN (23:25)
[2017-11-05] MEDS ORDERED: Acetaminophen 325 MG TAB PO PRN (23:25)
[2017-11-05] MEDS ORDERED: Ondansetron ODT 4 MG TAB SL PRN (23:25)
[2017-11-05 23:40] LABS: CKMB 0.6 ng/mL (0-6.6); Troponin I Less than 0.010 ng/mL (< 0.028)
[2017-11-06 00:27] VITALS: BMI 24.8
[2017-11-06] MEDS: Clindamycin/D5W 900 mg/50 ml Premix Bag IVPB SCH ×3 (01:36→16:21)
--- NOTE | 2017-11-06 03:05 | HP ---
DATE OF ADMISSION: 11/05/2017 TIME OF EVALUATION: 2130 hours CHIEF COMPLAINT: Shortness of breath. HISTORY OF PRESENT ILLNESS: Ms. Sharp is an 81-year-old female well known to me from [facility] here. She was admitted for almost 2 weeks for acute exacerbation of COPD and influenza. She was discharged to a swing bed at [facility] in [place] and had been there for several d ays. She had had some increased shortness of breath, fever, and decreasing oxygen saturations. Nebu lizer treatments were largely ineffective and she was recently started on levofloxacin on 11/04/2017. She took her first dose and has had nausea, vomiting, and diarrhea. Per my experience, she tolerat ed Levaquin before. She continued to have respiratory issues and was transferred back here to the emergency department fo r evaluation. On arrival, she was initially stable. Vital signs were good and she started to have decreasing menta l status around 2100 hours. On my evaluation, she was somnolent but barely arousable to verbal stimuli. ABG was normal. Respira tory status was stable, so she was continued transfer to the floor. The patient is unable to get any further history right now. Primary care physician is Dr. Hanks and the pulmonary doctor is Dr. Ye mathur. PAST MEDICAL HISTORY: 1. COPD, chronically steroid dependent on 3.5 liters nasal cannula oxygen all the time. 2. Paroxysmal atrial fibrillation. 3. Hypertension. 4. Anxiety. 5. Coronary artery disease. 6. Hyperlipidemia. 7. Past tobacco abuse. PAST SURGICAL HISTORY: 1. PTCA x2. 2. Ablation x2. 3. Cholecystectomy. 4. Hemorrhoidectomy. 5. Endoscopy and lumpectomy. HOME MEDICATIONS: 1. Eliquis 5 mg p.o. b.i.d. 2. Aldactone 25 mg p.o. daily. 3. Albuterol MDI p.r.n. 4. Aspirin 81 mg daily. 5. Nitroglycerin sublingual as needed for chest pain. 6. Prednisone 20 mg daily. 7. Flecainide 75 mg p.o. b.i.d. 8. Pravastatin 80 mg p.o. at bedtime. 9. Advair HFA 115/21 one puff b.i.d. 10. Verapamil 240 mg daily. ALLERGIES: CODEINE, LISINOPRIL, NIACIN, and SULFA. FAMILY HISTORY: Significant for mom with coronary artery disease, otherwise negative. SOCIAL HISTORY: Past tobacco but negative for habits x3 now. She has currently been at a swing bed at [facility] in [place]. REVIEW OF SYSTEMS: A 10-point review of systems was performed, the patient unable to answer or stay awake long enough to answer. PHYSICAL EXAMINATION: VITAL SIGNS: Temperature 98.5, pulse 67, blood pressure 124/53, respiratory rate 16, satting 94% on 3 liters. GENERAL: She is somnolent. She arouses to verbal stimuli but is incoherent. She looks to be in mil [id number] respiratory distress. HEENT: Normocephalic, atraumatic. Pupils are equal and reactive bilaterally. Mucous membranes are moist. She has no visible lesions. No thrush at present. NECK: Supple. There is no lymphadenopathy, JVD, or thyromegaly. Normal carotid upstrokes. There a re no bruits. LUNGS: Adequate air movement bilaterally. She has no prolonged expiratory phase. I do not apprecia te murmurs. She does have some faint bibasilar left more than right crackles. CARDIOVASCULAR: She is a normal S1, S2. No S3 or S4. She has a chronic 2/6-3/6 holosystolic murmur at the apex and a systolic murmur at the left upper sternal border. ABDOMEN: Soft, it is nontender, nondistended. She has good bowel sounds. There is no rebound, rigi dity, or guarding. EXTREMITIES: Show no cyanosis or clubbing. She does have bilateral lower extremity edema, chronic i n nature. This is not worse than her last discharge. SKIN: Otherwise, warm, moist, and well perfused without any other rash or lesions. NEUROLOGIC: Not testable. MUSCULOSKELETAL: Normal to inspection. She has no inflamed joints. LABORATORY DATA: Sodium 131, potassium 4.0, chloride 94, bicarb 29, BUN 11, creatinine 0.74, glucose 118, and calcium 9.5. Lactic acid normal 1.4. Liver function is normal. Albumin is a little bit low at 3.1. CBC showed white count 16.9, hemoglob in 10.8, hematocrit of 33.3, platelet count is 528,000. Chest x-ray showed right upper lobe infiltrate. ASSESSMENT AND PLAN: 1. Right upper lobe healthcare-associated pneumonia: We will give cefepime and levofloxacin. It do es not look like Staph, we will hold off on vancomycin. The patient will be placed inpatient around the telemetry quinn, oxygen as needed and nebs. 2. Chronic obstructive pulmonary disease with acute exacerbation, not any worse than when she was di scharged. We will continue her on DuoNebs q.4 hours and albuterol q.2 hours p.r.n. We will transitio n back to IV steroids, Solu-Medrol 40 mg IV q.6 hours. 3. Paroxysmal atrial fibrillation, she is on Eliquis chronically. Continue flecainide. 4. Hypertension, on verapamil. We will continue. 5. Coronary artery disease without acute symptoms. We will get serial cardiac biomarkers. 6. Hyperlipidemia on pravastatin which we will hold at present. 7. Acute on chronic hypoxic respiratory failure. We will continue on oxygen, neb treatments. Wean as tolerated. Hopefully, she is more awake in the morning. If she has any difficulty with transfer to the [facility], reinstitute BiPAP.
--- NOTE | 2017-11-06 07:35 | RAD ---
CHEST 1 VIEW: HISTORY: Acute on chronic hypoxia and respiratory failure. COMPARISON: Chest 1 view 11/05/17 prior day. FINDINGS: The opacities in the upper and lower lobes are similar. Mild blunting of both lateral costophrenic s ulci. No pneumothorax. Cardiac silhouette and mediastinal contours are similar. IMPRESSION: No significant change in radiographic appearance of the chest. Opacifies may reflect scarring and ch ronic changes. POS: [facility]
[2017-11-06 07:52] LABS: #Lymphocytes 0.6 thou/uL (1.20-3.40); #Monocytes 0.3 thou/uL (0.11-0.59); %Eosinophils 0.2 % (0.0-10.0); %Lymphocytes 4.2 % (21.0-51.0); %Monocytes 1.8 % (0.0-10.0); %Neutrophils 93.8 % (42.0-75.0); Hemoglobin 11.2 g/dL (12.0-16.0); Mean Corpuscular HGB CONC 31.8 g/dL (32.0-36.0); Mean Corpuscular Hemoglobin 32.2 pg (27.0-31.0); Mean Platelet Volume 6.7 fL (7.4-10.4); Platelet Count 610 thou/uL (130-400); RBC Distribution Width 11.8 % (11.5-14.5); Red Blood Cell (RBC) Count 3.49 mill/uL (4.20-5.40); White Blood Cell (WBC) Count 13.9 thou/uL (4.8-10.8)
[2017-11-06 08:07] LABS: ALT (SGPT) 37 U/L (8-55); AST (SGOT) 16 U/L (5-34); Albumin 3.2 g/dL (3.4-4.8); Alkaline Phosphatase 66 U/L (40-150); Anion Gap 14 mmol/L (10-20); BUN (Urea Nitrogen) 18 mg/dL (9.8-20.1); Bilirubin, Total 0.3 mg/dL (0.2-1.2); Calc. Creatinine Clearance 55 mL/min (70-130); Calcium 9.4 mg/dL (7.8-10.44); Carbon Dioxide 27 mmol/L (23-31); Chloride 99 mmol/L (98-107); Estimated GFR-MDRD 67; Globulin 3.7 g/dL (2.4-3.5); Glucose 159 mg/dL (83-110); Magnesium 2.3 mg/dL (1.6-2.6); Protein, Total 6.9 g/dL (6.0-8.3); Sodium 136 mmol/L (136-145)
[2017-11-06 08:12] LABS: CKMB 0.8 ng/mL (0-6.6); Troponin I Less than 0.010 ng/mL (< 0.028)
[2017-11-06] MEDS: Spironolactone 25 MG TAB PO SCH (08:45)
[2017-11-06] MEDS: guaiFENesin ER 600 MG TAB PO SCH (08:45)
[2017-11-06] MEDS: Flecainide 50 MG TAB PO SCH ×2 (08:45→23:20)
[2017-11-06] MEDS: Apixaban 5 MG TAB PO SCH ×2 (08:45→23:21)
[2017-11-06] MEDS: Saccharomyces boulardii 250 MG CAP PO SCH (08:45)
[2017-11-06] MEDS: Aspirin 81 mg Enteric Coated Tablet PO SCH (08:46)
[2017-11-06] MEDS ORDERED: Cefepime 2 GM in Sodium Chloride 0.9% 100 ML IVPB SCH (09:00)
[2017-11-06] MEDS: FlunisoLIDE 0.025% Nasal Spray 25 ml Bottle EA NARE SCH ×2 (09:51→22:10)
[2017-11-06] MEDS ORDERED: Cefepime 2 GM, Syringe 2.5 ML in Sterile Water 10 ML SLOW IVP SCH ×2 (10:00→21:00)
[2017-11-06] MEDS: Acetaminophen 325 MG TAB PO PRN ×2 (12:01→22:07)
[2017-11-06] MEDS ORDERED: Lidocaine Viscous Sol 2% 15 ml UD Cup SSW PRN (14:52)
[2017-11-06 15:45] LABS: Troponin I Less than 0.010 ng/mL (< 0.028)
[2017-11-06] MEDS: Nystatin 500,000 UNITS/5 ML UDCUP PO SCH ×2 (16:21→21:54)
--- NOTE | 2017-11-06 17:26 | PDOC.PN ---
- Subjective Encounter Start Date: 11/06/17 Encounter Start Time: 17:05 Subjective: f/u for suspected RUL HCAP and COPD with chronic hypoxemia. Currently on -: Clindamycin and Levaquin. Overall feels a little better but weak. Appetite -: diminished. - Objective Resuscitation Status: Resuscitation Status FULL:Full Resuscitation MAR Reviewed: Yes Vital Signs & Weight: Vital Signs (12 hours) Temp Pulse Resp BP BP BP BP 11/06/17 16:18 97.5 F L 96 20 143/81 H 11/06/17 14:03 90 18 11/06/17 11:57 97.4 F L 84 18 122/58 L 11/06/17 10:44 90 18 11/06/17 09:52 123/58 L 118/55 L 11/06/17 08:00 97.3 F L 93 18 11/06/17 07:40 93 18 132/61 11/06/17 07:06 70 18 Pulse Ox Pulse Ox Pulse Ox 11/06/17 16:18 97 11/06/17 14:03 11/06/17 11:57 97 11/06/17 10:44 11/06/17 09:52 98 93 L 11/06/17 08:00 95 11/06/17 07:40 95 11/06/17 07:06 Weight Admit Weight 144 lb 14.4 oz Weight 144 lb 14.4 oz I&O: 11/05/17 11/06/17 11/07/17 06:59 06:59 06:59 Intake Total 420 Balance 420 Result Diagrams: 11/06/17 07:24 11/06/17 07:24 Additional Labs: Microbiology 11/05/17 19:40 Nasal swab Influenza Types A,B Direct EIA - Final 11/05/17 16:25 Venous blood - Left Arm Blood Culture - Preliminary Specimen has been received and culture in progress. No Growth to date. 11/05/17 15:55 Venous blood - Right Arm Blood Culture - Preliminary Specimen has been received and culture in progress. No Growth to date. Laboratory Tests 11/05/17 11/05/17 15:55 15:55 WBC 16.9 H Hgb 10.8 L Plt Count 528 H Lactic Acid 1.4 Radiology Reviewed by me: Yes (PCXR - ? scarring and chronic changes) EKG Reviewed by me: Yes (Tele - SR in 80's) Phys Exam - Physical Examination Constitutional: NAD HEENT: PERRLA, oral pharynx no lesions Neck: no JVD, supple exp wheezing, diminished bilat Cardiovascular: RRR Gastrointestinal: soft, non-tender, no distention, positive bowel sounds Musculoskeletal: no edema, pulses present Neurological: normal sensation, moves all 4 limbs Psychiatric: A&O x 3 Skin: normal turgor, cap refill <2 seconds Dx/Plan (1) Healthcare-associated pneumonia Code(s): J18.9 - PNEUMONIA, UNSPECIFIED ORGANISM Status: Acute Comment: suspected with ? RUL involvement, continue Clindamycin and Levaquin, pulmonary supportive measures (2) Acute on chronic respiratory failure with hypoxemia Code(s): J96.21 - ACUTE AND CHRONIC RESPIRATORY FAILURE WITH HYPOXIA Status: Acute Comment: Continues on O2 supplementation 3-4L/min NC, see #1 above (3) Afib Code(s): I48.91 - UNSPECIFIED ATRIAL FIBRILLATION Status: Chronic Qualifiers: Atrial fibrillation type: paroxysmal Qualified Code(s): I48.0 - Paroxysmal atrial fibrillation Comment: Hx of A-fib on current Eliquis and Tambocor, current sinus rhythm (4) COPD (chronic obstructive pulmonary disease) Status: Chronic Comment: continue Solumedrol, Dulera, Duonebs (5) Hypertension Code(s): I10 - ESSENTIAL (PRIMARY) HYPERTENSION Status: Chronic Qualifiers: Hypertension type: essential hypertension Comment: Labile, titrate BP regimen - Plan plan discussed w/ family, continue antibiotics, PT/OT, social security specialist, respiratory therapy, out of bed/ambulate, DVT proph w/SCDs Stable currently -: Consult Pulmonology for any further recommendations -: Continue Clindamycin and Levaquin -: Continue Duonebs, Solumedrol, Dulera -: AM lab: BMP, CBC * .
[2017-11-06] MEDS: Mometasone/Formoterol 120 PUFF INHALER INH SCH (20:06)
[2017-11-07] MEDS: Clindamycin/D5W 900 mg/50 ml Premix Bag IVPB SCH ×3 (01:01→15:29)
[2017-11-07] MEDS: guaiFENesin ER 600 MG TAB PO SCH ×3 (01:13→22:17)
[2017-11-07] MEDS ORDERED: ALPRAZolam 0.25 MG TAB PO SCH (01:30)
[2017-11-07] MEDS: diphenhydrAMINE 25 MG CAP PO PRN ×2 (01:38→22:16)
--- NOTE | 2017-11-07 06:21 | CON ---
DATE OF CONSULTATION: 11/06/2017 HISTORY OF PRESENT ILLNESS: This is an 81-year-old female of Dr. Enciso, who was readmitted to the [facility] with acute on chronic respiratory failure. In fact, she was just recently discharged from [facility] with flu and chronic obstructive pulmonary disease exacerbation. Comes in with ongoing right-sided pleuritic chest pain and increasing shortness of breath. Repeat influenza assay was negative. She has been here for 24 hours, but this morning she is feeling better. MEDICATIONS AT HOME: List of medications at home included prednisone and recently discharged on vera pamil 240, Aldactone 25, Zantac 75, nitroglycerin p.r.n., Dulera 200, DuoNeb, Lasix, in the past, she has had Tambocor, Nasalide, Eliquis 5, aspirin. Since admission, now she is on steroids, Levaquin, guaifenesin, clindamycin and neb treatment. PAST MEDICAL HISTORY: COPD, cardiac arrhythmia, atrial fibrillation, hypertension, coronary artery d isease. PAST SURGICAL HISTORY: Ablation, hemorrhoids, breast biopsy lump, left knee surgery, gallbladder. SOCIAL HISTORY: Former smoker, no alcohol or tobacco abuse. REVIEW OF SYSTEM: Otherwise, 10-point negative. PHYSICAL EXAMINATION: VITAL SIGNS: Blood pressure is 118/50, sats are 97% on 3, respiratory rate 18, temperature 97. CHEST: Decreased breath sound. Bilateral rhonchi. CARDIAC: Normal S1, S2, no gallops. LABORATORY DATA: White count 13,000, H and H 11 and 30, platelet count is 610, pO2 is 93, pCO2 is 42 , pH 7.42 on 3 liters. X-ray shows mild bronchopneumonia on admission. X-ray today shows improvemen t in the infiltrates and infiltrate. IMPRESSION: 1. Bilateral bronchopneumonia with chronic obstructive pulmonary disease exacerbation. 2. Diabetes 3. Atrial fibrillation. PLAN: Agree with present antibiotic coverage. Will await sputum culture. Thereafter, can deescalat e steriods and neb treatments. Will notify Dr. Castillo.
[2017-11-07 07:51] LABS: Hemoglobin 10.7 g/dL (12.0-16.0); Mean Corpuscular HGB CONC 32.3 g/dL (32.0-36.0); Mean Corpuscular Hemoglobin 32.4 pg (27.0-31.0); Mean Platelet Volume 6.8 fL (7.4-10.4); Platelet Count 714 thou/uL (130-400); RBC Distribution Width 11.9 % (11.5-14.5); Red Blood Cell (RBC) Count 3.31 mill/uL (4.20-5.40); White Blood Cell (WBC) Count 29.9 thou/uL (4.8-10.8)
[2017-11-07 07:58] LABS: Anion Gap 16 mmol/L (10-20); BUN (Urea Nitrogen) 20 mg/dL (9.8-20.1); Calc. Creatinine Clearance 59 mL/min (70-130); Calcium 10.1 mg/dL (7.8-10.44); Carbon Dioxide 26 mmol/L (23-31); Chloride 98 mmol/L (98-107); Estimated GFR-MDRD 73; Glucose 137 mg/dL (83-110); Potassium 4.4 mmol/L (3.5-5.1); Sodium 136 mmol/L (136-145)
--- NOTE | 2017-11-07 08:29 | PQF ---
CLINICAL DOCUMENTATION IMPROVEMENT CLARIFICATION FORM: ICD-10 Updated PLEASE DO AN ADDENDUM TO THE PROGRESS NOTE WITH ANY DOCUMENTATION UPDATES OR ADDITIONS AND CARRY THROUGH TO DC SUMMARY. THANK YOU. DATE: 11/07 ATTN: DR. CYN SPRAGUE Please exercise your independent, professional judgment in responding to the clarification form. Clinical indicators are provided on the bottom of this form for your review Please check appropriate box(s): [ ] Empirically treating Gram Negative Pneumonia [ ] Empirically treating Anaerobic Pneumonia [ x ] Pneumonia secondary to (specify organism / underlying disease) _gm + cocci [ ] Bronchopneumonia [ ] Pneumonia of unknown etiology [ ] Other diagnosis [ ] Unable to determine For continuity of documentation, please document condition throughout progress notes and discharge summary. Thank You. CLINICAL INDICATORS - SIGNS / SYMPTOMS / LABS ER PHYSICIAN DOCUMENTATION 11/05: FINAL DIAGNOSIS: PNEUMONIA ATTENDING PHYSICIAN H&P DOCUMENTATION 11/05: ASSESSMENT/PLAN: 1. RUL HEALTHCARE-ASSOCIATED PNEUMONIA. WE WILL GIVE CEFEPIME & LEVOFLOXICIN ATTENDING PHYSICIAN PN 11/06: DX/PLAN: 1. HEALTH-CARE ASSOCIATED PNEUMONIA, ACUTE, SUSPECTED WITH QUESTIONABLE RUL INVOLVEMENT. CONTINUE CLINDAMYCIN & LEVAQUIN RISK FACTORS: COPD EXACERBATION ACUTE ON CHRONIC RESPIRATORY FAILURE W/HYPOXEMIA ADVANCED AGE (81) TREATMENTS: IV ANTIBIOTICS (ZOSYN, 11/05, ER; CEFEPIME 11/06; CLINDAMYCIN & LEVAQUIN 11/05 - PRESENT) PULMONOLOGY CONSULT RESPIRATORY TREATMENTS (DUONEB 11/05 - PRESENT; DULERA INHALER 11/05 - PRESENT) SUPPLEMENTAL OXYGEN (3L NC 11/05 - PRESENT) THANK YOU! Tori (This form is maintained as a part of the permanent medical record) 2014 [employer]. All Rights Reserved Tori Anaya RN, BSN [email or web address] Office: [phone] [facility]
[2017-11-07 08:43] LABS: Band 13 % (5-11); Hypersemented Neutrophil SLIGHT; Lymphocytes 3 % (21-51); MDiff Complete? YES; Myelocyte 1 % (0-0); Neutrophil 83 % (42-75); PLT Morphology Comment Appears Increased
[2017-11-07] MEDS: Mometasone/Formoterol 120 PUFF INHALER INH SCH ×2 (08:43→18:57)
[2017-11-07] MEDS: Nystatin 500,000 UNITS/5 ML UDCUP PO SCH ×4 (08:48→22:17)
[2017-11-07] MEDS: Spironolactone 25 MG TAB PO SCH (08:48)
[2017-11-07] MEDS: ALPRAZolam 0.25 MG TAB PO SCH ×2 (08:49→22:16)
[2017-11-07] MEDS: Aspirin 81 mg Enteric Coated Tablet PO SCH (08:49)
[2017-11-07] MEDS: Saccharomyces boulardii 250 MG CAP PO SCH (08:49)
[2017-11-07] MEDS: Apixaban 5 MG TAB PO SCH ×2 (08:49→22:16)
[2017-11-07] MEDS: Flecainide 50 MG TAB PO SCH ×2 (08:49→22:17)
[2017-11-07] MEDS: Mupirocin 2% Ointment 22 GM Tube TOP SCH ×2 (08:50→22:18)
[2017-11-07] MEDS: FlunisoLIDE 0.025% Nasal Spray 25 ml Bottle EA NARE SCH ×2 (08:51→22:17)
[2017-11-07] MEDS ORDERED: Cefepime 2 GM, Syringe 2.5 ML in Sterile Water 10 ML SLOW IVP SCH (10:00)
[2017-11-07] MEDS: Calcium Carbonate 500 MG ChewTAB PO PRN ×2 (16:49→22:15)
--- NOTE | 2017-11-07 17:04 | PDOC.PN ---
- Subjective Encounter Start Date: 11/07/17 Encounter Start Time: 17:00 Subjective: f/u for suspected HCAP RUL with acute/chronic hypoxic resp failure and -: COPD. Feels a little better overall. Slept better last pm with Xanax -: and Benadryl. - Objective Resuscitation Status: Resuscitation Status FULL:Full Resuscitation MAR Reviewed: Yes Vital Signs & Weight: Vital Signs (12 hours) Temp Pulse Resp BP BP Pulse Ox 11/07/17 15:25 97.2 F L 83 18 167/70 H 98 11/07/17 11:35 97.6 F 68 18 124/58 L 99 11/07/17 11:34 68 12 11/07/17 08:45 97.7 F 70 16 97 11/07/17 08:43 70 16 11/07/17 08:41 97.7 F 70 18 122/57 L 97 11/07/17 08:35 97 11/07/17 08:33 70 16 Weight Admit Weight 144 lb 14.4 oz Weight 144 lb 14.4 oz I&O: 11/06/17 11/07/17 11/08/17 06:59 06:59 06:59 Intake Total 420 1601 600 Output Total 1025 Balance 420 576 600 Result Diagrams: 11/07/17 06:59 11/07/17 06:59 Additional Labs: Microbiology 11/05/17 19:40 Nasal swab Influenza Types A,B Direct EIA - Final 11/05/17 16:25 Venous blood - Left Arm Blood Culture - Preliminary Specimen has been received and culture in progress. No Growth to date. 11/05/17 16:25 Venous blood - Left Arm Blood Culture - Preliminary NO GROWTH AT 48 HOURS 11/05/17 15:55 Venous blood - Right Arm Blood Culture - Preliminary Specimen has been received and culture in progress. No Growth to date. 11/05/17 15:55 Venous blood - Right Arm Blood Culture - Preliminary NO GROWTH AT 48 HOURS Laboratory Tests 11/05/17 11/05/17 11/06/17 15:55 15:55 07:24 WBC 16.9 H 13.9 H Hgb 10.8 L Plt Count 528 H Neutrophils % 83.5 H 93.8 H Neutrophils % (Manual) Band Neuts % (Manual) Lactic Acid 1.4 11/07/17 06:59 WBC Hgb Plt Count Neutrophils % Neutrophils % (Manual) 83 H Band Neuts % (Manual) 13 H Lactic Acid EKG Reviewed by me: Yes (Tele SR) Phys Exam - Physical Examination Constitutional: NAD HEENT: PERRLA, oral pharynx no lesions Neck: no JVD, supple diminished bilat, exp wheezes bilat Cardiovascular: RRR Gastrointestinal: soft, non-tender, no distention, positive bowel sounds Musculoskeletal: no edema, pulses present Neurological: normal sensation, moves all 4 limbs Psychiatric: A&O x 3 Skin: normal turgor, cap refill <2 seconds Dx/Plan (1) Healthcare-associated pneumonia Code(s): J18.9 - PNEUMONIA, UNSPECIFIED ORGANISM Status: Acute Comment: suspected with ? RUL involvement and empiric tx for gm + cocci, continue Clindamycin and Cefepime, pulmonary supportive measures (2) Acute on chronic respiratory failure with hypoxemia Code(s): J96.21 - ACUTE AND CHRONIC RESPIRATORY FAILURE WITH HYPOXIA Status: Acute Comment: Continues on O2 supplementation 3-4L/min NC, see #1 above (3) Afib Code(s): I48.91 - UNSPECIFIED ATRIAL FIBRILLATION Status: Chronic Qualifiers: Atrial fibrillation type: paroxysmal Qualified Code(s): I48.0 - Paroxysmal atrial fibrillation Comment: Hx of A-fib on current Eliquis and Tambocor, current sinus rhythm (4) COPD (chronic obstructive pulmonary disease) Status: Chronic Comment: continue Solumedrol, Dulera, Duonebs (5) Hypertension Code(s): I10 - ESSENTIAL (PRIMARY) HYPERTENSION Status: Chronic Qualifiers: Hypertension type: essential hypertension Comment: Labile, titrate BP regimen - Plan plan discussed w/ family, continue antibiotics, PT/OT, social media intern, respiratory therapy, out of bed/ambulate, DVT proph w/SCDs Stable overall -: Continue Cefepime and Clindamycin -: Continue Solumedrol 40mg IV q6h -: Continue Florastor 250mg daily -: PT for mobilization * Transfer to medical * AM lab: CBC
--- NOTE | 2017-11-07 17:48 | PRG ---
DATE OF SERVICE: 11/07/2017 SUBJECTIVE: Records have been reviewed. She has returned after only been out of the swing bed for a week. Chest radiograph is not suggestive of an acute pneumonia. To refresh, she was recently here with inf luenza and chronic obstructive pulmonary disease exacerbation. She says she is feeling a little bit better. OBJECTIVE: GENERAL: She is in no distress. She is talking in complete sentences. VITAL SIGNS: She is afebrile, heart rate 83, respiratory rate 18, oximetry is 98 on 3 liters, blood pressure 167/70. LUNGS: Remarkable for diffuse mild wheezes. HEART: Regular rhythm. ABDOMEN: Soft. IMPRESSION: 1. Chronic obstructive pulmonary disease exacerbation. 2. Steroid dependence. 3. Anemia of chronic disease. 4. Reactive thrombocytosis. She has no identifiable malignancy creating her thrombocytosis. 5. Anxiety with deconditioning. 6. Probable steroid dependence. PLAN: Continue current care. She is not interested in going back into rehab in [place]. She claim s she only received 15 minutes exercise one time while she was there and everything else she did her own. Antimicrobial therapy can be simplified. We will try to go with a short course of p.o. antimicrobial therapy. We will decrease her steroid dosing. I will continue to follow with the other physicians caring for. She will continue with her anxiolytics and physical therapy.
[2017-11-07] MEDS: Cefuroxime Axetil 250 MG TAB PO SCH (22:16)
[2017-11-08] MEDS ORDERED: Ondansetron HCl/PF 4 MG/2 ML Vial IVP PRN (00:57)
[2017-11-08] MEDS: Ondansetron ODT 4 MG TAB PO PRN ×2 (01:04→07:23)
[2017-11-08 06:10] LABS: Hemoglobin 9.3 g/dL (12.0-16.0); Platelet Count 647 thou/uL (130-400)
[2017-11-08 06:19] LABS: Band 1 % (5-11); Hemoglobin 9.5 g/dL (12.0-16.0); Lymphocytes 9 % (21-51); MDiff Complete? YES; Mean Corpuscular HGB CONC 33.2 g/dL (32.0-36.0); Mean Corpuscular Volume 99.1 fl (81.0-99.0); Mean Platelet Volume 6.6 fL (7.4-10.4); Monocytes 1 % (0-10); Neutrophil 89 % (42-75); PLT Morphology Comment Appears Increased; Platelet Count 637 thou/uL (130-400); RBC Distribution Width 12.1 % (11.5-14.5); Red Blood Cell (RBC) Count 2.88 mill/uL (4.20-5.40); White Blood Cell (WBC) Count 23.2 thou/uL (4.8-10.8)
[2017-11-08] MEDS: Mometasone/Formoterol 120 PUFF INHALER INH SCH ×2 (07:39→18:14)
[2017-11-08] MEDS: Aspirin 81 mg Enteric Coated Tablet PO SCH (08:59)
[2017-11-08] MEDS: ALPRAZolam 0.25 MG TAB PO SCH ×2 (08:59→22:45)
[2017-11-08] MEDS: Apixaban 5 MG TAB PO SCH ×2 (08:59→20:22)
[2017-11-08] MEDS: Flecainide 50 MG TAB PO SCH ×2 (09:00→20:22)
[2017-11-08] MEDS: guaiFENesin ER 600 MG TAB PO SCH ×2 (09:00→20:23)
[2017-11-08] MEDS: Cefuroxime Axetil 250 MG TAB PO SCH ×2 (09:00→21:24)
[2017-11-08] MEDS: Nystatin 500,000 UNITS/5 ML UDCUP PO SCH ×4 (09:01→20:22)
[2017-11-08] MEDS: Saccharomyces boulardii 250 MG CAP PO SCH (09:01)
[2017-11-08] MEDS: FlunisoLIDE 0.025% Nasal Spray 25 ml Bottle EA NARE SCH ×2 (09:01→20:26)
[2017-11-08] MEDS: Spironolactone 25 MG TAB PO SCH (09:01)
[2017-11-08] MEDS: Mupirocin 2% Ointment 22 GM Tube TOP SCH ×2 (09:02→20:26)
[2017-11-08] MEDS: Calcium Carbonate 500 MG ChewTAB PO PRN ×3 (09:09→21:23)
--- NOTE | 2017-11-08 10:16 | PRG ---
DATE OF SERVICE: 11/08/2017 PHYSICAL EXAMINATION: VITAL SIGNS: Ms. Sharp is afebrile, heart rate is 77, respiratory rate 20, oximetry is 96 on 3 lite rs, blood pressure 141/63. LUNGS: She still has mild wheezes. She is in no distress. HEART: Regular rhythm. ABDOMEN: Soft. LABORATORY DATA: White count 23.2, hemoglobin 9.5, platelets 637. Electrolytes are normal. Creatin ine is normal, glucose 137. IMPRESSION: 1. Chronic obstructive pulmonary disease exacerbation. 2. Deconditioning. She confirmed to me that she only had one day of exercise the whole time she ove r at the skilled unit. 3. Leukocytosis secondary to steroids. 4. Anemia with increased mean corpuscular volume, likely of chronic disease. 5. Thrombocytosis that appears to be improving and is likely reactive. Her chest radiograph was again reviewed by me. I do not see any infiltrates that are concerning. Other issues include atrial fibrillation with anticoagulation. She is off IV antibiotics now. As mentioned, I would continue the IV steroids, nebulizer treatments . She really does not need ongoing telemetry monitoring in my opinion. She can be moved to a [facility] bed.
--- NOTE | 2017-11-08 17:16 | PDOC.PN ---
- Subjective Encounter Start Date: 11/08/17 Encounter Start Time: 17:00 Subjective: f/u acute/chronic hypoxic resp failure improving overall. Still weak but -: ambulating in room and to bathroom. Sleeping much better. - Objective Resuscitation Status: Resuscitation Status FULL:Full Resuscitation MAR Reviewed: Yes Vital Signs & Weight: Vital Signs (12 hours) Temp Pulse Resp BP BP Pulse Ox 11/08/17 16:00 97.6 F 84 22 H 151/70 H 96 11/08/17 10:20 97.6 F 89 18 134/69 96 11/08/17 07:46 97.9 F 77 20 96 11/08/17 07:45 97.9 F 77 20 141/63 H 96 11/08/17 07:39 75 16 11/08/17 07:26 97 11/08/17 07:25 75 16 Weight Admit Weight 144 lb 14.4 oz Weight 144 lb 14.4 oz I&O: 11/07/17 11/08/17 11/09/17 06:59 06:59 06:59 Intake Total 1601 2040 240 Output Total 1025 2700 Balance 576 -660 240 Result Diagrams: 11/08/17 05:27 11/08/17 05:27 Phys Exam - Physical Examination Constitutional: NAD HEENT: PERRLA, oral pharynx no lesions Neck: no JVD, supple diminished in bases and scattered wheezes Cardiovascular: RRR Gastrointestinal: soft, non-tender, no distention, positive bowel sounds Musculoskeletal: no edema, pulses present Neurological: normal sensation, moves all 4 limbs Psychiatric: A&O x 3 Skin: normal turgor, cap refill <2 seconds Dx/Plan (1) Healthcare-associated pneumonia Code(s): J18.9 - PNEUMONIA, UNSPECIFIED ORGANISM Status: Acute Comment: suspected with ? RUL involvement and empiric tx for gm + cocci, continue Ceftin 250mg BID, pulmonary supportive measures (2) Acute on chronic respiratory failure with hypoxemia Code(s): J96.21 - ACUTE AND CHRONIC RESPIRATORY FAILURE WITH HYPOXIA Status: Acute Comment: Continues on O2 supplementation 3-4L/min NC, see #1 above (3) Afib Code(s): I48.91 - UNSPECIFIED ATRIAL FIBRILLATION Status: Chronic Qualifiers: Atrial fibrillation type: paroxysmal Qualified Code(s): I48.0 - Paroxysmal atrial fibrillation Comment: Hx of A-fib on current Eliquis and Tambocor, current sinus rhythm (4) COPD (chronic obstructive pulmonary disease) Status: Chronic Comment: continue SolumedrolCarmela Duonebs (5) Hypertension Code(s): I10 - ESSENTIAL (PRIMARY) HYPERTENSION Status: Chronic Qualifiers: Hypertension type: essential hypertension Comment: Labile, titrate BP regimen - Plan continue antibiotics, PT/OT, social worker clinical, respiratory therapy, out of bed/ ambulate, DVT proph w/SCDs Stable overall -: Continue general pulmonary support -: OOB/ambulate -: Continue Solumedrol 20mg IV q8h -: CM for SNF options * AM lab: CBC
[2017-11-08] MEDS: diphenhydrAMINE 25 MG CAP PO PRN (22:45)
[2017-11-09 06:04] LABS: Band 14 % (5-11); Hemoglobin 9.7 g/dL (12.0-16.0); Hypochromia SLIGHT = 6-15 cells (100X) (0-5/hpf); Lymphocytes 1 % (21-51); MDiff Complete? YES; Mean Corpuscular HGB CONC 32.9 g/dL (32.0-36.0); Mean Corpuscular Hemoglobin 32.9 pg (27.0-31.0); Mean Platelet Volume 6.6 fL (7.4-10.4); Monocytes 1 % (0-10); Neutrophil 84 % (42-75); PLT Morphology Comment Appears Increased; Platelet Count 655 thou/uL (130-400); RBC Distribution Width 11.9 % (11.5-14.5); Red Blood Cell (RBC) Count 2.93 mill/uL (4.20-5.40); White Blood Cell (WBC) Count 19.7 thou/uL (4.8-10.8)
[2017-11-09] MEDS: Calcium Carbonate 500 MG ChewTAB PO PRN ×3 (06:19→21:01)
[2017-11-09] MEDS: Mometasone/Formoterol 120 PUFF INHALER INH SCH ×2 (07:10→20:02)
[2017-11-09] MEDS: Cefuroxime Axetil 250 MG TAB PO SCH ×2 (08:08→20:45)
[2017-11-09] MEDS: Flecainide 50 MG TAB PO SCH ×2 (08:09→20:45)
[2017-11-09] MEDS: ALPRAZolam 0.25 MG TAB PO SCH ×2 (08:09→22:41)
[2017-11-09] MEDS: guaiFENesin ER 600 MG TAB PO SCH ×2 (08:10→20:44)
[2017-11-09] MEDS: Saccharomyces boulardii 250 MG CAP PO SCH (08:12)
[2017-11-09] MEDS: Aspirin 81 mg Enteric Coated Tablet PO SCH (08:13)
[2017-11-09] MEDS: Spironolactone 25 MG TAB PO SCH (08:14)
[2017-11-09] MEDS: Nystatin 500,000 UNITS/5 ML UDCUP PO SCH ×4 (08:14→20:45)
[2017-11-09] MEDS: Apixaban 5 MG TAB PO SCH ×2 (08:14→20:44)
[2017-11-09] MEDS: FlunisoLIDE 0.025% Nasal Spray 25 ml Bottle EA NARE SCH ×2 (08:15→20:47)
[2017-11-09] MEDS: Mupirocin 2% Ointment 22 GM Tube TOP SCH ×2 (08:15→20:48)
--- NOTE | 2017-11-09 13:20 | PRG ---
DATE OF SERVICE: 11/09/2017 SUBJECTIVE: Ms. Sharp complaints of shortness of breath. OBJECTIVE: VITAL SIGNS: Temperature 97.9, pulse 54, respirations 20, O2 saturation 98% on 2.5 liters. HEENT: Remarkable for some mild alopecia. NECK: No JVD. LUNGS: Bilateral soft expiratory wheezing. CARDIAC: S1 and S2 regular. ABDOMEN: Soft. EXTREMITIES: No edema. LABORATORY DATA: White cell count 19, hematocrit 29.4, platelet count 655. Sodium 136, potassium 4. 4, BUN 20, creatinine 0.7. ASSESSMENT: 1. Chronic obstructive pulmonary disease with exacerbation. 2. Deconditioning. RECOMMENDATION: Continue nebulization treatments and IV steroids. She would also continue oral anti biotics. She will need placement at the time of discharge.
--- NOTE | 2017-11-09 16:18 | PDOC.PN ---
- Subjective Encounter Start Date: 11/09/17 Encounter Start Time: 16:15 Subjective: f/u for acute/chronic hypoxic resp failure, COPD exacerbation. Overall -: improved but still intermittent dyspnea. Walked in room without -: difficulty. - Objective Resuscitation Status: Resuscitation Status FULL:Full Resuscitation MAR Reviewed: Yes Vital Signs & Weight: Vital Signs (12 hours) Temp Pulse Resp BP Pulse Ox 11/09/17 14:00 59 L 18 96 11/09/17 09:51 85 16 96 11/09/17 08:00 97.9 F 54 L 20 98 11/09/17 07:57 97.9 F 54 L 20 127/73 98 11/09/17 07:10 92 16 96 11/09/17 07:07 92 16 96 Weight Admit Weight 144 lb 14.4 oz Weight 144 lb 14.4 oz I&O: 11/08/17 11/09/17 11/10/17 06:59 06:59 06:59 Intake Total 2040 480 Output Total 2700 Balance -660 480 Result Diagrams: 11/09/17 04:08 11/08/17 05:27 Additional Labs: Microbiology 11/05/17 19:40 Nasal swab Influenza Types A,B Direct EIA - Final 11/05/17 16:25 Venous blood - Left Arm Blood Culture - Preliminary Specimen has been received and culture in progress. No Growth to date. 11/05/17 16:25 Venous blood - Left Arm Blood Culture - Preliminary NO GROWTH AT 48 HOURS 11/05/17 15:55 Venous blood - Right Arm Blood Culture - Preliminary Specimen has been received and culture in progress. No Growth to date. 11/05/17 15:55 Venous blood - Right Arm Blood Culture - Preliminary NO GROWTH AT 48 HOURS Laboratory Tests 11/05/17 11/05/17 11/06/17 15:55 15:55 07:24 WBC 16.9 H 13.9 H Hgb 10.8 L Plt Count 528 H Neutrophils % 83.5 H 93.8 H Neutrophils % (Manual) Band Neuts % (Manual) Lactic Acid 1.4 11/07/17 06:59 WBC Hgb Plt Count Neutrophils % Neutrophils % (Manual) 83 H Band Neuts % (Manual) 13 H Lactic Acid Phys Exam - Physical Examination Constitutional: NAD HEENT: PERRLA, oral pharynx no lesions Neck: no JVD, supple Coarse sounds bilat. diminished in bases Cardiovascular: RRR Gastrointestinal: soft, non-tender, no distention, positive bowel sounds Musculoskeletal: no edema, pulses present Neurological: normal sensation, moves all 4 limbs Psychiatric: A&O x 3 Skin: normal turgor, cap refill <2 seconds Dx/Plan (1) Healthcare-associated pneumonia Code(s): J18.9 - PNEUMONIA, UNSPECIFIED ORGANISM Status: Acute Comment: suspected with ? RUL involvement and empiric tx for gm + cocci, continue Ceftin 250mg BID, pulmonary supportive measures (2) Acute on chronic respiratory failure with hypoxemia Code(s): J96.21 - ACUTE AND CHRONIC RESPIRATORY FAILURE WITH HYPOXIA Status: Acute Comment: Continues on O2 supplementation 3-4L/min NC, see #1 above (3) Afib Code(s): I48.91 - UNSPECIFIED ATRIAL FIBRILLATION Status: Chronic Qualifiers: Atrial fibrillation type: paroxysmal Qualified Code(s): I48.0 - Paroxysmal atrial fibrillation Comment: Hx of A-fib on current Eliquis and Tambocor, current sinus rhythm (4) COPD (chronic obstructive pulmonary disease) Status: Chronic Comment: continue Solumedrol, Dulera, Duonebs (5) Hypertension Code(s): I10 - ESSENTIAL (PRIMARY) HYPERTENSION Status: Chronic Qualifiers: Hypertension type: essential hypertension Qualified Code(s): I10 - Essential (primary) hypertension Comment: Labile, titrate BP regimen - Plan continue antibiotics, PT/OT, social services manager, respiratory therapy, out of bed/ ambulate, DVT proph w/SCDs Stable overall -: Continue Duonebs, Dulera, Solumedrol -: Continue Ceftin -: OOB/ambulate with PT -: Rehab evaluation pending * .
[2017-11-09] MEDS ORDERED: Furosemide 40 MG/4 ML VIAL SLOW IVP SCH (23:30)
[2017-11-10] MEDS: diphenhydrAMINE 25 MG CAP PO PRN (02:39)
[2017-11-10] MEDS: Acetaminophen 325 MG TAB PO PRN (02:39)
[2017-11-10 05:06] LABS: Hemoglobin 9.8 g/dL (12.0-16.0); Platelet Count 704 thou/uL (130-400)
[2017-11-10] MEDS: Mometasone/Formoterol 120 PUFF INHALER INH SCH ×2 (06:31→22:10)
[2017-11-10] MEDS: Calcium Carbonate 500 MG ChewTAB PO PRN (06:38)
--- NOTE | 2017-11-10 07:41 | ULT ---
LEFT LOWER EXTREMITY VENOUS DOPPLER: Date: 11/09/17 HISTORY: Left lower extremity swelling and pain. COMPARISON: None. TECHNIQUE: Real-time Mcgrath scale and color Doppler with spectral analysis of the left lower extremity venous sys tem was performed with the linear transducer. The common femoral, femoral, proximal portions of grea ter saphenous and deep femoral veins, as well as the popliteal and posterior tibial veins were interr ogated. FINDINGS: There is normal flow, augmentation, and compression. IMPRESSION: No deep venous thrombosis. POS: AMANDEEP
[2017-11-10] MEDS: Spironolactone 25 MG TAB PO SCH (08:33)
[2017-11-10] MEDS: Saccharomyces boulardii 250 MG CAP PO SCH (08:36)
[2017-11-10] MEDS: guaiFENesin ER 600 MG TAB PO SCH ×2 (08:36→20:59)
[2017-11-10] MEDS: Aspirin 81 mg Enteric Coated Tablet PO SCH (08:36)
[2017-11-10] MEDS: Apixaban 5 MG TAB PO SCH ×2 (08:36→20:59)
[2017-11-10] MEDS: ALPRAZolam 0.25 MG TAB PO SCH ×2 (08:37→20:59)
[2017-11-10] MEDS: Flecainide 50 MG TAB PO SCH ×2 (08:37→20:59)
[2017-11-10] MEDS: Nystatin 500,000 UNITS/5 ML UDCUP PO SCH ×4 (08:38→20:58)
[2017-11-10] MEDS: Mupirocin 2% Ointment 22 GM Tube TOP SCH ×2 (08:40→21:01)
[2017-11-10] MEDS: FlunisoLIDE 0.025% Nasal Spray 25 ml Bottle EA NARE SCH ×2 (08:40→20:58)
[2017-11-10] MEDS: Cefuroxime Axetil 250 MG TAB PO SCH ×2 (12:30→21:00)
--- NOTE | 2017-11-10 13:37 | PDOC.PN ---
- Subjective Encounter Start Date: 11/10/17 Encounter Start Time: 13:35 Subjective: f/u for HCAP, COPD and hypoxic resp failure. Overall stabilizing and -: O2 at baseline levels. No BM in several days. LLE swelling last pm -: tx with IV Lasix and now resolved. DVT r/o with neg sono. - Objective Resuscitation Status: Resuscitation Status FULL:Full Resuscitation MAR Reviewed: Yes Vital Signs & Weight: Vital Signs (12 hours) Temp Pulse Resp BP Pulse Ox 11/10/17 11:55 97.5 F L 75 16 138/79 97 11/10/17 09:55 65 16 97 11/10/17 08:00 97.6 F 65 16 97 11/10/17 07:09 97.6 F 65 16 135/71 97 11/10/17 06:31 87 14 97 11/10/17 06:28 87 14 97 Weight Admit Weight 144 lb 14.4 oz Weight 144 lb 14.4 oz I&O: 11/09/17 11/10/17 11/11/17 06:59 06:59 06:59 Intake Total 480 1100 Output Total 950 Balance 480 150 Result Diagrams: 11/10/17 04:36 11/10/17 04:33 Radiology Reviewed by me: Yes (LLE sono - neg) Phys Exam - Physical Examination Constitutional: NAD HEENT: PERRLA, oral pharynx no lesions Neck: no JVD, supple few scattered coarse sounds, diminished in bases Cardiovascular: RRR Gastrointestinal: soft, non-tender, no distention, positive bowel sounds Musculoskeletal: no edema, pulses present Neurological: normal sensation, moves all 4 limbs Psychiatric: A&O x 3 Skin: normal turgor, cap refill <2 seconds Dx/Plan (1) Healthcare-associated pneumonia Code(s): J18.9 - PNEUMONIA, UNSPECIFIED ORGANISM Status: Acute Comment: suspected with ? RUL involvement and empiric tx for gm + cocci, continue Ceftin 250mg BID, pulmonary supportive measures (2) Acute on chronic respiratory failure with hypoxemia Code(s): J96.21 - ACUTE AND CHRONIC RESPIRATORY FAILURE WITH HYPOXIA Status: Acute Comment: Continues on O2 supplementation 3-4L/min NC, see #1 above (3) Afib Code(s): I48.91 - UNSPECIFIED ATRIAL FIBRILLATION Status: Chronic Qualifiers: Atrial fibrillation type: paroxysmal Qualified Code(s): I48.0 - Paroxysmal atrial fibrillation Comment: Hx of A-fib on current Eliquis and Tambocor, current sinus rhythm (4) COPD (chronic obstructive pulmonary disease) Status: Chronic Comment: continue Solumedrol, Dulera, Duonebs (5) Hypertension Code(s): I10 - ESSENTIAL (PRIMARY) HYPERTENSION Status: Chronic Qualifiers: Hypertension type: essential hypertension Qualified Code(s): I10 - Essential (primary) hypertension Comment: Labile, titrate BP regimen - Plan continue antibiotics, PT/OT, social media content specialist, respiratory therapy, out of bed/ ambulate, DVT proph w/SCDs Stable overall -: Continue Ceftin 250mg BID -: Continue Duonebs, Dulera and Solumedrol -: CM for Rehab options -: Continue Eliquis 5mg BID, ASA * Likely d/c in 24-48h
--- NOTE | 2017-11-10 14:50 | PRG ---
DATE OF SERVICE: 11/10/2017 SUBJECTIVE: The patient is doing better, had no acute complaints other than some swelling late last night. OBJECTIVE: VITAL SIGNS: Temperature 97.5, pulse 85, respiration 16, O2 sat 97%, blood pressure 130/79. HEENT: Unremarkable. NECK: Supple. No JVD. CHEST: Clear with a few slight wheezes bilaterally. CARDIAC: S1 and S2 regular. ABDOMEN: Soft. EXTREMITIES: No edema. LABORATORY DATA: Hemoglobin 9.8, platelet count 704. ASSESSMENT: Stable chronic obstructive pulmonary disease. PLAN: Continue nebulization therapy and steroids. She is likely nearing the point where she can be discharged.
[2017-11-10] MEDS: Senokot S 8.6-50 MG TAB PO SCH (21:00)
[2017-11-11] MEDS: Acetaminophen 325 MG TAB PO PRN (02:21)
[2017-11-11] MEDS: diphenhydrAMINE 25 MG CAP PO PRN ×2 (02:21→23:32)
[2017-11-11] MEDS: Calcium Carbonate 500 MG ChewTAB PO PRN (02:23)
[2017-11-11] MEDS: ALPRAZolam 0.25 MG TAB PO SCH ×2 (09:45→23:32)
[2017-11-11] MEDS: Aspirin 81 mg Enteric Coated Tablet PO SCH (09:46)
[2017-11-11] MEDS: Senokot S 8.6-50 MG TAB PO SCH ×2 (09:46→21:16)
[2017-11-11] MEDS: Saccharomyces boulardii 250 MG CAP PO SCH (09:46)
[2017-11-11] MEDS: Apixaban 5 MG TAB PO SCH ×2 (09:46→21:16)
[2017-11-11] MEDS: Spironolactone 25 MG TAB PO SCH (09:46)
[2017-11-11] MEDS: Nystatin 500,000 UNITS/5 ML UDCUP PO SCH ×4 (09:47→21:17)
[2017-11-11] MEDS: Cefuroxime Axetil 250 MG TAB PO SCH ×2 (09:47→21:16)
[2017-11-11] MEDS: Mupirocin 2% Ointment 22 GM Tube TOP SCH ×2 (09:49→21:23)
[2017-11-11] MEDS: guaiFENesin ER 600 MG TAB PO SCH ×2 (09:55→21:16)
[2017-11-11] MEDS: Flecainide 50 MG TAB PO SCH ×2 (09:55→21:15)
[2017-11-11] MEDS: FlunisoLIDE 0.025% Nasal Spray 25 ml Bottle EA NARE SCH ×2 (09:57→21:24)
[2017-11-11] MEDS: Mometasone/Formoterol 120 PUFF INHALER INH SCH ×2 (10:31→22:35)
--- NOTE | 2017-11-11 14:16 | PRG ---
DATE OF SERVICE: 11/11/2017 Ms. Sharp is stable in my opinion over the weekend. She could go back to a swing bed in [place]. Apparently, I am told she was declining physical thera py over there. PHYSICAL EXAMINATION: VITAL SIGNS: She is afebrile, heart rate is 85, respiratory rate 16, oximetry is 94 on 2-1/2 liters. LUNGS: Remarkable for diffuse wheezes. IMPRESSION: 1. Steroid dependent chronic obstructive pulmonary disease. 2. Severe anxiety. 3. Reported noncompliance with physical therapy. PLAN: Transfer back to skilled bed. I have asked the therapist that relayed this information to rel ay the information to the daughter because Ms. Sharp told me that she never refused her therapy.
--- NOTE | 2017-11-11 16:21 | PDOC.PN ---
- Subjective Encounter Start Date: 11/11/17 Encounter Start Time: 16:10 Subjective: f/u for resp failure, COPD. States feeling better overall. Still weak but -: better. Planning on returning to swing bed in [place] on d/c. - Objective Resuscitation Status: Resuscitation Status FULL:Full Resuscitation MAR Reviewed: Yes Vital Signs & Weight: Vital Signs (12 hours) Temp Pulse Resp BP Pulse Ox Pulse Ox Pulse Ox 11/11/17 10:41 90 L 96 11/11/17 10:29 85 16 96 11/11/17 08:00 97.9 F 85 16 94 L 11/11/17 07:42 97.9 F 77 22 H 178/70 H 94 L Pulse Ox 11/11/17 10:41 92 L 11/11/17 10:29 11/11/17 08:00 11/11/17 07:42 Weight Admit Weight 144 lb 14.4 oz Weight 144 lb 14.4 oz I&O: 11/10/17 11/11/17 11/12/17 06:59 06:59 06:59 Intake Total 1100 350 Output Total 950 Balance 150 350 Result Diagrams: 11/10/17 04:36 11/10/17 04:33 Phys Exam - Physical Examination Constitutional: NAD HEENT: PERRLA, oral pharynx no lesions Neck: no JVD, supple scattered wheezes and diminished bibasilar segments Cardiovascular: RRR Gastrointestinal: soft, non-tender, no distention, positive bowel sounds Musculoskeletal: no edema, pulses present Neurological: normal sensation, moves all 4 limbs Psychiatric: A&O x 3 Skin: normal turgor, cap refill <2 seconds Dx/Plan (1) Healthcare-associated pneumonia Code(s): J18.9 - PNEUMONIA, UNSPECIFIED ORGANISM Status: Acute Comment: suspected with ? RUL involvement and empiric tx for gm + cocci, continue Ceftin 250mg BID, pulmonary supportive measures (2) Acute on chronic respiratory failure with hypoxemia Code(s): J96.21 - ACUTE AND CHRONIC RESPIRATORY FAILURE WITH HYPOXIA Status: Acute Comment: Continues on O2 supplementation 3-4L/min NC, see #1 above (3) Afib Code(s): I48.91 - UNSPECIFIED ATRIAL FIBRILLATION Status: Chronic Qualifiers: Atrial fibrillation type: paroxysmal Qualified Code(s): I48.0 - Paroxysmal atrial fibrillation Comment: Hx of A-fib on current Eliquis and Tambocor, current sinus rhythm (4) COPD (chronic obstructive pulmonary disease) Status: Chronic Comment: continue SolumedrolCarmela Duonebs (5) Hypertension Code(s): I10 - ESSENTIAL (PRIMARY) HYPERTENSION Status: Chronic Qualifiers: Hypertension type: essential hypertension Qualified Code(s): I10 - Essential (primary) hypertension Comment: Labile, titrate BP regimen - Plan plan discussed w/ family, continue antibiotics, PT/OT, marriage and family social worker, respiratory therapy, out of bed/ambulate, DVT proph w/SCDs Stable overall -: Continue supportive pulm measures -: OOB/ambulate -: Transition to Prednisone on 11/12/17 -: Plan for d/c to [facility] bed in am * .
[2017-11-12] MEDS: Acetaminophen 325 MG TAB PO PRN (02:25)
[2017-11-12] MEDS: Calcium Carbonate 500 MG ChewTAB PO PRN (02:25)
[2017-11-12 05:48] LABS: Hemoglobin 10.5 g/dL (12.0-16.0); Platelet Count 671 thou/uL (130-400)
[2017-11-12] MEDS: Mometasone/Formoterol 120 PUFF INHALER INH SCH (07:25)
[2017-11-12 07:48] VITALS: BP 133/69; TEMP 98.1
[2017-11-12] MEDS: Apixaban 5 MG TAB PO SCH (09:37)
[2017-11-12] MEDS: Senokot S 8.6-50 MG TAB PO SCH (09:37)
[2017-11-12] MEDS: Cefuroxime Axetil 250 MG TAB PO SCH (09:37)
[2017-11-12] MEDS: Spironolactone 25 MG TAB PO SCH (09:37)
[2017-11-12] MEDS: ALPRAZolam 0.25 MG TAB PO SCH (09:37)
[2017-11-12] MEDS: Aspirin 81 mg Enteric Coated Tablet PO SCH (09:37)
[2017-11-12] MEDS: Flecainide 50 MG TAB PO SCH (09:38)
[2017-11-12] MEDS: Saccharomyces boulardii 250 MG CAP PO SCH (09:38)
[2017-11-12] MEDS: guaiFENesin ER 600 MG TAB PO SCH (09:38)
[2017-11-12] MEDS: FlunisoLIDE 0.025% Nasal Spray 25 ml Bottle EA NARE SCH (09:39)
[2017-11-12] MEDS: Mupirocin 2% Ointment 22 GM Tube TOP SCH (09:39)
[2017-11-12] MEDS: Nystatin 500,000 UNITS/5 ML UDCUP PO SCH (09:39)
--- NOTE | 2017-11-12 12:18 | DIS ---
DATE OF ADMISSION: 11/05/2017 DATE OF DISCHARGE: 11/12/2017 PRIMARY CARE PHYSICIAN: Jamal Hanks MD DISCHARGE DIAGNOSES: 1. Pneumonia secondary to gram-positive cocci. 2. Chronic obstructive pulmonary disease exacerbation. CONSULTATIONS DURING THIS HOSPITALIZATION: Pulmonology, Dr. Conner. CONDITION OF PATIENT AT THE TIME OF DISCHARGE: Stable. I assessed Ms. Sharp on the day of discharg e. She reported that her shortness of breath is better. She denies cough, fever or chills. She den ies any chest pain. Vital signs are stable. She is still on supplemental oxygen. S1 and S2 are hea rd, regular. Lungs clear to auscultation bilaterally. HOSPITAL COURSE: Mr. Sharp is a pleasant 81-year-old lady who was admitted to [facility] on 11/05/2017, for right upper lobe healthcare associated pneumonia as well as COPD exac erbation. She was seen by Pulmonology Service. She was treated with antibiotics, oxygen, steroids, and bronchodilators. She improved clinically and is being discharged to [facility] for fu rther management. DISCHARGE MEDICATIONS: In addition to her preadmission medications as dictated on 11/06/2017, she is being discharged on tapering oral steroids as well as cefuroxime 250 mg 2 times a day for 10 more da ys. Many thanks for allowing me to participate in your patient's care. Please feel free to contact me wi th any questions or concerns. DISCHARGE DISPOSITION: Home. TOTAL AMOUNT OF TIME SPENT COORDINATING THIS DISCHARGE: 38 minutes.
--- NOTE | 2017-11-16 13:43 | EKG ---
Test Reason : Blood Pressure : / mmHG Vent. Rate : 069 BPM Atrial Rate : 069 BPM P-R Int : 152 ms QRS Dur : 076 ms QT Int : 434 ms P-R-T Axes : 054 036 061 degrees QTc Int : 465 ms Normal sinus rhythm Normal ECG Confirmed by OCTAVIO NELSON ([id number]), society editor EMMANUEL MAYERS ([id number]) on 11/16/2017 1:42:50 PM Referred By: Confirmed By:OCTAVIO NELSON
== END 2017-11-12 14:06 | DRG 193 ==
LOC: ERS 15:38 → 2NO 18:18 → T4-B 11-08 10:13
PROVIDERS: ADMIT Emergency Medicine; ATTEND Emergency Medicine
DX: J15.9 Unspecified bacterial pneumonia (principal); J96.21 Acute and chronic respiratory failure with hypoxia; D69.6 Thrombocytopenia, unspecified; I48.0 Paroxysmal atrial fibrillation; E11.9 Type 2 diabetes mellitus without complications; D63.8 Anemia in other chronic diseases classified elsewhere; J44.0 Chronic obstructive pulmonary disease with (acute) lower respiratory infection; J44.1 Chronic obstructive pulmonary disease with (acute) exacerbation; E78.5 Hyperlipidemia, unspecified; I25.10 Atherosclerotic heart disease of native coronary artery without angina pectoris; F41.9 Anxiety disorder, unspecified; Z87.891 Personal history of nicotine dependence; Z88.5 Allergy status to narcotic agent; Z88.2 Allergy status to sulfonamides; Z88.8 Allergy status to other drugs, medicaments and biological substances; Z82.49 Family history of ischemic heart disease and other diseases of the circulatory system; Z95.5 Presence of coronary angioplasty implant and graft; Z91.19 Patient's noncompliance with other medical treatment and regimen
CPT/HCPCS: 36415; 71045; 80048; 80053; 81003; 81015; 82553; 82565; 82805; 83605; 83735; 84484; 85007; 85014; 85018; 85025; 85027; 85049; 87040; 87804; 93005; 94640; 94664; 96365; 96367; 96375; A4216; G8978-GP-CM; G8979-GP-CK; G8987-GO-CJ; G8988-GO-CI; J0692; J1940; J1956; J2543; J2920; J2930; J3370; J3490; J7050; J7611; J7620; Q0162

== ENCOUNTER 2017-11-24 18:45 | Inpatient (IN) | payer MEDICARE, OTHER ==
--- NOTE | 2017-11-24 19:26 | RAD ---
PORTABLE CHEST: Date: 11/24/17 COMPARISON: 11/19/17 study. HISTORY: Follow-up of pneumonia. FINDINGS: Heart size is within normal limits for portable technique with atherosclerotic changes of the aorta. The bibasilar lung changes are similar to the prior exam. The right upper lobe parenchymal changes ap pear worsened. IMPRESSION: Worsening right upper lobe infiltrative appearing changes. POS: [facility]
[2017-11-24] MEDS ORDERED: Albuterol Sulfate 2.5 mg/3 ml Neb ONE (19:38)
[2017-11-24] MEDS ORDERED: Piperacillin/Tazobactam 4.5 GM in Sodium Chloride 0.9% 100 ML IVPB SCH (19:45)
[2017-11-24 19:55] LABS: Hemoglobin 9.8 g/dL (12.0-16.0); Mean Corpuscular HGB CONC 33.1 g/dL (32.0-36.0); Mean Corpuscular Hemoglobin 32.8 pg (27.0-31.0); Mean Corpuscular Volume 99.2 fl (81.0-99.0); Mean Platelet Volume 6.9 fL (7.4-10.4); Platelet Count 478 thou/uL (130-400); RBC Distribution Width 12.6 % (11.5-14.5); Red Blood Cell (RBC) Count 2.99 mill/uL (4.20-5.40); White Blood Cell (WBC) Count 26.2 thou/uL (4.8-10.8)
[2017-11-24 20:08] LABS: Band 8 % (5-11); Lymphocytes 3 % (21-51); MDiff Complete? YES; Macrocytosis SLIGHT = 6-15 cells (100X) (0-5/hpf); Monocytes 2 % (0-10); Neutrophil 87 % (42-75); PLT Morphology Comment Appears Increased; Polychromasia SLIGHT = 2-3 cells (100X) (0-2/hpf); Toxic Granulation SLIGHT; Vacuoles SLIGHT
[2017-11-24 20:19] LABS: Base Excess-Venous 1.7 mmol/L (-30.0-30.0); Bicarbonate (HCO3v) 26.5 mmol/L (1.0-85.0); CO2 Tension (PvCO2) 41.6 mmHg (41.0-51.0); Calcium, Ionized 1.15 mmol/L (1.12-1.32); Hemoglobin - Calc 10.1 g/dL (12.0-18.0); O2 Tension (PvO2) 44.9 mmHg (35.0-45.0); Potassium 4.8 mmol/L (3.4-4.7); T. Carbon Dioxide 27.8 mmol/L (1.0-85.0); pH (Venous) 7.412 (7.35-7.45)
[2017-11-24 20:45] LABS: ALT (SGPT) 62 U/L (8-55); AST (SGOT) 32 U/L (5-34); Alkaline Phosphatase 81 U/L (40-150); Anion Gap 16 mmol/L (10-20); BUN (Urea Nitrogen) 18 mg/dL (9.8-20.1); Bilirubin, Total 0.3 mg/dL (0.2-1.2); Calc. Creatinine Clearance 0 mL/min (70-130); Calcium 9.7 mg/dL (7.8-10.44); Carbon Dioxide 22 mmol/L (23-31); Chloride 96 mmol/L (98-107); Estimated GFR-MDRD 72; Globulin 3.4 g/dL (2.4-3.5); Glucose 186 mg/dL (83-110); Potassium 4.9 mmol/L (3.5-5.1); Protein, Total 6.4 g/dL (6.0-8.3); Sodium 129 mmol/L (136-145)
[2017-11-24 20:47] LABS: Troponin I Less than 0.010 ng/mL (< 0.028)
[2017-11-24 20:58] LABS: CKMB 0.4 ng/mL (0-6.6)
--- NOTE | 2017-11-24 22:34 | HP ---
PRIMARY CARE PHYSICIAN: Dr. Jamal Hanks. PRIMARY CAFE WORKER: Dr. Chintan Castillo. DATE OF ADMISSION: 11/24/2017 TIME OF SERVICE: 2129. CHIEF COMPLAINT: Shortness of breath. HISTORY OF PRESENT ILLNESS: Ms. Sharp is a pleasant 81-year-old female well known to me from previo us medical admissions over the last month, who presents to the emergency department today via EMS for shortness of breath. She was recently here and discharged to [place] to a swing bed. She was last discharged from here a fter a stay from 11/05/2017 to 11/12/2017. She went to the [facility] to a swing bed from to 11/20 was discharged home. She finished her antibiotics about a day and a half ago. Since that time, she became progressively short of breath. She has had some pleuritic type of right- sided lower chest pain. Her nebulizer treatments did not seem to work, so [facility]. Here, she was found to have a white count of 26.2, which is in line with her recent values, she was r ecently dropped from 40 to 20 mg of prednisone. The rest of her labs remained fairly normal. She wa s somewhat hypoxic on room air on arrival and since then has been required BiPAP. No ABG was done. Chest x-ray showed worsening right upper lobe infiltrate and we were called for admission. The patient admits to fever at home to 101.8. She does have some increased dyspnea on exertion. She has had nonproductive cough and no hemoptysis. She did have an increased dyspnea on exertion and ar rest. She denies any lower extremity swelling. She has been sticking to her fluid restriction. PAST MEDICAL HISTORY: Includes, 1. Severe chronic obstructive pulmonary disease, 3 to 3.5 liters at home on chronic O2 with chronic hypoxemic respiratory failure. 2. Paroxysmal atrial fibrillation on anticoagulation and flecainide. 3. Hypertension, essential. 4. Anxiety disorder. 5. Coronary artery disease followed by Dr. Trey Larkin. Last cardiac catheterization was 06/2017. 6. Hyperlipidemia. 7. Past tobacco abuse. PAST SURGICAL HISTORY: 1. Cardiac catheterization in 06/2017 last, there was cardiac ablation x2 for atrial fibrillation. 2. Cholecystectomy with hemorrhoidectomy. 3. Left knee arthroscopy. HOME MEDICATIONS: 1. Eliquis 5 mg p.o. b.i.d. 2. Aldactone 25 mg daily. 3. Aspirin 81 mg daily. 4. Nitroglycerin 0.4 mg sublingual as needed. 5. Prednisone down to 20 mg a daily. 6. Flecainide 75 mg b.i.d. 7. Albuterol HFA as needed. 8. Verapamil 240 mg daily. 9. Lidocaine viscous 3 times a day swish and swallow as needed. 10. Albuterol sulfate nebulizer 1.25 mg inhaled every 8 hours as needed. 12. Tylenol 650 mg q.4 hours p.r.n. 13. DuoNebs every 4 hours. 14. Zantac 75 mg daily. 15. Lasix 40 mg daily. 16. Xanax 0.25 mg b.i.d. p.r.n. 17. Lipitor 10 mg p.o. at bedtime. 18. Nystatin swish and swallow as needed, 4 times a day. 19. Ceftin 250 mg b.i.d. ALLERGIES: CODEINE, LEVOFLOXACIN, LISINOPRIL, NIACIN, and SULFA. She has tolerated CIPRO fine in th e past. FAMILY HISTORY: Negative for clotting or bleeding disorder or immune dysfunction. SOCIAL HISTORY: She lives locally with her daughter. Negative for habits x3. She has had bypass. Significant tobacco use, does not use any in years. REVIEW OF SYSTEMS: A 10-point review of systems was performed, negative for all other systems except as stated as per HPI. PHYSICAL EXAMINATION: VITAL SIGNS: Temperature 99.9, pulse 71, blood pressure 115/43, respiratory 20, satting 100% on BiPA P. She is satting 10/5 with currently at an 80% FIO2. GENERAL: She is awake. She is alert. She is oriented x3. She is a chronically ill-appearing obese white female, appears in no acute distress. HEENT: Normocephalic, atraumatic. Pupils equal, round, and reactive bilaterally, mucous membranes a re dry. She currently has a BiPAP mask fitted . NECK: Supple, no lymphadenopathy, JVD, or thyromegaly. CHEST: Lungs clear bilaterally. She has good air movement in and out. She has symmetrical chest ex cursion. She has some bibasilar crackles that do not clear with deep inspiration and some right post erior upper crackles. There is no wheezing. No E to A changes. No dullness to percussion. CARDIOVASCULAR: She has normal cardiac and regular. Normal S1 and S2. No S3, S4. No audible murmu rs. ABDOMEN: Soft, is slightly distended and slightly tympanitic. It is nontender. No rebound, rigidit y, or guarding. She has good bowel sounds in all 4 quadrants. EXTREMITIES: With no cyanosis, clubbing, or edema. She has 1+ peripheral pulses in dorsalis pedis a nd posterior tibial arteries. SKIN: Warm, moist, and well perfused. She has no rashes or lesions. MUSCULOSKELETAL EXAM: Normal to inspection. She has no joint deformities. No palpable effusions. NEUROLOGIC EXAM: Cranial nerves II-XII are grossly intact. She has normal speech, 5/5 strength in a ll four extremities. She has no focal deficits. IMAGING: Chest x-ray showed increased right upper lobe infiltrate, chronic bilateral lower extremity parenchymal changes. ASSESSMENT AND PLAN: 1. Healthcare-associated pneumonia. We will place her on cefepime, Cipro, and clindamycin. I wonde r if she is not chronically aspirating, but she states she does not have any problems swallowing or c oughing. There is no air fluid levels there, but there is some air in the right minor fissure. We w ill ask Pulmonary to evaluate. 2. Acute on chronic hypoxic respiratory failure, currently requiring BiPAP. She was placed in the I MCU. Wean BiPAP as tolerated. 3. Acute exacerbation of chronic obstructive pulmonary disease. The patient will be on Solu-Medrol, nebulizers, and antibiotics as above. We will follow up in pulmonary recommendations. 4. Paroxysmal atrial fibrillation, currently in sinus rhythm. We will continue flecainide. 5. Hypertension, controlled. We will continue her home medications. 6. Anxiety. We will continue her Xanax. 7. History of coronary artery disease, her troponins are undetectable. Her BNP is at her baseline o f 191. We will continue to monitor. Forty minutes of critical care were provided and BiPAP adjustment.
[2017-11-24 23:02] LABS: Troponin I Less than 0.010 ng/mL (< 0.028)
[2017-11-24] MEDS ORDERED: HYDROcodone/Acetaminophen 5/325 mg Tablet PO PRN (23:17)
[2017-11-24] MEDS ORDERED: Clindamycin/D5W 300 MG/50 ML BAG IVPB SCH (23:17)
[2017-11-24] MEDS ORDERED: Dextrose 50% Abboject 50 ML SYRINGE SLOW IVP PRN (23:17)
[2017-11-24] MEDS ORDERED: HYDROcodone/Acetaminophen 10/325 mg Tablet PO PRN (23:17)
[2017-11-24] MEDS ORDERED: Cepastat Lozenges 1 LOZ PO PRN (23:17)
[2017-11-24] MEDS ORDERED: Chloraseptic Spray 180 ml Bottle PO PRN (23:17)
[2017-11-24] MEDS ORDERED: Lidocaine Viscous Sol 2% 15 ml UD Cup SSW PRN (23:17)
[2017-11-24] MEDS ORDERED: Dextrose 5% in Water 1,000 ML IV PRN (23:17)
[2017-11-24] MEDS ORDERED: Albuterol Sulfate 2.5 mg/3 ml Neb NEB PRN (23:17)
[2017-11-24] MEDS ORDERED: Ondansetron ODT 4 MG TAB SL PRN (23:18)
[2017-11-24] MEDS ORDERED: Ondansetron HCl/PF 4 MG/2 ML Vial IVP PRN (23:18)
[2017-11-24] MEDS ORDERED: Acetaminophen 325 MG TAB PO PRN (23:18)
[2017-11-25] MEDS: Clindamycin/D5W 900 MG in Premix Bag 1 BAG IVPB SCH ×3 (00:46→16:05)
[2017-11-25] MEDS: Cefepime 2 GM, Syringe 2.5 ML in Sterile Water 10 ML SLOW IVP SCH ×2 (00:47→12:31)
[2017-11-25 02:04] VITALS: BMI 25.9
[2017-11-25] MEDS: Mometasone/Formoterol 120 PUFF INHALER INH SCH ×2 (07:47→18:21)
[2017-11-25] MEDS ORDERED: Aspirin 81 mg Enteric Coated Tablet PO SCH (09:00)
[2017-11-25] MEDS ORDERED: Cefepime 2 GM in Sodium Chloride 0.9% 100 ML IVPB SCH (09:00)
[2017-11-25] MEDS: Nystatin 500,000 UNITS/5 ML UDCUP PO SCH ×4 (09:32→20:12)
[2017-11-25] MEDS: Flecainide 50 MG TAB PO SCH ×2 (09:32→20:10)
[2017-11-25] MEDS: Atorvastatin Calcium 10 MG TAB PO SCH (09:33)
[2017-11-25] MEDS: Furosemide 40 MG TAB PO SCH (09:33)
[2017-11-25] MEDS: ALPRAZolam 0.25 MG TAB PO SCH ×5 (09:33→20:11)
[2017-11-25] MEDS: Saccharomyces boulardii 250 MG CAP PO SCH (09:33)
[2017-11-25] MEDS: guaiFENesin ER 600 MG TAB PO SCH ×2 (09:33→20:09)
[2017-11-25] MEDS: Apixaban 5 MG TAB PO SCH ×2 (09:33→20:11)
[2017-11-25] MEDS: Famotidine 20 MG TAB PO SCH ×2 (09:33→20:11)
[2017-11-25] MEDS: Spironolactone 25 MG TAB PO SCH (09:34)
[2017-11-25] MEDS ORDERED: ISOVUE-370 76%-LOCM 1 ML ONE (11:12)
--- NOTE | 2017-11-25 13:33 | CT ---
CT CHEST WITH IV CONTRAST: Date: 11/25/17 HISTORY: Recurrent pneumonia and COPD. FINDINGS: Comparison made to CT pulmonary angiogram of 06/27/17. There is patchy consolidation in the right upper lobe with multiple small areas of cavitation. A tiny right pleural effusion is seen. There are mild infiltrates in the superior segment of the right thyr oid lobe. A couple of nodules are seen in the right lower lobe measuring about 7 and 9 mm, respective ly. There is an 18.0 x 16.0 x 10.0 mm nodule in the lingula. Another 8.0 mm peripheral nodule is see n in the lingula. In the left lower lobe, there is a peripheral 7.0 mm nodule. Multiple tiny nodules are seen at the left lung base. No pericardial effusion or left-sided pleural effusion is seen. No p neumothoraces are identified. No lymphadenopathy is noted. There are degenerative changes in the spin e. There are vascular calcifications without evidence of aneurysmal dilatation of the thoracic aorta. Upper abdominal tomograms demonstrate tiny cysts in the kidneys and changes of cholecystectomy. IMPRESSION: 1. Consolidative change in the right upper lobe with small areas of cavitation. 2. Bilateral parenchymal lung nodules. 3. Tiny right pleural effusion. 4. Findings are either due to infection or malignancy. POS: [facility]
--- NOTE | 2017-11-25 13:40 | PDOC.PN ---
- Subjective Encounter Start Date: 11/25/17 Encounter Start Time: 12:00 Subjective: has cough, no fever - Objective Resuscitation Status: Resuscitation Status FULL:Full Resuscitation MAR Reviewed: Yes Vital Signs & Weight: Vital Signs (12 hours) Temp Pulse Resp BP Pulse Ox 11/25/17 11:10 82 20 97 11/25/17 11:00 97.3 F L 81 19 138/44 L 97 11/25/17 08:13 97.9 F 68 22 H 95 11/25/17 07:42 68 22 H 11/25/17 07:00 96.7 F L 65 19 117/50 L 97 11/25/17 04:00 98.9 F 56 L 16 100/43 L 97 11/25/17 02:09 57 L 16 98 I&O: 11/24/17 11/25/17 11/26/17 06:59 06:59 06:59 Intake Total 600 Output Total 800 1100 Balance -200 -1100 Result Diagrams: 11/24/17 19:38 11/24/17 19:38 Additional Labs: Accuchecks 11/25/17 11:11 POC Glucose 140 H Phys Exam - Physical Examination HEENT: PERRLA, moist MMs Neck: no JVD, supple Respiratory: no wheezing, no rales rhonchi+ Cardiovascular: RRR, no significant murmur Gastrointestinal: soft, non-tender, positive bowel sounds Musculoskeletal: no edema, pulses present Neurological: non-focal, moves all 4 limbs Psychiatric: A&O x 3 Dx/Plan (1) PNA (pneumonia) Code(s): J18.9 - PNEUMONIA, UNSPECIFIED ORGANISM Status: Acute Qualifiers: Pneumonia type: due to unspecified organism Laterality: right Lung location: upper lobe of lung Qualified Code(s): J18.1 - Lobar pneumonia, unspecified organism (2) COPD (chronic obstructive pulmonary disease) Status: Chronic Qualifiers: COPD type: chronic bronchitis (3) Chronic anemia Code(s): D64.9 - ANEMIA, UNSPECIFIED Status: Chronic (4) CAD (coronary artery disease) Code(s): I25.10 - ATHSCL HEART DISEASE OF [place] CORONARY ARTERY W/O ANG PCTRS Status: Chronic Qualifiers: Coronary Disease-Associated Artery/Lesion type: [place] artery [place] vs. transplanted heart: [place] heart Associated angina: without angina Qualified Code(s): I25.10 - Atherosclerotic heart disease of [place] coronary artery without angina pectoris (5) Acute on chronic respiratory failure with hypoxemia Code(s): J96.21 - ACUTE AND CHRONIC RESPIRATORY FAILURE WITH HYPOXIA Status: Acute Comment: off bipap now (6) Afib Code(s): I48.91 - UNSPECIFIED ATRIAL FIBRILLATION Status: Chronic Qualifiers: Comment: Hx of A-fib on Eliquis and Tambocor (7) Dyslipidemia Code(s): E78.5 - HYPERLIPIDEMIA, UNSPECIFIED Status: Chronic (8) Hypertension Code(s): I10 - ESSENTIAL (PRIMARY) HYPERTENSION Status: Chronic Qualifiers: Hypertension type: essential hypertension - Plan CT chest results noted -: ?bronch per pulm advice -: is on cipro and clindamycin -: elevated wbc ?sec to steroids -: will f/u * . Review of Systems - Medications/Allergies Allergies/Adverse Reactions: Allergies Allergy/AdvReac Type Severity Reaction Status Date / Time levofloxacin [From Levaquin] Allergy Intermediate Verified 11/12/17 15:12 codeine Allergy Unknown Verified 11/06/17 04:56 lisinopril Allergy Unknown Verified 11/06/17 04:56 niacin Allergy Unknown Verified 11/06/17 04:56 [From Niaspan Extended-Release] Sulfa (Sulfonamide Allergy Unknown Verified 11/06/17 04:56 Antibiotics) Medications: Current Medications Acetaminophen (Tylenol) 650 mg PO Q4H PRN PRN Reason: Headache/Fever or Pain Hydrocodone Bitart/Acetaminophen ([place] 10/325) 1 tab PO Q4H PRN PRN Reason: Severe Pain (7-10) Hydrocodone Bitart/Acetaminophen ([place] 5/325) 1 tab PO Q4H PRN PRN Reason: Moderate Pain (4-6) Albuterol Sulfate (Ventolin) 2.5 mg NEB Q2H PRN PRN Reason: Wheezing Albuterol/Ipratropium (Duoneb) 3 ml NEB [id number] [facility] Last Admin: 11/25/17 11:10 Dose: 3 ml Alprazolam (Xanax) 0.25 mg PO QID [facility] Last Admin: 11/25/17 12:18 Dose: 0.25 mg Apixaban (Eliquis) 5 mg PO BID [facility] Last Admin: 11/25/17 09:33 Dose: 5 mg Aspirin (Ecotrin) 81 mg PO DAILY [facility] Last Admin: 11/25/17 09:33 Dose: 81 mg Atorvastatin Calcium (Lipitor) 10 mg PO DAILY [facility] Last Admin: 11/25/17 09:33 Dose: 10 mg Calcium Carbonate (Tums) 1,000 mg PO Q4H PRN PRN Reason: Heartburn or Indigestion Dextrose/Water (Dextrose 50%) 25 gm SLOW IVP PRN PRN PRN Reason: Hypoglycemia Famotidine (Pepcid) 20 mg PO BID [facility] Last Admin: 11/25/17 09:33 Dose: 20 mg Flecainide Acetate (Tambocor) 75 mg PO BID [facility] Last Admin: 11/25/17 09:32 Dose: 75 mg Furosemide (Lasix) 40 mg PO DAILY [facility] Last Admin: 11/25/17 09:33 Dose: 40 mg Glucagon (Glucagon) 1 mg IM PRN PRN PRN Reason: Hypoglycemia Guaifenesin (Mucinex) 1,200 mg PO Q12HR [facility] Last Admin: 11/25/17 09:33 Dose: 1,200 mg Ciprofloxacin/Dextrose 400 mg/ (Device) 200 mls @ 200 mls/hr IVPB 0300,1500 [facility] Last Admin: 11/25/17 02:46 Dose: 200 mls Dextrose/Water (D5w) 1,000 mls @ 0 mls/hr IV .Q0M PRN; As Directed PRN Reason: Hypoglycemia Clindamycin Phosphate/Dextrose (900 mg/ Device) 50 mls @ 100 mls/hr IVPB 0800, 1600,2359 [facility] Last Admin: 11/25/17 09:32 Dose: 50 mls Cefepime HCl 2 gm/ Syringe 2.5 (ml/ Sterile Water) 12.5 mls @ 150 mls/hr SLOW IVP 0100,1300 [facility] Last Admin: 11/25/17 12:31 Dose: 12.5 mls Insulin Human Lispro (Humalog) 0 units SC .MILD SLIDING SCALE PRN PRN Reason: Mild Correctional Scale Lidocaine HCl (Xylocaine 2% Viscous) 15 ml SSW TID PRN PRN Reason: SORE THROAT Loratadine (Claritin) 10 mg PO DAILYPRN PRN PRN Reason: Sinus Symptoms Magnesium Hydroxide (Milk Of Magnesium) 30 ml PO DAILYPRN PRN PRN Reason: Constipation Methylprednisolone Sodium Succinate (Solu-Medrol) 40 mg IVP Q6HR [facility] Last Admin: 11/25/17 12:18 Dose: 40 mg Mometasone Furoate/Formoterol Fumar (Dulera 200 Mcg/5 Mcg Inhaler) 2 puff INH BID-RT [facility] Last Admin: 11/25/17 07:47 Dose: 2 puff Nystatin (Mycostatin) 500,000 units PO QID [facility] Last Admin: 11/25/17 12:18 Dose: 500,000 units Ondansetron HCl (Zofran Odt) 4 mg PO Q6H PRN PRN Reason: Nausea/Vomiting Phenol (Chloraseptic Odin 180 Ml Bot) 0 ml PO BIDPRN PRN PRN Reason: Sore Throat Saccharomyces Boulardii (Florastor) 250 mg PO DAILY [facility] Last Admin: 11/25/17 09:33 Dose: 250 mg Spironolactone (Aldactone) 25 mg PO DAILY [facility] Last Admin: 11/25/17 09:34 Dose: 25 mg Throat Lozenges (Cepastat Lozenges) 1 rizwana PO Q2H PRN PRN Reason: Sore Throat Verapamil HCl (Calan Sr) 240 mg PO HS [facility]
--- NOTE | 2017-11-25 20:15 | PRG ---
DATE OF SERVICE: 11/25/2017 Given her gait instability, I feel like we should consider discontinuing her anticoagulation. A 50 minutes consult, greater than 50% of the time was spent coordinating care on the unit.
--- NOTE | 2017-11-25 22:25 | CON ---
DATE OF CONSULTATION: 11/25/2017 HISTORY OF PRESENT ILLNESS: Izabel Sharp is an 81-year-old female with severe COPD, I have followed her for many years. She has been recently in swing bed for rehabilitation after COPD exacerbation and then pneumonia. She presents with pleurisy on the right and progressive infiltrate in her upper lobe. She says she feels better than on admission. PAST MEDICAL HISTORY: Remarkable for; 1. Severe anxiety. 2. Severe chronic obstructive pulmonary disease. 3. Steroid dependence. 4. Deconditioning after discharge from rehabilitation. Her family tells me she almost fell twice. 5. History of anticoagulation for atrial fibrillation. 6. Hypertension. 7. Coronary artery disease. 8. History of lipid disorder. 9. History of 2 atrial fibrillation ablations. 10. History of cholecystectomy. 11. History hemorrhoidectomy. 12. History of a knee arthroscopy. MEDICATIONS: Prior to admission, she was on Eliquis, Aldactone, aspirin, prednisone, flecainide, nebulizer at home, verapamil, Zantac, Lasix, Xanax, Lipitor, nystatin and she was finishing the course Ceftin. ALLERGIES: CODEINE, LEVAQUIN, LISINOPRIL, NIACIN, and SULFA. FAMILY HISTORY: Negative for bleeding disorders or lung disease. SOCIAL HISTORY: She lives near her daughter, she lives at home alone, but has somebody who looks in on her during the day. She is nonsmoker, nondrinker. REVIEW OF SYSTEMS: Ten-point review of systems is otherwise negative. Her only complaint is dyspnea on exertion. She denies dyspnea at rest. She denies hemoptysis, denies chest pain at this time. PHYSICAL EXAMINATION: VITAL SIGNS: She is afebrile, heart rate is in the 80s, respiratory rate is in the 20s, oximetry is 96% on 1.5 L, blood pressure 135/58. HEENT: Pupils are equal. Sclerae is anicteric. NECK: Supple. LUNGS: Remarkable for wheezes diffusely. HEART: Regular rhythm. S1 and S2 are normal. ABDOMEN: Soft and nontender. EXTREMITIES: Without asymmetry. IMAGING: I have ordered a chest CT because of multiple admissions with pulmonary complaints. The right upper lobe infiltrate with some early cavitation. She has small pulmonary nodules, the largest of which was 18 mm in the lingula. I reviewed her CT. LABORATORY DATA: There is no lab today. IMPRESSION: 1. Chronic obstructive pulmonary disease exacerbation with pneumonia. I doubt this is pneumonia that is progressing. She appears to be stabilizing. 2. Pulmonary nodules. 3. Infiltrate in the right upper lobe, which is likely an acute infection, not tuberculosis. 4. Recent frequent admissions for chronic obstructive pulmonary disease. I would wonder about silent aspiration leading to these flareups that is in the differential, but she has no symptoms to suggest this. We will follow with the other physicians caring for her. This is 50 min. visit with 50% of the time spent on the unit for coordination of care. BERNARDINO
[2017-11-26] MEDS: Clindamycin/D5W 900 MG in Premix Bag 1 BAG IVPB SCH ×4 (00:10→23:32)
[2017-11-26] MEDS: Cefepime 2 GM, Syringe 2.5 ML in Sterile Water 10 ML SLOW IVP SCH ×2 (00:11→15:39)
[2017-11-26] MEDS: Calcium Carbonate 500 MG ChewTAB PO PRN ×2 (03:36→21:01)
[2017-11-26 05:50] LABS: Hemoglobin 7.8 g/dL (12.0-16.0); Platelet Count 462 thou/uL (130-400)
[2017-11-26] MEDS: HumaLOG 300 UNITS/3 ML VIAL SC PRN (06:24)
[2017-11-26] MEDS: Mometasone/Formoterol 120 PUFF INHALER INH SCH ×2 (07:53→19:37)
[2017-11-26 08:36] LABS: Hemoglobin 8.7 g/dL (12.0-16.0)
[2017-11-26] MEDS: Furosemide 40 MG TAB PO SCH (09:11)
[2017-11-26] MEDS: Spironolactone 25 MG TAB PO SCH (09:11)
[2017-11-26] MEDS ORDERED: Pantoprazole 80 MG, Admixture Fee 1 EACH in Sodium Chloride 0.9% 100 ML IVP SCH (09:15)
[2017-11-26] MEDS: Flecainide 50 MG TAB PO SCH ×2 (09:43→20:53)
[2017-11-26] MEDS: Nystatin 500,000 UNITS/5 ML UDCUP PO SCH ×4 (09:43→20:52)
[2017-11-26] MEDS: guaiFENesin ER 600 MG TAB PO SCH ×2 (09:43→20:52)
[2017-11-26] MEDS: Saccharomyces boulardii 250 MG CAP PO SCH (09:44)
[2017-11-26] MEDS: Famotidine 20 MG TAB PO SCH (09:44)
[2017-11-26] MEDS: Atorvastatin Calcium 10 MG TAB PO SCH (09:44)
[2017-11-26] MEDS: ALPRAZolam 0.25 MG TAB PO SCH ×4 (09:44→20:52)
[2017-11-26] MEDS: Milk Of Magnesia 30 ML UDCUP PO PRN (09:57)
--- NOTE | 2017-11-26 12:59 | PDOC.PN ---
- Subjective Encounter Start Date: 11/26/17 Encounter Start Time: 08:15 Subjective: no hung bleeding anywhere, last bm day before -: no sob/chest pain - Objective Resuscitation Status: Resuscitation Status FULL:Full Resuscitation MAR Reviewed: Yes Vital Signs & Weight: Vital Signs (12 hours) Temp Pulse Resp BP Pulse Ox 11/26/17 11:58 97.9 F 78 20 125/59 L 98 11/26/17 11:16 80 20 94 L 11/26/17 07:53 70 18 96 11/26/17 07:48 70 18 96 11/26/17 07:40 97.6 F 64 18 106/47 L 100 11/26/17 07:28 97.6 F 82 18 95 11/26/17 03:56 97.6 F 82 18 110/42 L 94 L 11/26/17 01:40 74 20 97 Weight Weight 151 lb 14.4 oz I&O: 11/25/17 11/26/17 11/27/17 06:59 06:59 06:59 Intake Total 600 1515 Output Total 800 2800 Balance -200 -1285 Result Diagrams: 11/26/17 08:24 11/26/17 05:27 Additional Labs: Accuchecks 11/26/17 11/26/17 11/25/17 11:32 06:16 20:20 POC Glucose 203 H 252 H 209 H 11/25/17 16:23 POC Glucose 172 H Phys Exam - Physical Examination HEENT: PERRLA, moist MMs Neck: no JVD, supple Respiratory: no wheezing, no rales Cardiovascular: RRR, no significant murmur rhonchi+ Gastrointestinal: soft, non-tender, positive bowel sounds Musculoskeletal: pulses present, edema present Neurological: non-focal, moves all 4 limbs Psychiatric: A&O x 3 Dx/Plan (1) PNA (pneumonia) Code(s): J18.9 - PNEUMONIA, UNSPECIFIED ORGANISM Status: Acute Qualifiers: Pneumonia type: due to unspecified organism Laterality: right Lung location: upper lobe of lung Qualified Code(s): J18.1 - Lobar pneumonia, unspecified organism (2) COPD (chronic obstructive pulmonary disease) Status: Chronic Qualifiers: COPD type: chronic bronchitis (3) Chronic anemia Code(s): D64.9 - ANEMIA, UNSPECIFIED Status: Chronic (4) CAD (coronary artery disease) Code(s): I25.10 - ATHSCL HEART DISEASE OF [place] CORONARY ARTERY W/O ANG PCTRS Status: Chronic Qualifiers: Coronary Disease-Associated Artery/Lesion type: [place] artery [place] vs. transplanted heart: [place] heart Associated angina: without angina Qualified Code(s): I25.10 - Atherosclerotic heart disease of [place] coronary artery without angina pectoris (5) Acute on chronic respiratory failure with hypoxemia Code(s): J96.21 - ACUTE AND CHRONIC RESPIRATORY FAILURE WITH HYPOXIA Status: Acute Comment: off bipap now (6) Afib Code(s): I48.91 - UNSPECIFIED ATRIAL FIBRILLATION Status: Chronic Qualifiers: Comment: Hx of A-fib on Eliquis and Tambocor (7) Dyslipidemia Code(s): E78.5 - HYPERLIPIDEMIA, UNSPECIFIED Status: Chronic (8) Hypertension Code(s): I10 - ESSENTIAL (PRIMARY) HYPERTENSION Status: Chronic Qualifiers: Hypertension type: essential hypertension - Plan on multiple iv antibiotics, may scale down -: dc eliquis and asp, start protonix drip, serial h/h -: very anxious person, on xanax -: transfuse if Hb <7g, repeat Hb was >8g? -: oob to chair and mobilize as tolerated * . Review of Systems - Medications/Allergies Allergies/Adverse Reactions: Allergies Allergy/AdvReac Type Severity Reaction Status Date / Time levofloxacin [From Levaquin] Allergy Intermediate Verified 11/12/17 15:12 codeine Allergy Unknown Verified 11/06/17 04:56 lisinopril Allergy Unknown Verified 11/06/17 04:56 niacin Allergy Unknown Verified 11/06/17 04:56 [From Niaspan Extended-Release] Sulfa (Sulfonamide Allergy Unknown Verified 11/06/17 04:56 Antibiotics) Medications: Current Medications Acetaminophen (Tylenol) 650 mg PO Q4H PRN PRN Reason: Headache/Fever or Pain Hydrocodone Bitart/Acetaminophen ([place] 10/325) 1 tab PO Q4H PRN PRN Reason: Severe Pain (7-10) Hydrocodone Bitart/Acetaminophen ([place] 5/325) 1 tab PO Q4H PRN PRN Reason: Moderate Pain (4-6) Albuterol Sulfate (Ventolin) 2.5 mg NEB Q2H PRN PRN Reason: Wheezing Albuterol/Ipratropium (Duoneb) 3 ml NEB [id number] [facility] Last Admin: 11/26/17 11:16 Dose: 3 ml Alprazolam (Xanax) 0.25 mg PO QID [facility] Last Admin: 11/26/17 09:44 Dose: 0.25 mg Atorvastatin Calcium (Lipitor) 10 mg PO DAILY [facility] Last Admin: 11/26/17 09:44 Dose: 10 mg Calcium Carbonate (Tums) 1,000 mg PO Q4H PRN PRN Reason: Heartburn or Indigestion Last Admin: 11/26/17 03:36 Dose: 1,000 mg Dextrose/Water (Dextrose 50%) 25 gm SLOW IVP PRN PRN PRN Reason: Hypoglycemia Famotidine (Pepcid) 20 mg PO BID [facility] Last Admin: 11/26/17 09:44 Dose: 20 mg Flecainide Acetate (Tambocor) 75 mg PO BID [facility] Last Admin: 11/26/17 09:43 Dose: 75 mg Glucagon (Glucagon) 1 mg IM PRN PRN PRN Reason: Hypoglycemia Guaifenesin (Mucinex) 1,200 mg PO Q12HR [facility] Last Admin: 11/26/17 09:43 Dose: 1,200 mg Ciprofloxacin/Dextrose 400 mg/ (Device) 200 mls @ 200 mls/hr IVPB 0300,1500 [facility] Last Admin: 11/26/17 03:21 Dose: 200 mls Dextrose/Water (D5w) 1,000 mls @ 0 mls/hr IV .Q0M PRN; As Directed PRN Reason: Hypoglycemia Clindamycin Phosphate/Dextrose (900 mg/ Device) 50 mls @ 100 mls/hr IVPB 0800, 1600,2359 [facility] Last Admin: 11/26/17 09:44 Dose: 50 mls Cefepime HCl 2 gm/ Syringe 2.5 (ml/ Sterile Water) 12.5 mls @ 150 mls/hr SLOW IVP 0100,1300 [facility] Last Admin: 11/26/17 00:11 Dose: 12.5 mls Pantoprazole Sodium 80 mg/Miscellaneous Medication 1 each/ Sodium Chloride 100 mls @ 10 mls/hr IVP INF [facility] Last Admin: 11/26/17 09:57 Dose: 100 mls Insulin Human Lispro (Humalog) 0 units SC .MILD SLIDING SCALE PRN PRN Reason: Mild Correctional Scale Last Admin: 11/26/17 06:24 Dose: 4 unit Lidocaine HCl (Xylocaine 2% Viscous) 15 ml SSW TID PRN PRN Reason: SORE THROAT Loratadine (Claritin) 10 mg PO DAILYPRN PRN PRN Reason: Sinus Symptoms Magnesium Hydroxide (Milk Of Magnesium) 30 ml PO DAILYPRN PRN PRN Reason: Constipation Last Admin: 11/26/17 09:57 Dose: 30 ml Mometasone Furoate/Formoterol Fumar (Dulera 200 Mcg/5 Mcg Inhaler) 2 puff INH BID-RT [facility] Last Admin: 11/26/17 07:53 Dose: 2 puff Nystatin (Mycostatin) 500,000 units PO QID [facility] Last Admin: 11/26/17 09:43 Dose: 500,000 units Ondansetron HCl (Zofran Odt) 4 mg PO Q6H PRN PRN Reason: Nausea/Vomiting Phenol (Chloraseptic [place] 180 Ml Bot) 0 ml PO BIDPRN PRN PRN Reason: Sore Throat Saccharomyces Boulardii (Florastor) 250 mg PO DAILY [facility] Last Admin: 11/26/17 09:44 Dose: 250 mg Sodium Chloride (Flush - Normal Saline) 10 ml IVF Q12HR [facility] Sodium Chloride (Flush - Normal Saline) 10 ml IVF PRN PRN PRN Reason: Saline Flush Throat Lozenges (Cepastat Lozenges) 1 rizwana PO Q2H PRN PRN Reason: Sore Throat Verapamil HCl (Calan Sr) 240 mg PO HS [facility] Last Admin: 11/25/17 20:10 Dose: 240 mg
[2017-11-26 14:21] LABS: Hemoglobin 9.1 g/dL (12.0-16.0)
[2017-11-26 20:30] LABS: Hemoglobin 8.3 g/dL (12.0-16.0)
--- NOTE | 2017-11-26 20:32 | PRG ---
DATE OF SERVICE: 11/26/2017 SUBJECTIVE: Ms. Sharp has done well overnight. OBJECTIVE: VITAL SIGNS: She is afebrile, heart rate is in the 70s, respirations 20, oximetry is 94-98 on 2 lite rs, blood pressure 102/59. LUNGS: Remarkable for improved wheezes. HEART: Regular rhythm. ABDOMEN: Soft. LABORATORY DATA: Hemoglobin 7.8, repeat was 8.7, repeat yesterday was 9.1. It does not clinically a ppear that she is acutely bleeding. Platelets 462. White count was 26 yesterday. There is no new o ther lab other than blood glucoses. IMPRESSION: 1. Chronic obstructive pulmonary disease exacerbation, pneumonia, clinically improving. 2. Acute on chronic respiratory failure with chronic hypoxemia. PLAN: Transfer to medical bed. Gastroenterology was consulted because of her anemia by the Hospital ist.
[2017-11-26 22:03] LABS: Hemoglobin 8.4 g/dL (12.0-16.0); Platelet Count 538 thou/uL (130-400)
[2017-11-26] MEDS ORDERED: Docusate 100 MG CAP PO SCH (23:30)
[2017-11-26] MEDS ORDERED: diphenhydrAMINE 25 MG CAP PO SCH (23:30)
[2017-11-26] MEDS: Ondansetron ODT 4 MG TAB PO PRN (23:31)
[2017-11-27] MEDS: Cefepime 2 GM, Syringe 2.5 ML in Sterile Water 10 ML SLOW IVP SCH (00:15)
[2017-11-27] MEDS: Acetaminophen 325 MG TAB PO PRN (00:22)
--- NOTE | 2017-11-27 01:32 | CON ---
DATE OF CONSULTATION: 11/26/2017 REASON FOR CONSULTATION: Anemia. HISTORY OF PRESENT ILLNESS: Ms. Sharp is an 81-year-old, who was admitted to the hospital on the with shortness of breath. She had recently been discharged from the hospital on the with pneu zeny. When she was discharged home, she was on Ceftin, prednisone, Eliquis, Aldactone, nitroglyceri n, pravastatin, Advair, Florastor and ranitidine. On readmission, she was felt she may have pneumoni a or just exacerbation of her COPD. On emergency room, she had some fever of 101 and a chest x-ray, which is worse in the right upper lobe infiltrate from previous admission thus was readmitted here an d she has again been started on antibiotics, cefepime, Cipro, and clindamycin. She had a CAT scan of her chest yesterday showed consolidative changes in right upper lung with small area of cavitation, bilateral parenchymal nodules, lung nodules. She was seen by Dr. Castillo, her Heating Repair Technician, who was c oncerned for aspiration as well. She has been admitted on antibiotics and follow up here in the hosp ital in intermediate care unit. I have been asked to see her because her hemoglobin was noted to ainsley p a little, it was anywhere from 12-13 in 2017. She had steadily dropped her hemoglobin from 12.7 on 10/19/2017 down to 9.8 on admission, her hemoglobin apparently dropped to 7.8 from 8.7. Today, it w as rechecked and it was 9.1. I was asked to see her with regard to possible GI bleeding. I have talked to the patient and the nurses, and there has been no melena, hematochezia, or hematemes is. She states she has not had a bowel movement for two days. She did not have any problems of GI b leeding in the past. She denies any abdominal pain, nausea, or vomiting. PAST MEDICAL HISTORY: COPD, paroxysmal atrial fibrillation, steroid dependency secondary to COPD, hy pertension, anxiety, coronary artery disease, hyperlipidemia, past tobacco use. PAST SURGICAL HISTORY: PTCA x2, cholecystectomy, hysterectomy, endoscopy, lumpectomy, cardiac ablati on x2. HOME MEDICATIONS: Prednisone 20 a day, Mucinex, verapamil, Aldactone, Florastor, ranitidine, Nitrost at, magnesium, DuoNeb, Advair, Ceftin, calcium with vitamin D, atorvastatin, aspirin, Eliquis, and Xa nax. PRESENT MEDICATIONS HERE: Tylenol, Ventolin, DuoNebs, Xanax, Lipitor, Tums, cefepime, Cipro, clindam ycin, dextrose, Pepcid, , Mucinex, Humalog, Claritin, Milk of Magnesia, Dulera, Mycostatin, Zofr an p.r.n., Protonix drip, Saccharomyces boulardii. PHYSICAL EXAMINATION: GENERAL: Patient is resting in bed. She has oxygen in place. She is going to get shower with the nu rse's help. HEENT: She is in no distress. LUNGS: Decreased breath sounds, wheezing bilaterally, poor inspiration. ABDOMEN: Soft, nontender. There is no rebound or guarding. EXTREMITIES: No clubbing, cyanosis, or edema. LABORATORY STUDIES: Hemoglobin 9.1 this afternoon, it was 7.8 this morning, hemoglobin was 9.8 yeste rday, 9.9 on 11/20/2017. INR was 1.1 on admission. BUN and creatinine were 18 and 77, AST was 33, A LT was 62, albumin 3.2, protein was 6.4. B12 was checked in 11/2016 was 448. MCV was 99 on the . ASSESSMENT: 1. Anemia, likely multifactorial. No signs of acute GI bleed. There has been no bowel movement for 2 days. She has no upper GI symptoms, she may or may not have endoscopies in the past. She is uncl ear about this; we will have to check records in my office, but she has not had any here. 2. Severe chronic obstructive pulmonary disease, which would preclude endoscopy at this point in jose restrepo without intubation. She will be very high risk for getting off of any kind of intubation. She is not a candidate for elective procedure. RECOMMENDATIONS: 1. Ulcer prophylaxis with PPI once a day should be adequate. A Protonix drip was not necessary. Reva restrepo has no signs of overt bleeding. 2. Transfuse as necessary with regard to her multiple medical problems. 3. Would continue probiotic and her medication regimen in light of her heavy antibiotic use and use of clindamycin, which is high risk for C. diff colitis. We will follow from a distance, if there is any signs of acute GI bleeding, please do not hesitate to reconsult me urgently.
[2017-11-27] MEDS: Mometasone/Formoterol 120 PUFF INHALER INH SCH ×2 (05:57→18:08)
[2017-11-27] MEDS ORDERED: Cefepime 1 GM, Syringe 2.5 ML in Sterile Water 10 ML SLOW IVP SCH (08:00)
[2017-11-27] MEDS ORDERED: Clindamycin 150 MG CAP PO SCH (08:00)
[2017-11-27] MEDS: Atorvastatin Calcium 10 MG TAB PO SCH (09:03)
[2017-11-27] MEDS: Nystatin 500,000 UNITS/5 ML UDCUP PO SCH ×4 (09:03→21:39)
[2017-11-27] MEDS: Saccharomyces boulardii 250 MG CAP PO SCH (09:04)
[2017-11-27] MEDS: Flecainide 50 MG TAB PO SCH ×2 (09:04→21:38)
[2017-11-27] MEDS: ALPRAZolam 0.25 MG TAB PO SCH ×4 (09:04→21:38)
[2017-11-27] MEDS: guaiFENesin ER 600 MG TAB PO SCH ×2 (09:04→21:38)
[2017-11-27] MEDS: Milk Of Magnesia 30 ML UDCUP PO PRN (09:14)
--- NOTE | 2017-11-27 11:03 | PDOC.PN ---
- Subjective Encounter Start Date: 11/27/17 Encounter Start Time: 10:45 Subjective: no sob, no hung bleeding -: has not passed bm yet (3 days now) -: wants milk of mag - Objective Resuscitation Status: Resuscitation Status FULL:Full Resuscitation MAR Reviewed: Yes Vital Signs & Weight: Vital Signs (12 hours) Temp Pulse Resp BP Pulse Ox 11/27/17 10:10 76 20 96 11/27/17 07:25 97.5 F L 73 18 96 11/27/17 07:00 97.3 F L 64 19 113/61 99 11/27/17 05:57 73 18 97 11/27/17 05:32 73 18 97 11/27/17 04:00 97.5 F L 75 20 114/48 L 100 Weight Weight 151 lb 3.2 oz I&O: 11/26/17 11/27/17 11/28/17 06:59 06:59 06:59 Intake Total 1515 915 Output Total 2800 2000 Balance -5925 -8374 Result Diagrams: 11/26/17 21:54 11/26/17 21:54 Additional Labs: Accuchecks 11/27/17 11/27/17 11/26/17 10:29 05:35 20:51 POC Glucose 106 121 H 135 H 11/26/17 11/26/17 16:45 11:32 POC Glucose 259 H 203 H Phys Exam - Physical Examination HEENT: PERRLA, moist MMs Neck: no JVD, supple Respiratory: no wheezing, no rales Cardiovascular: RRR, no significant murmur Gastrointestinal: soft, non-tender, positive bowel sounds Musculoskeletal: pulses present, edema present Neurological: non-focal, moves all 4 limbs Psychiatric: A&O x 3 Dx/Plan (1) PNA (pneumonia) Code(s): J18.9 - PNEUMONIA, UNSPECIFIED ORGANISM Status: Acute Qualifiers: Pneumonia type: due to unspecified organism Laterality: right Lung location: upper lobe of lung Qualified Code(s): J18.1 - Lobar pneumonia, unspecified organism (2) COPD (chronic obstructive pulmonary disease) Status: Chronic Qualifiers: COPD type: chronic bronchitis (3) Chronic anemia Code(s): D64.9 - ANEMIA, UNSPECIFIED Status: Chronic (4) CAD (coronary artery disease) Code(s): I25.10 - ATHSCL HEART DISEASE OF [place] CORONARY ARTERY W/O ANG PCTRS Status: Chronic Qualifiers: Coronary Disease-Associated Artery/Lesion type: [place] artery [place] vs. transplanted heart: [place] heart Associated angina: without angina Qualified Code(s): I25.10 - Atherosclerotic heart disease of [place] coronary artery without angina pectoris (5) Acute on chronic respiratory failure with hypoxemia Code(s): J96.21 - ACUTE AND CHRONIC RESPIRATORY FAILURE WITH HYPOXIA Status: Resolved Comment: off bipap now (6) Afib Code(s): I48.91 - UNSPECIFIED ATRIAL FIBRILLATION Status: Chronic Qualifiers: Comment: Hx of A-fib on Tambocor (7) Dyslipidemia Code(s): E78.5 - HYPERLIPIDEMIA, UNSPECIFIED Status: Chronic (8) Hypertension Code(s): I10 - ESSENTIAL (PRIMARY) HYPERTENSION Status: Chronic Qualifiers: Hypertension type: essential hypertension - Plan is on cefepime and oral clinda, will dc cipro -: h/h stable, no stool sample yet, colace, miralax, milk of mg, fleets etc -: will start low dose asp and lasix -: labs in am -: PT to amb as tolerated * . Review of Systems - Medications/Allergies Allergies/Adverse Reactions: Allergies Allergy/AdvReac Type Severity Reaction Status Date / Time levofloxacin [From Levaquin] Allergy Intermediate Verified 11/12/17 15:12 codeine Allergy Unknown Verified 11/06/17 04:56 lisinopril Allergy Unknown Verified 11/06/17 04:56 niacin Allergy Unknown Verified 11/06/17 04:56 [From Niaspan Extended-Release] Sulfa (Sulfonamide Allergy Unknown Verified 11/06/17 04:56 Antibiotics) Medications: Current Medications Acetaminophen (Tylenol) 650 mg PO Q4H PRN PRN Reason: Headache/Fever or Pain Last Admin: 11/27/17 00:22 Dose: 650 mg Hydrocodone Bitart/Acetaminophen ([place] 10/325) 1 tab PO Q4H PRN PRN Reason: Severe Pain (7-10) Hydrocodone Bitart/Acetaminophen ([place] 5/325) 1 tab PO Q4H PRN PRN Reason: Moderate Pain (4-6) Albuterol Sulfate (Ventolin) 2.5 mg NEB Q2H PRN PRN Reason: Wheezing Albuterol/Ipratropium (Duoneb) 3 ml NEB [id number] [facility] Last Admin: 11/27/17 10:10 Dose: 3 ml Alprazolam (Xanax) 0.25 mg PO QID [facility] Last Admin: 11/27/17 09:04 Dose: 0.25 mg Atorvastatin Calcium (Lipitor) 10 mg PO DAILY [facility] Last Admin: 11/27/17 09:03 Dose: 10 mg Calcium Carbonate (Tums) 1,000 mg PO Q4H PRN PRN Reason: Heartburn or Indigestion Last Admin: 11/26/17 21:01 Dose: 1,000 mg Clindamycin HCl (Cleocin) 300 mg PO Q8H [facility] Last Admin: 11/27/17 09:03 Dose: 300 mg Dextrose/Water (Dextrose 50%) 25 gm SLOW IVP PRN PRN PRN Reason: Hypoglycemia Flecainide Acetate (Tambocor) 75 mg PO BID [facility] Last Admin: 11/27/17 09:04 Dose: 75 mg Glucagon (Glucagon) 1 mg IM PRN PRN PRN Reason: Hypoglycemia Guaifenesin (Mucinex) 1,200 mg PO Q12HR [facility] Last Admin: 11/27/17 09:04 Dose: 1,200 mg Dextrose/Water (D5w) 1,000 mls @ 0 mls/hr IV .Q0M PRN; As Directed PRN Reason: Hypoglycemia Cefepime HCl 1 gm/ Syringe 2.5 (ml/ Sterile Water) 12.5 mls @ 150 mls/hr SLOW IVP 0100,1300 [id number] Insulin Human Lispro (Humalog) 0 units SC .MILD SLIDING SCALE PRN PRN Reason: Mild Correctional Scale Last Admin: 11/26/17 06:24 Dose: 4 unit Lidocaine HCl (Xylocaine 2% Viscous) 15 ml SSW TID PRN PRN Reason: SORE THROAT Loratadine (Claritin) 10 mg PO DAILYPRN PRN PRN Reason: Sinus Symptoms Magnesium Hydroxide (Milk Of Magnesium) 30 ml PO DAILYPRN PRN PRN Reason: Constipation Last Admin: 11/27/17 09:14 Dose: 30 ml Mometasone Furoate/Formoterol Fumar (Dulera 200 Mcg/5 Mcg Inhaler) 2 puff INH BID-RT [facility] Last Admin: 11/27/17 05:57 Dose: 2 puff Nystatin (Mycostatin) 500,000 units PO QID [facility] Last Admin: 11/27/17 09:03 Dose: 500,000 units Ondansetron HCl (Zofran Odt) 4 mg PO Q6H PRN PRN Reason: Nausea/Vomiting Last Admin: 11/26/17 23:31 Dose: 4 mg Pantoprazole Sodium (Protonix) 40 mg PO DAILY [facility] Last Admin: 11/27/17 09:04 Dose: 40 mg Phenol (Chloraseptic [place] 180 Ml Bot) 0 ml PO BIDPRN PRN PRN Reason: Sore Throat Saccharomyces Boulardii (Florastor) 250 mg PO DAILY [facility] Last Admin: 11/27/17 09:04 Dose: 250 mg Sodium Chloride (Flush - Normal Saline) 10 ml IVF Q12HR [facility] Last Admin: 11/27/17 09:05 Dose: 10 ml Sodium Chloride (Flush - Normal Saline) 10 ml IVF PRN PRN PRN Reason: Saline Flush Throat Lozenges (Cepastat Lozenges) 1 rizwana PO Q2H PRN PRN Reason: Sore Throat Verapamil HCl (Calan Sr) 240 mg PO HS [facility] Last Admin: 11/26/17 20:52 Dose: 240 mg
[2017-11-27] MEDS ORDERED: Bisacodyl 10 MG SUPP PR PRN (11:08)
[2017-11-27] MEDS ORDERED: Fleet Enema 133 ML BOT PR SCH (11:30)
--- NOTE | 2017-11-27 17:17 | PRG ---
DATE OF SERVICE: 11/27/2017 SUBJECTIVE: Ms. Sharp has no complaints. She actually looks good as she looked when she went home last time. OBJECTIVE: VITAL SIGNS: She is afebrile, heart rates in the 70s, respiratory rate 17, oximetry is 97 on 2-1/2 l iters, blood pressure 123/53. LUNGS: Clear. IMPRESSION: 1. Chronic obstructive pulmonary disease. 2. Pneumonia. PLAN: Switch to p.o. medications, placement in the next few days. I have encouraged her to go to as sisted living. She tells me, her daughter is coming from [place] and is going to live with her an d stay with her 24 hours a day. We will see how this works. She tends to be resistant to family shanae gary in her space, but maybe this daughter will be able to help out.
[2017-11-27] MEDS: Ondansetron ODT 4 MG TAB PO PRN (19:32)
[2017-11-27] MEDS: Cefdinir 300 MG CAP PO SCH (21:39)
[2017-11-27] MEDS: Docusate 100 MG CAP PO SCH (21:39)
[2017-11-27] MEDS: Calcium Carbonate 500 MG ChewTAB PO PRN (21:52)
--- NOTE | 2017-11-28 00:33 | PRG ---
DATE OF SERVICE: 11/27/2017 SUBJECTIVE: Ms. Sharp is resting comfortably in bed. She is sitting on the side of the bed eating a little bit. She is doing her breathing treatment while eating. She denies any bleeding. She zoraida lly had a bowel movement today, which was heme positive, but without melena or hematochezia. OBJECTIVE: VITAL SIGNS: Temperature is 97, pulse 89, respirations 22, blood pressure 146/64. LUNGS: Diffuse wheezing, rhonchi, rales. LABORATORY DATA: Hemoglobin is 8.4 and stable. ASSESSMENT AND PLAN: Anemia. There is no overt GI hemorrhage. We would keep her on ulcer prophylax is. Monitor as necessary if she has overt bleeding, going to proceed with endoscopy she will have to be intubated for this due to her poor respiratory status. I think we are going to try to avoid this if possible as I am not sure she can get off a ventilator. Her credit control assistant feels she also has sev ere COPD and this is not an opportune time for any type of elective sedation with an acute pneumonia on top of this. We will continue to follow.
[2017-11-28] MEDS: Simethicone Chewable 80 MG TAB PO PRN (01:46)
[2017-11-28] MEDS: Acetaminophen 325 MG TAB PO PRN (01:46)
[2017-11-28] MEDS: Loratadine 10 MG TAB PO PRN (01:46)
[2017-11-28 04:32] LABS: INR-International Normal Ratio 1.2; PTT 37.5 SEC (22.9-36.1)
[2017-11-28 04:46] LABS: ALT (SGPT) 40 U/L (8-55); AST (SGOT) 15 U/L (5-34); Albumin 2.7 g/dL (3.4-4.8); Alkaline Phosphatase 65 U/L (40-150); Anion Gap 11 mmol/L (10-20); BUN (Urea Nitrogen) 24 mg/dL (9.8-20.1); Bilirubin, Total 0.3 mg/dL (0.2-1.2); Calc. Creatinine Clearance 63 mL/min (70-130); Calcium 8.9 mg/dL (7.8-10.44); Carbon Dioxide 27 mmol/L (23-31); Chloride 99 mmol/L (98-107); Estimated GFR-MDRD 74; Globulin 2.6 g/dL (2.4-3.5); Glucose 86 mg/dL (83-110); Potassium 4.5 mmol/L (3.5-5.1); Protein, Total 5.3 g/dL (6.0-8.3); Sodium 132 mmol/L (136-145)
[2017-11-28 05:13] LABS: Band 4 % (5-11); Eosinophils 1 % (0-10); Hemoglobin 8.1 g/dL (12.0-16.0); Lymphocytes 21 % (21-51); MDiff Complete? YES; Mean Corpuscular HGB CONC 33.2 g/dL (32.0-36.0); Mean Corpuscular Hemoglobin 32.5 pg (27.0-31.0); Mean Corpuscular Volume 98.1 fl (81.0-99.0); Mean Platelet Volume 6.8 fL (7.4-10.4); Monocytes 6 % (0-10); Myelocyte 1 % (0-0); Neutrophil 67 % (42-75); Platelet Count 490 thou/uL (130-400); RBC Distribution Width 12.8 % (11.5-14.5); Red Blood Cell (RBC) Count 2.49 mill/uL (4.20-5.40); White Blood Cell (WBC) Count 19.1 thou/uL (4.8-10.8)
[2017-11-28] MEDS: Mometasone/Formoterol 120 PUFF INHALER INH SCH ×2 (07:31→19:21)
[2017-11-28] MEDS: Polyethylene Glycol 3350 17 GM Packet PO SCH (08:51)
[2017-11-28] MEDS: Docusate 100 MG CAP PO SCH ×2 (08:54→20:18)
[2017-11-28] MEDS: Furosemide 40 MG TAB PO SCH (08:54)
[2017-11-28] MEDS: ALPRAZolam 0.25 MG TAB PO SCH ×4 (10:22→20:22)
[2017-11-28] MEDS: predniSONE 20 MG TAB PO SCH (10:22)
[2017-11-28] MEDS: Cefdinir 300 MG CAP PO SCH ×2 (10:22→20:21)
[2017-11-28] MEDS: Saccharomyces boulardii 250 MG CAP PO SCH (10:22)
[2017-11-28] MEDS: Flecainide 50 MG TAB PO SCH ×2 (10:22→20:18)
[2017-11-28] MEDS: Nystatin 500,000 UNITS/5 ML UDCUP PO SCH ×4 (10:23→20:22)
[2017-11-28] MEDS: guaiFENesin ER 600 MG TAB PO SCH ×2 (10:23→20:21)
[2017-11-28] MEDS: Atorvastatin Calcium 10 MG TAB PO SCH (10:23)
--- NOTE | 2017-11-28 11:25 | PRG ---
DATE OF SERVICE: 11/28/2017 SUBJECTIVE: Izabel Sharp has no complaints except abdominal cramping. She has not had a bowel mo vement in 4 days. She had one last night that was small. PHYSICAL EXAMINATION: VITAL SIGNS: She is afebrile, heart rate 69, respiratory rate 22, oximetry is 99% on 2.5 liters, blo od pressure 120/53. LUNGS: Clear. HEART: Regular rhythm. ABDOMEN: Minimally tender and tympanitic. IMPRESSION: 1. Constipation? 2. Chronic obstructive pulmonary disease. 3. Pneumonia. 4. Deconditioning in activity and gait instability. PLAN: Continue to exercise. She does not at this time have an exam consistent with acute abdomen an d continue to watch her closely.
--- NOTE | 2017-11-28 12:56 | PDOC.PN ---
- Subjective Encounter Start Date: 11/28/17 Encounter Start Time: 07:00 Subjective: c/o abd dyscomfort, no nausea -: had bm yesterday - Objective Resuscitation Status: Resuscitation Status FULL:Full Resuscitation MAR Reviewed: Yes Vital Signs & Weight: Vital Signs (12 hours) Temp Pulse Resp BP Pulse Ox 11/28/17 10:57 98.5 F 69 22 H 116/66 11/28/17 08:00 97.3 F L 69 22 H 99 11/28/17 07:32 97.3 F L 69 22 H 120/53 L 99 11/28/17 07:29 73 18 94 L 11/28/17 05:42 98.9 F 64 20 112/58 L 98 11/28/17 01:11 98.7 F 90 20 124/67 94 L Weight Weight 151 lb 3.2 oz I&O: 11/27/17 11/28/17 11/29/17 06:59 06:59 06:59 Intake Total 915 120 Output Total 2000 400 Balance -1085 -400 120 Result Diagrams: 11/28/17 03:38 11/28/17 03:38 Additional Labs: Accuchecks 11/28/17 11/27/17 11/27/17 05:12 21:48 16:19 POC Glucose 109 121 H 90 Phys Exam - Physical Examination HEENT: PERRLA, moist MMs Neck: no JVD, supple Respiratory: no wheezing, no rales Cardiovascular: RRR, no significant murmur Gastrointestinal: soft, non-tender, positive bowel sounds mild distention over upper quadrants, no rigidity or guarding Musculoskeletal: no edema, pulses present Neurological: non-focal, moves all 4 limbs Psychiatric: A&O x 3 Dx/Plan (1) PNA (pneumonia) Code(s): J18.9 - PNEUMONIA, UNSPECIFIED ORGANISM Status: Acute Qualifiers: Pneumonia type: due to unspecified organism Laterality: right Lung location: upper lobe of lung Qualified Code(s): J18.1 - Lobar pneumonia, unspecified organism (2) COPD (chronic obstructive pulmonary disease) Status: Chronic Qualifiers: COPD type: chronic bronchitis (3) Chronic anemia Code(s): D64.9 - ANEMIA, UNSPECIFIED Status: Chronic (4) CAD (coronary artery disease) Code(s): I25.10 - ATHSCL HEART DISEASE OF [place] CORONARY ARTERY W/O ANG PCTRS Status: Chronic Qualifiers: Coronary Disease-Associated Artery/Lesion type: [place] artery [place] vs. transplanted heart: [place] heart Associated angina: without angina Qualified Code(s): I25.10 - Atherosclerotic heart disease of [place] coronary artery without angina pectoris (5) Acute on chronic respiratory failure with hypoxemia Code(s): J96.21 - ACUTE AND CHRONIC RESPIRATORY FAILURE WITH HYPOXIA Status: Resolved Comment: off bipap now (6) Afib Code(s): I48.91 - UNSPECIFIED ATRIAL FIBRILLATION Status: Chronic Qualifiers: Comment: Hx of A-fib on Tambocor (7) Dyslipidemia Code(s): E78.5 - HYPERLIPIDEMIA, UNSPECIFIED Status: Chronic (8) Hypertension Code(s): I10 - ESSENTIAL (PRIMARY) HYPERTENSION Status: Chronic Qualifiers: Hypertension type: essential hypertension - Plan is on omnicef, nebs -: will get abd xray if she continues to have a feeling of fullness in upper -: -quadrants, h/h stable -: to amb as tolerated -: oral prednisone, asp * . Review of Systems - Medications/Allergies Allergies/Adverse Reactions: Allergies Allergy/AdvReac Type Severity Reaction Status Date / Time levofloxacin [From Levaquin] Allergy Intermediate Verified 11/12/17 15:12 codeine Allergy Unknown Verified 11/06/17 04:56 lisinopril Allergy Unknown Verified 11/06/17 04:56 niacin Allergy Unknown Verified 11/06/17 04:56 [From Niaspan Extended-Release] Sulfa (Sulfonamide Allergy Unknown Verified 11/06/17 04:56 Antibiotics) Medications: Current Medications Acetaminophen (Tylenol) 650 mg PO Q4H PRN PRN Reason: Headache/Fever or Pain Last Admin: 11/28/17 01:46 Dose: 650 mg Hydrocodone Bitart/Acetaminophen ([place] 10/325) 1 tab PO Q4H PRN PRN Reason: Severe Pain (7-10) Hydrocodone Bitart/Acetaminophen ([place] 5/325) 1 tab PO Q4H PRN PRN Reason: Moderate Pain (4-6) Albuterol Sulfate (Ventolin) 2.5 mg NEB Q2H PRN PRN Reason: Wheezing Albuterol/Ipratropium (Duoneb) 3 ml NEB [id number] Last Admin: 11/28/17 10:28 Dose: Not Given Alprazolam (Xanax) 0.25 mg PO QID [facility] Last Admin: 11/28/17 10:22 Dose: 0.25 mg Aspirin (Aspirin Chewable) 81 mg PO DAILY [facility] Last Admin: 11/28/17 10:22 Dose: 81 mg Atorvastatin Calcium (Lipitor) 10 mg PO DAILY [facility] Last Admin: 11/28/17 10:23 Dose: 10 mg Bisacodyl (Dulcolax) 10 mg [place] Q8H PRN PRN Reason: Constipation Calcium Carbonate (Tums) 1,000 mg PO Q4H PRN PRN Reason: Heartburn or Indigestion Last Admin: 11/27/17 21:52 Dose: 1,000 mg Cefdinir (Omnicef) 300 mg PO BID [facility] Last Admin: 11/28/17 10:22 Dose: 300 mg Dextrose/Water (Dextrose 50%) 25 gm SLOW IVP PRN PRN PRN Reason: Hypoglycemia Docusate Sodium (Colace) 100 mg PO BID [facility] Last Admin: 11/28/17 08:54 Dose: 100 mg Flecainide Acetate (Tambocor) 75 mg PO BID [facility] Last Admin: 11/28/17 10:22 Dose: 75 mg Furosemide (Lasix) 40 mg PO DAILY-AC [facility] Last Admin: 11/28/17 08:54 Dose: 40 mg Glucagon (Glucagon) 1 mg IM PRN PRN PRN Reason: Hypoglycemia Guaifenesin (Mucinex) 1,200 mg PO Q12HR [facility] Last Admin: 11/28/17 10:23 Dose: 1,200 mg Dextrose/Water (D5w) 1,000 mls @ 0 mls/hr IV .Q0M PRN; As Directed PRN Reason: Hypoglycemia Insulin Human Lispro (Humalog) 0 units SC .MILD SLIDING SCALE PRN PRN Reason: Mild Correctional Scale Last Admin: 11/26/17 06:24 Dose: 4 unit Lidocaine HCl (Xylocaine 2% Viscous) 15 ml SSW TID PRN PRN Reason: SORE THROAT Loratadine (Claritin) 10 mg PO DAILYPRN PRN PRN Reason: Sinus Symptoms Last Admin: 11/28/17 01:46 Dose: 10 mg Magnesium Hydroxide (Milk Of Magnesium) 30 ml PO DAILYPRN PRN PRN Reason: Constipation Last Admin: 11/27/17 09:14 Dose: 30 ml Mometasone Furoate/Formoterol Fumar (Dulera 200 Mcg/5 Mcg Inhaler) 2 puff INH BID-RT [facility] Last Admin: 11/28/17 07:31 Dose: 2 puff Nystatin (Mycostatin) 500,000 units PO QID [facility] Last Admin: 11/28/17 10:23 Dose: 500,000 units Ondansetron HCl (Zofran Odt) 4 mg PO Q6H PRN PRN Reason: Nausea/Vomiting Last Admin: 11/27/17 19:32 Dose: 4 mg Pantoprazole Sodium (Protonix) 40 mg PO DAILY [facility] Last Admin: 11/28/17 08:51 Dose: 40 mg Phenol (Chloraseptic [place] 180 Ml Bot) 0 ml PO BIDPRN PRN PRN Reason: Sore Throat Polyethylene Glycol (Miralax) 17 gm PO DAILY [facility] Last Admin: 11/28/17 08:51 Dose: 17 gm Prednisone (Prednisone) 20 mg PO QA-[facility] Last Admin: 11/28/17 10:22 Dose: 20 mg Saccharomyces Boulardii (Florastor) 250 mg PO DAILY [facility] Last Admin: 11/28/17 10:22 Dose: 250 mg Simethicone (Mylicon Chewable) 80 mg PO QID PRN PRN Reason: GAS PAIN Last Admin: 11/28/17 01:46 Dose: 80 mg Sodium Chloride (Flush - Normal Saline) 10 ml IVF Q12HR [facility] Last Admin: 11/28/17 10:23 Dose: 10 ml Sodium Chloride (Flush - Normal Saline) 10 ml IVF PRN PRN PRN Reason: Saline Flush Throat Lozenges (Cepastat Lozenges) 1 rizwana PO Q2H PRN PRN Reason: Sore Throat Verapamil HCl (Calan Sr) 240 mg PO HS [facility] Last Admin: 11/27/17 21:38 Dose: 240 mg
[2017-11-29] MEDS: Loratadine 10 MG TAB PO PRN ×2 (03:04→23:18)
[2017-11-29] MEDS: Acetaminophen 325 MG TAB PO PRN ×2 (03:04→23:18)
[2017-11-29] MEDS: Mometasone/Formoterol 120 PUFF INHALER INH SCH ×2 (07:36→18:31)
[2017-11-29] MEDS: ALPRAZolam 0.25 MG TAB PO SCH ×4 (08:30→23:18)
[2017-11-29] MEDS: predniSONE 20 MG TAB PO SCH (08:30)
[2017-11-29] MEDS: Docusate 100 MG CAP PO SCH ×2 (08:30→20:20)
[2017-11-29] MEDS: guaiFENesin ER 600 MG TAB PO SCH ×2 (08:30→20:19)
[2017-11-29] MEDS: Flecainide 50 MG TAB PO SCH ×2 (08:31→20:18)
[2017-11-29] MEDS: Furosemide 40 MG TAB PO SCH (08:31)
[2017-11-29] MEDS: Cefdinir 300 MG CAP PO SCH ×2 (08:31→20:19)
[2017-11-29] MEDS: Atorvastatin Calcium 10 MG TAB PO SCH (08:32)
[2017-11-29] MEDS: Nystatin 500,000 UNITS/5 ML UDCUP PO SCH ×4 (08:32→23:01)
[2017-11-29] MEDS: Polyethylene Glycol 3350 17 GM Packet PO SCH (08:32)
[2017-11-29] MEDS: Saccharomyces boulardii 250 MG CAP PO SCH (08:32)
--- NOTE | 2017-11-29 12:33 | PDOC.PN ---
- Subjective Encounter Start Date: 11/29/17 Encounter Start Time: 11:00 Subjective: c/o upper abd pain, no nausea -: no further bm after the one she had 2 days back - Objective Resuscitation Status: Resuscitation Status FULL:Full Resuscitation MAR Reviewed: Yes Vital Signs & Weight: Vital Signs (12 hours) Temp Pulse Resp BP Pulse Ox 11/29/17 10:23 71 16 98 11/29/17 08:00 98.1 F 76 16 98 11/29/17 07:47 98.1 F 76 16 135/61 98 11/29/17 07:31 71 16 98 11/29/17 04:38 98 11/29/17 04:00 98.2 F 64 20 126/66 99 11/29/17 01:48 60 15 98 Weight Weight 151 lb 3.2 oz I&O: 11/28/17 11/29/17 11/30/17 06:59 06:59 06:59 Intake Total 1120 1640 Output Total 400 Balance -400 1120 1640 Result Diagrams: 11/28/17 03:38 11/28/17 03:38 Additional Labs: Accuchecks 11/29/17 11/28/17 11/28/17 05:25 19:38 16:00 POC Glucose 176 H 204 H 137 H 11/28/17 10:58 POC Glucose 197 H Phys Exam - Physical Examination HEENT: PERRLA, moist MMs Neck: no JVD, supple Respiratory: no wheezing, no rales Cardiovascular: RRR, no significant murmur Gastrointestinal: soft, positive bowel sounds distention++ more over upper quadrants, no rigidity or guarding Musculoskeletal: pulses present, edema present Neurological: non-focal, moves all 4 limbs Psychiatric: A&O x 3 Dx/Plan (1) PNA (pneumonia) Code(s): J18.9 - PNEUMONIA, UNSPECIFIED ORGANISM Status: Acute Qualifiers: Pneumonia type: due to unspecified organism Laterality: right Lung location: upper lobe of lung Qualified Code(s): J18.1 - Lobar pneumonia, unspecified organism (2) COPD (chronic obstructive pulmonary disease) Status: Chronic Qualifiers: COPD type: chronic bronchitis (3) Chronic anemia Code(s): D64.9 - ANEMIA, UNSPECIFIED Status: Chronic (4) CAD (coronary artery disease) Code(s): I25.10 - ATHSCL HEART DISEASE OF [place] CORONARY ARTERY W/O ANG PCTRS Status: Chronic Qualifiers: Coronary Disease-Associated Artery/Lesion type: [place] artery [place] vs. transplanted heart: [place] heart Associated angina: without angina Qualified Code(s): I25.10 - Atherosclerotic heart disease of [place] coronary artery without angina pectoris (5) Acute on chronic respiratory failure with hypoxemia Code(s): J96.21 - ACUTE AND CHRONIC RESPIRATORY FAILURE WITH HYPOXIA Status: Resolved Comment: off bipap now (6) Afib Code(s): I48.91 - UNSPECIFIED ATRIAL FIBRILLATION Status: Chronic Qualifiers: Comment: Hx of A-fib on Tambocor (7) Dyslipidemia Code(s): E78.5 - HYPERLIPIDEMIA, UNSPECIFIED Status: Chronic (8) Hypertension Code(s): I10 - ESSENTIAL (PRIMARY) HYPERTENSION Status: Chronic Qualifiers: Hypertension type: essential hypertension - Plan has increasing abd distention, will get CT to r/o sbo/fecal impaction -: on bowel regimen, needs to amb more -: on omnicef, steroids and nebs -: h/h stable -: flecainide, verapamil for afib/htn, rate controlled and stable * . Review of Systems - Medications/Allergies Allergies/Adverse Reactions: Allergies Allergy/AdvReac Type Severity Reaction Status Date / Time levofloxacin [From Levaquin] Allergy Intermediate Verified 11/12/17 15:12 codeine Allergy Unknown Verified 11/06/17 04:56 lisinopril Allergy Unknown Verified 11/06/17 04:56 niacin Allergy Unknown Verified 11/06/17 04:56 [From Niaspan Extended-Release] Sulfa (Sulfonamide Allergy Unknown Verified 11/06/17 04:56 Antibiotics) Medications: Current Medications Acetaminophen (Tylenol) 650 mg PO Q4H PRN PRN Reason: Headache/Fever or Pain Last Admin: 11/29/17 03:04 Dose: 650 mg Hydrocodone Bitart/Acetaminophen ([place] 10/325) 1 tab PO Q4H PRN PRN Reason: Severe Pain (7-10) Hydrocodone Bitart/Acetaminophen ([place] 5/325) 1 tab PO Q4H PRN PRN Reason: Moderate Pain (4-6) Albuterol Sulfate (Ventolin) 2.5 mg NEB Q2H PRN PRN Reason: Wheezing Albuterol/Ipratropium (Duoneb) 3 ml NEB [id number] [facility] Last Admin: 11/29/17 10:23 Dose: 3 ml Alprazolam (Xanax) 0.25 mg PO QID [facility] Last Admin: 11/29/17 08:30 Dose: Not Given Aspirin (Aspirin Chewable) 81 mg PO DAILY [facility] Last Admin: 11/29/17 08:30 Dose: 81 mg Atorvastatin Calcium (Lipitor) 10 mg PO DAILY [facility] Last Admin: 11/29/17 08:32 Dose: 10 mg Bisacodyl (Dulcolax) 10 mg [place] Q8H PRN PRN Reason: Constipation Calcium Carbonate (Tums) 1,000 mg PO Q4H PRN PRN Reason: Heartburn or Indigestion Last Admin: 11/27/17 21:52 Dose: 1,000 mg Cefdinir (Omnicef) 300 mg PO BID [facility] Last Admin: 11/29/17 08:31 Dose: 300 mg Dextrose/Water (Dextrose 50%) 25 gm SLOW IVP PRN PRN PRN Reason: Hypoglycemia Docusate Sodium (Colace) 100 mg PO BID [facility] Last Admin: 11/29/17 08:30 Dose: 100 mg Flecainide Acetate (Tambocor) 75 mg PO BID [facility] Last Admin: 11/29/17 08:31 Dose: 75 mg Furosemide (Lasix) 40 mg PO DAILY-AC [facility] Last Admin: 11/29/17 08:31 Dose: 40 mg Glucagon (Glucagon) 1 mg IM PRN PRN PRN Reason: Hypoglycemia Guaifenesin (Mucinex) 1,200 mg PO Q12HR [facility] Last Admin: 11/29/17 08:30 Dose: 1,200 mg Dextrose/Water (D5w) 1,000 mls @ 0 mls/hr IV .Q0M PRN; As Directed PRN Reason: Hypoglycemia Insulin Human Lispro (Humalog) 0 units SC .MILD SLIDING SCALE PRN PRN Reason: Mild Correctional Scale Last Admin: 11/26/17 06:24 Dose: 4 unit Lidocaine HCl (Xylocaine 2% Viscous) 15 ml SSW TID PRN PRN Reason: SORE THROAT Loratadine (Claritin) 10 mg PO DAILYPRN PRN PRN Reason: Sinus Symptoms Last Admin: 11/29/17 03:04 Dose: 10 mg Magnesium Hydroxide (Milk Of Magnesium) 30 ml PO DAILYPRN PRN PRN Reason: Constipation Last Admin: 11/27/17 09:14 Dose: 30 ml Mometasone Furoate/Formoterol Fumar (Dulera 200 Mcg/5 Mcg Inhaler) 2 puff INH BID-RT [facility] Last Admin: 11/29/17 07:36 Dose: 2 puff Nystatin (Mycostatin) 500,000 units PO QID [facility] Last Admin: 11/29/17 08:32 Dose: 500,000 units Ondansetron HCl (Zofran Odt) 4 mg PO Q6H PRN PRN Reason: Nausea/Vomiting Last Admin: 11/27/17 19:32 Dose: 4 mg Pantoprazole Sodium (Protonix) 40 mg PO DAILY [facility] Last Admin: 11/29/17 07:58 Dose: 40 mg Phenol (Chloraseptic [place] 180 Ml Bot) 0 ml PO BIDPRN PRN PRN Reason: Sore Throat Polyethylene Glycol (Miralax) 17 gm PO DAILY [facility] Last Admin: 11/29/17 08:32 Dose: 17 gm Prednisone (Prednisone) 20 mg PO QAM-[facility] Last Admin: 11/29/17 08:30 Dose: 20 mg Saccharomyces Boulardii (Florastor) 250 mg PO DAILY [facility] Last Admin: 11/29/17 08:32 Dose: 250 mg Simethicone (Mylicon Chewable) 80 mg PO QID PRN PRN Reason: GAS PAIN Last Admin: 11/28/17 01:46 Dose: 80 mg Sodium Chloride (Flush - Normal Saline) 10 ml IVF Q12HR [facility] Last Admin: 11/29/17 11:00 Dose: 10 ml Sodium Chloride (Flush - Normal Saline) 10 ml IVF PRN PRN PRN Reason: Saline Flush Throat Lozenges (Cepastat Lozenges) 1 rizwana PO Q2H PRN PRN Reason: Sore Throat Verapamil HCl (Calan Sr) 240 mg PO HS [facility] Last Admin: 11/28/17 20:18 Dose: 240 mg
[2017-11-29] MEDS ORDERED: Fleet Enema 133 ML BOT PR SCH (12:45)
--- NOTE | 2017-11-29 14:40 | PRG ---
DATE OF SERVICE: 11/29/2017 SUBJECTIVE: She was evaluated today. She was drinking barium for a CT scan. OBJECTIVE: VITAL SIGNS: She is afebrile, heart rate is 76, respiratory rate 16, oximetry is 98 on 2 liters, blo od pressure 135/61. Intake and output is not recorded. LUNGS: Remarkable for faint wheezes. CARDIOVASCULAR: Regular rhythm. ABDOMEN: Soft. She has only had 1 bowel movement in the last 6 days. She is getting barium and I reminded the nurse that she will need an enema or laxative to clear the barium after the scan. By exam, she is wheezing a little more today than she was yesterday, so I put her back on IV steroids . I will continue to follow with the other physicians caring for.
--- NOTE | 2017-11-29 15:13 | CT ---
CT ABDOMEN AND PELVIS WITH IV CONTRAST: COMPARISON: 03/23/16. HISTORY: Severe abdominal pain which has worsened over the past 2-3 years. Loss of appetite and constipation. FINDINGS: There is a small right pleural effusion with associated passive atelectasis. There are 2 pleural-bas ed pulmonary nodules in the lingula which were seen on the study of 11/25/17 and measure similar in si ze to the prior exam. The interstitial and parenchymal changes in the right middle lobe are again se en and stable from the prior exam and incompletely imaged. Previously described nodular density at t he right lung base on the prior CT thorax was not imaged on this study. Vascular calcifications are again seen in the abdominal aorta and involving the iliac arteries. The liver, spleen, pancreas, bilateral adrenal glands, urinary bladder, and uterus demonstrate a norm al CT appearance. There is a nonobstructing inferior pole left renal calculus again present. There is a punctate calci fication mid portion left kidney which may represent a cortically based calcification. Subcentimeter too small to characterize hypodense lesions are seen within each kidney. There is colonic diverticulosis. Small to moderate amount of retained fecal material is seen through out the colon. No free fluid, fluid collection, or lymphadenopathy is seen in the abdomen or pelvis. Degenerative changes are again seen in the spine. IMPRESSION: 1. No acute findings in the abdomen or pelvis. 2. Small right pleural effusion which was seen on CT thorax on 11/25/17. 3. Stable pleural-based nodular densities in the left lower lobe with stable interstitial and parenc hymal changes in the right middle lobe incompletely imaged but were present on the study on 11/25/17. 4. Nonobstructing left renal calculus. 5. Subcentimeter too small to characterize hypodense bilateral renal lesions. 6. Constipation. 7. Vascular calcifications in the abdominal aorta and iliac arteries. 8. The cecum extends medially and anteriorly. There is mild focal prominence of the appendix, but f oci of gas are seen within the appendix and there are no periappendiceal inflammatory changes present . POS: AMANDEEP
[2017-11-29] MEDS ORDERED: Magnesium Citrate 300 ML BOT PO SCH (15:45)
[2017-11-29] MEDS ORDERED: Iopamidol 370 76% 100 ML VIAL ONE (17:20)
[2017-11-29] MEDS: Ondansetron ODT 4 MG TAB PO PRN (23:00)
[2017-11-29] MEDS: Simethicone Chewable 80 MG TAB PO PRN (23:13)
[2017-11-30] MEDS: Simethicone Chewable 80 MG TAB PO PRN ×3 (06:40→20:35)
[2017-11-30] MEDS: Mometasone/Formoterol 120 PUFF INHALER INH SCH ×2 (06:45→18:32)
[2017-11-30] MEDS: Flecainide 50 MG TAB PO SCH ×2 (10:07→20:35)
[2017-11-30] MEDS: guaiFENesin ER 600 MG TAB PO SCH ×2 (10:10→20:35)
[2017-11-30] MEDS: Nystatin 500,000 UNITS/5 ML UDCUP PO SCH ×4 (10:10→20:34)
[2017-11-30] MEDS: ALPRAZolam 0.25 MG TAB PO SCH ×4 (10:10→23:06)
[2017-11-30] MEDS: Cefdinir 300 MG CAP PO SCH ×2 (10:10→20:35)
[2017-11-30] MEDS: Docusate 100 MG CAP PO SCH (10:11)
[2017-11-30] MEDS: Atorvastatin Calcium 10 MG TAB PO SCH (10:11)
[2017-11-30] MEDS: Saccharomyces boulardii 250 MG CAP PO SCH (10:11)
[2017-11-30] MEDS: Furosemide 40 MG TAB PO SCH (10:11)
[2017-11-30] MEDS: Polyethylene Glycol 3350 17 GM Packet PO SCH (10:13)
--- NOTE | 2017-11-30 11:23 | PDOC.PN ---
- Subjective Encounter Start Date: 11/30/17 Encounter Start Time: 08:00 Subjective: has multiple bm's last night after getting mag citrate -: feels better, no sob - Objective Resuscitation Status: Resuscitation Status FULL:Full Resuscitation MAR Reviewed: Yes Vital Signs & Weight: Vital Signs (12 hours) Temp Pulse Resp BP Pulse Ox 11/30/17 07:20 98.3 F 74 16 135/69 98 11/30/17 06:43 92 16 96 Weight Weight 151 lb 3.2 oz I&O: 11/29/17 11/30/17 12/01/17 06:59 06:59 06:59 Intake Total 1120 2560 Balance 1120 2560 Result Diagrams: 11/28/17 03:38 11/28/17 03:38 Additional Labs: Accuchecks 11/30/17 11/29/17 11/29/17 05:10 20:34 17:07 POC Glucose 140 H 140 H 131 H 11/29/17 11:15 POC Glucose 148 H Phys Exam - Physical Examination HEENT: PERRLA, moist MMs Neck: no JVD, supple Respiratory: no wheezing, no rales Cardiovascular: RRR, no significant murmur Gastrointestinal: soft, non-tender, positive bowel sounds Musculoskeletal: no edema, pulses present Neurological: non-focal, moves all 4 limbs Psychiatric: A&O x 3 Dx/Plan (1) PNA (pneumonia) Code(s): J18.9 - PNEUMONIA, UNSPECIFIED ORGANISM Status: Acute Qualifiers: Pneumonia type: due to unspecified organism Laterality: right Lung location: upper lobe of lung Qualified Code(s): J18.1 - Lobar pneumonia, unspecified organism (2) COPD (chronic obstructive pulmonary disease) Status: Chronic Qualifiers: COPD type: chronic bronchitis (3) Chronic anemia Code(s): D64.9 - ANEMIA, UNSPECIFIED Status: Chronic (4) CAD (coronary artery disease) Code(s): I25.10 - ATHSCL HEART DISEASE OF [place] CORONARY ARTERY W/O ANG PCTRS Status: Chronic Qualifiers: Coronary Disease-Associated Artery/Lesion type: [place] artery [place] vs. transplanted heart: [place] heart Associated angina: without angina Qualified Code(s): I25.10 - Atherosclerotic heart disease of [place] coronary artery without angina pectoris (5) Acute on chronic respiratory failure with hypoxemia Code(s): J96.21 - ACUTE AND CHRONIC RESPIRATORY FAILURE WITH HYPOXIA Status: Resolved Comment: off bipap now (6) Afib Code(s): I48.91 - UNSPECIFIED ATRIAL FIBRILLATION Status: Chronic Qualifiers: Comment: Hx of A-fib on Tambocor (7) Dyslipidemia Code(s): E78.5 - HYPERLIPIDEMIA, UNSPECIFIED Status: Chronic (8) Hypertension Code(s): I10 - ESSENTIAL (PRIMARY) HYPERTENSION Status: Chronic Qualifiers: Hypertension type: essential hypertension - Plan on omnicef, nebs, steroids -: bowel regimen -: to amb/oob to chair -: dc plan per pulm advice -: tambocor, verapamil, asp, lipitor * . Review of Systems - Medications/Allergies Allergies/Adverse Reactions: Allergies Allergy/AdvReac Type Severity Reaction Status Date / Time levofloxacin [From Levaquin] Allergy Intermediate Verified 11/12/17 15:12 codeine Allergy Unknown Verified 11/06/17 04:56 lisinopril Allergy Unknown Verified 11/06/17 04:56 niacin Allergy Unknown Verified 11/06/17 04:56 [From Niaspan Extended-Release] Sulfa (Sulfonamide Allergy Unknown Verified 11/06/17 04:56 Antibiotics) Medications: Current Medications Acetaminophen (Tylenol) 650 mg PO Q4H PRN PRN Reason: Headache/Fever or Pain Last Admin: 11/29/17 23:18 Dose: 650 mg Hydrocodone Bitart/Acetaminophen ([place] 10/325) 1 tab PO Q4H PRN PRN Reason: Severe Pain (7-10) Hydrocodone Bitart/Acetaminophen ([place] 5/325) 1 tab PO Q4H PRN PRN Reason: Moderate Pain (4-6) Albuterol Sulfate (Ventolin) 2.5 mg NEB Q2H PRN PRN Reason: Wheezing Last Admin: 11/30/17 04:47 Dose: 2.5 mg Albuterol/Ipratropium (Duoneb) 3 ml NEB [id number] Last Admin: 11/30/17 06:43 Dose: 3 ml Alprazolam (Xanax) 0.25 mg PO QID [facility] Last Admin: 11/30/17 10:10 Dose: 0.25 mg Aspirin (Aspirin Chewable) 81 mg PO DAILY [facility] Last Admin: 11/30/17 10:11 Dose: 81 mg Atorvastatin Calcium (Lipitor) 10 mg PO DAILY [facility] Last Admin: 11/30/17 10:11 Dose: 10 mg Bisacodyl (Dulcolax) 10 mg SC Q8H PRN PRN Reason: Constipation Calcium Carbonate (Tums) 1,000 mg PO Q4H PRN PRN Reason: Heartburn or Indigestion Last Admin: 11/27/17 21:52 Dose: 1,000 mg Cefdinir (Omnicef) 300 mg PO BID [facility] Last Admin: 11/30/17 10:10 Dose: 300 mg Dextrose/Water (Dextrose 50%) 25 gm SLOW IVP PRN PRN PRN Reason: Hypoglycemia Flecainide Acetate (Tambocor) 75 mg PO BID [facility] Last Admin: 11/30/17 10:07 Dose: 75 mg Furosemide (Lasix) 40 mg PO DAILY[facility] Last Admin: 11/30/17 10:11 Dose: 40 mg Glucagon (Glucagon) 1 mg IM PRN PRN PRN Reason: Hypoglycemia Guaifenesin (Mucinex) 1,200 mg PO Q12HR [facility] Last Admin: 11/30/17 10:10 Dose: 1,200 mg Dextrose/Water (D5w) 1,000 mls @ 0 mls/hr IV .Q0M PRN; As Directed PRN Reason: Hypoglycemia Insulin Human Lispro (Humalog) 0 units SC .MILD SLIDING SCALE PRN PRN Reason: Mild Correctional Scale Last Admin: 11/26/17 06:24 Dose: 4 unit Lidocaine HCl (Xylocaine 2% Viscous) 15 ml SSW TID PRN PRN Reason: SORE THROAT Loratadine (Claritin) 10 mg PO DAILYPRN PRN PRN Reason: Sinus Symptoms Last Admin: 11/29/17 23:18 Dose: 10 mg Magnesium Hydroxide (Milk Of Magnesium) 30 ml PO DAILYPRN PRN PRN Reason: Constipation Last Admin: 11/27/17 09:14 Dose: 30 ml Methylprednisolone Sodium Succinate (Solu-Medrol) 20 mg IVP Q6HR [facility] Last Admin: 11/30/17 06:00 Dose: 20 mg Mometasone Furoate/Formoterol Fumar (Dulera 200 Mcg/5 Mcg Inhaler) 2 puff INH BID-RT [facility] Last Admin: 11/30/17 06:45 Dose: 2 puff Nystatin (Mycostatin) 500,000 units PO QID [facility] Last Admin: 11/30/17 10:10 Dose: 500,000 units Ondansetron HCl (Zofran Odt) 4 mg PO Q6H PRN PRN Reason: Nausea/Vomiting Last Admin: 11/29/17 23:00 Dose: 4 mg Pantoprazole Sodium (Protonix) 40 mg PO DAILY [facility] Last Admin: 11/30/17 10:11 Dose: 40 mg Phenol (Chloraseptic [place] 180 Ml Bot) 0 ml PO BIDPRN PRN PRN Reason: Sore Throat Polyethylene Glycol (Miralax) 17 gm PO DAILY [facility] Last Admin: 11/30/17 10:13 Dose: 17 gm Saccharomyces Boulardii (Florastor) 250 mg PO DAILY [facility] Last Admin: 11/30/17 10:11 Dose: 250 mg Senna/Docusate Sodium (Senokot S) 1 tab PO BID [facility] Simethicone (Mylicon Chewable) 80 mg PO QID PRN PRN Reason: GAS PAIN Last Admin: 11/30/17 10:15 Dose: 80 mg Sodium Chloride (Flush - Normal Saline) 10 ml IVF Q12HR [facility] Last Admin: 11/30/17 10:13 Dose: 10 ml Sodium Chloride (Flush - Normal Saline) 10 ml IVF PRN PRN PRN Reason: Saline Flush Last Admin: 11/30/17 06:00 Dose: 10 ml Throat Lozenges (Cepastat Lozenges) 1 rizwana PO Q2H PRN PRN Reason: Sore Throat Verapamil HCl (Calan Sr) 240 mg PO HS [facility] Last Admin: 11/29/17 20:19 Dose: 240 mg
[2017-11-30] MEDS: HumaLOG 300 UNITS/3 ML VIAL SC PRN ×2 (12:18→18:12)
--- NOTE | 2017-11-30 17:12 | PRG ---
DATE OF SERVICE: 11/30/2017 SUBJECTIVE: Ms. Sharp underwent CT scanning of her abdomen yesterday. She had massive bowel movement after that. Tiny pleural effusion was seen. Small nodules were seen in her left base, so nonobstructing left nam al stone findings consistent with constipation was seen. She was given a laxative I am told after the procedure and had a very significant bowel movement, say s she feels 100% better today. OBJECTIVE: VITAL SIGNS: She is afebrile, heart rate in the 70s, respiratory rate in the teens. Oximetry is 93% on a cannula. LUNGS: Clear today. HEART: Regular rhythm. ABDOMEN: Soft. IMPRESSION: 1. Steroid dependent, severe chronic obstructive pulmonary disease. 2. Acute on chronic hypoxemic respiratory failure with chronic hypoxemia on home oxygen. 3. Severe anxiety on Xanax. 4. Deconditioning. PLAN: Placement. If her constipation continues to be an issue, elimination of verapamil may be helpful. Cut her stero ids back to q.12 hours dosing interval.
[2017-11-30] MEDS: Senokot S 8.6-50 MG TAB PO SCH (20:35)
[2017-11-30] MEDS: Acetaminophen 325 MG TAB PO PRN (23:05)
[2017-11-30] MEDS: Loratadine 10 MG TAB PO PRN (23:06)
[2017-12-01] MEDS: Simethicone Chewable 80 MG TAB PO PRN (06:03)
[2017-12-01] MEDS: Mometasone/Formoterol 120 PUFF INHALER INH SCH ×2 (06:55→18:41)
[2017-12-01] MEDS: ALPRAZolam 0.25 MG TAB PO SCH ×3 (09:07→17:47)
[2017-12-01] MEDS: Nystatin 500,000 UNITS/5 ML UDCUP PO SCH ×4 (09:08→21:14)
[2017-12-01] MEDS: Polyethylene Glycol 3350 17 GM Packet PO SCH (09:08)
[2017-12-01] MEDS: Furosemide 40 MG TAB PO SCH (09:08)
[2017-12-01] MEDS: Flecainide 50 MG TAB PO SCH ×2 (09:09→21:15)
[2017-12-01] MEDS: Atorvastatin Calcium 10 MG TAB PO SCH (09:10)
[2017-12-01] MEDS: guaiFENesin ER 600 MG TAB PO SCH ×2 (09:10→21:14)
[2017-12-01] MEDS: Cefdinir 300 MG CAP PO SCH ×2 (09:10→21:13)
[2017-12-01] MEDS: Saccharomyces boulardii 250 MG CAP PO SCH (09:10)
[2017-12-01] MEDS: Senokot S 8.6-50 MG TAB PO SCH ×2 (09:12→21:14)
--- NOTE | 2017-12-01 11:28 | PDOC.PN ---
- Subjective Encounter Start Date: 12/01/17 Encounter Start Time: 08:40 Subjective: feels better -: no abd pain or sob -: has some cough with expectoration which is getting better - Objective Resuscitation Status: Resuscitation Status FULL:Full Resuscitation MAR Reviewed: Yes Vital Signs & Weight: Vital Signs (12 hours) Temp Pulse Resp BP Pulse Ox 12/01/17 10:06 70 16 12/01/17 07:26 98.3 F 69 18 131/68 100 12/01/17 06:57 96 16 Weight Weight 151 lb 3.2 oz I&O: 11/30/17 12/01/17 12/02/17 06:59 06:59 06:59 Intake Total 2560 2250 Balance 2560 2250 Result Diagrams: 11/28/17 03:38 11/28/17 03:38 Additional Labs: Accuchecks 12/01/17 11/30/17 11/30/17 05:35 19:18 17:11 POC Glucose 144 H 178 H 169 H 11/30/17 10:56 POC Glucose 247 H Phys Exam - Physical Examination HEENT: PERRLA, moist MMs Neck: no JVD, supple Respiratory: no wheezing, no rales Cardiovascular: RRR, no significant murmur Gastrointestinal: soft, non-tender, positive bowel sounds Musculoskeletal: pulses present, edema present Neurological: non-focal, moves all 4 limbs Psychiatric: A&O x 3 Dx/Plan (1) PNA (pneumonia) Code(s): J18.9 - PNEUMONIA, UNSPECIFIED ORGANISM Status: Acute Qualifiers: Pneumonia type: due to unspecified organism Laterality: right Lung location: upper lobe of lung Qualified Code(s): J18.1 - Lobar pneumonia, unspecified organism (2) COPD (chronic obstructive pulmonary disease) Status: Chronic Qualifiers: COPD type: chronic bronchitis (3) Chronic anemia Code(s): D64.9 - ANEMIA, UNSPECIFIED Status: Chronic (4) CAD (coronary artery disease) Code(s): I25.10 - ATHSCL HEART DISEASE OF [place] CORONARY ARTERY W/O ANG PCTRS Status: Chronic Qualifiers: Coronary Disease-Associated Artery/Lesion type: [place] artery [place] vs. transplanted heart: [place] heart Associated angina: without angina Qualified Code(s): I25.10 - Atherosclerotic heart disease of [place] coronary artery without angina pectoris (5) Acute on chronic respiratory failure with hypoxemia Code(s): J96.21 - ACUTE AND CHRONIC RESPIRATORY FAILURE WITH HYPOXIA Status: Resolved Comment: off bipap now (6) Afib Code(s): I48.91 - UNSPECIFIED ATRIAL FIBRILLATION Status: Chronic Qualifiers: Comment: Hx of A-fib on Tambocor (7) Dyslipidemia Code(s): E78.5 - HYPERLIPIDEMIA, UNSPECIFIED Status: Chronic (8) Hypertension Code(s): I10 - ESSENTIAL (PRIMARY) HYPERTENSION Status: Chronic Qualifiers: Hypertension type: essential hypertension - Plan will switch verapamil to cardizem cd -: kat hose to LE, bowel regimen -: is on tambocor for afib, in sinus now -: asp, lipitor, steroids and omnicef -: await placement eval in am * . Review of Systems - Medications/Allergies Allergies/Adverse Reactions: Allergies Allergy/AdvReac Type Severity Reaction Status Date / Time levofloxacin [From Levaquin] Allergy Intermediate Verified 11/12/17 15:12 codeine Allergy Unknown Verified 11/06/17 04:56 lisinopril Allergy Unknown Verified 11/06/17 04:56 niacin Allergy Unknown Verified 11/06/17 04:56 [From Niaspan Extended-Release] Sulfa (Sulfonamide Allergy Unknown Verified 11/06/17 04:56 Antibiotics) Medications: Current Medications Acetaminophen (Tylenol) 650 mg PO Q4H PRN PRN Reason: Headache/Fever or Pain Last Admin: 11/30/17 23:05 Dose: 650 mg Hydrocodone Bitart/Acetaminophen ([place] 10/325) 1 tab PO Q4H PRN PRN Reason: Severe Pain (7-10) Hydrocodone Bitart/Acetaminophen ([place] 5/325) 1 tab PO Q4H PRN PRN Reason: Moderate Pain (4-6) Albuterol Sulfate (Ventolin) 2.5 mg NEB Q2H PRN PRN Reason: Wheezing Last Admin: 11/30/17 04:47 Dose: 2.5 mg Albuterol/Ipratropium (Duoneb) 3 ml NEB [id number] SEGUNDO Last Admin: 12/01/17 10:06 Dose: 3 ml Alprazolam (Xanax) 0.25 mg PO QID SEGUNDO Last Admin: 12/01/17 09:07 Dose: Not Given Aspirin (Aspirin Chewable) 81 mg PO DAILY [facility] Last Admin: 12/01/17 09:11 Dose: 81 mg Atorvastatin Calcium (Lipitor) 10 mg PO DAILY [facility] Last Admin: 12/01/17 09:10 Dose: 10 mg Bisacodyl (Dulcolax) 10 mg CA Q8H PRN PRN Reason: Constipation Calcium Carbonate (Tums) 1,000 mg PO Q4H PRN PRN Reason: Heartburn or Indigestion Last Admin: 11/27/17 21:52 Dose: 1,000 mg Cefdinir (Omnicef) 300 mg PO BID [facility] Last Admin: 12/01/17 09:10 Dose: 300 mg Dextrose/Water (Dextrose 50%) 25 gm SLOW IVP PRN PRN PRN Reason: Hypoglycemia Flecainide Acetate (Tambocor) 75 mg PO BID [facility] Last Admin: 12/01/17 09:09 Dose: 75 mg Furosemide (Lasix) 40 mg PO DAILY[facility] Last Admin: 12/01/17 09:08 Dose: 40 mg Glucagon (Glucagon) 1 mg IM PRN PRN PRN Reason: Hypoglycemia Guaifenesin (Mucinex) 1,200 mg PO Q12HR [facility] Last Admin: 12/01/17 09:10 Dose: 1,200 mg Dextrose/Water (D5w) 1,000 mls @ 0 mls/hr IV .Q0M PRN; As Directed PRN Reason: Hypoglycemia Insulin Human Lispro (Humalog) 0 units SC .MILD SLIDING SCALE PRN PRN Reason: Mild Correctional Scale Last Admin: 11/30/17 18:12 Dose: 2 unit Lidocaine HCl (Xylocaine 2% Viscous) 15 ml SSW TID PRN PRN Reason: SORE THROAT Loratadine (Claritin) 10 mg PO DAILYPRN PRN PRN Reason: Sinus Symptoms Last Admin: 11/30/17 23:06 Dose: 10 mg Magnesium Hydroxide (Milk Of Magnesium) 30 ml PO DAILYPRN PRN PRN Reason: Constipation Last Admin: 11/27/17 09:14 Dose: 30 ml Methylprednisolone Sodium Succinate (Solu-Medrol) 20 mg IVP Q12HR [facility] Last Admin: 12/01/17 09:11 Dose: 20 mg Mometasone Furoate/Formoterol Fumar (Dulera 200 Mcg/5 Mcg Inhaler) 2 puff INH BID-RT [facility] Last Admin: 12/01/17 06:55 Dose: 2 puff Nystatin (Mycostatin) 500,000 units PO QID [facility] Last Admin: 12/01/17 09:08 Dose: 500,000 units Ondansetron HCl (Zofran Odt) 4 mg PO Q6H PRN PRN Reason: Nausea/Vomiting Last Admin: 11/29/17 23:00 Dose: 4 mg Pantoprazole Sodium (Protonix) 40 mg PO 0630 [facility] Last Admin: 12/01/17 06:04 Dose: 40 mg Phenol (Chloraseptic [place] 180 Ml Bot) 0 ml PO BIDPRN PRN PRN Reason: Sore Throat Polyethylene Glycol (Miralax) 17 gm PO DAILY [facility] Last Admin: 12/01/17 09:08 Dose: 17 gm Saccharomyces Boulardii (Florastor) 250 mg PO DAILY [facility] Last Admin: 12/01/17 09:10 Dose: 250 mg Senna/Docusate Sodium (Senokot S) 1 tab PO BID [facility] Last Admin: 12/01/17 09:12 Dose: 1 tab Simethicone (Mylicon Chewable) 80 mg PO QID PRN PRN Reason: GAS PAIN Last Admin: 12/01/17 06:03 Dose: 80 mg Sodium Chloride (Flush - Normal Saline) 10 ml IVF Q12HR [facility] Last Admin: 12/01/17 09:12 Dose: 10 ml Sodium Chloride (Flush - Normal Saline) 10 ml IVF PRN PRN PRN Reason: Saline Flush Last Admin: 11/30/17 12:15 Dose: 10 ml Throat Lozenges (Cepastat Lozenges) 1 rizwana PO Q2H PRN PRN Reason: Sore Throat Verapamil HCl (Calan Sr) 240 mg PO HS [facility] Last Admin: 11/30/17 20:34 Dose: 240 mg
[2017-12-01] MEDS: Enoxaparin Sodium 40 MG/0.4 ML SYRINGE SC SCH (21:24)
[2017-12-02] MEDS: Acetaminophen 325 MG TAB PO PRN (00:07)
[2017-12-02] MEDS: ALPRAZolam 0.25 MG TAB PO SCH ×6 (00:07→22:06)
[2017-12-02] MEDS: Loratadine 10 MG TAB PO PRN (00:07)
[2017-12-02] MEDS: Mometasone/Formoterol 120 PUFF INHALER INH SCH ×2 (05:30→18:11)
[2017-12-02] MEDS: Simethicone Chewable 80 MG TAB PO PRN (05:52)
[2017-12-02] MEDS: guaiFENesin ER 600 MG TAB PO SCH ×2 (08:56→22:06)
[2017-12-02] MEDS: Flecainide 50 MG TAB PO SCH ×2 (08:57→22:07)
[2017-12-02] MEDS: Saccharomyces boulardii 250 MG CAP PO SCH (08:57)
[2017-12-02] MEDS: Senokot S 8.6-50 MG TAB PO SCH ×2 (08:59→22:06)
[2017-12-02] MEDS: Atorvastatin Calcium 10 MG TAB PO SCH (08:59)
[2017-12-02] MEDS: Cefdinir 300 MG CAP PO SCH ×2 (08:59→22:06)
[2017-12-02] MEDS: Furosemide 40 MG TAB PO SCH (09:00)
[2017-12-02] MEDS: Polyethylene Glycol 3350 17 GM Packet PO SCH (09:12)
[2017-12-02] MEDS: Nystatin 500,000 UNITS/5 ML UDCUP PO SCH ×4 (09:12→22:08)
--- NOTE | 2017-12-02 12:53 | PDOC.PN ---
- Subjective Encounter Start Date: 12/02/17 Encounter Start Time: 11:15 Subjective: no abd pain, last bm was yesterday (she cant remember exactly) -: no sob -: daughter in room - Objective Resuscitation Status: Resuscitation Status FULL:Full Resuscitation MAR Reviewed: Yes Vital Signs & Weight: Vital Signs (12 hours) Temp Pulse Resp BP Pulse Ox 12/02/17 09:34 81 16 97 12/02/17 08:05 98.2 F 81 20 172/53 H 97 12/02/17 08:00 98.2 F 81 16 Weight Weight 151 lb 3.2 oz I&O: 12/01/17 12/02/17 12/03/17 06:59 06:59 06:59 Intake Total 2250 1670 Balance 2250 1670 Result Diagrams: 11/28/17 03:38 11/28/17 03:38 Additional Labs: Accuchecks 12/02/17 12/01/17 12/01/17 05:33 19:33 16:01 POC Glucose 154 H 133 H 125 H Phys Exam - Physical Examination HEENT: PERRLA, moist MMs Neck: no JVD, supple Respiratory: no wheezing, no rales Cardiovascular: RRR, no significant murmur Gastrointestinal: soft, non-tender, positive bowel sounds Musculoskeletal: no edema, pulses present Neurological: non-focal, moves all 4 limbs Psychiatric: A&O x 3 Dx/Plan (1) PNA (pneumonia) Code(s): J18.9 - PNEUMONIA, UNSPECIFIED ORGANISM Status: Acute Qualifiers: Pneumonia type: due to unspecified organism Laterality: right Lung location: upper lobe of lung Qualified Code(s): J18.1 - Lobar pneumonia, unspecified organism (2) COPD (chronic obstructive pulmonary disease) Status: Chronic Qualifiers: COPD type: chronic bronchitis (3) Chronic anemia Code(s): D64.9 - ANEMIA, UNSPECIFIED Status: Chronic (4) CAD (coronary artery disease) Code(s): I25.10 - ATHSCL HEART DISEASE OF [place] CORONARY ARTERY W/O ANG PCTRS Status: Chronic Qualifiers: Coronary Disease-Associated Artery/Lesion type: [place] artery [place] vs. transplanted heart: [place] heart Associated angina: without angina Qualified Code(s): I25.10 - Atherosclerotic heart disease of [place] coronary artery without angina pectoris (5) Acute on chronic respiratory failure with hypoxemia Code(s): J96.21 - ACUTE AND CHRONIC RESPIRATORY FAILURE WITH HYPOXIA Status: Resolved Comment: off bipap now (6) Afib Code(s): I48.91 - UNSPECIFIED ATRIAL FIBRILLATION Status: Chronic Qualifiers: Comment: Hx of A-fib on Tambocor (7) Dyslipidemia Code(s): E78.5 - HYPERLIPIDEMIA, UNSPECIFIED Status: Chronic (8) Hypertension Code(s): I10 - ESSENTIAL (PRIMARY) HYPERTENSION Status: Chronic Qualifiers: Hypertension type: essential hypertension - Plan improving overall, on cardizem cd 120mg bid, off verapamil from 12/01/17 -: on prednisone and omnicef with nebs -: bowel regimen for constipation -: wants to go home and her daughter from [place] will be staying with her -: dc plan per pulm advice, h/h stable * . Review of Systems - Medications/Allergies Allergies/Adverse Reactions: Allergies Allergy/AdvReac Type Severity Reaction Status Date / Time levofloxacin [From Levaquin] Allergy Intermediate Verified 11/12/17 15:12 codeine Allergy Unknown Verified 11/06/17 04:56 lisinopril Allergy Unknown Verified 11/06/17 04:56 niacin Allergy Unknown Verified 11/06/17 04:56 [From Niaspan Extended-Release] Sulfa (Sulfonamide Allergy Unknown Verified 11/06/17 04:56 Antibiotics) Medications: Current Medications Acetaminophen (Tylenol) 650 mg PO Q4H PRN PRN Reason: Headache/Fever or Pain Last Admin: 12/02/17 00:07 Dose: 650 mg Hydrocodone Bitart/Acetaminophen ([place] 10/325) 1 tab PO Q4H PRN PRN Reason: Severe Pain (7-10) Hydrocodone Bitart/Acetaminophen ([place] 5/325) 1 tab PO Q4H PRN PRN Reason: Moderate Pain (4-6) Albuterol Sulfate (Ventolin) 2.5 mg NEB Q2H PRN PRN Reason: Wheezing Last Admin: 11/30/17 04:47 Dose: 2.5 mg Albuterol/Ipratropium (Duoneb) 3 ml NEB [id number] SEGUNDO Last Admin: 12/02/17 09:34 Dose: 3 ml Alprazolam (Xanax) 0.25 mg PO QID SEGUNDO Last Admin: 12/02/17 11:22 Dose: 0.25 mg Aspirin (Aspirin Chewable) 81 mg PO DAILY [facility] Last Admin: 12/02/17 08:59 Dose: 81 mg Atorvastatin Calcium (Lipitor) 10 mg PO DAILY [facility] Last Admin: 12/02/17 08:59 Dose: 10 mg Bisacodyl (Dulcolax) 10 mg IN Q8H PRN PRN Reason: Constipation Calcium Carbonate (Tums) 1,000 mg PO Q4H PRN PRN Reason: Heartburn or Indigestion Last Admin: 11/27/17 21:52 Dose: 1,000 mg Cefdinir (Omnicef) 300 mg PO BID [facility] Last Admin: 12/02/17 08:59 Dose: 300 mg Dextrose/Water (Dextrose 50%) 25 gm SLOW IVP PRN PRN PRN Reason: Hypoglycemia Diltiazem HCl (Cardizem Cd) 120 mg PO BID [facility] Last Admin: 12/02/17 09:05 Dose: 120 mg Enoxaparin Sodium (Lovenox) 40 mg SC 2100 [facility] Last Admin: 12/01/17 21:24 Dose: 40 mg Flecainide Acetate (Tambocor) 75 mg PO BID [facility] Last Admin: 12/02/17 08:57 Dose: 75 mg Furosemide (Lasix) 40 mg PO DAILY-[facility] Last Admin: 12/02/17 09:00 Dose: 40 mg Glucagon (Glucagon) 1 mg IM PRN PRN PRN Reason: Hypoglycemia Guaifenesin (Mucinex) 1,200 mg PO Q12HR [facility] Last Admin: 12/02/17 08:56 Dose: 1,200 mg Dextrose/Water (D5w) 1,000 mls @ 0 mls/hr IV .Q0M PRN; As Directed PRN Reason: Hypoglycemia Insulin Human Lispro (Humalog) 0 units SC .MILD SLIDING SCALE PRN PRN Reason: Mild Correctional Scale Last Admin: 11/30/17 18:12 Dose: 2 unit Lidocaine HCl (Xylocaine 2% Viscous) 15 ml SSW TID PRN PRN Reason: SORE THROAT Loratadine (Claritin) 10 mg PO DAILYPRN PRN PRN Reason: Sinus Symptoms Last Admin: 12/02/17 00:07 Dose: 10 mg Magnesium Hydroxide (Milk Of Magnesium) 30 ml PO DAILYPRN PRN PRN Reason: Constipation Last Admin: 11/27/17 09:14 Dose: 30 ml Mometasone Furoate/Formoterol Fumar (Dulera 200 Mcg/5 Mcg Inhaler) 2 puff INH BID-RT [facility] Last Admin: 12/02/17 05:30 Dose: 2 puff Nystatin (Mycostatin) 500,000 units PO QID [facility] Last Admin: 12/02/17 10:53 Dose: Not Given Ondansetron HCl (Zofran Odt) 4 mg PO Q6H PRN PRN Reason: Nausea/Vomiting Last Admin: 11/29/17 23:00 Dose: 4 mg Pantoprazole Sodium (Protonix) 40 mg PO 0630 [facility] Last Admin: 12/02/17 05:52 Dose: 40 mg Phenol (Chloraseptic [place] 180 Ml Bot) 0 ml PO BIDPRN PRN PRN Reason: Sore Throat Polyethylene Glycol (Miralax) 17 gm PO DAILY [facility] Last Admin: 12/02/17 09:12 Dose: 17 gm Prednisone (Prednisone) 30 mg PO [facility] Saccharomyces Boulardii (Florastor) 250 mg PO DAILY [facility] Last Admin: 12/02/17 08:57 Dose: 250 mg Senna/Docusate Sodium (Senokot S) 1 tab PO BID [facility] Last Admin: 12/02/17 08:59 Dose: 1 tab Simethicone (Mylicon Chewable) 80 mg PO QID PRN PRN Reason: GAS PAIN Last Admin: 12/02/17 05:52 Dose: 80 mg Sodium Chloride (Flush - Normal Saline) 10 ml IVF Q12HR [facility] Last Admin: 12/02/17 09:20 Dose: 10 ml Sodium Chloride (Flush - Normal Saline) 10 ml IVF PRN PRN PRN Reason: Saline Flush Last Admin: 12/02/17 09:20 Dose: 10 ml Throat Lozenges (Cepastat Lozenges) 1 rizwana PO Q2H PRN PRN Reason: Sore Throat
--- NOTE | 2017-12-02 15:14 | PRG ---
DATE OF SERVICE: 12/02/2017 SUBJECTIVE: She is in no distress. Her daughter from [place] is here. OBJECTIVE: VITAL SIGNS: Stable. She is afebrile, heart rate 80, respiratory rate 16, oximetry is 97 on 3 liter s, blood pressure 172/53. LUNGS: Remarkable for diffuse mild wheezes close to her baseline. HEART: Regular rhythm. ABDOMEN: Soft. IMPRESSION: Chronic obstructive pulmonary disease. Hopefully, now that she has someone staying with her, she will stay out of the hospital. I do not think she can live alone. She is stable for discharge from my perspective, but she did not want to go home and her daughters do not want her to go home today. They want to get the house ready for her, so they [facility]. I have communicated this to the dragger.
[2017-12-02] MEDS: Enoxaparin Sodium 40 MG/0.4 ML SYRINGE SC SCH (22:07)
[2017-12-03] MEDS: Loratadine 10 MG TAB PO PRN (00:53)
[2017-12-03] MEDS: Acetaminophen 325 MG TAB PO PRN (00:53)
[2017-12-03] MEDS: Mometasone/Formoterol 120 PUFF INHALER INH SCH (06:24)
[2017-12-03 07:56] VITALS: BP 134/66; TEMP 98.5
[2017-12-03] MEDS ORDERED: predniSONE 20 MG TAB PO SCH (08:00)
[2017-12-03] MEDS: Flecainide 50 MG TAB PO SCH (08:40)
[2017-12-03] MEDS: Furosemide 40 MG TAB PO SCH (08:42)
[2017-12-03] MEDS: Saccharomyces boulardii 250 MG CAP PO SCH (08:42)
[2017-12-03] MEDS: Senokot S 8.6-50 MG TAB PO SCH (08:42)
[2017-12-03] MEDS: guaiFENesin ER 600 MG TAB PO SCH (08:43)
[2017-12-03] MEDS: Cefdinir 300 MG CAP PO SCH (08:43)
[2017-12-03] MEDS: Atorvastatin Calcium 10 MG TAB PO SCH (08:44)
[2017-12-03] MEDS: Nystatin 500,000 UNITS/5 ML UDCUP PO SCH ×2 (08:44→11:35)
[2017-12-03] MEDS: ALPRAZolam 0.25 MG TAB PO SCH ×3 (08:47→14:17)
[2017-12-03] MEDS: Polyethylene Glycol 3350 17 GM Packet PO SCH (08:52)
--- NOTE | 2017-12-03 12:03 | PRG ---
DATE OF SERVICE: 12/03/2017 SUBJECTVE: Ms. Sharp did well overnight. She has no complaints. OBJECTIVE: VITAL SIGNS: She is afebrile, heart rate 75, respiratory rate is 20, oximetry is 97 on 3 liters. Sh e can be decreased 2 liters a minute. LUNGS: Remarkable for faint wheezes bilaterally. CARDIOVASCULAR: Regular rhythm. ABDOMEN: Soft. IMPRESSION: 1. Chronic obstructive pulmonary disease. Hearing wheezes is the norm. It is very infrequently travis t I examined her that she is not wheezing. She will go home on 30 mg prednisone for a week and then to 20 mg a day until she sees me in 2 weeks. Other problems include anemia with a normal mean corpus cular volume. 2. Reactive thrombocytosis. 3. Recent pneumonia. She will need a repeat radiograph in 2-4 weeks. She is clinically stable. He r daughter from [place] is here and plans to take care of her.
--- NOTE | 2017-12-03 15:58 | DIS ---
DATE OF ADMISSION: 11/24/2017 DATE OF DISCHARGE: 12/03/2017 ADMITTING DIAGNOSIS: Acute healthcare associated Pneumonia DISCHARGE DIAGNOSIS: Acute healthcare associated Pneumonia SECONDARY DIAGNOSES: 1. Acute COPD exacerbation. 2. Acute on chronic hypoxic respiratory failure. 3. Paroxysmal atrial fibrillation, hypertension, history of coronary artery disease. 4. Volume overload with diastolic congestive heart failure. CONSULTANTS: Involved in the care is Dr. Chintan Castillo and Dr. Preston Santana. HISTORY OF PRESENT ILLNESS AND HOSPITAL COURSE: In brief, this is an 81-year- old white female with known history of COPD with multiple admissions for the past few months for COPD exacerbation. She presented to the ER complaining of progressive shortness of breath and with some pleuritic type right lower-sided chest pain. It was noted that she had elevated white count of 26,000 and she was also on steroids. It was very difficult to see if it was a sepsis related or COPD. The patient had a chest x-ray, which showed right upper lobe infiltrate and was suggestive of healthcare associated pneumonia. The patient was started on multiple antibiotics and slowly tapered down to oral antibiotics. During this admission, the patient showed very slow improvement with her chronic hypoxia and worsening COPD and the patient was challenge to discharge home. The patient's daughter came from [place] to stay with her. The patient was slowly transitioned off of her BiPAP and was on regular nasal cannula oxygen on 3 liters. The patient is also having pedal edema 3+ and was advised to elevate her legs. She also has orthopnea and she was always on the 45 degrees inclination while she was in the hospital. So she was requesting for hospital bed at home to elevate head end of the bed and this was arranged with help of case management. The patient was seen by Dr. Castillo and manage her COPD most of it. The patient also had a stool occult positive and was seen by Dr. Johnston, but because of the patient's worsening COPD, she would be a poor candidate to do an EGD as they have to put her on anesthesia. So this was closely monitored, but hemoglobin stayed up. The most recent hemoglobin was 8.2. The patient was discharged home in stable condition and daughter will be living with her and advised to continue to monitor. PHYSICAL EXAMINATION: On day of discharge. VITAL SIGNS: Blood pressures are 134/66, heart rate is 75, respiratory rate is 97% on 3 liters. GENERAL: The patient is moderately built and moderately nourished. She does not appear in acute distress. CARDIOVASCULAR: S1, S2 normal. No murmurs, rubs or gallops. LUNGS: Bilateral air entry was equal. No crackles were noted in the lower bases. ABDOMEN: Soft, nontender, no guarding, no rebound tenderness. Bowel sounds are normal. MUSCULOSKELETAL: No calf tenderness. Pedal edema up to 3+. No joint swelling. SKIN: No skin cyanosis. DISCHARGE MEDICATIONS: 1. Albuterol inhalation. 2. Calcium carbonate. 3. Fluocinonide 2 sprays each nostril b.i.d. 4. Advair Diskus 1 inhalation b.i.d. 5. Guaifenesin 1200 mg p.o. q.12 hours. 6. DuoNebs. 7. Nitroglycerin. 8. Ranitidine. 9. Eliquis 5 mg p.o. b.i.d. 10. Aspirin 81 mg daily. 11. Atorvastatin 10 mg daily. 12. Flecainide 50 mg p.o. b.i.d. 13. Furosemide 40 mg p.o. daily. 14. Nystatin. 15. Spironolactone 5 mg p.o. daily. 16. Prednisolone advised to take 30 mg tablet for a week and reduce it to 20 mg p.o. daily until she sees Dr. Castillo. 17. Cefdinir 300 mg 1 tablet p.o. b.i.d., continue for 5 more days. 18. Cardizem 120 mg p.o. b.i.d. 19. Verapamil was held on the day of discharge. DISCHARGE INSTRUCTIONS: Continue activity as tolerated. Advised to follow up with Dr. Castillo in 2-3 weeks. Advised to return to the ER, if the patient has worsening shortness of breath and the patient has been given prescription for hospital bed, which she would require for her COPD and orthopnea. Advised to follow up with the primary care physician, Dr. Hanks in 1-2 weeks. I spent 35 minutes of this patient on the day of discharge. BERNARDINO
--- NOTE | 2017-12-04 15:32 | PRG ---
DATE OF SERVICE: 12/01/2017 This is a 12/01/2017 note, it is a late entry. SUBJECTIVE: Ms. Sharp was examined late in the afternoon. OBJECTIVE: VITAL SIGNS: She is afebrile, heart rate in the 90s. Blood pressure 123/68, respiratory rate is 20, oximetry is 93 on 3 liters. LUNGS: Remarkable for diffuse mild wheezes. CARDIOVASCULAR: Regular rhythm. ABDOMEN: Soft and nontender. EXTREMITIES: Without asymmetry. LABORATORY DATA: Glucoses were for the most part less than 150. IMPRESSION: 1. Chronic obstructive pulmonary disease exacerbation with pneumonia. 2. Acute on chronic respiratory failure, on chronic home oxygen. 3. Deconditioning. 4. Very severe anxiety. PLAN: Transitioning into p.o. medications. She will continue with physical therapy. We are awaiting the arrival of her daughter from [place], who plans to take her home to care for her instead of putting her in the skilled unit. She is clinically stable at this point. BERNARDINO
--- NOTE | 2017-12-07 17:04 | EKG ---
Test Reason : SOB Blood Pressure : / mmHG Vent. Rate : 086 BPM Atrial Rate : 089 BPM P-R Int : 000 ms QRS Dur : 092 ms QT Int : 328 ms P-R-T Axes : 000 039 053 degrees QTc Int : 392 ms Accelerated Junctional rhythm Abnormal ECG Confirmed by MEKA HUNT D.O. ([id number]), editor book MATHIEU CRENSHAW ([id number]) on 12/07/2017 5:04:08 PM Referred By: Confirmed By:MEKA HUNT D.O.
== END 2017-12-03 13:37 | disposition home health service (06) | DRG 193 ==
LOC: ERS 18:45 → IMCU/EMU 23:00 → T4-A 11-27 20:46
PROVIDERS: ADMIT Internal Medicine Infectious Disease; ATTEND Internal Medicine Infectious Disease
PROC: 5A09357 Assistance with Respiratory Ventilation, Less than 24 Consecutive Hours, Continuous Positive Airway Pressure (ICD-10-PCS; principal; 2017-11-24)
DX: J18.9 Pneumonia, unspecified organism (principal); J96.21 Acute and chronic respiratory failure with hypoxia; E87.70 Fluid overload, unspecified; J44.0 Chronic obstructive pulmonary disease with (acute) lower respiratory infection; J44.1 Chronic obstructive pulmonary disease with (acute) exacerbation; I50.30 Unspecified diastolic (congestive) heart failure; I48.0 Paroxysmal atrial fibrillation; Z99.81 Dependence on supplemental oxygen; Z79.01 Long term (current) use of anticoagulants; Y95 Nosocomial condition; I11.0 Hypertensive heart disease with heart failure; F41.9 Anxiety disorder, unspecified; I25.10 Atherosclerotic heart disease of native coronary artery without angina pectoris; E78.5 Hyperlipidemia, unspecified; R19.5 Other fecal abnormalities; Z88.1 Allergy status to other antibiotic agents; Z88.5 Allergy status to narcotic agent; Z88.2 Allergy status to sulfonamides; Z88.8 Allergy status to other drugs, medicaments and biological substances; Z79.82 Long term (current) use of aspirin; Z79.52 Long term (current) use of systemic steroids; Z79.899 Other long term (current) drug therapy
CPT/HCPCS: 36415; 36416; 71045; 71260; 74177; 80053; 82274; 82330; 82553; 82565; 82728; 82803; 83550; 83880; 84484; 85014; 85018; 85025; 85049; 85610; 85730; 86850; 86900; 86901; 93005; 94640; 94660; 94664; 94760; 96365; 96367; A4216; C9113; G8996-GN-CL; G8997-GN-CI; J0692; J0744; J1650; J2543; J2920; J3370; J3490; J7050; J7506; J7611; J7620; Q0162

== ENCOUNTER 2018-01-02 10:23 | Outpatient (CLI) | payer MEDICARE, OTHER ==
--- NOTE | 2018-01-02 12:02 | RAD ---
CHEST 2 VIEWS: Date: 01/02/18 HISTORY: Dyspnea. COMPARISON: Chest radiograph dated 11/24/17. FINDINGS: Interval improvement in the right upper lobe air space opacity from the comparison examination. There is volume loss in the right lung relative to the left. There is only minimal chronic changes in the left lung. There are some nodules projecting over the left lung base. No acute osseous abnormality. IMPRESSION: Volume loss in the right lung with improving aeration of the right upper lobe relative to the compari son examination with either a focal stellate area of scar versus underlying malignant process. Follow -up CT of the chest may be beneficial. POS: OFF
== END 2018-01-02 10:24 | disposition home or self-care (01) ==
LOC: RAD 10:23
PROVIDERS: ATTEND Internal Medicine Critical Care Medicine
DX: R06.00 Dyspnea, unspecified (principal)
CPT/HCPCS: 71046

== ENCOUNTER 2018-01-28 10:57 | Outpatient (CLI) | payer MEDICARE, OTHER ==
--- NOTE | 2018-01-28 12:08 | RAD ---
PA AND LATERAL CHEST: History: Dyspnea. Comparison: 01-02-18, 11-24-17 FINDINGS: Heart size is within normal limits. There are atherosclerotic changes of the aorta. Right upper lobe parenchymal changes continue to show some slight improvement. Chronic appearing lung changes are note d in both lung sosa. IMPRESSION: Continued improvement to the right upper lobe parenchymal changes. POS: [facility]
== END 2018-01-28 10:58 | disposition home or self-care (01) ==
LOC: RAD 10:57
PROVIDERS: ATTEND Internal Medicine Critical Care Medicine
DX: R06.00 Dyspnea, unspecified (principal)
CPT/HCPCS: 71046

== ENCOUNTER 2018-02-05 18:00 | Emergency (ER) | payer MEDICARE, OTHER ==
[2018-02-05 19:08] LABS: Bilirubin Negative (Negative); Blood, Urine Small (Negative); Clarity CLEAR (Clear); Glucose, Urine (Dipstick) Negative (Negative); Leukocyte Small (Negative); Nitrite Negative (Negative); Protein, Urine (Dipstick) Negative (Neg-Trace); Specific Gravity, Urine 1.011 (1.002-1.036); Urobilinogen 0.2 mg/dL (0.2-1.0)
[2018-02-05 19:12] LABS: Bacteria/HPF None Seen HPF (None Seen); Hyaline Casts/LPF 0-3 HYALINE CAST LPF (0-3 Hyaline); Pathc Cast-AUWi Flag 0.29 (0-2.49); RBC/HPF 0-3 HPF (0-3); Squamous Epithelial 0-3 HPF (0-3); WBC/HPF 0-3 HPF (0-3)
[2018-02-05 19:13] LABS: #Lymphocytes 0.4 thou/uL (1.20-3.40); #Monocytes 0.2 thou/uL (0.11-0.59); #Neutrophils 13.2 thou/uL (1.40-6.50); %Basophils 0.1 % (0.0-1.0); %Eosinophils 0.2 % (0.0-10.0); %Lymphocytes 2.6 % (21.0-51.0); %Monocytes 1.5 % (0.0-10.0); %Neutrophils 95.6 % (42.0-75.0); Hemoglobin 10.3 g/dL (12.0-16.0); Mean Corpuscular HGB CONC 33.2 g/dL (32.0-36.0); Mean Corpuscular Hemoglobin 30.6 pg (27.0-31.0); Mean Corpuscular Volume 92.3 fl (81.0-99.0); Platelet Count 408 thou/uL (130-400); Red Blood Cell (RBC) Count 3.37 mill/uL (4.20-5.40); White Blood Cell (WBC) Count 13.8 thou/uL (4.8-10.8)
[2018-02-05 19:36] LABS: ALT (SGPT) 15 U/L (8-55); AST (SGOT) 15 U/L (5-34); Albumin 4.3 g/dL (3.4-4.8); Alkaline Phosphatase 57 U/L (40-150); Anion Gap 12 mmol/L (10-20); BUN (Urea Nitrogen) 22 mg/dL (9.8-20.1); Bilirubin, Total 0.3 mg/dL (0.2-1.2); CK (CPK) 27 U/L (29-168); Calc. Creatinine Clearance 0 mL/min (70-130); Calcium 9.7 mg/dL (7.8-10.44); Carbon Dioxide 30 mmol/L (23-31); Chloride 97 mmol/L (98-107); Estimated GFR-MDRD 62; Globulin 2.7 g/dL (2.4-3.5); Glucose 125 mg/dL (83-110); Potassium 4.8 mmol/L (3.5-5.1); Sodium 134 mmol/L (136-145)
[2018-02-05 19:40] LABS: CKMB 0.7 ng/mL (0-6.6); Troponin I Less than 0.010 ng/mL (< 0.028)
== END 2018-02-05 22:03 | disposition home or self-care (01) ==
LOC: ERS 18:00
DX: I10 Essential (primary) hypertension (principal); J44.9 Chronic obstructive pulmonary disease, unspecified; I48.91 Unspecified atrial fibrillation; I25.2 Old myocardial infarction; F41.9 Anxiety disorder, unspecified; Z87.891 Personal history of nicotine dependence; Z79.899 Other long term (current) drug therapy
CPT/HCPCS: 36415; 80053; 81003; 81015; 82550; 82553; 84484; 85025; 93005

== ENCOUNTER 2018-02-18 13:00 | Inpatient (IN) | payer MEDICARE, OTHER ==
[2018-02-18] MEDS ORDERED: HYDROcodone/Acetaminophen 5/325 mg Tablet PO PRN (14:08)
[2018-02-18] MEDS ORDERED: Ondansetron HCl/PF 4 MG/2 ML Vial IVP PRN (14:08)
[2018-02-18] MEDS ORDERED: Ondansetron ODT 4 MG TAB PO PRN (14:08)
[2018-02-18] MEDS ORDERED: Guaifenesin DM 100-10/5 ML UDCUP PO PRN (14:08)
[2018-02-18] MEDS ORDERED: Albuterol Sulfate 2.5 mg/3 ml Neb NEB PRN (14:12)
[2018-02-18] MEDS: Benzonatate 100 MG CAP PO SCH ×2 (15:46→20:47)
[2018-02-18] MEDS: Furosemide 20 MG TAB PO SCH (15:46)
[2018-02-18] MEDS: Cefepime 2 GM, Syringe 2.5 ML in Sterile Water 10 ML SLOW IVP SCH (15:59)
--- NOTE | 2018-02-18 16:39 | HP ---
PRIMARY CARE PHYSICIAN: Jamal Hanks M.D. DATE OF ADMISSION: 02/18/2018 TIME OF SERVICE: 13:55. CHIEF COMPLAINT: Shortness of breath. HISTORY OF PRESENT ILLNESS: Ms. Sharp is an 82-year-old female well known to me from previous admis sions. I admitted her both in October and November of this year. At this time, she was discharged to rehabilitation in [place]. She was home for a couple of weeks and started developing increasing shortness of breath. She presen kat to the emergency department there in [place] for evaluation on 02/09/2018 and was subsequently a dmitted to the hospital there. She was admitted on 02/09/2018 to 02/12/2018 for acute exacerbation o f COPD. She was noted to have shortness of breath, white blood cell count 14.7 and was started on le vofloxacin IV, Solu-Medrol and nebulizer treatments. After 4 days in the hospital, she is stabilized out and was downgraded to a swing bed where she remained from 02/12/2018 to 02/18/2018, received IV Solu-Medrol, nebulizer treatments and physical therapy. She was doing fairly well, but today she had increased oxygen requirements and was tachypneic with in creasing shortness of breath. Labs were obtained which showed white count tripled to 32,000 and a ch est x-ray showed a new right lower lobe infiltrate and possible right upper lobe infiltrate superimpo sed on a chronic right upper lobe scarring. Dr. Castillo was contacted, he refused direct admit to hims elf, but did refer him to us and I agreed to be consulting. The patient was subsequently transferred here as a direct admit. On arrival, patient was requiring 8.5 liters per simple mask at approximately 35%-40%. She was quick ly transitioned down to a nasal cannula. The above history was corroborated. Her only request was that Dulera not be given, so that she be given Symbicort, however, she did not h ave it with her and is not on formulary, so she will get that here as soon as she can. She denies an y fevers or chills. She is coughing blood-tinged sputum. No diarrhea, constipation, nausea or vomit ing. PAST MEDICAL HISTORY: 1. COPD followed by Dr. Castillo. She is oxygen dependent 3.5 liters and steroid dependent on predniso ne 20 mg daily. 2. Paroxysmal atrial fibrillation on Eliquis. 3. Hypertension, essential. 4. Anxiety disorder particularly when taking steroids. 5. Coronary artery disease followed by Dr. Larkin. 6. Hyperlipidemia. 7. History of past tobacco. PAST SURGICAL HISTORY: Include PTCA in 06/2017, she had ablation x2 for atrial fibrillation in the p ast. She had left knee arthroscopy remotely. HOME MEDICATIONS: 1. Aldactone 25 mg p.o. daily. 2. Flecainide 75 mg p.o. b.i.d. 3. Eliquis 5 mg p.o. b.i.d. 4. Albuterol 1.25 mg nebulized q.8 hours p.r.n. shortness of breath. 5. DuoNebs 3 mL q.4 hours p.r.n. 6. Zantac 75 mg daily. 7. Xanax 0.25 mg p.o. p.r.n. anxiety. 8. Aspirin 81 mg daily. 9. Lipitor 10 mg p.o. at bedtime. 10. Caltrate plus D 600 mg p.o. b.i.d. 11. Mucinex ER 1200 mg p.o. b.i.d. 12. Ceftin 250 mg p.o. daily. 13. Benadryl 25 mg p.o. at bedtime p.r.n. insomnia. 14. Symbicort 160/4.5 one puff b.i.d. She refers that of the [facility] that she has been prescribed 20 0/5 two puffs b.i.d. 15. Verapamil 120 mg p.o. b.i.d. 16. Tessalon Perles 200 mg p.o. t.i.d. p.r.n. cough. 17. Flonase 1 puff nasal daily. 18. Levofloxacin as above. 19. Zofran p.r.n. 20. Solu-Medrol 60 mg IV q.8 hours for the last several days. ALLERGIES: CODEINE, LISINOPRIL, NIACIN, and SULFA. FAMILY HISTORY: Negative for clotting or bleeding disorder. No immune dysfunction. SOCIAL HISTORY: Negative for habits x3. She has been in and out of hospital several times in [facility] of this year. She normally lives at home by herself in [place], but has only been home for abou t a week and a half of that stretch recently. REVIEW OF SYSTEMS: All systems were reviewed and negative except listed as above. PHYSICAL EXAMINATION: VITAL SIGNS: Temperature 98.3, pulse 71, blood pressure 127/56, respiratory rate 24, satting 97% on 8.5 liters simple mask. GENERAL: She is awake. She is alert. She is oriented x3. She is a well-developed, well-nourished, obese elderly female who appears age appropriate. She looks chronically ill. HEENT: Normocephalic, atraumatic. Pupils equal, round, react to light bilaterally, mucous membranes moist. She has no visible lesion, no thrush, no evidence of nosebleed. NECK: Supple without lymphadenopathy, JVD, or thyromegaly. She had normal carotid upstrokes. I do not appreciate bruits. LUNGS: Have diffuse prolonged expiratory phase and diffuse expiratory wheezes high pitched. CHEST: She has crackles present on the right posterior lung field and the right posterior lower lung field as well. Every time she takes deep breath, she does cough, but it is nonproductive, but does sound wet, left side is clear. CARDIOVASCULAR: She is irregularly irregular. She has no audible murmurs. ABDOMEN: Obese, it is nontender, nondistended with good bowel sounds. No rebound, rigidity or guard ing. EXTREMITIES: Reveals no cyanosis, clubbing, 1+ edema, but just above the ankle. SKIN: Otherwise, warm, moist and well perfused. She has no other rashes or lesions. MUSCULOSKELETAL: Normal to inspection. Large joints appear uninflamed. There are no palpable effus ions. NEUROLOGIC: Cranial nerves II-XII are grossly intact. She has no focal deficits, 5/5 strength in al l 4 extremities. She has normal speech pattern. LABORATORY DATA: Today, creatinine 0.69. Her white count was 32.6 up from 10.2 on 02/12/2018, hemog lobin is 8.3 and hematocrit of 25.7, which is fairly stable, and platelet count of 311,000. IMAGING DATA: Chest x-rays on 02/09/2018, she had chest x-ray which showed chronic right upper lobe scarring. On 02/10/2018, showed chronic right upper lobe scarring. On 02/11/2018, showed chronic ri ght upper lobe scarring. On 02/12/2018, CT scan of the chest showed right upper lobe scarring and sc attered nodular opacities and 1 cm left upper lobe round opacity and some nonspecific mediastinal lym phadenopathy. Chest x-ray on 02/18/2018 showed a new right lower lobe opacity and possible right upper lobe opacity , superimposed on her chronic scarring. ASSESSMENT AND PLAN: 1. Healthcare associated pneumonia, new right lower lobe infiltrate. We will transition her to cefe pime plus Levaquin. I do think this is atypical. We will complete her course. We will hold off on vancomycin for now and this looks like a Staph pneumonia. 2. Acute on chronic hypoxemic respiratory failure. 3. Acute exacerbation of chronic obstructive pulmonary disease. IV Solu-Medrol 40 mg IV q.6 hours, we will continue DuoNebs q.4 hours and albuterol q.2 p.r.n. I will continue her Solu-Medrol as above . We will continue Mucinex 1200 mg p.o. b.i.d. and we will continue Dulera until her Symbicort is av ailable. I have asked Pulmonary and Critical Care to evaluate the patient. I did notify Dr. Castillo. Dr. Conner will see her today and is data governance consultant and Dr. Castillo will assume care tomorrow. 4. Chronic paroxysmal atrial fibrillation, currently in sinus rhythm with irregular beats. We will continue her flecainide and Eliquis. 5. Essential hypertension. Continue home medications and Xanax has been made available. 6. History of coronary artery disease. No chest pains at this point. 7. Hyperlipidemia, on atorvastatin. 8. History of past tobacco abuse with resultant chronic obstructive pulmonary disease disease. Continue home medications and observe overnight. We will get morning labs including CBC, CMP and mag nesium level and we will follow up in pulmonary recommendations.
[2018-02-18] MEDS ORDERED: LINEZOLID 100 MG/5 ML PO SCH (17:00)
[2018-02-18] MEDS: Linezolid 600 MG TAB PO SCH (17:28)
[2018-02-18] MEDS: ALPRAZolam 0.25 MG TAB PO PRN (17:34)
[2018-02-18] MEDS: Verapamil 120 MG TAB PO SCH (20:37)
[2018-02-18] MEDS: Flecainide 50 MG TAB PO SCH (20:39)
[2018-02-18] MEDS: Famotidine 20 MG TAB PO SCH (20:39)
[2018-02-18] MEDS: guaiFENesin ER 600 MG TAB PO SCH (20:40)
[2018-02-18] MEDS: Fluticasone Propionate Nasal Spray 16 gm Bottle NASAL SCH (20:48)
[2018-02-18] MEDS ORDERED: Cefepime 2 GM in Sodium Chloride 0.9% 100 ML IVPB SCH (21:00)
--- NOTE | 2018-02-18 21:05 | CON ---
DATE OF CONSULTATION: 02/18/2018 HISTORY OF PRESENT ILLNESS: An 82-year-old female of 150 pounds, transferred from [place] [facility] with a right-sided pneumonia. She tells me she has been there for almost a week with COPD exacerbat ion. She was recuperating when she suddenly got worse, worsening cough and shortness of breath sympt oms. She is severely distention. Now, she tells me she is coughing up gross amounts of pus blood. X-ray taken this morning shows a new right infiltrate consistent with pneumonia. She has a long list of medicine, brought in from [place], well outlined in the chart. Pertinent for Xanax 0.25 twice a day, aspirin 81, Symbicort 2 puffs twice a day, Lasix 20 a day, Tambocor 75 twice a day. She was on Levaquin in the care home and spironolactone 25 once a day, steroids and predn isone. She now has allergies to CODEINE, LISINOPRIL, and NIACIN. Extensive previous history pertinent that she sees Dr. Castillo on a regular basis. She was here in 2017 with COPD exacerbation, thrombocytosis and pneumonia. The patient can barely walk even 20 feet without getting markedly short of breath. PAST MEDICAL HISTORY: COPD, steroid dependency with decreased anxiety, chronic atrial fibrillation, chronic disease. PAST SURGICAL HISTORY: Knee surgery, hemorrhoids, cholecystectomy, endoscopy. ALLERGIES: As noted. TOBACCO: Former smoker. REVIEW OF SYSTEMS: Otherwise, 10-point negative. PHYSICAL EXAMINATION: GENERAL: She appears to be in mild distress. VITAL SIGNS: Sats are 95% on supplemental oxygen 2 liters, pulse 80, blood pressure 138/59. CHEST: With extensive bilateral rhonchi and crackles. Prolonged expiration. CARDIAC: Atrial fibrillation. ABDOMEN: Soft. NEUROLOGIC: She is awake, alert, responsive, moves all four extremities. EXTREMITIES: Trace edema. LABORATORY DATA: Her white count is 22,000, H&H 8 and 25, platelet count 316, 88 segs. Chemistry profile was normal. She has already been on Levaquin at the [facility] in [place]. I radha rivera would discontinue the Levaquin. Consider starting an anti-staph antibiotic, culture sputum. Con tinue neb treatments, continue supportive care. We will notify Dr. Castillo. Consultation note of 70 minutes, 50% direct patient care.
[2018-02-18] MEDS: Mometasone/Formoterol 120 PUFF INHALER INH SCH (21:06)
[2018-02-18] MEDS: Apixaban 5 MG TAB PO SCH (21:47)
[2018-02-18] MEDS: Acetaminophen 325 MG TAB PO PRN (21:47)
[2018-02-19] MEDS: Cefepime 2 GM, Syringe 2.5 ML in Sterile Water 10 ML SLOW IVP SCH ×2 (03:04→15:46)
[2018-02-19] MEDS: Benzonatate 100 MG CAP PO SCH ×3 (05:24→21:04)
[2018-02-19] MEDS: Linezolid 600 MG TAB PO SCH ×2 (05:24→18:08)
[2018-02-19] MEDS: ALPRAZolam 0.25 MG TAB PO PRN ×2 (05:27→23:48)
[2018-02-19 05:42] LABS: Band 7 % (5-11); Hemoglobin 8.8 g/dL (12.0-16.0); Lymphocytes 1 % (21-51); MDiff Complete? YES; Mean Corpuscular Hemoglobin 29.4 pg (27.0-31.0); Mean Corpuscular Volume 91.9 fl (81.0-99.0); Mean Platelet Volume 7.6 fL (7.4-10.4); Monocytes 2 % (0-10); Neutrophil 90 % (42-75); PLT Morphology Comment Appears Adequate; Platelet Count 300 thou/uL (130-400); RBC Distribution Width 14.5 % (11.5-14.5); Red Blood Cell (RBC) Count 2.98 mill/uL (4.20-5.40); White Blood Cell (WBC) Count 28.8 thou/uL (4.8-10.8)
[2018-02-19 05:51] LABS: ALT (SGPT) 9 U/L (8-55); AST (SGOT) 10 U/L (5-34); Albumin 2.8 g/dL (3.4-4.8); Alkaline Phosphatase 50 U/L (40-150); Anion Gap 11 mmol/L (10-20); BUN (Urea Nitrogen) 28 mg/dL (9.8-20.1); Bilirubin, Total 0.3 mg/dL (0.2-1.2); Calc. Creatinine Clearance 59 mL/min (70-130); Calcium 8.4 mg/dL (7.8-10.44); Carbon Dioxide 28 mmol/L (23-31); Chloride 99 mmol/L (98-107); Estimated GFR-MDRD 71; Globulin 2.4 g/dL (2.4-3.5); Glucose 159 mg/dL (83-110); Magnesium 2.2 mg/dL (1.6-2.6); Potassium 4.4 mmol/L (3.5-5.1); Protein, Total 5.2 g/dL (6.0-8.3); Sodium 134 mmol/L (136-145)
[2018-02-19] MEDS: Mometasone/Formoterol 120 PUFF INHALER INH SCH ×2 (06:11→18:49)
[2018-02-19] MEDS: Fluticasone Propionate Nasal Spray 16 gm Bottle NASAL SCH ×2 (08:35→21:11)
[2018-02-19] MEDS: Aspirin 81 mg Enteric Coated Tablet PO SCH ×2 (08:36→11:31)
[2018-02-19] MEDS: Saccharomyces boulardii 250 MG CAP PO SCH (08:36)
[2018-02-19] MEDS: Spironolactone 25 MG TAB PO SCH (08:36)
[2018-02-19] MEDS: guaiFENesin ER 600 MG TAB PO SCH ×2 (08:36→21:05)
[2018-02-19] MEDS: Flecainide 50 MG TAB PO SCH ×2 (08:37→21:04)
[2018-02-19] MEDS: Famotidine 20 MG TAB PO SCH ×2 (08:38→21:05)
[2018-02-19] MEDS: Atorvastatin Calcium 10 MG TAB PO SCH (08:38)
[2018-02-19] MEDS: Verapamil 120 MG TAB PO SCH ×2 (08:42→21:05)
[2018-02-19] MEDS ORDERED: Aspirin 81 mg Enteric Coated Tablet PO SCH (09:00)
--- NOTE | 2018-02-19 13:46 | PDOC.PN ---
- Subjective Encounter Start Date: 02/19/18 Encounter Start Time: 11:30 Pt seen on rounds, increased work of breathing. cough, nonproductive, occasioal blood streaking, increased exp effort, wheezes. Pt still talk continuously. No F/C, no N/V/d/c, no CP. Daughter at bedside, updated Case discussed with Dr Castillo, will transfer to [facility] in case she decompensates and needs BiPAP +BLE edema, stable all systems reviewed and neg except as above - Objective MAR Reviewed: Yes Vital Signs & Weight: Vital Signs (12 hours) Temp Pulse Resp BP Pulse Ox 02/19/18 09:33 74 22 H 94 L 02/19/18 08:00 97.7 F 74 22 H 94 L 02/19/18 07:17 97.7 F 74 20 119/76 93 L 02/19/18 06:13 96 02/19/18 06:11 65 18 96 02/19/18 06:08 65 18 96 02/19/18 04:27 98 02/19/18 03:59 97.5 F L 60 18 100/52 L 97 02/19/18 02:14 56 L 16 98 Weight Weight 150 lb 9 oz I&O: 02/18/18 02/19/18 02/20/18 06:59 06:59 06:59 Intake Total 620 Output Total 1550 Balance -930 Result Diagrams: 02/19/18 04:40 02/19/18 04:40 Additional Labs: Accuchecks 02/18/18 16:50 POC Glucose 182 H Radiology Reviewed by me: Yes EKG Reviewed by me: Yes Phys Exam - Physical Examination Constitutional: NAD mod resp distress, chronically ill appearing HEENT: PERRLA, moist MMs, sclera anicteric, oral pharynx no lesions Neck: no nodes, supple, full ROM +JVD coarse BS, right upper and lower crackles, diffuse bilat wheezes Cardiovascular: RRR murmurs stable Gastrointestinal: soft, non-tender, no distention, positive bowel sounds Musculoskeletal: edema present Neurological: non-focal, normal sensation, moves all 4 limbs Lymphatic: no nodes Psychiatric: normal affect, A&O x 3 Skin: no rash, normal turgor, cap refill <2 seconds Dx/Plan (1) Healthcare-associated pneumonia Code(s): J18.9 - PNEUMONIA, UNSPECIFIED ORGANISM Status: Acute Comment: suspected with new rLL infiltrate, increased WBC, increased O2 need, tachypnea, and tachycardia. Cefepime, levoflox, doubt MRSA, will watch. Add vanc if continues to worsen (2) Sepsis Code(s): A41.9 - SEPSIS, UNSPECIFIED ORGANISM Status: Acute Qualifiers: Sepsis type: sepsis due to unspecified organism Qualified Code(s): A41.9 - Sepsis, unspecified organism Comment: present on admit, no septic shock, WBC better, (3) Acute and chronic respiratory failure with hypoxia Code(s): J96.21 - ACUTE AND CHRONIC RESPIRATORY FAILURE WITH HYPOXIA Status: Acute (4) Acute exacerbation of chronic obstructive pulmonary disease (COPD) Code(s): J44.1 - CHRONIC OBSTRUCTIVE PULMONARY DISEASE W (ACUTE) EXACERBATION Status: Acute Comment: Continue Duonebs, solumedrol, dulera, Cefepime and levoflox, O2, biPAP PRn. trnasfer to IMCU (5) Paroxysmal A-fib Code(s): I48.0 - PAROXYSMAL ATRIAL FIBRILLATION Status: Chronic (6) CAD (coronary artery disease) Code(s): I25.10 - ATHSCL HEART DISEASE OF [place] CORONARY ARTERY W/O ANG PCTRS Status: Chronic Qualifiers: Coronary Disease-Associated Artery/Lesion type: [place] artery [place] vs. transplanted heart: [place] heart Associated angina: without angina Qualified Code(s): I25.10 - Atherosclerotic heart disease of [place] coronary artery without angina pectoris (7) Chronic anemia Code(s): D64.9 - ANEMIA, UNSPECIFIED Status: Chronic (8) Dyslipidemia Code(s): E78.5 - HYPERLIPIDEMIA, UNSPECIFIED Status: Chronic (9) Former smoker Status: Chronic (10) GERD (gastroesophageal reflux disease) Code(s): K21.9 - GASTRO-ESOPHAGEAL REFLUX DISEASE WITHOUT ESOPHAGITIS Status: Chronic Qualifiers: Esophagitis presence: without esophagitis Qualified Code(s): K21.9 - Gastro -esophageal reflux disease without esophagitis (11) Hypertension Code(s): I10 - ESSENTIAL (PRIMARY) HYPERTENSION Status: Chronic Qualifiers: Hypertension type: essential hypertension (12) Pulmonary cachexia due to chronic obstructive pulmonary disease Code(s): J44.9 - CHRONIC OBSTRUCTIVE PULMONARY DISEASE, UNSPECIFIED; R64 - [place] Status: Chronic - Plan cont current plan of care, plan discussed w/ family, continue antibiotics, PT/OT , respiratory therapy, incentive spirometry, out of bed/ambulate, DVT proph w/ SCDs * .
[2018-02-19] MEDS: Apixaban 5 MG TAB PO SCH ×2 (13:54→21:09)
[2018-02-19] MEDS: Furosemide 20 MG TAB PO SCH (13:54)
[2018-02-19 15:13] VITALS: BMI 27.1
[2018-02-19] MEDS: Acetaminophen 325 MG TAB PO PRN (23:49)
[2018-02-19] MEDS: Milk Of Magnesia 30 ML UDCUP PO PRN (23:56)
--- NOTE | 2018-02-20 03:11 | PRG ---
DATE OF SERVICE: 02/19/2018 SUBJECTIVE: Ms. Sharp returned yesterday after being transferred over apparently from [place]. She felt to have pneumonia. She says she does not feel any better today. When I evaluated her today, her heart rate was in the 70s, respiratory rate was in the 20s. She is a ctually talking in her usual hurried state, very quickly, and also tachypneic with her rapid conversa tion. She was not tachycardic. OBJECTIVE: VITAL SIGNS: Her respiratory rate was 20, oximetry is 93% on facemask O2, blood pressure 119/76. LUNGS: Remarkable for diffuse coarse wheezes. HEART: Regular rhythm. ABDOMEN: Soft. Chest CT done on 02/12/2018 in [place] showed no alveolar infiltrate suggestive of pneumonia, but [facility] x-ray done 6 days later yesterday showed an infiltrate in the right lung, predominantly in the ri ght lower lobe with mild infiltrate in the right upper lobe, which mostly is old. She says she is feeling about the same. Her daughter says she is worse than she was a week ago, but really cannot fake about a comparison to yesterday. She did not see her yesterday. White count toda y is 28.8, hemoglobin 8.8, platelets 300,000. Electrolytes were essentially unremarkable. Sodium wa s 134. Albumin is 2.8. IMPRESSION: Pneumonia, hospital-acquired. PLAN: 1. Broad spectrum antimicrobial therapy. 2. ? aspiration. 3. Very advanced obstructive lung disease and deconditioning. She had multiple hospitalizations las t year after the flu, which almost took her out. We will transfer to the critical care unit for BiPAP and if she is stable overnight, we will move her to intermediate care. Critical care time was 30 minutes.
[2018-02-20] MEDS: Cefepime 2 GM, Syringe 2.5 ML in Sterile Water 10 ML SLOW IVP SCH ×2 (03:47→16:11)
[2018-02-20] MEDS: Linezolid 600 MG TAB PO SCH ×2 (04:58→17:13)
[2018-02-20] MEDS: Benzonatate 100 MG CAP PO SCH ×3 (05:01→21:44)
[2018-02-20] MEDS: ALPRAZolam 0.25 MG TAB PO PRN ×2 (05:12→21:44)
[2018-02-20] MEDS: Milk Of Magnesia 30 ML UDCUP PO PRN ×2 (05:12→20:10)
[2018-02-20 06:19] LABS: Anion Gap 9 mmol/L (10-20); BUN (Urea Nitrogen) 33 mg/dL (9.8-20.1); Calc. Creatinine Clearance 63 mL/min (70-130); Calcium 8.4 mg/dL (7.8-10.44); Carbon Dioxide 29 mmol/L (23-31); Chloride 97 mmol/L (98-107); Estimated GFR-MDRD 72; Glucose 166 mg/dL (83-110); Magnesium 2.6 mg/dL (1.6-2.6); Sodium 131 mmol/L (136-145)
[2018-02-20 06:33] LABS: Band 4 % (5-11); Hemoglobin 8.4 g/dL (12.0-16.0); Lymphocytes 2 % (21-51); MDiff Complete? YES; Mean Corpuscular HGB CONC 31.5 g/dL (32.0-36.0); Mean Corpuscular Hemoglobin 28.6 pg (27.0-31.0); Mean Corpuscular Volume 90.9 fl (81.0-99.0); Mean Platelet Volume 7.8 fL (7.4-10.4); Neutrophil 94 % (42-75); Platelet Count 282 thou/uL (130-400); RBC Distribution Width 14.6 % (11.5-14.5); Red Blood Cell (RBC) Count 2.93 mill/uL (4.20-5.40); White Blood Cell (WBC) Count 26.5 thou/uL (4.8-10.8)
[2018-02-20] MEDS: Mometasone/Formoterol 120 PUFF INHALER INH SCH ×2 (07:20→18:04)
[2018-02-20] MEDS: Atorvastatin Calcium 10 MG TAB PO SCH (08:32)
[2018-02-20] MEDS: Apixaban 5 MG TAB PO SCH ×2 (08:32→20:29)
[2018-02-20] MEDS: Verapamil 120 MG TAB PO SCH ×2 (08:32→20:29)
[2018-02-20] MEDS: Saccharomyces boulardii 250 MG CAP PO SCH (08:33)
[2018-02-20] MEDS: guaiFENesin ER 600 MG TAB PO SCH ×2 (08:33→20:29)
[2018-02-20] MEDS: Spironolactone 25 MG TAB PO SCH (08:34)
[2018-02-20] MEDS: Aspirin 81 mg Enteric Coated Tablet PO SCH ×2 (08:34→11:26)
[2018-02-20] MEDS: Famotidine 20 MG TAB PO SCH ×2 (08:34→20:29)
[2018-02-20] MEDS: Flecainide 50 MG TAB PO SCH ×2 (08:35→20:30)
--- NOTE | 2018-02-20 12:04 | PDOC.PN ---
- Subjective Encounter Start Date: 02/20/18 Encounter Start Time: 10:25 Pt did well, no BiPAP required, taking non-stop again with PC RN in room. No F/C, no N/V/D/C, no CP, feels about the same No new complaints All systems reviewed and neg for all except as stated above - Objective MAR Reviewed: Yes Vital Signs & Weight: Vital Signs (12 hours) Temp Pulse Resp Pulse Ox 02/20/18 10:43 78 22 H 98 02/20/18 08:00 97.8 F 02/20/18 07:35 97.8 F 73 19 95 02/20/18 07:22 99 02/20/18 07:18 73 19 99 02/20/18 04:00 97.8 F 02/20/18 03:48 68 23 H 96 02/20/18 00:35 60 Weight Weight 158 lb 11.725 oz Most Recent Monitor Data Heart Rate from ECG 72 NIBP 131/42 NIBP BP-Mean 63 Respiration from ECG 17 SpO2 98 I&O: 02/19/18 02/20/18 02/21/18 06:59 06:59 06:59 Intake Total 620 1125 300 Output Total 1550 1050 300 Balance -930 75 0 Result Diagrams: 02/20/18 04:56 02/20/18 04:56 Radiology Reviewed by me: Yes EKG Reviewed by me: Yes Phys Exam - Physical Examination Constitutional: NAD HEENT: PERRLA, moist MMs, sclera anicteric, oral pharynx no lesions Neck: no nodes, no JVD, supple, full ROM coarse rales bilaterally, insp and exp wheezes, + accessory muscle use porlonged expiration. Cardiovascular: RRR, no significant murmur, no rub Gastrointestinal: soft, non-tender, no distention, positive bowel sounds Musculoskeletal: pulses present, edema present Neurological: non-focal, normal sensation, moves all 4 limbs Lymphatic: no nodes Psychiatric: normal affect, A&O x 3 Deviation from normal: almost manic. Skin: no rash, normal turgor, cap refill <2 seconds Dx/Plan (1) Healthcare-associated pneumonia Code(s): J18.9 - PNEUMONIA, UNSPECIFIED ORGANISM Status: Acute Comment: suspected with new RLL infiltrate, increased WBC, increased O2 need, tachypnea, and tachycardia. Cefepime, levoflox, doubt MRSA, will watch. Add vanc if continues to worsen (2) Sepsis Code(s): A41.9 - SEPSIS, UNSPECIFIED ORGANISM Status: Acute Qualifiers: Sepsis type: sepsis due to unspecified organism Qualified Code(s): A41.9 - Sepsis, unspecified organism Comment: present on admit, no septic shock, WBC better, (3) Acute and chronic respiratory failure with hypoxia Code(s): J96.21 - ACUTE AND CHRONIC RESPIRATORY FAILURE WITH HYPOXIA Status: Acute (4) Acute exacerbation of chronic obstructive pulmonary disease (COPD) Code(s): J44.1 - CHRONIC OBSTRUCTIVE PULMONARY DISEASE W (ACUTE) EXACERBATION Status: Acute Comment: Continue Duonebs, solumedrol, dulera, Cefepime and levoflox, O2, biPAP PRn. trnasfer to IMCU (5) Paroxysmal A-fib Code(s): I48.0 - PAROXYSMAL ATRIAL FIBRILLATION Status: Chronic (6) CAD (coronary artery disease) Code(s): I25.10 - ATHSCL HEART DISEASE OF [place] CORONARY ARTERY W/O ANG PCTRS Status: Chronic Qualifiers: Coronary Disease-Associated Artery/Lesion type: [place] artery [place] vs. transplanted heart: [place] heart Associated angina: without angina Qualified Code(s): I25.10 - Atherosclerotic heart disease of [place] coronary artery without angina pectoris (7) Chronic anemia Code(s): D64.9 - ANEMIA, UNSPECIFIED Status: Chronic (8) Dyslipidemia Code(s): E78.5 - HYPERLIPIDEMIA, UNSPECIFIED Status: Chronic (9) Former smoker Status: Chronic (10) GERD (gastroesophageal reflux disease) Code(s): K21.9 - GASTRO-ESOPHAGEAL REFLUX DISEASE WITHOUT ESOPHAGITIS Status: Chronic Qualifiers: Esophagitis presence: without esophagitis Qualified Code(s): K21.9 - Gastro -esophageal reflux disease without esophagitis (11) Hypertension Code(s): I10 - ESSENTIAL (PRIMARY) HYPERTENSION Status: Chronic Qualifiers: Hypertension type: essential hypertension (12) Pulmonary cachexia due to chronic obstructive pulmonary disease Code(s): J44.9 - CHRONIC OBSTRUCTIVE PULMONARY DISEASE, UNSPECIFIED; R64 - [place] Status: Chronic - Plan * .
[2018-02-20] MEDS: Fluticasone Propionate Nasal Spray 16 gm Bottle NASAL SCH ×2 (12:27→20:38)
--- NOTE | 2018-02-20 13:23 | PRG ---
DATE OF SERVICE: 02/20/2018 SUBJECTIVE: Ms. Sharp is doing well. She is better than yesterday. OBJECTIVE: VITAL SIGNS: Heart rate 78, respiratory rate 22, oximetry is 98, and blood pressure is 131/42. LUNGS: Moderate diffuse wheezes. HEART: Regular rhythm. ABDOMEN: Soft. LABORATORY DATA: White count 26.5, hemoglobin 8.42, and platelets 282. Sodium 131, potassium 4.0, c hloride 97, bicarbonate 29, BUN 33, creatinine 0.77. IMPRESSION: 1. Chronic obstructive pulmonary disease exacerbation with pneumonia, hospital acquired: 2. Acute on chronic respiratory failure, on home oxygen. PLAN: Transfer to the Intensive Care Unit.
[2018-02-20] MEDS: Furosemide 20 MG TAB PO SCH (14:46)
[2018-02-21] MEDS: Cefepime 2 GM, Syringe 2.5 ML in Sterile Water 10 ML SLOW IVP SCH (03:26)
[2018-02-21] MEDS: Milk Of Magnesia 30 ML UDCUP PO PRN (03:36)
[2018-02-21 05:21] LABS: Anion Gap 12 mmol/L (10-20); BUN (Urea Nitrogen) 32 mg/dL (9.8-20.1); Calc. Creatinine Clearance 60 mL/min (70-130); Calcium 8.6 mg/dL (7.8-10.44); Carbon Dioxide 31 mmol/L (23-31); Chloride 95 mmol/L (98-107); Estimated GFR-MDRD 68; Glucose 157 mg/dL (83-110); Magnesium 2.5 mg/dL (1.6-2.6); Potassium 4.6 mmol/L (3.5-5.1); Sodium 133 mmol/L (136-145)
[2018-02-21 05:23] LABS: Band 2 % (5-11); Hemoglobin 8.5 g/dL (12.0-16.0); Lymphocytes 1 % (21-51); MDiff Complete? YES; Mean Corpuscular HGB CONC 31.9 g/dL (32.0-36.0); Mean Corpuscular Hemoglobin 28.8 pg (27.0-31.0); Mean Corpuscular Volume 90.2 fl (81.0-99.0); Mean Platelet Volume 7.3 fL (7.4-10.4); Monocytes 2 % (0-10); Neutrophil 95 % (42-75); Platelet Count 331 thou/uL (130-400); RBC Distribution Width 14.6 % (11.5-14.5); Red Blood Cell (RBC) Count 2.94 mill/uL (4.20-5.40); White Blood Cell (WBC) Count 25.3 thou/uL (4.8-10.8)
[2018-02-21] MEDS: Mometasone/Formoterol 120 PUFF INHALER INH SCH ×2 (06:11→21:25)
[2018-02-21] MEDS: Linezolid 600 MG TAB PO SCH ×2 (06:21→17:02)
[2018-02-21] MEDS: ALPRAZolam 0.25 MG TAB PO PRN (06:29)
[2018-02-21] MEDS: Benzonatate 100 MG CAP PO SCH ×3 (08:12→21:51)
[2018-02-21] MEDS: guaiFENesin ER 600 MG TAB PO SCH ×2 (08:12→20:40)
[2018-02-21] MEDS: Atorvastatin Calcium 10 MG TAB PO SCH (08:12)
[2018-02-21] MEDS: Verapamil 120 MG TAB PO SCH ×2 (08:12→20:41)
[2018-02-21] MEDS: Saccharomyces boulardii 250 MG CAP PO SCH (08:12)
[2018-02-21] MEDS: Spironolactone 25 MG TAB PO SCH (08:12)
[2018-02-21] MEDS: Aspirin 81 mg Enteric Coated Tablet PO SCH (08:12)
[2018-02-21] MEDS: Flecainide 50 MG TAB PO SCH ×2 (08:13→20:42)
[2018-02-21] MEDS: Famotidine 20 MG TAB PO SCH ×2 (08:13→20:41)
[2018-02-21] MEDS: Fluticasone Propionate Nasal Spray 16 gm Bottle NASAL SCH ×2 (08:14→20:45)
[2018-02-21] MEDS: Apixaban 5 MG TAB PO SCH ×2 (08:20→20:41)
[2018-02-21] MEDS: Furosemide 20 MG TAB PO SCH (13:57)
[2018-02-21] MEDS: Cefepime 2 GM in Sodium Chloride 0.9% 100 ML IVPB SCH (17:02)
--- NOTE | 2018-02-21 20:04 | PRG ---
DATE OF SERVICE: 02/21/2018 SUBJECTIVE: She is afebrile. OBJECTIVE: VITAL SIGNS: Heart rate is 70, respiratory rate is 22, oximetry is 98 on 3 liters, blood pressure 11 9/47. CHEST: Her chest exam is 100% better than yesterday. Her wheezes are markedly improved. Her exhale time is dramatically shorter. She is in no distress at rest. HEART: Regular rhythm. ABDOMEN: Soft. EXTREMITIES: Without asymmetry. She refused physical therapy and actually called the male physical therapist the P word I am told by the nursing staff. LABORATORY DATA: White count is 25.3, hemoglobin is 8.5, platelets 331,000. Sodium 133, potassium 4 .6, chloride 95, bicarbonate 31, BUN 32, creatinine 0.81. IMPRESSION: 1. Chronic obstructive pulmonary disease exacerbation. 2. Pneumonia. 3. Acute on top of chronic respiratory failure with chronic hypoxemia, on oxygen at home. 4. Deconditioning. I have explained to her that her abusive behavior would not be tolerated. She is medically stable at this point and could actually be transferred and cared for in [place] and I have explained to her t hat I will transport her to [place] [facility] if she continues to be verbally abusive towards sta ff. She is medically stable and if she remains stable tomorrow, she can probably be discharged on to a swing bed. We will continue on IV antimicrobial therapy for now. Her cultures are negative from the sputum standpoint. No blood cultures were done on admission.
[2018-02-22] MEDS: Acetaminophen 325 MG TAB PO PRN ×2 (00:22→23:51)
[2018-02-22] MEDS: ALPRAZolam 0.25 MG TAB PO PRN ×3 (00:22→23:51)
[2018-02-22] MEDS: Cefepime 2 GM in Sodium Chloride 0.9% 100 ML IVPB SCH ×2 (03:05→15:01)
[2018-02-22] MEDS: Linezolid 600 MG TAB PO SCH ×2 (06:31→17:11)
[2018-02-22] MEDS: Benzonatate 100 MG CAP PO SCH ×3 (06:32→21:59)
[2018-02-22] MEDS: Mometasone/Formoterol 120 PUFF INHALER INH SCH ×2 (07:45→18:56)
[2018-02-22] MEDS: Famotidine 20 MG TAB PO SCH ×2 (08:00→20:54)
[2018-02-22] MEDS: Apixaban 5 MG TAB PO SCH ×2 (08:00→20:54)
[2018-02-22] MEDS: Spironolactone 25 MG TAB PO SCH ×2 (08:01→17:03)
[2018-02-22] MEDS: guaiFENesin ER 600 MG TAB PO SCH ×2 (08:01→20:54)
[2018-02-22] MEDS: Flecainide 50 MG TAB PO SCH ×2 (08:01→20:55)
[2018-02-22] MEDS: Verapamil 120 MG TAB PO SCH ×2 (08:01→20:54)
[2018-02-22] MEDS: Aspirin 81 mg Enteric Coated Tablet PO SCH (08:02)
[2018-02-22] MEDS: Saccharomyces boulardii 250 MG CAP PO SCH (08:02)
[2018-02-22] MEDS: Atorvastatin Calcium 10 MG TAB PO SCH (08:02)
[2018-02-22] MEDS: Fluticasone Propionate Nasal Spray 16 gm Bottle NASAL SCH ×2 (08:03→20:59)
[2018-02-22 08:50] LABS: Anion Gap 10 mmol/L (10-20); BUN (Urea Nitrogen) 29 mg/dL (9.8-20.1); Calc. Creatinine Clearance 65 mL/min (70-130); Calcium 8.5 mg/dL (7.8-10.44); Carbon Dioxide 29 mmol/L (23-31); Chloride 97 mmol/L (98-107); Estimated GFR-MDRD 75; Glucose 210 mg/dL (83-110); Magnesium 2.5 mg/dL (1.6-2.6); Potassium 4.4 mmol/L (3.5-5.1); Sodium 132 mmol/L (136-145)
[2018-02-22 08:59] LABS: Band 1 % (5-11); Hemoglobin 8.2 g/dL (12.0-16.0); Lymphocytes 2 % (21-51); MDiff Complete? YES; Mean Corpuscular HGB CONC 32.7 g/dL (32.0-36.0); Mean Corpuscular Hemoglobin 29.6 pg (27.0-31.0); Mean Corpuscular Volume 90.5 fl (81.0-99.0); Monocytes 1 % (0-10); Neutrophil 96 % (42-75); Platelet Count 305 thou/uL (130-400); RBC Distribution Width 14.5 % (11.5-14.5); Red Blood Cell (RBC) Count 2.75 mill/uL (4.20-5.40); White Blood Cell (WBC) Count 19.2 thou/uL (4.8-10.8)
--- NOTE | 2018-02-22 10:03 | RAD ---
PORTABLE AP CHEST XRAY: DATE: 02/22/18. HISTORY: Right lower lobe pneumonia. COPD. Followup evaluation. COMPARISON: 02/18/18. FINDINGS: Again noted are airspace opacities within the right upper and right mid lung zone as well as well as at the right lung base. Right pleural effusion is again noted. Cardiac silhouette is magnified by p rojection but stable in size. The pulmonary vasculature is within normal limits. IMPRESSION: 1. Right pleural effusion with stable airspace opacities within the right lung which may be minimall y improved from the prior study. Prior CT examination did demonstrate areas of probable scarring wit hin the right upper lung zone. Patchy opacities at the right lung base could potentially be related to residual infectious process/pneumonia. Continued followup is suggested. 2. Right pleural effusion is similar in size to the prior exam. POS: AMANDEEP
[2018-02-22] MEDS ORDERED: Furosemide 20 MG TAB PO PRN (11:51)
[2018-02-22] MEDS ORDERED: Furosemide 40 MG/4 ML VIAL SLOW IVP SCH (12:00)
--- NOTE | 2018-02-22 13:07 | PDOC.PN ---
- Subjective Encounter Start Date: 02/21/18 Encounter Start Time: 10:00 Pt back to her usual cantankerous and talkative self. Was SOB earleir, now feeling better, mad at PT becasue they wanted her to get up and walk and she felt she was too short of breath. no F/C, cough with old blood present in streaks, no N/V/D/c, no CP. no rigors [place] nebs All systems reviewed and neg for all except as per HPI above - Objective MAR Reviewed: Yes Vital Signs & Weight: Vital Signs (12 hours) Temp Pulse Resp BP Pulse Ox 02/22/18 10:56 98.5 F 65 22 H 117/53 L 96 02/22/18 10:34 70 20 96 02/22/18 08:00 98.3 F 70 20 96 02/22/18 07:49 97 02/22/18 07:45 70 20 98 02/22/18 07:22 98.3 F 81 20 129/61 97 02/22/18 04:00 98.0 F 74 20 140/56 L 99 02/22/18 03:00 69 13 Weight Weight 157 lb 6.4 oz Most Recent Monitor Data Heart Rate from ECG 62 NIBP 130/44 NIBP BP-Mean 104 Respiration from ECG 15 SpO2 100 I&O: 02/21/18 02/22/18 02/23/18 06:59 06:59 06:59 Intake Total 1541 1930 Output Total 1750 3200 Balance -209 -1270 Result Diagrams: 02/22/18 08:09 02/22/18 08:09 Phys Exam - Physical Examination Constitutional: NAD pale HEENT: PERRLA, moist MMs, sclera anicteric, oral pharynx no lesions Neck: no nodes, no JVD, supple, full ROM exp rhonchi, prolonged exp wih wheezes, +R pot rales Cardiovascular: RRR, no significant murmur, no rub Gastrointestinal: soft, non-tender, no distention, positive bowel sounds Musculoskeletal: edema present Neurological: non-focal, normal sensation, moves all 4 limbs Lymphatic: no nodes Psychiatric: normal affect, A&O x 3 Skin: no rash, normal turgor, cap refill <2 seconds Dx/Plan (1) Healthcare-associated pneumonia Code(s): J18.9 - PNEUMONIA, UNSPECIFIED ORGANISM Status: Acute Comment: suspected with new RLL infiltrate, increased WBC, increased O2 need, tachypnea, and tachycardia. Cefepime, levoflox, doubt MRSA, will watch. Add vanc if continues to worsen. Healthcare -associated, present on admit. Sputum culture pending (2) Sepsis Code(s): A41.9 - SEPSIS, UNSPECIFIED ORGANISM Status: Acute Qualifiers: Sepsis type: sepsis due to unspecified organism Qualified Code(s): A41.9 - Sepsis, unspecified organism Comment: present on admit, no septic shock, WBC better, (3) Acute and chronic respiratory failure with hypoxia Code(s): J96.21 - ACUTE AND CHRONIC RESPIRATORY FAILURE WITH HYPOXIA Status: Acute (4) Acute exacerbation of chronic obstructive pulmonary disease (COPD) Code(s): J44.1 - CHRONIC OBSTRUCTIVE PULMONARY DISEASE W (ACUTE) EXACERBATION Status: Acute Comment: Continue Duonebs, solumedrol, dulera, Cefepime and levoflox, O2, biPAP PRn. transferred to IMCU (5) Paroxysmal A-fib Code(s): I48.0 - PAROXYSMAL ATRIAL FIBRILLATION Status: Chronic Comment: in NSR at present (6) CAD (coronary artery disease) Code(s): I25.10 - ATHSCL HEART DISEASE OF [place] CORONARY ARTERY W/O ANG PCTRS Status: Chronic Qualifiers: Coronary Disease-Associated Artery/Lesion type: [place] artery [place] vs. transplanted heart: [place] heart Associated angina: without angina Qualified Code(s): I25.10 - Atherosclerotic heart disease of [place] coronary artery without angina pectoris (7) Chronic anemia Code(s): D64.9 - ANEMIA, UNSPECIFIED Status: Chronic (8) Dyslipidemia Code(s): E78.5 - HYPERLIPIDEMIA, UNSPECIFIED Status: Chronic (9) Former smoker Status: Chronic (10) GERD (gastroesophageal reflux disease) Code(s): K21.9 - GASTRO-ESOPHAGEAL REFLUX DISEASE WITHOUT ESOPHAGITIS Status: Chronic Qualifiers: Esophagitis presence: without esophagitis Qualified Code(s): K21.9 - Gastro -esophageal reflux disease without esophagitis (11) Hypertension Code(s): I10 - ESSENTIAL (PRIMARY) HYPERTENSION Status: Chronic Qualifiers: Hypertension type: essential hypertension (12) Pulmonary cachexia due to chronic obstructive pulmonary disease Code(s): J44.9 - CHRONIC OBSTRUCTIVE PULMONARY DISEASE, UNSPECIFIED; R64 - [place] Status: Chronic - Plan * .
--- NOTE | 2018-02-22 13:15 | PDOC.PN ---
- Subjective Encounter Start Date: 02/22/18 Encounter Start Time: 11:30 Pt abotu the same, complaining of BLE edema, review of meds show shes supposed to be on BID aldactone and PRN lasix, will restart. No F/C, no N/V//D/C, less cough, SOB stable. CXR reviewed, slightly improved. Labs reveal WBC down, chemistries normal, Hgb slowly trending down, 8.2 today All systems reviewed and neg x as above - Objective MAR Reviewed: Yes Vital Signs & Weight: Vital Signs (12 hours) Temp Pulse Resp BP Pulse Ox 02/22/18 10:56 98.5 F 65 22 H 117/53 L 96 02/22/18 10:34 70 20 96 02/22/18 08:00 98.3 F 70 20 96 02/22/18 07:49 97 02/22/18 07:45 70 20 98 02/22/18 07:22 98.3 F 81 20 129/61 97 02/22/18 04:00 98.0 F 74 20 140/56 L 99 02/22/18 03:00 69 13 Weight Weight 157 lb 6.4 oz Most Recent Monitor Data Heart Rate from ECG 62 NIBP 130/44 NIBP BP-Mean 104 Respiration from ECG 15 SpO2 100 I&O: 02/21/18 02/22/18 02/23/18 06:59 06:59 06:59 Intake Total 1541 1930 Output Total 1750 3200 Balance -209 -1270 Result Diagrams: 02/22/18 08:09 02/22/18 08:09 Radiology Reviewed by me: Yes EKG Reviewed by me: Yes Phys Exam - Physical Examination Constitutional: NAD pale HEENT: PERRLA, moist MMs, sclera anicteric, oral pharynx no lesions Neck: no nodes, no JVD, supple, full ROM no wheezing today, right posterior lower rales Cardiovascular: RRR, no significant murmur, no rub Gastrointestinal: soft, non-tender, no distention, positive bowel sounds Musculoskeletal: edema present Neurological: non-focal, normal sensation, moves all 4 limbs Lymphatic: no nodes Psychiatric: normal affect, A&O x 3 Skin: no rash, normal turgor, cap refill <2 seconds Dx/Plan (1) Healthcare-associated pneumonia Code(s): J18.9 - PNEUMONIA, UNSPECIFIED ORGANISM Status: Acute Comment: suspected with new RLL infiltrate, increased WBC, increased O2 need, tachypnea, and tachycardia. Cefepime, levoflox, doubt MRSA, will watch. Add vanc if continues to worsen. Healthcare -associated, present on admit. Sputum culture pending (2) Sepsis Code(s): A41.9 - SEPSIS, UNSPECIFIED ORGANISM Status: Acute Qualifiers: Sepsis type: sepsis due to unspecified organism Qualified Code(s): A41.9 - Sepsis, unspecified organism Comment: present on admit, no septic shock, WBC better, (3) Acute and chronic respiratory failure with hypoxia Code(s): J96.21 - ACUTE AND CHRONIC RESPIRATORY FAILURE WITH HYPOXIA Status: Acute (4) Acute exacerbation of chronic obstructive pulmonary disease (COPD) Code(s): J44.1 - CHRONIC OBSTRUCTIVE PULMONARY DISEASE W (ACUTE) EXACERBATION Status: Acute Comment: Continue Duonebs, solumedrol, dulera, Cefepime and levoflox, O2, biPAP PRn. transferred to IMCU (5) Paroxysmal A-fib Code(s): I48.0 - PAROXYSMAL ATRIAL FIBRILLATION Status: Chronic Comment: in NSR at present (6) CAD (coronary artery disease) Code(s): I25.10 - ATHSCL HEART DISEASE OF [place] CORONARY ARTERY W/O ANG PCTRS Status: Chronic Qualifiers: Coronary Disease-Associated Artery/Lesion type: [place] artery [place] vs. transplanted heart: [place] heart Associated angina: without angina Qualified Code(s): I25.10 - Atherosclerotic heart disease of [place] coronary artery without angina pectoris (7) Chronic anemia Code(s): D64.9 - ANEMIA, UNSPECIFIED Status: Chronic (8) Dyslipidemia Code(s): E78.5 - HYPERLIPIDEMIA, UNSPECIFIED Status: Chronic (9) Former smoker Status: Chronic (10) GERD (gastroesophageal reflux disease) Code(s): K21.9 - GASTRO-ESOPHAGEAL REFLUX DISEASE WITHOUT ESOPHAGITIS Status: Chronic Qualifiers: Esophagitis presence: without esophagitis Qualified Code(s): K21.9 - Gastro -esophageal reflux disease without esophagitis (11) Hypertension Code(s): I10 - ESSENTIAL (PRIMARY) HYPERTENSION Status: Chronic Qualifiers: Hypertension type: essential hypertension (12) Pulmonary cachexia due to chronic obstructive pulmonary disease Code(s): J44.9 - CHRONIC OBSTRUCTIVE PULMONARY DISEASE, UNSPECIFIED; R64 - [place] Status: Chronic - Plan cont current plan of care, continue antibiotics, PT/OT, respiratory therapy, out of bed/ambulate * . CCm with abx, follow up on pulm recs.
[2018-02-22] MEDS: Furosemide 20 MG TAB PO SCH (14:06)
--- NOTE | 2018-02-22 20:16 | PRG ---
DATE OF SERVICE: 02/22/2018 SUBJECTIVE: Izabel Sharp's disposition is better today. She is trying to be polite towards the s taff. OBJECTIVE: VITAL SIGNS: She is afebrile, heart rate is 84, respiratory rate 20, oximetry is 99 on 3 liters, blo od pressure 134/39. LUNGS: She still has diffuse wheezes, but she has improved compared to two days ago. HEART: Regular rhythm. ABDOMEN: Soft. LABORATORY DATA: White count 19.2, hemoglobin 8.2, platelets 305,000. Sodium 132, potassium 4.4, ch loride 97, bicarbonate 29, BUN 29, creatinine 0.74. IMAGING: Chest radiograph was ordered today. Chest radiograph may be slightly improved. IMPRESSION: 1. Pneumonia. 2. Underlying severe chronic obstructive pulmonary disease. 3. Deconditioning. 4. Verbally abusive behavior at times and noncompliance with physical therapy. PLAN: Continue current care.
[2018-02-23] MEDS: Cefepime 2 GM in Sodium Chloride 0.9% 100 ML IVPB SCH ×2 (03:40→15:23)
[2018-02-23 04:55] LABS: Anion Gap 11 mmol/L (10-20); BUN (Urea Nitrogen) 33 mg/dL (9.8-20.1); Calc. Creatinine Clearance 63 mL/min (70-130); Calcium 8.6 mg/dL (7.8-10.44); Carbon Dioxide 32 mmol/L (23-31); Chloride 96 mmol/L (98-107); Estimated GFR-MDRD 73; Glucose 229 mg/dL (83-110); Magnesium 2.3 mg/dL (1.6-2.6); Potassium 3.7 mmol/L (3.5-5.1); Sodium 135 mmol/L (136-145)
[2018-02-23 05:25] LABS: Band 2 % (5-11); Lymphocytes 1 % (21-51); MDiff Complete? YES; Mean Corpuscular HGB CONC 32.1 g/dL (32.0-36.0); Mean Corpuscular Hemoglobin 28.9 pg (27.0-31.0); Mean Corpuscular Volume 89.9 fl (81.0-99.0); Monocytes 3 % (0-10); Neutrophil 94 % (42-75); Platelet Count 282 thou/uL (130-400); RBC Distribution Width 14.5 % (11.5-14.5); Red Blood Cell (RBC) Count 2.78 mill/uL (4.20-5.40); White Blood Cell (WBC) Count 18.6 thou/uL (4.8-10.8)
[2018-02-23] MEDS: Linezolid 600 MG TAB PO SCH ×2 (05:46→17:41)
[2018-02-23] MEDS: Benzonatate 100 MG CAP PO SCH ×3 (05:47→20:52)
[2018-02-23] MEDS: Mometasone/Formoterol 120 PUFF INHALER INH SCH ×2 (06:50→19:35)
[2018-02-23] MEDS: Atorvastatin Calcium 10 MG TAB PO SCH (08:22)
[2018-02-23] MEDS: Famotidine 20 MG TAB PO SCH ×2 (08:22→20:47)
[2018-02-23] MEDS: Saccharomyces boulardii 250 MG CAP PO SCH (08:22)
[2018-02-23] MEDS: Flecainide 50 MG TAB PO SCH ×2 (08:22→20:48)
[2018-02-23] MEDS: guaiFENesin ER 600 MG TAB PO SCH ×2 (08:23→20:47)
[2018-02-23] MEDS: Verapamil 120 MG TAB PO SCH ×2 (08:23→20:52)
[2018-02-23] MEDS: Fluticasone Propionate Nasal Spray 16 gm Bottle NASAL SCH ×2 (08:23→20:48)
[2018-02-23] MEDS: Spironolactone 25 MG TAB PO SCH ×2 (08:23→17:41)
[2018-02-23] MEDS: Aspirin 81 mg Enteric Coated Tablet PO SCH (08:23)
[2018-02-23] MEDS: Apixaban 5 MG TAB PO SCH ×2 (08:30→20:47)
[2018-02-23] MEDS: ALPRAZolam 0.25 MG TAB PO PRN ×2 (11:52→23:47)
--- NOTE | 2018-02-23 12:39 | PDOC.PN ---
- Subjective Encounter Start Date: 02/23/18 Encounter Start Time: 11:30 Pt stable, slowly improving. Able ot get [place] and [place] herself [place] [facility] still SOB, +RAMOS. some wheezing, cough improved, no N/v/D/C, denies F/C, no rigors all systems reviewed and neg x as per HPI - Objective MAR Reviewed: Yes Vital Signs & Weight: Vital Signs (12 hours) Temp Pulse Resp BP BP Pulse Ox 02/23/18 12:00 70 20 114/45 L 98 02/23/18 10:37 71 20 97 02/23/18 08:00 98.8 F 95 22 H 137/54 L 95 02/23/18 06:51 100 02/23/18 06:29 70 16 100 02/23/18 04:00 97.8 F 75 18 114/46 L 99 02/23/18 03:19 75 16 100 Weight Weight 157 lb 4.8 oz Most Recent Monitor Data Heart Rate from ECG 62 NIBP 130/44 NIBP BP-Mean 104 Respiration from ECG 15 SpO2 100 I&O: 02/22/18 02/23/18 02/24/18 06:59 06:59 06:59 Intake Total 1930 1626 Output Total 3200 1950 Balance -1270 -324 Result Diagrams: 02/23/18 03:45 02/23/18 03:45 Phys Exam - Physical Examination Constitutional: NAD HEENT: PERRLA, moist MMs, sclera anicteric, oral pharynx no lesions Neck: no nodes, no JVD, supple, full ROM Respiratory: no rhonchi, wheezing present post rales on right Cardiovascular: RRR, no significant murmur, no rub Gastrointestinal: soft, non-tender, no distention, positive bowel sounds Musculoskeletal: pulses present, edema present Neurological: non-focal, normal sensation, moves all 4 limbs Lymphatic: no nodes Psychiatric: normal affect, A&O x 3 Skin: no rash, normal turgor, cap refill <2 seconds Dx/Plan (1) Healthcare-associated pneumonia Code(s): J18.9 - PNEUMONIA, UNSPECIFIED ORGANISM Status: Acute Comment: present on admission, new RLL infiltrate, increased WBC, increased O2 need, tachypnea, and tachycardia. Cefepime, levoflox, doubt MRSA, will watch. Add vanc if continues to worsen. Healthcare -associated, present on admit. Sputum culture pending (2) Sepsis Code(s): A41.9 - SEPSIS, UNSPECIFIED ORGANISM Status: Acute Qualifiers: Sepsis type: sepsis due to unspecified organism Qualified Code(s): A41.9 - Sepsis, unspecified organism Comment: present on admit, no septic shock, WBC better daily (3) Acute and chronic respiratory failure with hypoxia Code(s): J96.21 - ACUTE AND CHRONIC RESPIRATORY FAILURE WITH HYPOXIA Status: Acute (4) Acute exacerbation of chronic obstructive pulmonary disease (COPD) Code(s): J44.1 - CHRONIC OBSTRUCTIVE PULMONARY DISEASE W (ACUTE) EXACERBATION Status: Acute Comment: Continue Duonebs, solumedrol, dulera, Cefepime and levoflox, O2, biPAP PRn. transferred to [facility] (5) Paroxysmal A-fib Code(s): I48.0 - PAROXYSMAL ATRIAL FIBRILLATION Status: Chronic Comment: in NSR at present (6) CAD (coronary artery disease) Code(s): I25.10 - ATHSCL HEART DISEASE OF [place] CORONARY ARTERY W/O ANG PCTRS Status: Chronic Qualifiers: Coronary Disease-Associated Artery/Lesion type: [place] artery [place] vs. transplanted heart: [place] heart Associated angina: without angina Qualified Code(s): I25.10 - Atherosclerotic heart disease of [place] coronary artery without angina pectoris (7) Chronic anemia Code(s): D64.9 - ANEMIA, UNSPECIFIED Status: Chronic (8) Dyslipidemia Code(s): E78.5 - HYPERLIPIDEMIA, UNSPECIFIED Status: Chronic (9) Former smoker Status: Chronic (10) GERD (gastroesophageal reflux disease) Code(s): K21.9 - GASTRO-ESOPHAGEAL REFLUX DISEASE WITHOUT ESOPHAGITIS Status: Chronic Qualifiers: Esophagitis presence: without esophagitis Qualified Code(s): K21.9 - Gastro -esophageal reflux disease without esophagitis (11) Hypertension Code(s): I10 - ESSENTIAL (PRIMARY) HYPERTENSION Status: Chronic Qualifiers: Hypertension type: essential hypertension (12) Pulmonary cachexia due to chronic obstructive pulmonary disease Code(s): J44.9 - CHRONIC OBSTRUCTIVE PULMONARY DISEASE, UNSPECIFIED; R64 - [place] Status: Chronic - Plan * .
--- NOTE | 2018-02-23 13:28 | PRG ---
DATE OF SERVICE: 02/23/2018 SUBJECTIVE: Izabel Sharp in no distress. PT did not come yesterday. She said she will cooperate with PT today. She promised she would not be verbally abusive towards them. OBJECTIVE: VITAL SIGNS: She is afebrile, heart rate 70, respiratory 20, oximetry is 98 on 3 liters, blood press ure 114/45. LUNGS: Remarkable for diffuse wheezes. HEART: Regular rhythm. ABDOMEN: Soft. EXTREMITIES: No clubbing, cyanosis, or edema. IMPRESSION: 1. Pneumonia. 2. Chronic obstructive pulmonary disease exacerbation. 3. Deconditioning. 4. Verbally abusive behavior and manipulative behavior toward staff. PLAN: We should start transitioning her into p.o. medications tomorrow and consider transfer to a [facility] bed this week.
[2018-02-23] MEDS: Furosemide 20 MG TAB PO SCH (15:23)
[2018-02-24] MEDS: Cefepime 2 GM in Sodium Chloride 0.9% 100 ML IVPB SCH ×2 (02:56→14:43)
[2018-02-24] MEDS: Linezolid 600 MG TAB PO SCH ×2 (05:27→17:56)
[2018-02-24] MEDS: Benzonatate 100 MG CAP PO SCH ×3 (05:27→22:01)
[2018-02-24 05:57] LABS: Anion Gap 9 mmol/L (10-20); BUN (Urea Nitrogen) 29 mg/dL (9.8-20.1); Calc. Creatinine Clearance 64 mL/min (70-130); Calcium 8.4 mg/dL (7.8-10.44); Carbon Dioxide 30 mmol/L (23-31); Chloride 99 mmol/L (98-107); Estimated GFR-MDRD 74; Glucose 146 mg/dL (83-110); Magnesium 2.3 mg/dL (1.6-2.6); Potassium 4.2 mmol/L (3.5-5.1); Sodium 134 mmol/L (136-145)
[2018-02-24 07:46] LABS: Band 3 % (5-11); Hemoglobin 7.8 g/dL (12.0-16.0); Hypersemented Neutrophil SLIGHT; Lymphocytes 2 % (21-51); MDiff Complete? YES; Mean Corpuscular HGB CONC 32.3 g/dL (32.0-36.0); Mean Platelet Volume 7.1 fL (7.4-10.4); Neutrophil 95 % (42-75); PLT Morphology Comment Appears Adequate; Platelet Count 266 thou/uL (130-400); Polychromasia SLIGHT = 2-3 cells (100X) (0-2/hpf); RBC Distribution Width 14.5 % (11.5-14.5); Red Blood Cell (RBC) Count 2.68 mill/uL (4.20-5.40); Toxic Granulation SLIGHT; White Blood Cell (WBC) Count 18.3 thou/uL (4.8-10.8)
[2018-02-24] MEDS: Mometasone/Formoterol 120 PUFF INHALER INH SCH ×2 (07:48→18:24)
[2018-02-24] MEDS: Flecainide 50 MG TAB PO SCH ×2 (08:47→22:02)
[2018-02-24] MEDS: Aspirin 81 mg Enteric Coated Tablet PO SCH (08:47)
[2018-02-24] MEDS: Saccharomyces boulardii 250 MG CAP PO SCH (08:47)
[2018-02-24] MEDS: Famotidine 20 MG TAB PO SCH ×2 (08:47→22:01)
[2018-02-24] MEDS: guaiFENesin ER 600 MG TAB PO SCH ×2 (08:47→22:02)
[2018-02-24] MEDS: Atorvastatin Calcium 10 MG TAB PO SCH (08:47)
[2018-02-24] MEDS: Spironolactone 25 MG TAB PO SCH ×2 (08:47→17:56)
[2018-02-24] MEDS: Fluticasone Propionate Nasal Spray 16 gm Bottle NASAL SCH ×2 (08:49→22:03)
[2018-02-24] MEDS: Apixaban 5 MG TAB PO SCH ×2 (08:59→22:03)
[2018-02-24] MEDS: Verapamil 120 MG TAB PO SCH ×2 (08:59→22:04)
[2018-02-24] MEDS ORDERED: Sodium Chloride 0.65% Nasal 44 ML BOT EA NARE PRN (09:06)
--- NOTE | 2018-02-24 12:44 | PRG ---
DATE OF SERVICE: 02/24/2018 PHYSICAL EXAMINATION: VITAL SIGNS: Ms. Sharp is afebrile, heart rate 86, respiratory 22, oximetry is 96, blood pressure 1 33/47. LUNGS: Remarkable for diffuse wheezes. HEART: Regular rhythm. ABDOMEN: Soft. She remains on 3 antibiotics. I have discontinued her Levaquin. Sputum cultures were negative. White count 18.3, hemoglobin 7.8, platelets 266. Sodium 134, potassium 4.2, chloride 99, bicarbonate 30, BUN 29, creatinine 0.7. IMPRESSION: 1. Pneumonia. 2. Chronic obstructive pulmonary disease exacerbation. 3. Noncompliance. She can be transferred to a medical bed. She was admitted on the . She has had 6 days of IV antibiotics. I will probably give her 1 more day of IV antibiotics and then maybe 3 days p.o. I will decrease her steroids. I have encouraged her to cooperate with physical therapy without the verbal abuse. 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
--- NOTE | 2018-02-24 12:51 | PDOC.PN ---
- Subjective Encounter Start Date: 02/24/18 Encounter Start Time: 13:10 Subjective: Patient reports breathing about the same. Continued cough. -: No fever. Patient frustrated with repeated hospitalizations over past few -: months. Strongly considering hospice. Selling home ane planning move to [facility] in [place] - Objective MAR Reviewed: Yes Vital Signs & Weight: Vital Signs (12 hours) Temp Pulse Resp BP BP Pulse Ox 02/24/18 11:23 98.1 F 86 22 H 133/47 L 96 02/24/18 10:43 87 20 98 02/24/18 08:00 98.0 F 91 20 02/24/18 07:49 91 20 98 02/24/18 07:46 96 02/24/18 07:25 98.1 F 81 20 144/53 H 02/24/18 03:56 98.0 F 75 21 H 117/51 L 100 02/24/18 02:22 79 16 100 Weight Weight 156 lb 8 oz Most Recent Monitor Data Heart Rate from ECG 62 NIBP 130/44 NIBP BP-Mean 104 Respiration from ECG 15 SpO2 100 I&O: 02/23/18 02/24/18 02/25/18 06:59 06:59 06:59 Intake Total 1626 2140 Output Total 1950 2250 Balance -324 -110 Result Diagrams: 02/24/18 04:16 02/24/18 04:16 Phys Exam - Physical Examination Constitutional: NAD HEENT: moist MMs course breath sounds in bases, decent airmovement bilaterally Cardiovascular: RRR Gastrointestinal: soft, positive bowel sounds Neurological: non-focal, moves all 4 limbs Psychiatric: A&O x 3 Deviation from normal: affect mildly depressed Dx/Plan (1) Healthcare-associated pneumonia Code(s): J18.9 - PNEUMONIA, UNSPECIFIED ORGANISM Status: Acute Comment: present on admission, new RLL infiltrate, increased WBC, increased O2 need, tachypnea, and tachycardia. WBC improving. Sputum culture negative. On Cefepime and Linezolid. Levaquin d/c'd. Improving. (2) Sepsis Code(s): A41.9 - SEPSIS, UNSPECIFIED ORGANISM Status: Acute Qualifiers: Sepsis type: sepsis due to unspecified organism Qualified Code(s): A41.9 - Sepsis, unspecified organism Comment: present on admit, no septic shock, WBC better daily, improving (3) Acute and chronic respiratory failure with hypoxia Code(s): J96.21 - ACUTE AND CHRONIC RESPIRATORY FAILURE WITH HYPOXIA Status: Acute (4) Acute exacerbation of chronic obstructive pulmonary disease (COPD) Code(s): J44.1 - CHRONIC OBSTRUCTIVE PULMONARY DISEASE W (ACUTE) EXACERBATION Status: Acute Comment: Continue Duonebs, solumedrol, dulera, Cefepime and Linezolid, O2, off BiPAP. Ok to go to medical. (5) Paroxysmal A-fib Code(s): I48.0 - PAROXYSMAL ATRIAL FIBRILLATION Status: Chronic Comment: in NSR at present (6) CAD (coronary artery disease) Code(s): I25.10 - ATHSCL HEART DISEASE OF [place] CORONARY ARTERY W/O ANG PCTRS Status: Chronic Qualifiers: Coronary Disease-Associated Artery/Lesion type: [place] artery [place] vs. transplanted heart: [place] heart Associated angina: without angina Qualified Code(s): I25.10 - Atherosclerotic heart disease of [place] coronary artery without angina pectoris (7) Chronic anemia Code(s): D64.9 - ANEMIA, UNSPECIFIED Status: Chronic (8) Dyslipidemia Code(s): E78.5 - HYPERLIPIDEMIA, UNSPECIFIED Status: Chronic (9) Former smoker Status: Chronic (10) GERD (gastroesophageal reflux disease) Code(s): K21.9 - GASTRO-ESOPHAGEAL REFLUX DISEASE WITHOUT ESOPHAGITIS Status: Chronic Qualifiers: Esophagitis presence: without esophagitis Qualified Code(s): K21.9 - Gastro -esophageal reflux disease without esophagitis (11) Hypertension Code(s): I10 - ESSENTIAL (PRIMARY) HYPERTENSION Status: Chronic Qualifiers: Hypertension type: essential hypertension Qualified Code(s): I10 - Essential (primary) hypertension (12) Pulmonary cachexia due to chronic obstructive pulmonary disease Code(s): J44.9 - CHRONIC OBSTRUCTIVE PULMONARY DISEASE, UNSPECIFIED; R64 - [place] Status: Chronic - Plan cont current plan of care, continue antibiotics, DVT proph w/SCDs Transfer to medical -: Transition to oral abx when ok with pulmonary -: Offered palliative care consult to patient but she refused, states she has -: relative working for hospice and already setting things up herself. * . - Discharge Day Encounter end time: 13:30
[2018-02-24] MEDS: Furosemide 20 MG TAB PO SCH (14:45)
[2018-02-24] MEDS: ALPRAZolam 0.25 MG TAB PO PRN (23:38)
[2018-02-25] MEDS: Cefepime 2 GM in Sodium Chloride 0.9% 100 ML IVPB SCH ×2 (03:26→16:08)
[2018-02-25] MEDS: Acetaminophen 325 MG TAB PO PRN (03:35)
[2018-02-25] MEDS: Linezolid 600 MG TAB PO SCH ×2 (05:14→17:36)
[2018-02-25] MEDS: Benzonatate 100 MG CAP PO SCH ×3 (05:14→21:14)
[2018-02-25] MEDS: Mometasone/Formoterol 120 PUFF INHALER INH SCH ×2 (06:51→18:50)
--- NOTE | 2018-02-25 09:57 | PDOC.PN ---
- Subjective Encounter Start Date: 02/25/18 Encounter Start Time: 12:20 Subjective: Patient feeling a bit better. Not sure if she wants to go home or -: [place]. Discussing with Palliative Care. - Objective MAR Reviewed: Yes Vital Signs & Weight: Vital Signs (12 hours) Temp Pulse Resp BP BP Pulse Ox 02/25/18 07:53 98 F 87 18 129/53 L 94 L 02/25/18 06:46 76 20 95 02/25/18 04:00 97.7 F 80 18 137/69 98 02/25/18 00:30 98.6 F 75 18 125/66 99 02/24/18 22:24 92 24 H 94 L Weight Weight 156 lb 8 oz Most Recent Monitor Data Heart Rate from ECG 62 NIBP 130/44 NIBP BP-Mean 104 Respiration from ECG 15 SpO2 100 I&O: 02/24/18 02/25/18 02/26/18 06:59 06:59 06:59 Intake Total 2140 1787 Output Total 2250 1903 Balance -110 -116 Result Diagrams: 02/24/18 04:16 02/24/18 04:16 Phys Exam - Physical Examination Constitutional: NAD HEENT: moist MMs Respiratory: no rales, no rhonchi, wheezing present Good air movement throughout Cardiovascular: RRR, no significant murmur Gastrointestinal: soft, positive bowel sounds Neurological: non-focal, moves all 4 limbs Psychiatric: normal affect, A&O x 3 Dx/Plan (1) Healthcare-associated pneumonia Code(s): J18.9 - PNEUMONIA, UNSPECIFIED ORGANISM Status: Acute Comment: present on admission, new RLL infiltrate, increased WBC, increased O2 need, tachypnea, and tachycardia. WBC improving. Sputum culture negative. On Cefepime and Linezolid. Levaquin d/c'd. Improving. (2) Sepsis Code(s): A41.9 - SEPSIS, UNSPECIFIED ORGANISM Status: Acute Qualifiers: Sepsis type: sepsis due to unspecified organism Qualified Code(s): A41.9 - Sepsis, unspecified organism Comment: present on admit, no septic shock, WBC better daily, improving (3) Acute and chronic respiratory failure with hypoxia Code(s): J96.21 - ACUTE AND CHRONIC RESPIRATORY FAILURE WITH HYPOXIA Status: Acute (4) Acute exacerbation of chronic obstructive pulmonary disease (COPD) Code(s): J44.1 - CHRONIC OBSTRUCTIVE PULMONARY DISEASE W (ACUTE) EXACERBATION Status: Acute Comment: Continue Duonebs, solumedrol, dulera, Cefepime and Linezolid, O2, off BiPAP. Transfered to medical. (5) Paroxysmal A-fib Code(s): I48.0 - PAROXYSMAL ATRIAL FIBRILLATION Status: Chronic Comment: in NSR at present (6) CAD (coronary artery disease) Code(s): I25.10 - ATHSCL HEART DISEASE OF [place] CORONARY ARTERY W/O ANG PCTRS Status: Chronic Qualifiers: Coronary Disease-Associated Artery/Lesion type: [place] artery [place] vs. transplanted heart: [place] heart Associated angina: without angina Qualified Code(s): I25.10 - Atherosclerotic heart disease of [place] coronary artery without angina pectoris (7) Chronic anemia Code(s): D64.9 - ANEMIA, UNSPECIFIED Status: Chronic Comment: trending down a little, on Elliquis (possible interaction with Verapamil), no evidence significant bleed (8) Dyslipidemia Code(s): E78.5 - HYPERLIPIDEMIA, UNSPECIFIED Status: Chronic (9) Former smoker Status: Chronic (10) GERD (gastroesophageal reflux disease) Code(s): K21.9 - GASTRO-ESOPHAGEAL REFLUX DISEASE WITHOUT ESOPHAGITIS Status: Chronic Qualifiers: Esophagitis presence: without esophagitis Qualified Code(s): K21.9 - Gastro -esophageal reflux disease without esophagitis (11) Hypertension Code(s): I10 - ESSENTIAL (PRIMARY) HYPERTENSION Status: Chronic Qualifiers: Hypertension type: essential hypertension Qualified Code(s): I10 - Essential (primary) hypertension (12) Pulmonary cachexia due to chronic obstructive pulmonary disease Code(s): J44.9 - CHRONIC OBSTRUCTIVE PULMONARY DISEASE, UNSPECIFIED; R64 - [place] Status: Chronic - Plan cont current plan of care, continue antibiotics, PT/OT Dr. Castillo considering d/c to [place] tomorrow -: d/c once transitioned to oral abx and stable * . - Discharge Day Encounter end time: 12:40
[2018-02-25] MEDS: Flecainide 50 MG TAB PO SCH ×2 (10:04→21:15)
[2018-02-25] MEDS: Saccharomyces boulardii 250 MG CAP PO SCH (10:05)
[2018-02-25] MEDS: Atorvastatin Calcium 10 MG TAB PO SCH (10:05)
[2018-02-25] MEDS: Aspirin 81 mg Enteric Coated Tablet PO SCH (10:06)
[2018-02-25] MEDS: Spironolactone 25 MG TAB PO SCH ×2 (10:06→17:36)
[2018-02-25] MEDS: guaiFENesin ER 600 MG TAB PO SCH ×2 (10:06→21:14)
[2018-02-25] MEDS: Famotidine 20 MG TAB PO SCH ×2 (10:07→21:13)
[2018-02-25] MEDS: Apixaban 5 MG TAB PO SCH (10:07)
[2018-02-25] MEDS: Fluticasone Propionate Nasal Spray 16 gm Bottle NASAL SCH ×2 (10:08→21:19)
[2018-02-25] MEDS: ALPRAZolam 0.25 MG TAB PO PRN (10:21)
[2018-02-25] MEDS: Verapamil 120 MG TAB PO SCH ×2 (10:51→21:22)
[2018-02-25] MEDS: Furosemide 20 MG TAB PO SCH (15:01)
--- NOTE | 2018-02-25 19:23 | PRG ---
DATE OF SERVICE: 02/25/2018 SUBJECTIVE: Ms. Sharp did well overnight. She is in no distress. PHYSICAL EXAMINATION: VITAL SIGNS: Stable. LUNGS: Still remarkable for wheezes. HEART: Regular rhythm. ABDOMEN: Soft. She says she is ready to go home. I have recommended that she goes somewhere with assistance. She i s evaluating one of the other places over in [place] besides [facility]. I think she will be stable for discharge in the morning. We can discontinue her IV antibiotics and p.o. antibiotics in the [facility] after 7 days of IV and p.o. therapy. Her pneumonia should be adequately treated at this point. She can be discharged on 40 of prednisone as well as her nebulizer medicine and her oxygen.
[2018-02-25] MEDS ORDERED: Nystatin 500,000 UNITS/5 ML UDCUP SSW PRN (19:31)
[2018-02-26] MEDS: Apixaban 5 MG TAB PO SCH ×2 (00:29→13:10)
[2018-02-26] MEDS: ALPRAZolam 0.25 MG TAB PO PRN (00:57)
[2018-02-26] MEDS: Cefepime 2 GM in Sodium Chloride 0.9% 100 ML IVPB SCH ×2 (04:00→18:12)
[2018-02-26] MEDS: Benzonatate 100 MG CAP PO SCH ×2 (05:05→13:08)
[2018-02-26] MEDS: Linezolid 600 MG TAB PO SCH ×2 (05:06→18:11)
[2018-02-26] MEDS ORDERED: SYMBICORT 160/4.5 INH PRN (06:28)
[2018-02-26] MEDS: Mometasone/Formoterol 120 PUFF INHALER INH SCH (06:30)
[2018-02-26] MEDS: Verapamil 120 MG TAB PO SCH (07:46)
[2018-02-26] MEDS: Atorvastatin Calcium 10 MG TAB PO SCH (07:46)
[2018-02-26] MEDS: guaiFENesin ER 600 MG TAB PO SCH (07:47)
[2018-02-26] MEDS: Flecainide 50 MG TAB PO SCH (07:47)
[2018-02-26] MEDS: Saccharomyces boulardii 250 MG CAP PO SCH (07:48)
[2018-02-26] MEDS: Aspirin 81 mg Enteric Coated Tablet PO SCH (07:48)
[2018-02-26] MEDS: Famotidine 20 MG TAB PO SCH (07:48)
[2018-02-26] MEDS: Spironolactone 25 MG TAB PO SCH ×2 (07:48→18:11)
[2018-02-26] MEDS: Fluticasone Propionate Nasal Spray 16 gm Bottle NASAL SCH (07:56)
[2018-02-26 08:13] VITALS: BP 149/76; TEMP 97.1
[2018-02-26] MEDS ORDERED: Apixaban 5 MG TAB PO SCH (10:45)
[2018-02-26] MEDS: Furosemide 20 MG TAB PO SCH (13:08)
--- NOTE | 2018-02-26 15:05 | PRG ---
DATE OF SERVICE: 02/26/2018 SUBJECTIVE: Ms. Sharp is in no distress. She is afebrile, heart rate 80, respiratory rate is 20, o ximetry is 97 on 3 liters, blood pressure 149/76. OBJECTIVE: LUNGS: Remarkable for barely audible wheezes. HEART: Regular rhythm. ABDOMEN: Soft. IMPRESSION: Chronic obstructive pulmonary disease exacerbation with pneumonia, improved. She is sta ble to move to a swing bed in my opinion. She is to take 40 of prednisone for 4 more days, then go t o 20 mg a day. She is on steroids indefinitely. She continued nebulized treatments every 4 hours an d her other medications. She has had an adequate course of antimicrobial therapy intravenously in my opinion.
--- NOTE | 2018-02-26 15:37 | DIS ---
DATE OF ADMISSION: 02/18/2018 DATE OF DISCHARGE: 02/26/2018 PRIMARY CARE PROVIDER: Jamal Hanks M.D. DISCHARGE DISPOSITION: Discharged to [facility] under the care of Dr. Hanks. FINAL DIAGNOSES: Pneumonia, chronic obstructive pulmonary disease with acute exacerbation, acute on chronic respiratory failure with hypoxemia, sepsis, organism not specified, paroxysmal atrial fibrill ation, chronic anticoagulation, and dyslipidemia. ALLERGIES: CODEINE, LISINOPRIL, NIACIN FROM NIASPAN, SULFA. PENDING AT THE TIME OF DISCHARGE: Nothing. CODE STATUS: FULL. DIET: Heart healthy. DISCHARGE MEDICATIONS: O2 3 liters per nasal cannula, verapamil 120 mg p.o. b.i.d., Lasix 20 mg a da y, Tambocor 75 mg p.o. b.i.d., Tessalon 200 mg p.o. q.8 hours p.r.n., Eliquis 5 mg p.o. b.i.d., alpra zolam 2.25 mg p.o. b.i.d. p.r.n., spironolactone 25 mg p.o. b.i.d., Dulera 200/5 two puffs b.i.d., Du oNeb 3 mL q.4 hours nebulizer, Pepcid 20 mg p.o. b.i.d., Lipitor 10 mg a day, and aspirin 81 mg a day . HOSPITAL COURSE: Patient with severe COPD readmitted to the hospital after discharge to [facility]. She was admitted with shortness of breath, a new right lower lobe infiltrate, 32,000 white c ount. She was seen in consultation by Dr. Conner for Dr. Chintan Castillo. Antibiotics were increased fro m Levaquin to Maxipime 2 grams q.12 hours, linezolid 600 mg b.i.d. On 02/21/2018, she is improved. Pulse ox was running 96%. She received DuoNeb q.4 hours. IV steroids that have been deescalated now to p.o. prednisone after 7 days of IV antibiotics with cefepime, linezolid p.o. antibiotics have bee n discontinued. Followup chest x-ray done 02/22/2018 reveals some persistence of right lower lobe infiltrate. On , she was feeling well. O2 sats were still 90% on 3 liters O2. Today, she has been transitio rebecca to p.o. steroids. PROCEDURES: None. LABORATORY DATA: As mentioned before, initial white count was high at 28.8, it is now 18.3, which is reasonable for the dose of methylprednisone she has been on. She has continued to have anemia, 8.8, 8.4, 8.5, 8.2, 8.0, and 7.8. Her chemistries, renal functions are normal. Sodium is ranged 131-134 . Blood sugars have ranged in the 146-200 range. PHYSICAL EXAMINATION: VITAL SIGNS: Blood pressure 149/75, pulse 80, respirations 16, pulse ox 97 on 3 liters. LUNGS: She has coarse breath sounds equal bilaterally. CARDIAC: Has a regular rate and rhythm. I have discussed the continuing care with her. She is being transferred to [facility] be d under the care of Dr. Hanks. She is currently on no antibiotics as per Dr. Castillo. She will cont inue on prednisone 40 mg a day for 4 days at [place] and then should be shifted to 20 mg a day and m aintain there. Follow up in [address] Hanks or sooner. Follow up with Dr. Castillo pvijay.
== END 2018-02-26 18:25 | DRG 871 ==
LOC: T4-A 13:00 → CCU 02-19 13:58 → IMCU/EMU 02-20 16:32 → T4-B 02-25 01:37
PROVIDERS: ADMIT Internal Medicine; ATTEND Internal Medicine
DX: A41.9 Sepsis, unspecified organism (principal); J96.21 Acute and chronic respiratory failure with hypoxia; J18.9 Pneumonia, unspecified organism; J44.1 Chronic obstructive pulmonary disease with (acute) exacerbation; J44.0 Chronic obstructive pulmonary disease with (acute) lower respiratory infection; R64 Cachexia; I48.0 Paroxysmal atrial fibrillation; I10 Essential (primary) hypertension; I25.10 Atherosclerotic heart disease of native coronary artery without angina pectoris; E78.5 Hyperlipidemia, unspecified; K21.9 Gastro-esophageal reflux disease without esophagitis; Z68.26 Body mass index [BMI] 26.0-26.9, adult; D64.9 Anemia, unspecified; Z99.81 Dependence on supplemental oxygen; Z91.19 Patient's noncompliance with other medical treatment and regimen; Z87.891 Personal history of nicotine dependence; Z88.5 Allergy status to narcotic agent; Z88.2 Allergy status to sulfonamides; Z88.8 Allergy status to other drugs, medicaments and biological substances; Z79.01 Long term (current) use of anticoagulants; Z79.82 Long term (current) use of aspirin; Z79.52 Long term (current) use of systemic steroids; Z79.899 Other long term (current) drug therapy
CPT/HCPCS: 36415; 36416; 71045; 80048; 80053; 83735; 85025; 87070; 87205; 94640; 94664; A4216; G8978-GP-CL; G8979-GP-CJ; J0692; J1956; J2920; J7050; J7620